=== PATIENT | female | born 2000 | race Caucasian/White ===

== ENCOUNTER 2018-11-15 17:32 | Emergency (ER) | payer SELFPAY ==
[2018-11-15 17:35] VITALS: BP 118/66; PULSE 62; RESP 14; TEMP 36.7; O2SAT 97; BMI 28.1
[2018-11-15] MEDS: 0.9% Normal Saline 1,000 ML 1000 ML IV (19:04)
[2018-11-15 19:22] LABS: Lyme Ab Screen Interpretation REF LAB
--- NOTE | 2018-11-15 19:53 | ED.DCSUM_ITS ---
- ER Visit Summary Date of Service: 11/15/18 Chief Complaint: [Joint pain and concern for Lyme disease] History of Present Illness: The patient is a 17 F [presents the emergency department complaint of joint pain that started about 3 weeks ago. Patient states that she had a tick that she removed from her neck 1 month ago. Patient a week later developed a red circular rash. Patient also developed joint pain.] Patient has had subjective fever at home. She has not seen her primary care physician for this. Physical Examination: [HEENT-PERRLA, EOMI. Cranial nerves II through XII grossly intact. TMs clear. Mucous membranes moist. No adenopathy. Cardiovascular-regular rate and rhythm without murmur or ectopy Lungs-clear to auscultation, chest wall stable without crepitus or subcu emphysema Abdomen-normoactive bowel sounds, soft, nontender, no rebound or rigidity, no pe ritoneal signs. Skin exam-patient does have a oval-shaped salmon-colored patchy rash involving the anterior chest and back that appears to be typical of pityriasis rosea. I do not appreciate any bull's-eye lesions. Extremities-intact ?4, normal range of motion, normal pulses, atraumatic] Test Results: [I did send off a Lyme studies. ] Emergency Department Course and Treatment: [Patient was started on doxycycline given that she has allergy to penicillin] Treatment Plan: [We will treat with doxycycline and refer to primary care physician and infectious disease.] Disposition: [Discharged home in stable condition] Impression: [Tick bite with suspect did Lyme disease] This note was generated with [employer] dictation software. It may contain incorrect words, spelling, and punctuation that were not noted in review of the chart prior to signing ED Disposition - Plan for ED Patient: Referrals: Jose Carlos Knight DO [Primary Care Provider] -
--- NOTE | 2018-11-15 19:58 | ED.DEP ---
ED Disposition - Plan for ED Patient: Instructions: ED Bite Tick Abx Tx Prescriptions: Doxycycline 100 mg PO BID #42 cap Referrals: Jose Carlos Chang MD [STAFF PHYSICIAN] - 3-5 Days Jose Carlos Knight DO [Primary Care Provider] - 3-5 Days
[2018-11-15 20:12] VITALS: BP 111/54; BP 111/56; PULSE 58; RESP 17; O2SAT 99
[2018-11-15] MEDS: Doxycycline 100 MG CAPSULE PO (20:12)
[2018-11-20 11:43] LABS: Lyme Scn Total Ab w/Rflx <0.91 ISR (0.00-0.90)
== END 2018-11-15 20:17 | disposition home or self-care (01) ==
LOC: ED 19:00
PROVIDERS: Emergency Provider Emergency Medicine; Family Provider Preventive Medicine Occupational Medicine; PCP Preventive Medicine Occupational Medicine
DX: M25.50 Pain in unspecified joint (principal); W57.XXXA Bitten or stung by nonvenomous insect and other nonvenomous arthropods, initial encounter; Z72.0 Tobacco use
CPT/HCPCS: 86618; 96360; 99283; J7030; A4216

== ENCOUNTER 2025-05-19 20:32 | Emergency (ER) | payer MEDICAID, SELFPAY ==
[2025-05-19 20:33] VITALS: BP 123/80; PULSE 103; RESP 18; TEMP 36.6; O2SAT 99
[2025-05-19 20:36] VITALS: BMI 33.8
[2025-05-19 20:48] VITALS: BP 113/70; BP 121/75; PULSE 78; PULSE 92
--- NOTE | 2025-05-19 20:50 | EX.ED.DYSGE1 ---
HPI History of Present Illness Chief Complaint: General Illness Detail of Chief Complaint: Bilateral lower abdominal pain, diarrhea and nausea Informant: patient Onset/Context/Timing Onset: Days (Onset 4 days ago) Context: Sudden Onset Timing: Continuous and Waxes and wanes Quality: Dull Location: Bilateral lower quadrant Current Severity: Mild Maximum Severity: Moderate Worsened by: Nothing Relieved by: Nothing Associated Symptoms Associated Symptoms: Nausea, dry mouth, thirst, orthostatic lightheadedness Narrative Narrative: Patient is a 24-year-old female. She was diagnosed with Lyme's disease this past spring. She completed course of antibiotics for 21 days. She endorses bilateral dull lower quadrant abdominal pain with diarrhea. She is having 5+ watery stools per day. She has had no ill contacts to her knowledge. Has not eaten anything that tasted unusual to her. Has not been on antibiotic in the past month. She does complain of myalgias arthralgias. She denies documented fever. She denies chills. States anytime she drinks anything it goes through her. She denies headache, visual, ocular auditory symptoms. She denies cardiac respiratory symptoms. She has had prior EGDs with no abnormality found. She has not had a colonoscopy. She has not noted blood or mucus in her diarrhea. She has not noted any rash or skin lesions. She has not noted any swelling of her joints. There is no family history of Crohn's disease or ulcerative colitis. Prior similar symptoms: No Recent Illness/Hospitalization: No [facility] Medical History Lyme disease Gastritis Medical History no medical history Home Medications ?Medication ?Instructions ?Recorded ?Last Taken ?Type doxycycline monohydrate 100 mg 100 mg PO BID #42 caps 11/15/18 Unknown Rx capsule Allergy/AdvReac Type Severity Reaction Status Date / Time Penicillins Allergy Angioedema Verified 05/19/25 20:35 latex AdvReac Rash Verified 05/19/25 20:35 Surgical History no surgical history Social History Smoking Status: Former smoker ROS ROS ED Constitutional Constitutional ED: Denies chills, fever(s), subjective or sweats ENT ENT ED: Denies rhinorrhea or sore throat Cardiovascular Cardiovascular: Denies palpitations Respiratory/Chest Respiratory/Chest: Denies cough, dyspnea or dyspnea on exertion Gastrointestinal Gastrointestinal: Reports abdominal pain, diarrhea and nausea; Denies constipation, melena or vomiting Genitourinary Genitourinary ED: Denies dysuria, hematuria or urinary frequency Musculoskeletal Musculoskeletal: Reports arthralgias and myalgias Integumentary Denies rash Neurologic Neurologic: Reports weakness; Denies headache(s) Hematologic/Lymphatic Hematologic/Lymphatic: Reports systems reviewed and no addt'l complaints, except as documented EXAM Physical Exam Const Vital Signs: 05/19/25 20:33 05/19/25 20:45 05/19/25 20:48 Temperature 97.8 F Temperature Source Temporal Pulse Rate 103 H Pulse Rate [Lying] 78 Pulse Rate [Sitting (for 1 minute prior to obtaining)] 92 Pulse Rate [Standing (for 1 minute prior to obtaining)] Respiratory Rate 18 Respiratory Effort Normal Respiratory Pattern Normal Blood Pressure 123/80 H Blood Pressure [Lying] 121/75 H Blood Pressure [Sitting (for 1 minute prior to obtaining)] 113/70 Blood Pressure [Standing (for 1 minute prior to obtaining)] Blood Pressure Mean 94 Blood Pressure Mean [Lying] 90 Blood Pressure Mean [Sitting (for 1 minute prior to obtaining)] 84 Blood Pressure Mean [Standing (for 1 minute prior to obtaining)] Pulse Ox 99 Oxygen Delivery Method Room Air 05/19/25 22:33 05/19/25 23:46 Temperature Temperature Source Pulse Rate 77 Pulse Rate [Lying] 81 Pulse Rate [Sitting (for 1 minute prior to obtaining)] 76 Pulse Rate [Standing (for 1 minute prior to obtaining)] 79 Respiratory Rate 19 H Respiratory Effort Respiratory Pattern Blood Pressure 110/72 Blood Pressure [Lying] 102/81 H Blood Pressure [Sitting (for 1 minute prior to obtaining)] 107/73 Blood Pressure [Standing (for 1 minute prior to obtaining)] 100/64 Blood Pressure Mean 84 Blood Pressure Mean [Lying] 88 Blood Pressure Mean [Sitting (for 1 minute prior to obtaining)] 84 Blood Pressure Mean [Standing (for 1 minute prior to obtaining)] 76 Pulse Ox 98 Oxygen Delivery Method Room Air Positive well nourished and well developed Constitutional Narrative: Patient appears ill. Vital signs are marked for an elevated heart rate. General Appearance ED: well developed and pallor HEENT Reports dry mucous membranes HEENT Narrative: Head is atraumatic and normocephalic. Ears normal. Nares patent posterior pharynx is unremarkable. Mouth ED: Yes dry mucous membranes Mouth: dry mucous membranes Eyes PERRL and EOMs intact bilaterally General Eye ED: Negative for pale conjunctiva or scleral icterus Neck no lymphadenopathy, supple and no JVD Resp normal respiratory effort and clear to auscultation bilaterally Cardio regular rhythm, S1 normal heart sound and no murmurs Rate: tachycardic GI non-distended and no masses; Negative for non-tender or hepatosplenomegaly Auscultation: hypoactive bowel sounds Palpation: soft and tender other (Discomfort to palpation is generalized. There is no guarding or peritoneal findings.) Back/Spine no CVA tenderness Extremity normal to inspection General Extremety ED: Negative for edema or tenderness General Extremity: Negative for edema Neuro oriented x3 and CN's II-XII intact bilaterally Sensorium / Orientation: alert Psych mental status grossly normal Skin no rashes or lesions noted, no wounds and No skin turgor normal General Skin Exam: pallor; Negative for elasticity normal or jaundice MDM MDM MDM Narrative Medical decision making narrative: Clinically patient appears dehydrated. 1 L normal saline was ordered. Zofran was ordered for her nausea. Will obtain CBC to assess white count differential and assess for eosinophilia. BMP to assess renal function, CO2 anion gap and evaluate for hypokalemia. If patient is able to produce stool specimen will send for enteric pathogens. History & Record Review Additional record(s) reviewed:: Prior inpatient record, Prior outpatient record (Report for breast freezing visit July 2021.) and Prior ED visit (Evaluate for joint pain October 2018.) Lab Data Attestation: I reviewed the patient's lab results. Lab results narrative: CBC is normal. Basic metabolic panel is unremarkable with slight elevation of glucose of 113. Labs: Laboratory Results - last 24 hr 05/19/25 05/19/25 21:12 21:40 WBC 7.6 RBC 4.80 Hgb 14.6 Hct 42.3 MCV 88.1 MCH 30.4 MCHC 34.5 RDW Std Deviation 40.7 RDW Coeff of Andres 12.5 Plt Count 318 MPV 10.1 Immature Gran % (Auto) 0.300 Neut % (Auto) 58.8 Lymph % (Auto) 24.5 Woods % (Auto) 14.6 H Eos % (Auto) 1.0 Baso % (Auto) 0.8 Absolute Neuts (auto) 4.5 Absolute Lymphs (auto) 1.87 Nucleated RBC % 0 Sodium 135 Potassium 3.8 Chloride 101 Carbon Dioxide 20.9 L Anion Gap 13 BUN 10 Creatinine 0.82 Estim Creat Clear Calc 100.45 Est GFR (MDRD) Non-Af 101 BUN/Creatinine Ratio 11.6 Glucose 113 H Calcium 9.1 Urine Color Yellow Urine Clarity Sl. Cloudy Urine pH 6.0 Ur Specific [place] 1.010 Urine Protein 15 H Urine Glucose (UA) Normal Urine Ketones Negative Urine Occult Blood 50 H Urine Nitrite Negative Urine Bilirubin Negative Urine Urobilinogen Normal Ur Leukocyte Esterase 500 H Urine macro was positive for protein, occult blood and leukoesterase. Negative for nitrites. Treatment and Re-Evaluation :: Patient was reassessed at 2151. Patient states she feels better. She had a semiformed stool in the department. She is present receiving her liter of normal saline. Her nausea improved after Zofran. Comments:: Patient still complaining of orthostatic lightheadedness. Second liter of normal saline was ordered. Vital Sign Attestation:: Repeat orthostatic vital signs after 2 L of normal saline is negative. Therefore we will discharge to home Discharge Plan Triage Chief Complaint: General Illness ED Provider: Marco A Hinton Dx/Rx/DC Orders Clinical Impression: Abdominal pain, bilateral lower quadrant, Diarrhea, Nausea, Orthostatic hypotension, Acute dehydration, Tachycardia Instructions: ED Diarrhea, Unknown Cause, ED Hypotension, Orthostatic Prescriptions: No Action doxycycline monohydrate 100 MG capsule 100 mg PO BID Qty: 42 0RF Primary Care Provider: Ashley Gee Referrals: Ashley Gee, [Primary Care Provider, [facility][1]] - 3-5 Days if not improving Care Physician,No Primary [Non-Staff, Medical] Print Language: Belarusian Disposition Disposition: Home, Self Care
--- OUTSIDE RECORDS SUMMARY | 2025-05-19 21:05 | XMS RPT_ITS | CCD ---
Author Organization [facility] Care Team Providers Care Display Fabricator Name Role Phone PROVIDER, UNKNOWN Unavailable Unavailable No, PCP Unavailable Unavailable Russell Foreman Unavailable Unavailable PROVIDER, UNKNOWN Unavailable Unavailable No, PCP Unavailable Unavailable Judy Joe Unavailable Unavailable ROXANA GREEN Unavailable Unavailable Roxana Green Unavailable Unavailable PROVIDER, UNKNOWN Unavailable Unavailable No, PCP Unavailable Unavailable BORA ROSALES Unavailable Unavailable IMCA Unavailable Unavailable BORA ROSALES Unavailable Unavailable AMAURI HINES DO Primary Care Physician AMAURI HINES DO Primary Care Physician [phone] CORTNEY GREGORIO DO Attending Unavailable FLORA MADDEN, AMAURI Primary Care Unavailable FLORA MADDEN, AMAURI Primary Care Unavailable LUBNA ROME-SHASTA Portillo Attending Unavailable FLORA MADDEN, AMAURI Primary Care Unavailable SHASTA CALVO PA-C Attending Unavailable SHASTA CALVO PA-C Referring Unavailable DR LINDSAY ALEMAN MD Attending Unavailable FLORA MADDEN AMAURI Primary Care Unavailable Unavailable Primary Care Provider Unavailabl e Unavailable Primary Care Provider Unavailabl e (Historical), Unknown Primary Care Provider Unav ailable Amauri Hines DO Primary Care Provider AMAURI HINES Primary Care Unavailable HONG FARRIS Attending Unavailable AMAURI HINES DO Attending Unavailable FLORA MADDEN, AMAURI Primary Care Unavailable NOLAN HEREDIA Attending Unava ilable FLORA MADDEN, AMAURI Primary Care Unavailable FLORA MADDEN, AMAURI Attending Unavailable FLORA MADDEN, AMAURI Primary Care Unavailable FLORA MADDEN, AMAURI Primary Care Unavailable JONE MALHOTRA Attending Amisha varicardoble KENTON REESE DO Attending Unavailable FLORA MADDEN, AMAURI Primary Care Unavailable JENNIFER SÁNCHEZ DO Attending Unavailable FLORA MADDEN, AMAURI Primary Care Unavailable FLORA MADDEN, AMAURI Primary Care Unavailable NAUN HDEZ MD Attending Unavailable BASAR, ALVARADO Admitting Unavailable BASAR, ALVARADO Attending Unavailable ADRIAN VALERO Admitting Unavailable ADRIAN VALERO Attending Unavailable ARIAN LALA Attending Unavailable MARY KAY ARNDT Referring Unavailable BASAR, ALVARADO Admitting Unavailable BASAR, ALVARADO Attending Unavailable Allergies Allergy Classification Reported Allergen(s) Allergy Type Date of Onset Reaction(s) Facility (20 sources) Latex; Translations: [LATEX] Allergy to substance 4 [facility] (11 sources) Penicillin; Translations: [penicillin] Drug Allergy Weal (disorder) [facility] (8 sources) Acetaminophen; Translations: [acetaminophen] Drug Allergy 4 [facility] (16 sources) Acetaminophen Drug Allergy 4 [facility] (16 sources) Penicillin G Drug Allergy 4 [facility] (5 sources) Penicillins; Translations: [PENICILLINS] Drug Allergy 4 [facility] (8 sources) Cheese Propensity to adverse reactions 5 Shortness of breath, Swelling [facility] Medications Current Medications Medication Drug Class(es) Dates Sig (Normalized) Sig (Original) acetaminophen 325 mg / oxyCODONE hydrochloride 5 mg oral tablet (2 sources) Opioid Agonist Start: 08-21-2022 End: 08-26-2022 take 1 tablet by mouth every six hours as needed for pain Percocet 5 mg-325 mg oral tablet Dose = 1 tab(s), Oral, q6h, PRN for pain, X 5 day(s), # 15 tab(s), 0 Refill(s), Closed fracture of right wrist, 72.7 Start Date: 08/21/22 Stop Date: 08/26/22 Status: Ordered ARIPiprazole 10 mg oral tablet (1 source) Atypical Antipsychotic Start: 07-22-2017 take 1 tablet by mouth once daily ARIPiprazole (ABILIFY) 10 MG tablet Take 1 tablet by mouth nightly 30 tablet 0 07/22/2017 Active famotidine 40 mg oral tablet (3 sources) Histamine-2 Receptor Antagonist Start: 06-11-2024 take 1 tablet by mouth every twelve hours famotidine (PEPCID) 40 mg tablet Take 1 tablet by mouth every 12 hours. 06/11/2024 Active ketoconazole 20 mg/ml topical cream (8 sources) Azole Antifungal Start: 08-13-2022 ketoconazole 2% topical cream See Instructions, apply to affected area once daily for 14 days, # 30 gram(s), 1 Refill(s), Pharmacy: [facility] #[id number], Cream, 162, cm, 01/19/22 16:00:00 EDT, Height, 72.7 Start Date: 08/13/22 Status: Ordered meclizine hydrochloride 25 mg oral tablet (1 source) Antiemetic Start: 03-18-2024 End: 03-23-2024 meclizine 25 mg oral tablet Dose : 25 mg = 1 tab(s), PO, TID, As needed for vertigo, X 5 day(s), # 15 tab(s), 0 Refill(s), 03/23/24 3:27:00 PM EDT Start Date: 03/18/24 Stop Date: 03/23/24 Status: Ordered omeprazole 20 mg delayed release oral capsule (6 sources) Proton Pump Inhibitor Start: 11-19-2024 take 1 capsule by mouth twice daily before mealtime omeprazole (PriLOSEC) [address] capsule Indications: Helicobacter heilmannii gastritis Take 1 capsule (20 mg) by mouth 2 times daily (before meals) for 14 days. Do not crush or chew. 28 capsule 11/19/2024 Active pantoprazole 40 mg delayed release oral tablet (19 sources) Proton Pump Inhibitor Start: 05-01-2024 take 1 tablet by mouth twice daily, then take 1 tablet by mouth once daily pantoprazole DR (PROTONIX) 40 mg tablet TAKE 1 TABLET BY MOUTH TWICE DAILY FOR 7 DAYS, THEN DECREASE TO 1 TABLET BY MOUTH DAILY. 05/01/2024 Active Start: 04-14-2024 take 40 mg by mouth once 40 mg , Oral, Once, On 04/14/24 at 1850, For 1 dose, Do not crush, chew, or split. Start: 04-14-2024 End: 11-19-2024 take 1 tablet by mouth once daily pantoprazole (ProtoNix) 20 MG EC tablet Take 1 tablet (20 mg) by mouth daily for 20 days. Do not crush, chew, or split. 20 tablet 04/14/2024 11/19/2024 Discontinued Completed/Discontinued Medications Medication Drug Class(es) Dates Sig (Normalized) Sig (Original) bismuth subsalicylate 262 mg chewable tablet (1 source) Bismuth Start: 11-19-2024 End: 12-03-2024 bismuth subsalicylate (Pepto-Bismol) 262 MG chewable tablet Indications: Helicobacter heilmannii gastritis Chew 2 tablets (524 mg) 4 times daily for 14 days. 112 tablet 11/19/2024 12/03/2024 dicyclomine hydrochloride 10 mg oral capsule (4 sources) Anticholinergic Start: 04-14-2024 End: 04-14-2024 take 10 mg by mouth once 10 mg, Oral, Once, On 04/14/24 at 1850, For 1 dose Start: 04-14-2024 End: 04-24-2024 take 1 tablet by mouth twice daily dicyclomine (Bentyl) 20 MG tablet Take 1 tablet (20 mg) by mouth 2 times daily for 10 days. 20 tablet 04/14/2024 04/24/2024 Active metroNIDAZOLE 250 mg oral tablet (1 source) Nitroimidazole Antimicrobial Start: 11-19-2024 End: 12-03-2024 take 1 tablet by mouth four times daily metroNIDAZOLE (Flagyl) 250 MG tablet Indications: Helicobacter heilmannii gastritis Take 1 tablet (250 mg) by mouth 4 times daily for 14 days. 56 tablet 11/19/2024 12/03/2024 2 ml ondansetron 2 mg/ml injection (7 sources) Serotonin-3 Receptor Antagonist Start: 01-16-2025 End: 01-16-2025 4 mg, IntraVENous, Once PRN, nausea, vomiting, Starting on Tue01/16/25 at 0725, For 1 dose, Preprocedure Start: 11-14-2024 End: 11-14-2024 4 mg, IntraVENous, Once PRN, nausea, vomiting, Starting on Tue11/14/24 at 0928, For 1 dose, Preprocedure Start: 04-01-2024 End: 04-15-2024 ondansetron 4 mg oral tablet , disintegrating Dose : 4 mg = 1 tab(s), Oral, q6h, PRN Nausea/Vomiting, # 20 tab(s), 0 Refill(s), 04/15/24 5:14:00 PM EDT Start Date: 04/01/24 Stop Date: 04/15/24 Status: Ordered 5 ml sodium chloride 9 mg/ml injection (20 sources) Start: 02-28-2025 End: 02-28-2025 10 mL, IntraVENous, Every 12 hours scheduled (2 times per day), First dose on Tue02/28/25 at 0915 Start: 02-28-2025 End: 02-28-2025 take 100 mL intravenously every hour as needed, then take 20 mL intravenously every hour as needed 5-250 mL/hr, IntraVENous, PRN, if patient receiving piggyback infusions and maintenance fluids are not ordered OR KVO fluids to protect IV site / prevent frequent line interruptions/ long duration, Starting on Sena 02/28/25 at 0909, For piggyback infusion, administer at same rate as piggyback for a total of 25 mL. Enter 25 mL into dose field and piggyback rate into rate field of order. If piggyback is infusing at a rate less than 100 mL/hr, enter 25 mL into dose field and 100 mL/hr into rate field of order. For KVO fluids, enter rate of 20 mL/hr or less into rate field of order. Start: 02-28-2025 End: 02-28-2025 take 10 mL intravenously once as needed 10 mL, IntraVENous, PRN, line care, Starting on Sena 02/28/25 at 0909, After every IV line use Start: 01-16-2025 End: 01-16-2025 10 mL, IntraVENous, Every 12 hours scheduled (2 times per day), First dose on Tue01/16/25 at 0900, Preprocedure Start: 01-16-2025 End: 01-16-2025 take 100 mL intravenously every hour as needed, then take 20 mL intravenously every hour as needed 5-250 mL/hr, IntraVENous, PRN, if patient receiving piggyback infusions and maintenance fluids are not ordered OR KVO fluids to protect IV site / prevent frequent line interruptions/ long duration, Starting on Tue01/16/25 at 0725, Preprocedure, For piggyback infusion, administer at same rate as piggyback for a total of 25 mL. Enter 25 mL into dose field and piggyback rate into rate field of order. If piggyback is infusing at a rate less than 100 mL/hr, enter 25 mL into dose field and 100 mL/hr into rate field of order. For KVO fluids, enter rate of 20 mL/hr or less into rate field of order. Start: 01-16-2025 End: 01-16-2025 take 10 mL intravenously once as needed 10 mL, IntraVENous, PRN, line care, Starting on Tue01/16/25 at 0725, Preprocedure, After every IV line use Start: 11-14-2024 End: 11-14-2024 10 mL, IntraVENous, Every 12 hours scheduled (2 times per day), First dose on Tue11/14/24 at 0930, Preprocedure Start: 11-14-2024 End: 11-14-2024 take 100 mL intravenously every hour as needed, then take 20 mL intravenously every hour as needed 5-250 mL/hr, IntraVENous, PRN, if patient receiving piggyback infusions and maintenance fluids are not ordered OR KVO fluids to protect IV site / prevent frequent line interruptions/ long duration, Starting on Tue11/14/24 at 0928, For piggyback infusion, administer at same rate as piggyback for a total of 25 mL. Enter 25 mL into dose field and piggyback rate into rate field of order. If piggyback is infusing at a rate less than 100 mL/hr, enter 25 mL into dose field and 100 mL/hr into rate field of order. For KVO fluids, enter rate of 20 mL/hr or less into rate field of order. Start: 11-14-2024 End: 11-14-2024 take 10 mL intravenously once as needed 10 mL, IntraVENous, PRN, line care, Starting on Tue11/14/24 at 0928, After every IV line use tetracycline hydrochloride 500 mg oral capsule (1 source) Tetracycline-class Antimicrobial Start: 11-19-2024 End: 12-03-2024 take 1 capsule by mouth four times daily tetracycline 500 MG capsule Indications: Helicobacter heilmannii gastritis Take 1 capsule (500 mg) by mouth 4 times daily for 14 days. 56 capsule 11/19/2024 12/03/2024 Problems Active Problems Problem Classification Problem Date Documented Da te Episodic/Chronic Abdominal pain (20 sources) Pain in pelvis; Translations: [Generalized abdominal pain] Onset: 01-16-2025 08-28-2020 Episodic Anxiety disorders (11 sources) Anxiety 07-23-2020 Chronic Attention-deficit, conduct, and disruptive behavior disorders (2 sources) Other conduct disorders; Translations: [Other conduct disorders] Onset: 07-16-2017 Chronic Conditions associated with dizziness or vertigo (1 source) Dizziness and giddiness; Translations: [Dizziness and giddiness] Onset: 03-18-2024 Episodic E Codes: Fall (1 source) Unspecified fall, subsequent encounter; Translations: [Unspecified fall, subsequent encounter] Episodic Fracture of upper limb (2 sources) Closed fracture of carpal bone; Translations: [Fracture of unspecified carpal bone, right wrist, initial encounter for closed fracture] Onset: 08-21-2022 Episodic Gastritis and duodenitis (1 source) Helicobacter heilmannii gastritis; Translations: [Other gastritis without bleeding] 11-19-2024 Episodic Intestinal infection (4 sources) Infection caused by Helicobacter pylori; Translations: [Other specified bacterial intestinal infections] Onset: 01-16-2025 01-16-2025 Episodic Menstrual disorders (11 sources) Irregular periods 08-28-2020 Chronic Mood disorders (20 sources) Depressive disorder; Translations: [Bipolar affective disorder, currently manic, severe, with psychosis] Onset: 07-19-2017 07-23-2020 Chronic Mycoses (11 sources) Pityriasis versicolor 04-20-2022 Episodic Nausea and vomiting (13 sources) Nausea; Translations: [Nausea] Onset: 04-01-2024 Episodic Other disorders of stomach and duodenum (2 sources) Disease of stomach and duodenum, unspecified; Translations: [Disease of stomach and duodenum, unspecified] Onset: 02-28-2025 Episodic Other female genital disorders (1 source) Polyp of corpus uteri; Translations: [Polyp of corpus uteri] 05-15-2024 Episodic Other gastrointestinal disorders (4 sources) Diarrhea; Translations: [Diarrhea, unspecified] 07-12-2024 Episodic Other lower respiratory disease (1 source) Hemoptysis; Translations: [Hemoptysis] Onset: 03-18-2024 Episodic Other skin disorders (11 sources) Multiple skin tags 02-15-2020 Episodic Other upper respiratory infections (4 sources) Acute upper respiratory infection; Translations: [Acute upper respiratory infection, unspecified] Onset: 08-13-2023 Episodic Ovarian cyst (1 source) Cyst of ovary; Translations: [Unspecified ovarian cyst, unspecified side] 05-15-2024 Episodic Schizophrenia and other psychotic disorders (2 sources) Unspecified psychosis not due to a substance or known physiological condition; Translations: [Unspecified psychosis not due to a substance or known physiological condition] Onset: 07-03-2017 Chronic Substance-related disorders (20 sources) 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; Translations: [Nicotine dependence, unspecified, uncomplicated] Onset: 07-09-2017 07-19-2017 Chronic Unclassified (2 sources) Restlessness and agitation; Translations: [Restlessness and agitation] Onset: 07-09-2017 Chronic Unclassified (11 sources) Patient encounter status 08-28-2020 Viral infection (11 sources) Genital herpes simplex 08-28-2020 Chronic Past or Other Problems Problem Classification Problem Date Documented Da te Episodic/Chronic Attention-deficit, conduct, and disruptive behavior disorders (2 sources) Strange and inexplicable behavior; Translations: [Strange and inexplicable behavior] Onset: 07-09-2017 Episodic Attention-deficit, conduct, and disruptive behavior disorders (17 sources) Bizarre behavior; Translations: [Strange and inexplicable behavior] Onset: 07-10-2017 07-10-2017 Episodic Gastrointestinal hemorrhage (10 sources) Hematemesis; Translations: [Hematemesis] Onset: 04-14-2024 04-14-2024 Episodic Medical examination/evaluation (2 sources) Encounter for other general examination; Translations: [Encounter for other general examination] Onset: 07-16-2017 Episodic Other gastrointestinal disorders (2 sources) Diarrhea, unspecified; Translations: [Diarrhea, unspecified] Onset: 07-12-2024 Episodic Unclassified (1 source) Unknown / UNK(Unknown) Onset: 07-03-2017 Results Test Name Value Interpretation Reference Range Facility 36on 02-06-2025 36 Patient returned my phone call. Patient now scheduled on 02/28/25 @ 9am with the arrival time of 8am. [facility] schedule updated Order submitted Open Case request submitted Case # [id number] Endo packet mailed to patient Prep sent via [employer] if pt acct active Pt is aware they will need a tilt tray driver to take them home from procedure. Must be family member or friend. They cannot use any ride programs. Ex: Uber, Lyft, SCAT, bus, etc...) Normal [facility] 36 Lmtcb to get schedul ed for an EUS. Normal [facility] HCG QUALITATIVE URINEon 12-20 Beta HCG ( test) Ql (U) Negative Normal Negative [facility] Comment on above: Result Comment: Plea se note: Very dilute urine specimens, as indicated by a low specific gravity, may not contain community relations representative levels of hCG. If is still suspected, a first morning urine specimen should be collected 48 hours later and tested. ORDER COMMENTS: is the most common reason for HCG in urine, although choriocarcinoma, hydatidiform mole, and certain nontrophoblastic malignancies also result in detectable urinary HCG levels. Sensitivity = 20mIU/mL. Performed By: #### L [id number] #### Tellers Supervisor: HOSSEIN CAMACHO ([phone]) [facility] ([facility]) [address] [place] [address] Laboratory - Chemistry and C hemistry - challengeOrdered By: Noble Salinas on 01-16-2025 Beta HCG ( test) Ql Negative Negative [facility] Comment on above: Please note: Very di lute urine specimens, as indicated by a low specific gravity, may not contain community relations representative levels of hCG. If is still suspected, a first morning urine specimen should be collected 48 hours later and tested. Beta HCG ( test) Ql (U) is the most common reason for HCG in urine, although choriocarcinoma, hydatidiform mole, and certain nontrophoblastic malignancies also result in detectable urinary HCG levels. Sensitivity = 20mIU/mL. [facility] No Panel InformationOrdered By: Noble Salinas on 01-16-2025 [facility] Nursing Noteon 01-16-2025 Nursing Note Pt states she wants to go home. She is assisted with getting dressed by nurse. Complains of being slightly dizzy. Hand off done with volunteer and it is communicated to her that pt is dizzy. Pt states dizziness is tolerable and she is ready to go home. Discharge to home with all belongings. Normal [facility] Nursing Note Pt is awake and linnea irene juice. Dr Morgan discussed findings with pt. Father remains at bedside. She c/o slight sore throat. States slightly dizzy and not ready to get dressed. Normal [facility] Nursing Note Received pt from gi lab to recovery phase 2 sleeping/sedated on room air. Father brought to bedside. History and allergies reviewed in EMR. Report received and assessment completed [facility] 01-11-[address] Alvarado Morgan EGD Date: 01/16/25 Arrival time: 6:30 am Please report to: [place] [id number] Spoke with pt, confirmed they will attend scheduled procedure. All questions or concerns addressed. Pt has prep medication on hand. Prep instructions sent via [employer] if active. Normal [facility] 01-09-[address] Alvarado Morgan EGD Date: 01/16/25 Arrival time: 6:30 am Please report to: [place] [id number] Spoke with pt, confirmed they will attend scheduled procedure. All questions or concerns addressed. Pt has prep medication on hand. Prep instructions sent via [employer] if active. [facility] [id number] 12-10-2024 [id number] Patient accepted new date and time for her EGD. Patient now scheduled to 01/16/25 @ 7:30am with the arrival time of 6:30am with Dr. Morgan in [place]. Called and spoke withInessadi in surgery scheduling. Updated the case and view schedule. [facility] schedule updated Order submitted Open Case request submitted Case # [id number] Endo packet mailed to patient Prep sent via [employer] if pt acct active Pt is aware they will need a tilt tray driver to take them home from procedure. Must be family member or friend. They cannot use any ride programs. Ex: Uber, Lyft, SCAT, bus, etc...) [facility] [id number] 11-22-2024 [id number] Patient now schedule d on 04/10/25 @ 11:30am with the arrival time of 10:30am with Dr. Morgan in [place] for her EGD. [facility] schedule updated Order submitted Open Case request submitted Case # [id number] Endo packet mailed to patient Prep sent via [employer] if pt acct active Pt is aware they will need a tilt tray driver to take them home from procedure. Must be family member or friend. They cannot use any ride programs. Ex: Uber, Lyft, SCAT, bus, etc...) [facility] 36on 11-20-2024 36 Results and recommendations given to patient. Claims full understanding and questions answered at this time. [facility] pharmacy had to order medication and will rail gang supervisor today. Office number given and she will call to schedule follow up EGD with Bx 1 month after completion of medication with Rubi. Rubi will contact patient next week. Dr. Morgan notified. Arian notified. Rubi notified. 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 Treatment (Quadruple therapy) has been sent to the pharmacy. This includes tetracycline, metronidazole, omeprazole and pepto bismol. Will need to confirm successful treatment of bacteria with repeat EGD with gastric biopsies. Please schedule EGD ~ one month after treatment. Thank you. ----- Message ----- From: Alvarado Morgan MD Sent: 11/16/2024 4:44 PM EDT To: LEONARDA Sneed CNP Pls treat Helicobacter heilmannii just like HP infection and repeat EGD with gastric biopsies after treatment Thanks ----- Message ----- From: Whitetruffle Mecca Rosas Sent: 11/16/2024 1:40 PM EDT To: Alvarado Morgan MD [facility] HCG QUALITATIVE URINEon 10-19 Beta HCG ( test) Ql (U) Negative Normal Negative [facility] Comment on above: Result Comment: Pleotoniel sparks note: Very dilute urine specimens, as indicated by a low specific gravity, may not contain community relations representative levels of hCG. If is still suspected, a first morning urine specimen should be collected 48 hours later and tested. ORDER COMMENTS: is the most common reason for HCG in urine, although choriocarcinoma, hydatidiform mole, and certain nontrophoblastic malignancies also result in detectable urinary HCG levels. Sensitivity = 20mIU/mL. Performed By: #### L [id number] ####Tellers Supervisor: HOSSEIN CAMACHO ([phone])[facility] ([facility])[address] [place] [address] Laboratory - Chemistry and C hemistry - challengeOrdered By: Floridalma Gan on 11-14-2024 Beta HCG ( test) Ql Negative Negative [facility] Comment on above: Please note: Very di lute urine specimens, as indicated by a low specific gravity, may not contain community relations representative levels of hCG. If is still suspected, a first morning urine specimen should be collected 48 hours later and tested. Beta HCG ( test) Ql (U) is the most common reason for HCG in urine, although choriocarcinoma, hydatidiform mole, and certain nontrophoblastic malignancies also result in detectable urinary HCG levels. Sensitivity = 20mIU/mL. [facility] No Panel InformationOrdered By: Floridalma Gan on 11-14-2024 [facility] Nursing Noteon 11-14-2024 Nursing Note Pt and family verbal ized understanding of recovery instructions, pt verbalized a readiness to be discharged home. Pt discharged home via wheelchair accompanied by RN/volunteer. Pt has had all their belongings returned to them at discharge Normal [facility] Nursing Note Pt recieved from ENDOSCOPY to phase 2 via cart with EARLY CHILDHOOD DIRECTOR in attendance, pt has spontaneous respirations,pt place on monitor with alarms on, will continue to monitor Normal [facility] .Auto Diffon 09-26-2024 Basophil, Absolute 0.1 10 3/mcL Normal 0.0-0.3 [facility] Comment on above: Performed By: #### G FR, LIPID, CBC, ADIFF, ANEU, CMP ####[address] [address] Basophils/100 WBC (Bld) 0.8 % Normal 0.0-2.5 [facility] Comment on above: Performed By: #### G FR, LIPID, CBC, ADIFF, ANEU, CMP ####[facility] [place] [id number] Eosinophil, Absolute 0.2 10 3/mcL Normal 0.0-0.7 [facility] Comment on above: Performed By: #### G FR, LIPID, CBC, ADIFF, ANEU, CMP ####[place] [id number] [place], [place] [address] Eosinophils/100 WBC (Bld) 2.2 % Normal 0.0-6.0 [facility] Comment on above: Performed By: #### G FR, LIPID, CBC, ADIFF, ANEU, CMP ####[id number] [place], [place] [address] Lymphocyte, Absolute 2.3 10 3/mcL Normal 0.9-4.3 [facility] Comment on above: Performed By: #### G FR, LIPID, CBC, ADIFF, ANEU, CMP ####[address] [address] Lymphocytes/100 WBC (Bld) 21.4 % Normal 20.0-40.0 [facility] Comment on above: Performed By: #### G FR, LIPID, CBC, ADIFF, ANEU, CMP ####[address] [address] Monocyte, Absolute 0.9 10 3/mcL Normal 0.1-1.4 [facility] Comment on above: Performed By: #### G FR, LIPID, CBC, ADIFF, ANEU, CMP ####[address] [address] Monocytes/100 WBC (Bld) 8.5 % Normal 2.0-13.0 [facility] Comment on above: Performed By: #### G FR, LIPID, CBC, ADIFF, ANEU, CMP ####[address] [place], [place] [address] Neutrophils/100 WBC (Bld) 67.1 % Normal 50.0-75.0 [facility] Comment on above: Performed By: #### G FR, LIPID, CBC, ADIFF, ANEU, CMP ####[facility] [place], [place] [address] .GFRon 09-26-2024 Estimated Glomerular Filtration Rate 99 ml/min/1.73sqm Normal [facility] Comment on above: Result Comment: Stages of Chronic Kidney Disease (CKD) Stage Description eGFR(ml/min/1.73 sq.m.) CKD 1 Normal kidney function or >=90 normal kindney function with possible kidney damage (ex. Proteinuria) CKD 2 Kidney damage with mild loss 60-89 of kidney function CKD 3a Mild to moderate loss of kidney 45-59 function CKD 3b Moderate to severe loss of 30-44 of kindey function CKD 4 Severe loss of kidney function 15-29 CKD 5 Kidney failure <15 Note: (go live 2024) the eGFR calculation was updated to the 2020 CKD-EPI creatinine equation without a race factor to calculate the eGFR results. Performed By: #### G FR, LIPID, CBC, ADIFF, ANEU, CMP ####[address] [address] .NEUABSon 09-26-2024 Neutrophil, Absolute 7.2 10 3/mcL Normal 2.3-8.1 [facility] Comment on above: Performed By: #### G FR, LIPID, CBC, ADIFF, ANEU, CMP ####[address] [address] CBCon 09-26-2024 Erythrocyte distribution width (RBC) [Ratio] 14.1 % Normal 11.5-15.5 [facility] Comment on above: Performed By: #### G FR, LIPID, CBC, ADIFF, ANEU, CMP #### [address] [address] Hematocrit (Bld) [Volume fraction] 39.6 % Normal 34.0-46.0 [facility] Comment on above: Performed By: #### G FR, LIPID, CBC, ADIFF, ANEU, CMP #### [address] [address] Hgb 13.3 G/dL Normal 12.0-16.0 [facility] Comment on above: Performed By: #### G FR, LIPID, CBC, ADIFF, ANEU, CMP #### [address] [address] MCH (RBC) [Entitic mass] 30.9 pg Normal 27.0-33.0 [facility] Comment on above: Performed By: #### G FR, LIPID, CBC, ADIFF, ANEU, CMP #### [address] [address] MCHC 33.7 G/dL Normal 32.0-36.0 [facility] Comment on above: Performed By: #### G FR, LIPID, CBC, ADIFF, ANEU, CMP #### [address] [address] MCV (RBC) [Entitic vol] 91.7 fL Normal 80.0-99.0 [facility] Comment on above: Performed By: #### G FR, LIPID, CBC, ADIFF, ANEU, CMP #### [address] [address] Platelet 349 10 3/mcL Normal 150-450 [facility] Comment on above: Performed By: #### G FR, LIPID, CBC, ADIFF, ANEU, CMP #### [address] [address] Platelet mean volume (Bld) [Entitic vol] 9.2 fL Normal 6.6-10.5 [facility] Comment on above: Performed By: #### G FR, LIPID, CBC, ADIFF, ANEU, CMP #### [address] [address] RBC 4.31 10 6/mcL Normal 4.10-5.30 [facility] Comment on above: Performed By: #### G FR, LIPID, CBC, ADIFF, ANEU, CMP #### [place] [id number] WBC 10.7 10 3/mcL Normal 4.5-10.8 [facility] Comment on above: Performed By: #### G FR, LIPID, CBC, ADIFF, ANEU, CMP #### [address] [address] CMPon 09-26-2024 Albumin Level 3.9 G/dL Normal 3.5-5.0 [facility] Comment on above: Performed By: #### G FR, LIPID, CBC, ADIFF, ANEU, CMP ####[address] [address] Albumin/Globulin [Mass ratio] 1.1 {ratio} Normal 1.1-2.5 [facility] Comment on above: Performed By: #### G FR, LIPID, CBC, ADIFF, ANEU, CMP ####[address] [address] ALP [Catalytic activity/Vol] 93 U/L Normal 40-135 [facility] Comment on above: Performed By: #### G FR, LIPID, CBC, ADIFF, ANEU, CMP ####[address] [address] ALT [Catalytic activity/Vol] 14 U/L Normal 14-59 [facility] Comment on above: Performed By: #### G FR, LIPID, CBC, ADIFF, ANEU, CMP ####[address] [address] AST [Catalytic activity/Vol] 10 U/L Normal 10-40 [facility] Comment on above: Performed By: #### G FR, LIPID, CBC, ADIFF, ANEU, CMP ####[address] [address] Bili Total 0.2 mg/dL Normal 0.2-1.0 [facility] Comment on above: Result Comment: Use of this assay is not recommended for patients undergoing treatment with eltrombopag due to the potential for falsely elevated results. Performed By: #### G FR, LIPID, CBC, ADIFF, ANEU, CMP ####[address] [address] BUN/Creatinine Ratio 14 ratio Normal 7-27 [facility] Comment on above: Performed By: #### G FR, LIPID, CBC, ADIFF, ANEU, CMP ####[address] [place], [place] [address] Calcium [Mass/Vol] 9.1 mg/dL Normal 8.4-10.2 [facility] Comment on above: Performed By: #### G FR, LIPID, CBC, ADIFF, ANEU, CMP ####[address] [place], [place] [address] Chloride [Moles/Vol] 104 mmol/L Normal 98-107 [facility] Comment on above: Performed By: #### G FR, LIPID, CBC, ADIFF, ANEU, CMP ####[address] [address] CO2 [Moles/Vol] 28 mmol/L Normal 22-29 [facility] Comment on above: Performed By: #### G FR, LIPID, CBC, ADIFF, ANEU, CMP ####[address] [address] Creatinine [Mass/Vol] 0.84 mg/dL Normal 0.55-1.02 [facility] Comment on above: Result Comment: Test ing performed on Siemens Dimension EXL analyzer using a modified kinetic Aleida technique. Performed By: #### G FR, LIPID, CBC, ADIFF, ANEU, CMP ####[address] [address] Electrolyte Balance 9.0 mEq/L Normal 4.0-15.0 [facility] Comment on above: Performed By: #### G FR, LIPID, CBC, ADIFF, ANEU, CMP ####[address] [address] Globulin 3.4 G/dL Normal 1.5-3.8 [facility] Comment on above: Performed By: #### G FR, LIPID, CBC, ADIFF, ANEU, CMP ####[address] [place], [place] [address] Glucose [Mass/Vol] 81 mg/dL Normal 70-105 [facility] Comment on above: Performed By: #### G FR, LIPID, CBC, ADIFF, ANEU, CMP ####[facility] [place] [address] Potassium [Moles/Vol] 3.9 mmol/L Normal 3.5-5.1 [facility] Comment on above: Performed By: #### G FR, LIPID, CBC, ADIFF, ANEU, CMP ####[facility] [place], [place] [address] Sodium [Moles/Vol] 141 mmol/L Normal 136-145 [facility] Comment on above: Performed By: #### G FR, LIPID, CBC, ADIFF, ANEU, CMP ####[address] [place], [place] [address] Total Protein 7.3 G/dL Normal 6.4-8.2 [facility] Comment on above: Performed By: #### G FR, LIPID, CBC, ADIFF, ANEU, CMP ####[address] [address] Urea nitrogen [Mass/Vol] 12 mg/dL Normal 7-18 [facility] Comment on above: Performed By: #### G FR, LIPID, CBC, ADIFF, ANEU, CMP ####[address] [place], [place] [address] LIPIDon 09-26-2024 Cholesterol [Mass/Vol] 155 mg/dL Normal 0-200 [facility] Comment on above: Result Comment: Chol esterol Reference Interval: Less than 200 Desirable 200-239 Borderline high risk 240 and above High risk Performed By: #### G FR, LIPID, CBC, ADIFF, ANEU, CMP ####[address] [address] Cholesterol in HDL [Mass/Vol] 72 mg/dL High 40-60 [facility] Comment on above: Performed By: #### G FR, LIPID, CBC, ADIFF, ANEU, CMP ####[address] [place], [place] [address] Cholesterol in LDL [Mass/Vol] 53 mg/dL Normal 0-130 [facility] Comment on above: Performed By: #### G FR, LIPID, CBC, ADIFF, ANEU, CMP ####[address] [place], [place] [address] Triglyceride [Mass/Vol] 149 mg/dL Normal 0-150 [facility] Comment on above: Result Comment: Trig lyceride Reference Interval: Less than 150 Normal 150-199 Borderline high risk 200-499 High risk 500 or higher Very high risk Performed By: #### G FR, LIPID, CBC, ADIFF, ANEU, CMP ####[address] [place], [place] [address] CNOVon 08-14-2024 CNOV Office Visit (UCWSTR ) -------- GUSTAVO DE ([id number]) 2000 F Date Time Provider Department 08/14/24 2:15 PM AMAN ALVAREZ [facility] During your visit today, we recorded the following information about you: Temperature Pulse Respiration Blood pressure 98.2 degrees 82/minute 18/minute 98/64 Weight 74.2 kg Aman Alvarez PA 08/14/2024 2:29 PM Signed This note was created using [employer]. Subjective Gustavo De is a 23 year old female. HPI 23-year-old female presents for cough, congestion, fever x 4 days. Patient states her son got sick and then she got sick after him. She has had cough, runny nose/nasal congestion and fevers. States Tmax 101 to 102 ?F. She has taken ibuprofen and cold and flu medication. Has not taken anything today. No vomiting or diarrhea. No other complaint. No past medical history on file. No past surgical history on file. ALLERGIES Latex and Penicillins MEDICATIONS famotidine (PEPCID) 40 mg tablet Take 1 tablet by mouth every 12 hours. (Patient not taking: Reported on 08/14/2024) pantoprazole DR (PROTONIX) 40 mg tablet TAKE 1 TABLET BY MOUTH TWICE DAILY FOR 7 DAYS, THEN DECREASE TO 1 TABLET BY MOUTH DAILY. (Patient not taking: Reported on 08/14/2024) No family history on file. Social History Tobacco Use Smoking status: Former Types: Cigarettes Smokeless tobacco: Never Review of Systems Constitutional: Positive for fever. Negative for chills. HENT: Positive for congestion. Negative for ear pain and sore throat. Respiratory: Positive for cough. Negative for shortness of breath. Cardiovascular: Negative for chest pain. Gastrointestinal: Negative for diarrhea and vomiting. Objective BP 98/64 Pulse 82 Temp 36.8 ?C (98.2 ?F) Resp 18 Wt 74.2 kg (163 lb 9.3 oz) LMP 05/07/2024 (Exact Date) SpO2 95% Physical Exam Vitals and nursing note reviewed. Constitutional: General: She is not in acute distress. Appearance: Normal appearance. She is not toxic-appearing. HENT: Right Ear: Tympanic membrane and ear canal normal. Left Ear: Tympanic membrane and ear canal normal. Nose: Nose normal. Mouth/Throat: Mouth: Mucous membranes are moist. Eyes: Conjunctiva/sclera: Conjunctivae normal. Cardiovascular: Rate and Rhythm: Normal rate and regular rhythm. Pulmonary: Effort: Pulmonary effort is normal. Breath sounds: Normal breath sounds. No wheezing, rhonchi or rales. Skin: General: Skin is warm and dry. Neurological: Mental Status: She is alert. Assessment and Plan ASSESSMENT/PLAN: 1. URI, acute - ICD9: 465.9, ICD10: J06.9 - Discussed viral etiology and rationale for treatment. - Symptomatic treatment with prn analgesia - Supportive care with fluids and rest - The patient may also use OTC cough and cold meds as needed. - COVID AND INFLUENZA A/B AND RSV PCR, ROUTINE -Out of window for Tamiflu Diagnosis and treatment plan were discussed and questions were answered to the patient's satisfaction. Pt acknowledged understanding of concepts and follow up plan. Specific signs and symptoms that would indicate the need for higher level of care were discussed in detail warranting prompt ER evaluation. [place] Allergies As of Date: 08/14/2024 Noted Allergy Reaction LATEX 04/14/2024 2 - Rash PENICILLINS 04/14/2024 4 - Hives Date Reviewed: 08/14/2024 Reviewed by: Iliana Baer MA - Fully Assessed Reason for Visit: Flu Like Symptoms [267] Cmt: Fever, cough, runny nose, congestion x4 days Primary Visit Diagnosis:URI, acute [J06.9] Order(s):COVID AND INFLUENZA A/B AND RSV PCR, ROUTINE [SQCVFLRS] Order #: [id number]. #:[id number] Prescriptions as of 08/14/2024 - famotidine (PEPCID) 40 mg tablet Take 1 tablet by mouth every 12 hours. - pantoprazole DR (PROTONIX) 40 mg tablet TAKE 1 TABLET BY MOUTH TWICE DAILY FOR 7 DAYS, THEN DECREASE TO 1 TABLET BY MOUTH DAILY. Problem List As Of Date: 08/14/2024 (None) Letter Text Encounter Status:Closed by AMAN ALVAREZ on 08/14/24 [facility] 07-27-2024 36 Patient called in to get scheduled for her EGD. Patient now scheduled on 11/14/24 @ 10:30am with the arrival time of 9:30am with Dr. Morgan in [place]. [facility] schedule updated Order submitted Open Case request submitted Case # [id number] Endo packet mailed to patient Prep sent via [employer] if pt acct active Pt is aware they will need a tilt tray driver to take them home from procedure. Must be family member or friend. They cannot use any ride programs. Ex: Uber, Lyft, SCAT, bus, etc...) [facility] 07-26-2024 36 Returned pt call, pt did not answered, lmtcb [facility] 07-25-2024 36 Name of Caller: aVlentin barr Contact Reason for Appointment: Patient called back to schedule EGD. Please call patient back to advise. Office Name: Gastroenterology Medication Refills need, if any: N/A Medication Name: N/A [facility] 07-24-2024 36 Patient returned alexandra l to office and is requesting a callback after 4pm when she is out of work to scheduled EGD. Please advise . [facility] 36 Lmtcb re: sx EGD. [facility] 2907-12-2024 29 Addended by: ARIAN JOSEPH on: 07/13/2024 01:58 PM Modules accepted: Level of Service Normal [facility] 37on 07-12-2024 37 --Please call office with any questions or concerns! [phone] --request ED reports from [facility], specifically CT A/P, abdominal US and labs --Schedule EGD (upper endoscopy) for further evaluation of the symptoms. --Avoid nonsteroidal anti-inflammatory (NSAID) medications such as ibuprofen (Advil), naproxen (Aleve), etc. These can contribute to abdominal pain and ulcers. Take Tylenol (acetaminophen) instead if needed for pain by following the instructions on the bottle. --Please see handout provided regarding additional recommendations for the symptoms including when to seek emergency care or further treatment. --Follow-up with PCP, and in GI clinic in about 1 month following the above evaluation and recommendations. Normal [facility] Progress Noteon 07-12-[address] [facility] - [address] [address] Dept: [phone] Dept Loc: [phone] Visit type: New Patient was identified and seen today via Telehealth by agreement and consent. I used the following Telehealth technology: Audio and video capabilities. Patient location: Patient Location: Home. This patient encounter is appropriate and reasonable under the circumstances: staffing . The patient has been advised of the potential risks and limitations of this mode of treatment (including but not limited to the absence of in-person examination) and has agreed to be treated in a remote fashion in spite of them. Any and all of the patient's/patient's family's questions on this issue have been answered and I have made no promises or guarantees to the patient. The patient has also been advised to contact this office for worsening conditions or problems, and seek emergency medical treatment and/or call 911 if the patient deems either necessary. The patient stated that they are currently in the state [facility]. If the patient is a minor, permission has been obtained by the parent or guardian for the patient to receive medical care at this visit. Reason for Visit: Nausea and Abdominal Pain Assessment and Plan Problem List Items Addressed This Visit None Visit Diagnoses Nausea and vomiting, unspecified vomiting type - Primary Generalized abdominal pain Hematemesis, unspecified whether nausea present Intermittent diarrhea 23 year old female referred by ED provider (03/2024) regarding nausea, vomiting, abdominal pain and hematemesis. Patient reports symptoms ongoing since January 2024. She reports multiple prior ED evaluations at multiple different facilities. Prior work-up unavailable for review at this time. Reports two episodes of spitting up blood-has not occurred since last ED visit in March 2024. --request records from [facility] ED visits, specifically CT A/P, abdominal US, labs --schedule EGD for further evaluation of symptoms, r/o PUD, H. Pylori infection, etc --patient notes improvement with temporary use of PPI, ?uncontrolled GERD --continue tracking/avoiding dietary triggers --dicussed colonoscopy as patient c/o intermittent diarrhea, r/o underlying pathology; patient declined colonoscopy at this time --EDU printed Advised patient to call office with new or worsening symptoms, questions, or concerns. Patient verbalized understanding and agreement of plan. Follow up in about 4 weeks (around 08/09/2024) for EGD results . Subjective HPI Patient is referred by Cathi Arndt APRN-GLORIA, re: nausea and vomiting, generalized abdominal pain, hematemesis. She gives consent to virtual visit. Patient also has appointment scheduled with [facility]. Cervantes 11/01/2023. Patient reports since January has been having RUQ abdominal pain radiating to epigastrium, nausea, vomiting, and intermittent diarrhea. She reports multiple ED visits at various locations regarding symptoms. States she has had CT A/P and abdominal US, along with lab work. These results are not available. Prior ED visit at [facility] on 04/14/2024 reviewed, however no work-up ordered per notes due to multiple prior neg work-up for same. She describes abdominal pain as dull. Pain occurs at random. Has had difficulty eating-was on primarily soft diet. PCP gave Rx for pantoprazole which has helped expand diet, but she has since discontinued. [place] PPI caused diarrhea and constipation. Nausea and vomiting has subsided over the past week. Patient reports two episodes of spitting up blood. Blood was mixed with mucus. Has not occurred recently. Has had ~5 to 10# weight-loss associated with symptoms. Has intermittent loose stools-occurs 2 to 3 days per week. Denies hematochezia and melena. Notes she moved out of apartment with black mold (last October) Prior colonoscopy: none Prior EGD: none Prior abdominal surgeries: none Family history of colon cancer: none NSAID use: occasional ibuprofen OAC: none Supplemental oxygen use: none Tobacco use: quit smoking cigarettes 3.5 years ago; quit vaping March 2024 EtOH use: none Patient denies marijuana use. Illicit drug use: none Review of Systems Constitutional: Negative for appetite change and unexpected weight change. HENT: Negative for trouble swallowing and voice change. Respiratory: Negative for shortness of breath. Cardiovascular: Negative for chest pain. Gastrointestinal: Positive for abdominal pain, diarrhea, nausea and vomiting. Negative for abdominal distention, anal bleeding, blood in stool, constipation and rectal pain. Genitourinary: Negative for difficulty urinating. Skin: Negative for color change. Neurological: Negative for weakness. Allergies Allergen Reactions Acetaminophen Latex Other Reaction(s): rash, swelling Penicillin (more content not included)... Normal [facility] 06-30-2024 CNOV Office Visit (UCWSTR ) -------- GUSTAVO DE ([id number]) 2000 F Date Time Provider Department 06/30/24 3:15 PM RAUL RECIO [facility] During your visit today, we recorded the following information about you: Temperature Pulse Respiration Blood pressure 99.1 degrees 90/minute 20/minute 108/66 Weight 77.4 kg Raul Recio MD 06/30/2024 4:03 PM Signed Patient presents with: Nasal Congestion: LUEVANO, fever, sore throat, difficulty breathing, body aches x 4 days HPI: Feeling sick for 5 days. Her son has been sick with similar symptoms. There has been RSV and viral pneumonia at his daycare. Positive symptoms: Cough, Shortness of breath, Sore throat, Nasal Congestion, Rhinorrhea, Fever, Body Aches, Headache, Shortness of breath (resolved), Diarrhea, Negative symptoms: Vomiting, OTC: Cold Medicine, Ibuprofen MEDICATIONS: Current Outpatient Medications Medication Sig famotidine (PEPCID) 40 mg tablet Take 1 tablet by mouth every [address] (PROTONIX) 40 mg tablet TAKE 1 TABLET BY MOUTH TWICE DAILY FOR 7 DAYS, THEN DECREASE TO 1 TABLET BY MOUTH DAILY. No current facility-administered medications for this visit. ALLERGIES: ALLERGIES Allergen Reactions Latex Rash Other Reaction(s): rash, swelling Penicillins Hives Tylenol [Acetaminop* Rash VITALS: BP 108/66 Pulse 90 Temp 37.3 ?C (99.1 ?F) Resp 20 Wt 77.4 kg (170 lb 10.2 oz) LMP 05/07/2024 (Exact Date) SpO2 98% PHYSICAL EXAM: GEN: mildly ill appearing HEENT: PERRL, EOMI, conjunctiva clear Ears: canals clear. TMs without erythema, bulge, or effusion Sinuses: non-tender frontal sinus, non-tender maxillary sinuses Throat: moist mucous membranes, mild erythema, no exudate Neck: supple, no thyromegaly, no lymphadenopathy HEART: regular rate, regular rhythm, no murmurs LUNGS: clear to auscultation, no wheezes or crackles, no increased WOB ASSESSMENT/PLAN: 1. URI, acute - ICD9: 465.9, ICD10: J06.9 - suspect viral URI, differential includes RSV, COVID-19, and influenza. - Discussed supportive care treatment with home isolation (fever free for 24 hours and improving symptoms), rest, cold medicine, and analgesia. - Red flags to seek further treatment include chest pain, shortness of breath, and lethargy; in the ER if severe. - COVID AND INFLUENZA A/B AND RSV PCR, ROUTINE Raul Recio MD Allergies As of Date: 06/30/2024 Noted Allergy Reaction LATEX 04/14/2024 2 - Rash Comments: Other Reaction(s): rash, swelling PENICILLINS 04/14/2024 4 - Hives TYLENOL (ACETAMINOPHEN) 05/15/2024 2 - Rash Date Reviewed: 06/30/2024 Reviewed by: Nathalie Luque MA - Fully Assessed Reason for Visit: Nasal Congestion [235] Cmt: LUEVANO, fever, sore throat, difficulty breathing, body aches x 4 days Primary Visit Diagnosis:URI, acute [J06.9] Order(s):COVID AND INFLUENZA A/B AND RSV PCR, ROUTINE [SQCVFLRS] Order #: [id number]. #:[id number] Prescriptions as of 06/30/2024 - famotidine (PEPCID) 40 mg tablet Take 1 tablet by mouth every 12 hours. - pantoprazole DR (PROTONIX) 40 mg tablet TAKE 1 TABLET BY MOUTH TWICE DAILY FOR 7 DAYS, THEN DECREASE TO 1 TABLET BY MOUTH DAILY. Problem List As Of Date: 06/30/2024 (None) Level of Service: OFFICE/OUTPATIENT [facility] 30 MINUTES [[address]] Encounter Status:Closed by RAUL RECIO on 06/30/24 Normal [facility] COVID AND INFLUENZA A/B AND RSV PCR, ROUTINEon 06-30-2024 SARS-CoV-2 (COVID-19) RNA JACOB+probe Ql (Unsp spec) SARS-COV-2 (AGENT OF COVID-19) RNA: Not detected INFLUENZA A RNA: Not detected INFLUENZA B RNA: Not detected RESPIRATORY SYNCYTIAL VIRUS (RSV) RNA: Detected Abnormal [facility] Comment on above: Performed By: #### C VFLRS #### [facility] CLIA [id number] [address] [place] [address] [place] US PELVIS NON-OB W/TRANSVAGI NALon 05-23-2024 US PELVIS NON-OB W/TRANSVAGINAL ORIGINAL EXAMINATION: TRANSVAGINAL and transabdominal PELVIC ULTRASOUND 05/21/2024 All images were recorded and archived. TECHNIQUE: Transvaginal and transabdominal pelvic ultrasound was performed. COMPARISON: April 09, 2024 HISTORY: ORDERING SYSTEM PROVIDED HISTORY: Reason for Exam: Polyp of corpus uteri FINDINGS: Measurements: Uterus: 8.7 x 6.2 x 4.1 cm Endometrial stripe: 1.1 cm Right Ovary:4.0 x 2.3 x 2.7 cm Left Ovary: 4.4 x 2.1 x 1.9 cm Ultrasound Findings: Uterus: Uterus demonstrates normal myometrial echotexture. The uterus is retroflexed. Polypoid endometrial lesion not seen on this exam. Right lateral uterine fibroid measures 1 x 0.6 x 0.7 cm. Endometrial stripe: Endometrial stripe is within normal limits at 1.1 cm. Right Ovary: Right ovary is within normal limits. Dominant follicle measures up to 1.8 cm. Left Ovary: Left ovary is within normal limits. Free Fluid: Physiologic. IMPRESSION: Previously seen polypoid endometrial lesion is not seen on this exam. Small uterine fibroid. I have personally reviewed the images of this examination and agree with the resident's findings and interpretation. Interpreted by: Mike Rocha DO Preliminary Report By: Xander Sorenson MD Electronically signed By Mike Rocha DO Dictated Date: 05/23/2024 10:00:15 AM Prelim Date: 05/23/2024 10:54:47 AM Sign Date: 05/23/2024 10:54:47 AM Ordering Provider: JONE RIOS [facility] CNOVon 05-15-2024 CNOV Office Visit (GYNMN) -------- GUSTAVO DE ([id number]) 2000 F Date Time Provider Department 05/15/24 2:00 PM HONG FARRIS GYNMN During your visit today, we recorded the following information about you: Blood pressure Weight Last Period 112/64 75.9 kg 05/07/24 Hong Farris MD 05/15/2024 2:47 PM Signed Gustavo Sukumar is a 23 year old female who presents for lower abdominal pain She had been complaining of lower abdominal for 1 year. She reports having a history of ovarian cysts in the past. Recently, she had an US performed at her local hospital. She was told that she may have an endometrial polyp. She was asked to return for another ultrasound. She is not on control at this time. She reports having monthly menstrual cycles. She was recently treated for a UTI. She reported that her pain had improved . She denied an abnormal vaginal discharge. No past medical history on file. No past surgical history on file. No family history on file. Social History Tobacco Use Smoking status: Former Types: Cigarettes Smokeless tobacco: Never Current Outpatient Medications Medication Sig pantoprazole DR (PROTONIX) 40 mg tablet TAKE 1 TABLET BY MOUTH TWICE DAILY FOR 7 DAYS, THEN DECREASE TO 1 TABLET BY MOUTH DAILY. No current facility-administered medications for this visit. Allergies As of Date: 05/15/2024 Allergen Noted Reaction LATEX 04/14/2024 Rash PENICILLINS 04/14/2024 Hives TYLENOL [ACETAMINOPHEN] 05/15/2024 Rash Fully Assessed 05/15/2024 REVIEW OF SYSTEMS Expanded ROS: N/A Allergies and current medication updated:Yes EXAM: BP 112/64 Wt 167 lb 5.3 oz (75.9kg) LMP 05/07/2024 General Appearance: No acute distress PELVIC: external genitalia normal, normal Bartholin's glands, urethra, Nettleton's glands, no vulvar lesions, normal appearing perineal body and perianal region BIMANUAL: uterus normal size, shape and consistency, no adnexal masses, and non-tender ASSESSMENT AND PLAN: Lower Abdominal Pain: - SIS ultrasound ordered to evaluate for endometrial polyp seen on OSH imaging -pt reports history of ovarian cysts. Will await results of US -we will communicate by [employer]. Hong Farris MD Allergies As of Date: 05/15/2024 Noted Allergy Reaction LATEX 04/14/2024 2 - Rash Comments: Other Reaction(s): rash, swelling PENICILLINS 04/14/2024 4 - Hives TYLENOL (ACETAMINOPHEN) 05/15/2024 2 - Rash Date Reviewed: 05/15/2024 Reviewed by: Keisha Lynn MA - Fully Assessed Reason for Visit: Consult [173] Primary Visit Diagnosis:Endometrial polyp [N84.0] Other Visit Diagnoses:Cyst of ovary, unspecified laterality [N83.209] Pelvic pain in female [R10.2] Order(s):SONOHYSTEROGRAP HY (SIS) [facility] [[id number]] Order #: [id number]: 1 FUTURE Prescriptions as of 05/15/2024 - pantoprazole DR (PROTONIX) 40 mg tablet TAKE 1 TABLET BY MOUTH TWICE DAILY FOR 7 DAYS, THEN DECREASE TO 1 TABLET BY MOUTH DAILY. Problem List As Of Date: 05/15/2024 (None) Level of Service: OFFICE/OUTPATIENT NEW SF MDM 15 MINUTES [82021] LOS History for Encounter Level of Service: OFFICE/OUTPATIENT ESTABLISHED SF MDM 10 MIN[34400] Date AND Time: 05-15-2024 2:47 PM Recorded by User: HONG FARRIS Encounter Status:Closed by HONG FARRIS on 05/15/24 Normal [facility] US ABDOMEN LIMITEDon US ABDOMEN LIMITED ORIGINAL EXAMINATION: LIMITED ABDOMINAL [id number]/20/2024 9:35 am Limited ultrasound of the abdomen attention right upper quadrant COMPARISON: CT 04/12/2024 TECHNIQUE: This report is based on interpretation of permanently recorded ultrasound images. HISTORY: ORDERING SYSTEM PROVIDED HISTORY: Reason for Exam: Intermittent right upper quadrant pain, FINDINGS: The liver is normal in size and echogenicity. No suspicious focal lesions are seen. There is no intrahepatic bile duct dilatation. The common duct is 3 mm at the camila hepatis. The gallbladder is normally distended without calculus, wall thickening or tenderness. The visualized pancreas shows no focal lesion or mass. Some portions of the pancreas are obscured by bowel gas. No ascites is seen in the Sanchez's pouch. Limited survey images of the right kidney shows normal cortical thickness and echogenicity and no pelvocaliectasis. The visualized aorta and IVC are normal in caliber. IMPRESSION: Negative ultrasound. No acute findings.. Interpreted by: Josef Friedman MD Preliminary Report By: Josef Friedman MD Electronically signed By Josef Friedman MD Dictated Date: 05/09/2024 9:52:35 AM Prelim Date: 05/09/2024 9:53:20 AM Sign Date: 05/09/2024 9:53:20 AM Ordering Provider: AMAURI Maya [facility] ED Nursing Noteon 04-14-2024 ED Nursing Note Patient to the ED to day with c/o vomiting. Patient reports being in and out of the ED's lately with same complaint. Overnight began to spit up blood. Patient reports multiple XR, CT. Patient reports going to [facility] for a lot of care. Normal [facility] ED Provider Noteon ED Provider Note Emergency Department Encounter [facility] ED Patient: Gustavo De : 2000 Date of Evaluation: 04/14/2024 ED KRYSTAL Provider: Mary Kay Arndt, LEONARDA - PILLOWCASE TURNER Patient seen independently within my scope of practice with an Emergency Medicine attending available for supervision. Chief Complaint Chief Complaint Patient presents with Vomiting [place] I was wearing a N95, Surgical mask for the entirety of this encounter. Gustavo eD is a 23 y.o. female who presents to the emergency department for nausea and vomiting with intermittent hematemesis. States she has had multiple work ups for this with no answer. Symptoms have been persistent for a month. Denies any fevers, chills, chest pain, blood in stool. Limitations to history: None Outside historians: None Past History Past Medical History: Diagnosis Date Concussion History reviewed. No pertinent surgical history. Social History Socioeconomic History Marital status: Single Tobacco Use Smoking status: Some Days Smokeless tobacco: Never Substance and Sexual Activity Alcohol use: No Drug use: Yes Types: Marijuana Medications/Allergies Previous Medications No medications on file Allergies Allergen Reactions Acetaminophen Latex Other Reaction(s): rash, swelling Penicillin G Hives Physical Exam BP 111/66 Pulse 65 Temp 36.3 ?C (97.3 ?F) (Temporal) Resp 20 SpO2 97% Physical Exam GENERAL APPEARANCE: Awake and alert. Cooperative. HEENT: Normocephalic. Atraumatic. No trismus. NECK: Supple. Trachea midline. CARDIO: Normal rate. Radial pulses symmetrical and palpable LUNGS: Respirations unlabored. CTAB. ABDOMEN: Soft. Non-distended. Non-tender throughout. MUSCULOSKELETAL: No acute deformities. SKIN: Warm and dry. NEUROLOGICAL: No gross facial drooping. No obvious neurologic deficits. Moves all 4 extremities spontaneously. SCREENINGS D Labs: No results found for this or any previous visit. Radiographs: No orders to display : EKG: All EKG's areinterpreted by the Emergency Department Physician in the absence of a broom builder. see their note for interpretation of EKG. EMERGENCY DEPARTMENT COURSE and DIFFERENTIAL DIAGNOSIS/MDM: External Records Review: External ED note [facility] emergency room notes, labs, and imaging . Social Determinants of Health: none. Gustavo De is a 23 y.o. female who presented to the emergency department for chronic nausea and occasionally hematemesis. Has been taking ibuprofen for occasional abd pain. Differential diagnosis included gastritis, GUD, PUD, GI bleeding. Pt given protonix and bentyl. Our workup consisted of ordering/reviewing I considered obtaining CT abd pelvis, cbc, cmp, lipase, but reviewed labs and imaging from [facility] emergency room. She has had multiple work ups for this same concern with stable H&H. No leukocytosis. No abnormal findings on imaging. I do not feel any repeat of these same tests will provide any further insight at this time. Her abd exam is reassuring at this time. VS are stable. She is non-toxic. I think she would be best served by following with a book publisher since these symptoms are becoming chronic in nature. I also recommended that she stop taking any NSAIDs. Will start her on protonix and bentyl. Referral to GI provided. Discussed findings/results with pt. Suspect presentation is most consistent with nausea, vomiting, hematemesis with stable labs, imaging, VS, and reassuring abd exam. Pt was given prescription for oral protonix, bentyl and referral for GI follow up. Pt is to follow up with PCP in 2-3 days. Vital signs on discharge are stable. Gustavo De (or their surrogate) and I have discussed the diagnosis and risks, and we agree with discharging home with close follow-up. We also discussed returning to the Emergency Department immediately if new or worsening symptoms occur. We have discussed the symptoms which are most concerning that necessitate immediate return. Final Diagnosis: 1. Nausea and vomiting, unspecified vomiting type 2. Generalized abdominal pain 3. Hematemesis, unspecified whether nausea present Medications pantoprazole (ProtoNix) EC tablet 40 mg (40 mg Oral Given 04/14/241901) dicyclomine (Bentyl) capsule 10 mg (10 mg Oral Given 04/14/241901) CRITICAL CARE TIME None CONSULTS: None PROCEDURES: Unless otherwise noted below, none Procedures DISPOSITION/PLAN Discharge 04/14/2024 06:48:03 PM PATIENT REFERRED TO: [facility] ED [address] [place] [id number] Go to If symptoms worsen [facility] [place] [address] [facility] [phone] DISCHARGE MEDICATIONS: New Prescriptions DICYCLOMINE (BENTYL) 20 MG TABLET Take 1 tablet (20 mg) by mouth 2 times daily for 10 days. PANTOPRAZOLE (PROTONIX) 20 MG EC TABLET Take 1 tablet (20 mg) by mouth daily f (more content not included)... Normal [facility] .Auto Diffon 04-12-2024 Basophil, Absolute 0.1 10 3/mcL Normal 0.0-0.2 [facility] Comment on above: Performed By: #### C BC, ADIFF, ANEU, MDW, LIP, MG, CMP, GFR ####[address] [place], [place] [address] Basophils/100 WBC (Bld) 0.7 % Normal 0.0-2.5 [facility] Comment on above: Performed By: #### C BC, ADIFF, ANEU, MDW, LIP, MG, CMP, GFR ####[address] [place], [place] [address] Eosinophil, Absolute 0.1 10 3/mcL Normal 0.0-0.7 [facility] Comment on above: Performed By: #### C BC, ADIFF, ANEU, MDW, LIP, MG, CMP, GFR ####[address] [place], [place] [address] Eosinophils/100 WBC (Bld) 1.1 % Normal 0.0-7.0 [facility] Comment on above: Performed By: #### C BC, ADIFF, ANEU, MDW, LIP, MG, CMP, GFR ####[address] [place], [place] [address] Lymphocyte, Absolute 1.7 10 3/mcL Normal 0.9-4.3 [facility] Comment on above: Performed By: #### C BC, ADIFF, ANEU, MDW, LIP, MG, CMP, GFR ####[facility] [address] [place], [place] [address] Lymphocytes/100 WBC (Bld) 17.4 % Low 20.0-40.0 [facility] Comment on above: Performed By: #### C BC, ADIFF, ANEU, MDW, LIP, MG, CMP, GFR ####[address] [place], [place] [address] Monocyte, Absolute 0.7 10 3/mcL Normal 0.1-1.4 [facility] Comment on above: Performed By: #### C BC, ADIFF, ANEU, MDW, LIP, MG, CMP, GFR ####[address] [place], [place] [address] Monocytes/100 WBC (Bld) 7.4 % Normal 2.0-13.0 [facility] Comment on above: Performed By: #### C BC, ADIFF, ANEU, MDW, LIP, MG, CMP, GFR ####[address] [place], [place] [address] Neutrophils/100 WBC (Bld) 73.4 % Normal 50.0-75.0 [facility] Comment on above: Performed By: #### C BC, ADIFF, ANEU, MDW, LIP, MG, CMP, GFR ####[address] [place], [place] [address] .GFRon 04-12-2024 GFR 118 ml/min/1.73sqm Normal [facility] Comment on above: Result Comment: GFR Population mean for , Non- Americans Ages 20-29 = 116 mL/min/1.73 sq.m. Ages 30-39 = 107 mL/min/1.73 sq.m. Ages 40-49 = 99 mL/min/1.73 sq.m. Ages 50-59 = 93 mL/min/1.73 sq.m. Ages 60-69 = 85 mL/min/1.73 sq.m. Ages 70+ = 75 mL/min/1.73 sq.m. Chronic Kidney Disease: Less than 60 mL/min/1.73 square meters End Stage Renal Disease: Less than 15 mL/min/1.73 square meters Performed By: #### C BC, ADIFF, ANEU, MDW, LIP, MG, CMP, GFR ####[facility] [address] [place], [place] [address] GFR Non- 97 ml/min/1.73sqm Normal [facility] Comment on above: Result Comment: GFR Population mean for , Non- Americans Ages 20-29 = 116 mL/min/1.73 sq.m. Ages 30-39 = 107 mL/min/1.73 sq.m. Ages 40-49 = 99 mL/min/1.73 sq.m. Ages 50-59 = 93 mL/min/1.73 sq.m. Ages 60-69 = 85 mL/min/1.73 sq.m. Ages 70+ = 75 mL/min/1.73 sq.m. Chronic Kidney Disease: Less than 60 mL/min/1.73 square meters End Stage Renal Disease: Less than 15 mL/min/1.73 square meters Performed By: #### C BC, ADIFF, ANEU, MDW, LIP, MG, CMP, GFR ####[facility] [address] [place] [id number] .MDWon 04-12-2024 Monocyte Distribution Width 16.73 Normal 0.00-20.00 [facility] Comment on above: Result Comment: For ED adult patients suspected of sepsis, MDW<=20.0 does not rule out sepsis or risk of sepsis Performed By: #### C BC, ADMARILUZ, ANEU, MDW, LIP, MG, CMP, GFR ####[facility] [address] [place], [place] [address] .NEUABSon 04-12-2024 Neutrophil, Absolute 7.1 10 3/mcL Normal 2.3-8.1 [facility] Comment on above: Performed By: #### C BC, ADMARILUZ, ANEU, MDW, LIP, MG, CMP, GFR ####[facility] [place], [place] [address] .Urinalysis Microscopic (AO) on 04-12-2024 UA RBC LOADED Abnormal None Seen [facility] Comment on above: Performed By: #### U A, PREGU, UAMICAO #### [place] [address] [place], [place] [address] UA Squam Epithelial 0-5 Abnormal None Seen [facility] Comment on above: Performed By: #### U HELENA QuesadaU UAMICAO #### [address] [address] UA WBC 0-5 Abnormal None Seen [facility] Comment on above: Performed By: #### U A PREGU, UAMICAO #### [place] [address] CBCon 04-12-2024 Erythrocyte distribution width (RBC) [Ratio] 13.3 % Normal 11.5-15.5 [facility] Comment on above: Performed By: #### C BC, WILLIAN, ANEU, MDW, LIP, MG, CMP, GFR ####[address] [place] [address] Hematocrit (Bld) [Volume fraction] 40.0 % Normal 34.0-46.0 [facility] Comment on above: Performed By: #### C BC, ADIFF, ANEU, MDW, LIP, MG, CMP, GFR ####[place] [address] [place] [address] Hgb 13.7 G/dL Normal 12.0-16.0 [facility] Comment on above: Performed By: #### C BC, ADIFF, ANEU, MDW, LIP, MG, CMP, GFR ####[place] [address] MCH (RBC) [Entitic mass] 31.5 pg Normal 27.0-33.0 [facility] Comment on above: Performed By: #### C BC, ADIFF, ANEU, MDW, LIP, MG, CMP, GFR ####[place] [address] MCHC 34.3 G/dL Normal 32.0-36.0 [facility] Comment on above: Performed By: #### C BC, ADIFF, ANEU, MDW, LIP, MG, CMP, GFR ####[place] [address] MCV (RBC) [Entitic vol] 91.7 fL Normal 80.0-99.0 [facility] Comment on above: Performed By: #### C BC, ADIFF, ANEU, MDW, LIP, MG, CMP, GFR ####[address] [place], [place] [address] Platelet 328 10 3/mcL Normal 150-450 [facility] Comment on above: Performed By: #### C BC, ADIFF, ANEU, MDW, LIP, MG, CMP, GFR ####[address] [place], [place] [address] Platelet mean volume (Bld) [Entitic vol] 8.6 fL Normal 6.6-10.5 [facility] Comment on above: Performed By: #### C BC, ADIFF, ANEU, MDW, LIP, MG, CMP, GFR ####[address] [place], [place] [address] RBC 4.36 10 6/mcL Normal 4.10-5.30 [facility] Comment on above: Performed By: #### C BC, ADIFF, ANEU, MDW, LIP, MG, CMP, GFR ####[address] [place], [place] [address] WBC 9.6 10 3/mcL Normal 4.5-10.8 [facility] Comment on above: Performed By: #### C BC, ADIFF, ANEU, MDW, LIP, MG, CMP, GFR ####[facility] [address] [place] [address] CMPon 04-12-2024 Albumin Level 4.2 G/dL Normal 3.5-5.0 [facility] Comment on above: Performed By: #### C BC, ADIFF, ANEU, MDW, LIP, MG, CMP, GFR ####[address] [place], [place] [address] Albumin/Globulin [Mass ratio] 1.3 {ratio} Normal 1.1-2.5 [facility] Comment on above: Performed By: #### C BC, ADIFF, ANEU, MDW, LIP, MG, CMP, GFR ####[facility] [place], [place] [address] ALP [Catalytic activity/Vol] 72 U/L Normal 40-135 [facility] Comment on above: Performed By: #### C BC, ADIFF, ANEU, MDW, LIP, MG, CMP, GFR ####[facility] [place], [place] [address] ALT [Catalytic activity/Vol] 19 U/L Normal 14-59 [facility] Comment on above: Performed By: #### C BC, ADIFF, ANEU, MDW, LIP, MG, CMP, GFR ####[facility] [place], [place] [address] AST [Catalytic activity/Vol] 16 U/L Normal 10-40 [facility] Comment on above: Performed By: #### C BC, ADIFF, ANEU, MDW, LIP, MG, CMP, GFR ####[place] [address] [place], [place] [address] Bili Total 0.7 mg/dL Normal 0.2-1.0 [facility] Comment on above: Result Comment: Use of this assay is not recommended for patients undergoing treatment with eltrombopag due to the potential for falsely elevated results. Performed By: #### C BC, ADIFF, ANEU, MDW, LIP, MG, CMP, GFR ####[facility] [place], [place] [address] BUN/Creatinine Ratio 11 ratio Normal 7-27 [facility] Comment on above: Performed By: #### C BC, ADIFF, ANEU, MDW, LIP, MG, CMP, GFR ####[facility] [address] [place], [place] [address] Calcium [Mass/Vol] 9.5 mg/dL Normal 8.4-10.2 [facility] Comment on above: Performed By: #### C BC, ADIFF, ANEU, MDW, LIP, MG, CMP, GFR ####[facility] [place], [place] [address] Chloride [Moles/Vol] 102 mmol/L Normal 98-107 [facility] Comment on above: Performed By: #### C BC, ADIFF, ANEU, MDW, LIP, MG, CMP, GFR ####[place] [address] CO2 [Moles/Vol] 27 mmol/L Normal 22-29 [facility] Comment on above: Performed By: #### C BC, ADIFF, ANEU, MDW, LIP, MG, CMP, GFR ####[place] [id number] Creatinine [Mass/Vol] 0.73 mg/dL Normal 0.55-1.02 [facility] Comment on above: Result Comment: Test ing performed on Oculus VR Dimension EXL analyzer using a modified kinetic Aleida technique. Performed By: #### C BC, ADIFF, ANEU, MDW, LIP, MG, CMP, GFR ####[place] [address] Electrolyte Balance 9.0 mEq/L Normal 4.0-15.0 [facility] Comment on above: Performed By: #### C BC, ADIFF, ANEU, MDW, LIP, MG, CMP, GFR ####[place] [address] Globulin 3.2 G/dL Normal [facility] Comment on above: Performed By: #### C BC, ADIFF, ANEU, MDW, LIP, MG, CMP, GFR ####[place] [address] Glucose [Mass/Vol] 89 mg/dL Normal 70-105 [facility] Comment on above: Performed By: #### C BC, ADIFF, ANEU, MDW, LIP, MG, CMP, GFR ####[place] [id number] Potassium [Moles/Vol] 4.1 mmol/L Normal 3.5-5.1 [facility] Comment on above: Performed By: #### C BC, ADIFF, ANEU, MDW, LIP, MG, CMP, GFR ####[place] [address] Sodium [Moles/Vol] 138 mmol/L Normal 136-145 [facility] Comment on above: Performed By: #### C BC, ADMARILUZ, ANEU, MDW, LIP, MG, CMP, GFR ####[address] [place], [place] [address] Total Protein 7.4 G/dL Normal 6.4-8.2 [facility] Comment on above: Performed By: #### C BC, ADIFF, ANEU, MDW, LIP, MG, CMP, GFR ####[address] [place], [place] [address] Urea nitrogen [Mass/Vol] 8 mg/dL Normal 7-18 [facility] Comment on above: Performed By: #### C BC, ADIFF, ANEU, MDW, LIP, MG, CMP, GFR ####[facility] [address] [place], [place] [address] CT ABD/PELVIS W/ IV CONTRAST ONLYon 04-12-2024 CT ABD/PELVIS W/ IV CONTRAST ONLY ORIGINAL EXAMINATION: CT OF THE ABDOMEN AND PELVIS WITH HDCZWTCQ14/24/2024 6:02 pm TECHNIQUE: CT of the abdomen and pelvis was performed with the administration of intravenous contrast. Multiplanar reformatted images are provided for review. Automated exposure control, iterative reconstruction, and/or weight based adjustment of the mA/kV was utilized to reduce the radiation dose to as low as reasonably achievable. COMPARISON: 04/09/2024 ultrasound pelvis HISTORY: ORDERING SYSTEM PROVIDED HISTORY: Reason for Exam: right upper and left lower abd pain FINDINGS: No osseous abnormality. The visualized lung bases and mediastinum are unremarkable. The visualized esophagus, stomach, and duodenum are unremarkable. The liver, spleen, adrenal glands, and pancreas are unremarkable Unremarkable Kidney without collecting system dilatation. No adenopathy, free intraperitoneal fluid, or free air visualized. Small fat containing umbilical hernia. The solid pelvic organs are grossly normal and are better evaluated on recent 04/09/2024 ultrasound pelvis. The urinary bladder is decompressed. No GI tract abnormality is visible. Appendix normal. No additional contributory findings. IMPRESSION: No acute abnormality within the abdomen or pelvis. I have personally reviewed the images of this examination and agree with the resident's findings and interpretation. Interpreted by: Crow Leon Preliminary Report By: Donnie Akbar Electronically signed By Crow Leon Dictated Date: 04/12/2024 6:08:03 PM Prelim Date: 04/12/2024 7:03:20 PM Sign Date: 04/12/2024 7:03:20 PM Ordering Provider: LAKSHMI Maya [facility] LABORATORYOrdered By: SYSTEM SYSTEM on 04-12-2024 Albumin BCP dye [Mass/Vol] 4.2 G/dL Normal 3.5 - 5.0 G/dL AO ADM SS Albumin/Globulin [Mass ratio] 1.3 {ratio} Normal 1.1 - 2.5 ratio AO ADM SS ALP [Catalytic activity/Vol] 72 U/L Normal 40 - 135 U/L AO ADM SS ALT With P-5'-P [Catalytic activity/Vol] 19 U/L Normal 14 - 59 U/L AO ADM SS AST With P-5'-P [Catalytic activity/Vol] 16 U/L Normal 10 - 40 U/L AO ADM SS Basophils (Bld) [#/Vol] 0.1 103/mcL Normal 0.0 - 0.2 10^3/mcL AO Workflow SS Basophils/100 WBC (Bld) 0.7 % Normal 0.0 - 2.5 % AO Workflow SS Bilirubin [Mass/Vol] 0.7 mg/dL Normal 0.2 - 1 .0 mg/dL AO ADM SS Comment on above: Interpretive Data: U se of this assay is not recommended for patients undergoing treatment with eltrombopag due to the potential for falsely elevated results. Calcium [Mass/Vol] 9.5 mg/dL Normal 8.4 - 10. 2 mg/dL AO ADM SS Chloride [Moles/Vol] 102 mmol/L Normal 98 - 10 7 mmol/L AO ADM SS CO2 [Moles/Vol] 27 mmol/L Normal 22 - 29 mmol/L AO ADM SS Creatinine [Mass/Vol] 0.73 mg/dL Normal 0.55 - 1.02 mg/dL AO ADM SS Comment on above: Interpretive Data: T esting performed on Siemens Dimension EXL analyzer using a modified kinetic Aleida technique. Electrolyte Balance 9.0 mEq/L Normal 4.0 - 15 .0 mEq/L AO ADM SS Eosinophil, Absolute 0.1 103/mcL Normal 0.0 - 0 .7 10^3/mcL AO Workflow SS Eosinophils/100 WBC (Bld) 1.1 % Normal 0.0 - 7.0 % AO Workflow SS Erythrocyte distribution width (RBC) [Ratio] 13.3 % Normal 11.5 - 15.5 % AO Workflow SS GFR/1.73 sq M.predicted among blacks MDRD (S/P/Bld) [Vol rate/Area] 118 ml/min/1.73sqm Invalid Interpretation Code AO Chemistry S Comment on above: Interpretive Data: GFR Population mean for , Non- Americans Ages 20-29 = 116 mL/min/1.73 sq.m. Ages 30-39 = 107 mL/min/1.73 sq.m. Ages 40-49 = 99 mL/min/1.73 sq.m. Ages 50-59 = 93 mL/min/1.73 sq.m. Ages 60-69 = 85 mL/min/1.73 sq.m. Ages 70+ = 75 mL/min/1.73 sq.m. Chronic Kidney Disease: Less than 60 mL/min/1.73 square meters End Stage Renal Disease: Less than 15 mL/min/1.73 square meters GFR/1.73 sq M.predicted among non-blacks MDRD (S/P/Bld) [Vol rate/Area] 97 ml/min/1.73sqm Invalid Interpretation Code AO Chemistry S Comment on above: Interpretive Data: GFR Population mean for , Non- Americans Ages 20-29 = 116 mL/min/1.73 sq.m. Ages 30-39 = 107 mL/min/1.73 sq.m. Ages 40-49 = 99 mL/min/1.73 sq.m. Ages 50-59 = 93 mL/min/1.73 sq.m. Ages 60-69 = 85 mL/min/1.73 sq.m. Ages 70+ = 75 mL/min/1.73 sq.m. Chronic Kidney Disease: Less than 60 mL/min/1.73 square meters End Stage Renal Disease: Less than 15 mL/min/1.73 square meters Globulin 3.2 G/dL Invalid Interpretation Code AO ADM SS Glucose [Mass/Vol] 89 mg/dL Normal 70 - 105 mg/dL AO ADM SS Hematocrit (Bld) [Volume fraction] 40.0 % Normal 34.0 - 46.0 % AO Workflow SS Hemoglobin (Bld) [Mass/Vol] 13.7 G/dL Normal 12.0 - 16.0 G/dL AO Workflow SS Lipase [Catalytic activity/Vol] 25 U/L Normal 16 - 77 U/L AO ADM SS Lymphocytes (Bld) [#/Vol] 1.7 103/mcL Normal 0.9 - 4.3 10^3/mcL AO Workflow SS Lymphocytes/100 WBC (Bld) 17.4 % Low 20.0 - 40.0 % AO Workflow SS Magnesium [Mass/Vol] 1.8 mg/dL Normal 1.8 - 2 .4 mg/dL AO ADM SS MCH (RBC) [Entitic mass] 31.5 pg Normal 27.0 - 33.0 pg AO Workflow SS MCHC 34.3 G/dL Normal 32.0 - 36.0 G/dL AO Workflow SS MCV (RBC) [Entitic vol] 91.7 fL Normal 80.0 - 99.0 fL AO Workflow SS Monocyte distribution width Auto (Bld) [Entitic vol] 16.73 1 Normal 0.00 - 20.00 AO Workflow SS Comment on above: Result Comment: For ED adult patients suspected of sepsis, MDW<=20.0 does not rule out sepsis or risk of sepsis Monocytes (Bld) [#/Vol] 0.7 103/mcL Normal 0.1 - 1.4 10^3/mcL AO Workflow SS Monocytes/100 WBC (Bld) 7.4 % Normal 2.0 - 13.0 % AO Workflow SS Neutrophils (Bld) [#/Vol] 7.1 103/mcL Normal 2.3 - 8.1 10^3/mcL AO Workflow SS Neutrophils/100 WBC (Bld) 73.4 % Normal 50.0 - 75.0 % AO Workflow SS Platelet mean volume (Bld) [Entitic vol] 8.6 fL Normal 6.6 - 10.5 fL AO Workflow SS Platelets (Bld) [#/Vol] 328 103/mcL Normal 150 - 450 10^3/mcL AO Workflow SS Potassium [Moles/Vol] 4.1 mmol/L Normal 3.5 - 5.1 mmol/L AO ADM SS Protein [Mass/Vol] 7.4 G/dL Normal 6.4 - 8.2 G/dL AO ADM SS RBC (Bld) [#/Vol] 4.36 106/mcL Normal 4.10 - 5.3 0 10^6/mcL AO Workflow SS Sodium [Moles/Vol] 138 mmol/L Normal 136 - 145 mmol/L AO ADM SS Urea nitrogen [Mass/Vol] 8 mg/dL Normal 7 - 18 mg/dL AO ADM SS Urea nitrogen/Creatinine [Mass ratio] 11 ratio Normal 7 - 27 ratio AO ADM SS WBC (Bld) [#/Vol] 9.6 103/mcL Normal 4.5 - 10.8 10^3/mcL AO Workflow SS LABORATORYOrdered By: Audra Arcos on 04-12-2024 Appearance (U) Slightly Cloudy *ABN* (04/12/24 5:08 PM) Invalid Interpretation Code Clear AO Auto Urine SS Bilirubin Ql (U) Negative (04/12/24 5:08 PM) Normal Negative AO Auto Urine SS Color (U) Yellow (04/12/24 5:08 PM) Normal AO Auto Urine SS Glucose Test strip (U) [Mass/Vol] Negative Normal Negative AO Auto Urine SS HCG ( test) Ql Negative (04/12/24 5:08 PM) Normal AO Manual Urine SS Hemoglobin Auto test strip (U) [Mass/Vol] Large *ABN* (04/12/24 5:08 PM) Invalid Interpretation Code Negative AO Auto Urine SS Ketones Ql (U) Negative Normal Negative AO Auto Urine SS test (u) int Not detected Invalid Interpretation Code AO Manual Urine SS UA Leuk Est Negative (04/12/24 5:08 PM) Normal Negative AO Auto Urine SS UA Nitrite Negative (04/12/24 5:08 PM) Normal Negative AO Auto Urine SS UA pH 5.5 (04/12/24 5:08 PM) Normal 5.0 - 8.0 AO Auto Urine SS UA Protein Negative Normal Negative AO Auto Urine SS UA RBC LOADED /HPF Invalid Interpretation Code None Seen AO Auto Urine SS UA Spec Grav >=1.030 *ABN* (04/12/24 5:08 PM) Invalid Interpretation Code 1.015-1.025 AO Auto Urine SS UA Specimen Type Clean Catch (04/12/24 5:08 PM) Normal AO Auto Urine SS UA Squam Epithelial 0-5 /HPF Invalid Interpretation Code None Seen AO Auto Urine SS UA Urobilinogen 0.2 E.U./dL Normal 0.2-1.0 AO Auto Urine SS WBC LM.HPF (Urine sed) [#/Area] 0-5 /HPF Invalid Interpretation Code None Seen AO Auto Urine SS LIPon 04-12-2024 Lipase Level 25 U/L Normal 16-77 [facility] Comment on above: Performed By: #### C YESI, WILLIAN, GRACY, W, LIP, MG, CMP, GFR ####[address] [place], [place] [address] MGon 04-12-2024 Magnesium [Mass/Vol] 1.8 mg/dL Normal 1.8-2.4 [facility] Comment on above: Performed By: #### C WILLIAN KEY ANEU, LAURA, LIP, MG, CMP, GFR ####[address] [place], [place] [address] PREGUon 04-12-2024 HCG ( test) Ql (U) Negative Normal [facility] Comment on above: Performed By: #### U A, PREGU, UAMICAO #### [address] [address] test (u) int Not detected Invalid Interpretation Code [facility] Comment on above: Performed By: #### U A, PREGU, UAMICAO #### [address] [address] UAon 04-12-2024 Color (U) Yellow Normal [facility] Comment on above: Performed By: #### U A, PREGU, UAMICAO #### [address] [address] Glucose (U) [Mass/Vol] Negative Normal Negative [facility] Comment on above: Performed By: #### U A, PREGU, UAMICAO #### [address] [address] Ketones Ql (U) Negative Normal Negative [facility] Comment on above: Performed By: #### U A, PREGU, UAMICAO #### [address] [address] UA Appear Slightly Cloudy Abnormal Clear [facility] Comment on above: Performed By: #### U A, PREGU, UAMICAO #### [place] [address] UA Blood Large Abnormal Negative [facility] Comment on above: Performed By: #### U A, PREGU, UAMICAO #### [place] [address] UA Leuk Est Negative Normal Negative [facility] Comment on above: Performed By: #### U A, PREGU, UAMICAO #### [place] [address] UA Nitrite Negative Normal Negative [facility] Comment on above: Performed By: #### U A, PREGU, UAMICAO #### [place] [address] UA pH 5.5 Normal 5.0 - 8.0 [facility] Comment on above: Performed By: #### U A, PREGU, UAMICAO #### [place] [address] UA Protein Negative Normal Negative [facility] Comment on above: Performed By: #### U A, PREGU, UAMICAO #### [address] [place] [address] UA Spec Grav >=1.030 Abnormal 1.015-1.025 [facility] Comment on above: Performed By: #### U A, PREGU, UAMICAO #### [place] [address] UA Specimen Type Clean Catch Normal [facility] Comment on above: Performed By: #### U A, PREGU, UAMICAO #### [place] [address] UA Urobilinogen 0.2 E.U./dL Normal 0.2-1.0 [facility] Comment on above: Performed By: #### U A, PREGU, UAMICAO #### [place] [address] Urobilinogen (U) [Mass/Vol] Negative Normal Negative [facility] Comment on above: Performed By: #### U PAVEL Quesada UAMICAO #### [facility] [address] [place], [place] [address] US PELVIS NON-OB W/TRANSVAGI NALon 04-10-2024 US PELVIS NON-OB W/TRANSVAGINAL ORIGINAL EXAMINATION: Ultrasound pelvis, 04/09/2024 7:45 pm transabdominal and transvaginal COMPARISON: None TECHNIQUE: This report is based on interpretation of permanently recorded ultrasound images. HISTORY: ORDERING SYSTEM PROVIDED HISTORY: Reason for Exam: PELVIC PAIN, FINDINGS: The uterus is retroflexed 7.5 x 4.1 x 5.5 cm. No discrete myometrial mass is seen. There may be an arcuate type of uterine anatomy. Endometrial double wall thickness is 5-6 mm which is normal. On some images there is suggestion of a small mildly echogenic polypoid abnormality in the fundal endometrium that is slightly echogenic and is measured at 10 x 4 x 4 mm. No significant blood flow is seen in this abnormality.. Right ovary: 4.0 x 2.3 x 2.6 cm Left ovary: 4.2 x 1.8 x 2.2 cm There is no suspicious ovarian lesion. Blood flow is shown to both ovaries. Trace pelvic free fluid is considered physiologic at this age. IMPRESSION: Normal ovaries. Retroflexed uterus. Subtle abnormality in the fundal endometrium with equivocal findings of a polypoid lesion. Suggest a short-term ultrasound transvaginal study in a few weeks at a different stage of the menstrual cycle to determine if this is a persistent finding which may than require further evaluation. Interpreted by: Josef Friedman MD Preliminary Report By: Josef Friedman MD Electronically signed By Josef Friedman MD Dictated Date: 04/10/2024 3:32:49 PM Prelim Date: 04/10/2024 3:36:10 PM Sign Date: 04/10/2024 3:36:10 PM Ordering Provider: NOLAN Maya [facility] LABORATORYOrdered By: Jan Napier on 04-01-2024 Appearance (U) Clear (04/01/24 3:34 PM) Normal Clear AO Auto Urine SS Bilirubin Ql (U) Negative (04/01/24 3:34 PM) Normal Negative AO Auto Urine SS Color (U) Yellow (04/01/24 3:34 PM) Normal AO Auto Urine SS Glucose Test strip (U) [Mass/Vol] Negative Normal Negative AO Auto Urine SS HCG ( test) Ql Negative (04/01/24 3:34 PM) Normal AO Manual Urine SS Hemoglobin Auto test strip (U) [Mass/Vol] Trace *ABN* (04/01/24 3:34 PM) Invalid Interpretation Code Negative AO Auto Urine SS Ketones Ql (U) Negative Normal Negative AO Auto Urine SS test (u) int Not detected Invalid Interpretation Code AO Manual Urine SS UA Leuk Est Negative (04/01/24 3:34 PM) Normal Negative AO Auto Urine SS UA Nitrite Negative (04/01/24 3:34 PM) Normal Negative AO Auto Urine SS UA pH 5.5 (04/01/24 3:34 PM) Normal 5.0 - 8.0 AO Auto Urine SS UA Protein Negative Normal Negative AO Auto Urine SS UA Spec Grav <=1.005 *ABN* (04/01/24 3:34 PM) Invalid Interpretation Code 1.015-1.025 AO Auto Urine SS UA Specimen Type Not Given (04/01/24 3:34 PM) Normal AO Auto Urine SS UA Urobilinogen 0.2 E.U./dL Normal 0.2-1.0 AO Auto Urine SS PREGUon 04-01-2024 HCG ( test) Ql (U) Negative Normal [facility] Comment on above: Performed By: #### U A, PREGU ####[place] [address] [place], [place] [address] test (u) int Not detected Invalid Interpretation Code [facility] Comment on above: Performed By: #### U A, PREGU ####[address] [place], [place] [address] UAon 04-01-2024 Color (U) Yellow Normal [facility] Comment on above: Performed By: #### U A, PREGU ####[address] [place], [place] [address] Glucose (U) [Mass/Vol] Negative Normal Negative [facility] Comment on above: Performed By: #### U A, PREGU ####[address] [place] [address] Ketones Ql (U) Negative Normal Negative [facility] Comment on above: Performed By: #### U A, PREGU ####[address] [place] [address] UA Appear Clear Normal Clear [facility] Comment on above: Performed By: #### U A, PREGU ####[address] [place] [address] UA Blood Trace Abnormal Negative [facility] Comment on above: Performed By: #### U A, PREGU ####[address] [place] [address] UA Leuk Est Negative Normal Negative [facility] Comment on above: Performed By: #### U A, PREGU ####[place] [address] [place] [address] UA Nitrite Negative Normal Negative [facility] Comment on above: Performed By: #### U A, PREGU ####[place] [address] UA pH 5.5 Normal 5.0 - 8.0 [facility] Comment on above: Performed By: #### U A, PREGU ####[address] [place] [address] UA Protein Negative Normal Negative [facility] Comment on above: Performed By: #### U A, PREGU ####[address] [place] [address] UA Spec Grav <=1.005 Abnormal 1.015-1.025 [facility] Comment on above: Performed By: #### U A, PREGU ####[address] [place] [address] UA Specimen Type Not Given Normal [facility] Comment on above: Performed By: #### U A, PREGU ####[address] [place] [address] UA Urobilinogen 0.2 E.U./dL Normal 0.2-1.0 [facility] Comment on above: Performed By: #### U A PREGU ####[address] [place], [place] [address] Urobilinogen (U) [Mass/Vol] Negative Normal Negative [facility] Comment on above: Performed By: #### U A PREGU ####[address] [place], [place] [address] .Auto Diffon 03-18-2024 Basophil, Absolute 0.1 10 3/mcL Normal 0.0-0.2 [facility] Comment on above: Performed By: #### C YESI, GRACY DORSEY, MDW, CMP, GFR ####[address] [place], [place] [address] Basophils/100 WBC (Bld) 0.6 % Normal 0.0-2.5 [facility] Comment on above: Performed By: #### C YESI, WILLIAN, GRACY, MDW, CMP, GFR ####[address] [place], [place] [address] Eosinophil, Absolute 0.1 10 3/mcL Normal 0.0-0.7 [facility] Comment on above: Performed By: #### C BC, WILLIAN, GRACY, MDW, CMP, GFR ####[address] [place], [place] [address] Eosinophils/100 WBC (Bld) 0.6 % Normal 0.0-7.0 [facility] Comment on above: Performed By: #### C BC, WILLIAN, GRACY, MDW, CMP, GFR ####[address] [place], [place] [address] Lymphocyte, Absolute 1.6 10 3/mcL Normal 0.9-4.3 [facility] Comment on above: Performed By: #### C BC, WILLIAN, ANEU, MDW, CMP, GFR ####[place] [address] [place], [place] [address] Lymphocytes/100 WBC (Bld) 13.9 % Low 20.0-40.0 [facility] Comment on above: Performed By: #### C BC, WILLIAN, GRACY, MDW, CMP, GFR ####[address] [place], [place] [address] Monocyte, Absolute 0.8 10 3/mcL Normal 0.1-1.4 [facility] Comment on above: Performed By: #### C BC, WILLIAN, GRACY, MDW, CMP, GFR ####[address] [place], [place] [address] Monocytes/100 WBC (Bld) 6.8 % Normal 2.0-13.0 [facility] Comment on above: Performed By: #### C BC, WILLIAN, GRACY, MDW, CMP, GFR ####[address] [place], [place] [address] Neutrophils/100 WBC (Bld) 78.1 % High 50.0-75.0 [facility] Comment on above: Performed By: #### C BC, GRACY DORSEY, MDW, CMP, GFR ####[address] [place], [place] [address] .GFRon 03-18-2024 GFR Non- 67 ml/min/1.73sqm Normal [facility] Comment on above: Result Comment: GFR Population mean for , Non- Americans Ages 20-29 = 116 mL/min/1.73 sq.m. Ages 30-39 = 107 mL/min/1.73 sq.m. Ages 40-49 = 99 mL/min/1.73 sq.m. Ages 50-59 = 93 mL/min/1.73 sq.m. Ages 60-69 = 85 mL/min/1.73 sq.m. Ages 70+ = 75 mL/min/1.73 sq.m. Chronic Kidney Disease: Less than 60 mL/min/1.73 square meters End Stage Renal Disease: Less than 15 mL/min/1.73 square meters Performed By: #### C BC, WILLIAN, GRACY, MDW, CMP, GFR ####[address] [place], [place] [address] GFR 81 ml/min/1.73sqm Normal [facility] Comment on above: Result Comment: GFR Population mean for , Non- Americans Ages 20-29 = 116 mL/min/1.73 sq.m. Ages 30-39 = 107 mL/min/1.73 sq.m. Ages 40-49 = 99 mL/min/1.73 sq.m. Ages 50-59 = 93 mL/min/1.73 sq.m. Ages 60-69 = 85 mL/min/1.73 sq.m. Ages 70+ = 75 mL/min/1.73 sq.m. Chronic Kidney Disease: Less than 60 mL/min/1.73 square meters End Stage Renal Disease: Less than 15 mL/min/1.73 square meters Performed By: #### C WILLIAN KEY ANEU, MDW, CMP, GFR ####[address] [place], [place] [address] .MDWon 03-18-2024 Monocyte Distribution Width 21.16 High 0.00-20.00 [facility] Comment on above: Result Comment: For adults in ED, MDW>20.0 may be associated with a higher risk of sepsis during the first 12hrs of hospital admission Performed By: #### C WILLIAN KEY ANEU, MDW, CMP, GFR ####[address] [place], [place] [address] .NEUABSon 03-18-2024 Neutrophil, Absolute 8.9 10 3/mcL High 2.3-8.1 [facility] Comment on above: Performed By: #### C WILLIAN KEY ANEU, MDW, CMP, GFR ####[address] [place], [place] [address] CBCon 03-18-2024 Erythrocyte distribution width (RBC) [Ratio] 13.4 % Normal 11.5-15.5 [facility] Comment on above: Performed By: #### C WILLIAN KEY ANEU, MDW, CMP, GFR ####[address] [place], [place] [address] Hematocrit (Bld) [Volume fraction] 38.4 % Normal 34.0-46.0 [facility] Comment on above: Performed By: #### C BC, WILLIAN, GRACY, MDW, CMP, GFR ####[address] [place], [place] [address] Hgb 12.7 G/dL Normal 12.0-16.0 [facility] Comment on above: Performed By: #### C BC, WILLIAN, ANEU, MDW, CMP, GFR ####[address] [place] [address] MCH (RBC) [Entitic mass] 30.3 pg Normal 27.0-33.0 [facility] Comment on above: Performed By: #### C BC, WILLIAN, GRACY, MDW, CMP, GFR ####[address] [place] [address] MCHC 33.1 G/dL Normal 32.0-36.0 [facility] Comment on above: Performed By: #### C YESI, WILLIAN, GRACY, MDW, CMP, GFR ####[address] [place] [address] MCV (RBC) [Entitic vol] 91.6 fL Normal 80.0-99.0 [facility] Comment on above: Performed By: #### C YESI, WILLIAN, GRACY, MDW, CMP, GFR ####[address] [place], [place] [address] Platelet 347 10 3/mcL Normal 150-450 [facility] Comment on above: Performed By: #### C BC, WILLIAN, GRACY, MDW, CMP, GFR ####[address] [place], [place] [address] Platelet mean volume (Bld) [Entitic vol] 8.6 fL Normal 6.6-10.5 [facility] Comment on above: Performed By: #### C BC, WILLIAN, ANEU, MDW, CMP, GFR ####[address] [place], [place] [address] RBC 4.19 10 6/mcL Normal 4.10-5.30 [facility] Comment on above: Performed By: #### C WILLIAN KEY ANEU, MDW, CMP, GFR ####[address] [place], [place] [address] WBC 11.4 10 3/mcL High 4.5-10.8 [facility] Comment on above: Performed By: #### C WILLIAN KEY ANEU, MDW, CMP, GFR ####[address] [place], [place] [address] CMPon 03-18-2024 Albumin Level 4.2 G/dL Normal 3.5-5.0 [facility] Comment on above: Performed By: #### C WILLIAN KEY ANEU, MDW, CMP, GFR ####[address] [place], [place] [address] Albumin/Globulin [Mass ratio] 1.4 {ratio} Normal 1.1-2.5 [facility] Comment on above: Performed By: #### C WILLIAN KEY ANEU, MDW, CMP, GFR ####[address] [place], [place] [address] ALP [Catalytic activity/Vol] 78 U/L Normal 40-135 [facility] Comment on above: Performed By: #### C WILLIAN KEY ANEU, MDW, CMP, GFR ####[address] [place], [place] [address] ALT [Catalytic activity/Vol] 20 U/L Normal 14-59 [facility] Comment on above: Performed By: #### C WILLIAN KEY ANEU, MDW, CMP, GFR ####[address] [place], [place] [address] AST [Catalytic activity/Vol] 14 U/L Normal 10-40 [facility] Comment on above: Performed By: #### C WILLIAN KEY ANEU, MDW, CMP, GFR ####[address] [place], [place] [address] Bili Total 0.7 mg/dL Normal 0.2-1.0 [facility] Comment on above: Result Comment: Use of this assay is not recommended for patients undergoing treatment with eltrombopag due to the potential for falsely elevated results. Performed By: #### C YESI, GRACY DORSEY MDW, CMP, GFR ####[address] [place], [place] [address] BUN/Creatinine Ratio 9 ratio Normal 7-27 [facility] Comment on above: Performed By: #### C YESI, GRACY DORSEY, W, CMP, GFR ####[address] [place], [place] [address] Calcium [Mass/Vol] 9.5 mg/dL Normal 8.4-10.2 [facility] Comment on above: Performed By: #### C WILLIAN KEY ANEU, MDW, CMP, GFR ####[address] [place] [id number] Chloride [Moles/Vol] 101 mmol/L Normal 98-107 [facility] Comment on above: Performed By: #### C WILLIAN KEY ANEU, MDW, CMP, GFR ####[address] [place] [address] CO2 [Moles/Vol] 26 mmol/L Normal 22-29 [facility] Comment on above: Performed By: #### C WILLIAN KEY ANEU, MDW, CMP, GFR ####[address] [place] [id number] Creatinine [Mass/Vol] 1.01 mg/dL Normal 0.55-1.02 [facility] Comment on above: Result Comment: Test ing performed on Siemens Dimension EXL analyzer using a modified kinetic Aleida technique. Performed By: #### C WILLIAN KEY ANEU, MDW, CMP, GFR ####[address] [place], [place] [address] Electrolyte Balance 11.0 mEq/L Normal 4.0-15.0 [facility] Comment on above: Performed By: #### C WILLIAN KEY ANEU, MDW, CMP, GFR ####[address] [place] [id number] Globulin 3.1 G/dL Normal [facility] Comment on above: Performed By: #### C YESI, GRACY DORSEY, W, CMP, GFR ####[address] [place], [place] [address] Glucose [Mass/Vol] 101 mg/dL Normal 70-105 [facility] Comment on above: Performed By: #### C WILLIAN KEY ANEU, W, CMP, GFR ####[address] [place], [place] [address] Potassium [Moles/Vol] 4.3 mmol/L Normal 3.5-5.1 [facility] Comment on above: Performed By: #### C WILLIAN KEY ANEU, MDW, CMP, GFR ####[address] [place], [place] [address] Sodium [Moles/Vol] 138 mmol/L Normal 136-145 [facility] Comment on above: Performed By: #### C WILLIAN KEY ANEU, MDW, CMP, GFR ####[address] [place], [place] [address] Total Protein 7.3 G/dL Normal 6.4-8.2 [facility] Comment on above: Performed By: #### C WILLIAN KEY ANEU, MDW, CMP, GFR ####[address] [place], [place] [address] Urea nitrogen [Mass/Vol] 9 mg/dL Normal 7-18 [facility] Comment on above: Performed By: #### C WILLIAN KEY ANEU, MDW, CMP, GFR ####[address] [place], [place] [address] CT THORAX W/ CONTRASTon 02-19 CT THORAX W/ CONTRAST ORIGINAL EXAMINATION: CT OF THE CHEST WITH CONTRAST 03/18/2024 2:34 pm TECHNIQUE: CT of the chest was performed with the administration of intravenous contrast. Multiplanar reformatted images are provided for review. Automated exposure control, iterative reconstruction, and/or weight based adjustment of the mA/kV was utilized to reduce the radiation dose to as low as reasonably achievable. COMPARISON: Chest radiograph early in the day. HISTORY: ORDERING SYSTEM PROVIDED HISTORY: Reason for Exam: chest pain, abnormal chest x-ray. FINDINGS: Study is degraded due to quantum mottle from patient body habitus. The visualized thyroid is unremarkable-appearing. There is no visible lymphadenopathy. Soft tissue density in the anterosuperior mediastinum may relate to thymic hyperplasia. The heart is normal in size. No coronary artery calcifications identified. No pericardial effusion. The aorta is normal in caliber. Pulmonary artery is normal in caliber. The major airways are patent. No focal consolidation. No suspicious lung nodules. No pneumothorax. No pleural fluid. No soft tissue nodule or mass identified at site of previously noted density at left 3rd posterior costovertebral articulation. No acute fracture or suspicious osseous lesions identified. Visualized portions of upper abdomen are unremarkable. IMPRESSION: No acute findings within the thorax. Previously noted prominent density at the left 3rd posterior costovertebral articulation is not seen, likely artifactual from overlapping structures. I have personally reviewed the images of this examination and agree with the resident's findings and interpretation. Interpreted by: Russell Ibrahim DO Preliminary Report By: Corky Scott Electronically signed By Russell Ibrahim DO Dictated Date: 03/18/2024 2:48:06 PM Prelim Date: 03/18/2024 3:00:06 PM Sign Date: 03/18/2024 3:06:22 PM Ordering Provider: NAUN Maya [facility] DIMERon 03-18-2024 D-Dimer <200 Normal 0-230 [facility] Comment on above: Result Comment: DDN: Results reported in D-DU ng/mL. Negative for D-dimer. DVT/PE is highly unlikely. Note: False negative results may be seen in patients on anticoagulant therapy. The result of the D-Dimer test should be evaluated in the context of all the clinical and laboratory data available. In those instances where the laboratory result does not agree with the clinical evaluation, additional tests should be performed accordingly. If the D-Dimer result is used to exclude DVT or PE, the recommended cutoff value is less than 230 ng/mL. The D-Dimer result should not be used alone to rule in DVT/PE, but should be used in conjunction with a clinical pretest probability (PTP)assessment model to exclude venous thromboembolism (VTE) in outpatients suspected of deep venous thrombosis (DVT) and pulmonary embolism (PE). Performed By: #### D DEVI #### [address] [place] [address] [place], [place] [address] LABORATORYOrdered By: SYSTEM SYSTEM on 03-18-2024 Albumin BCP dye [Mass/Vol] 4.2 G/dL Normal 3.5 - 5.0 G/dL AO ADM SS Albumin/Globulin [Mass ratio] 1.4 {ratio} Normal 1.1 - 2.5 ratio AO ADM SS ALP [Catalytic activity/Vol] 78 U/L Normal 40 - 135 U/L AO ADM SS ALT With P-5'-P [Catalytic activity/Vol] 20 U/L Normal 14 - 59 U/L AO ADM SS AST With P-5'-P [Catalytic activity/Vol] 14 U/L Normal 10 - 40 U/L AO ADM SS Basophils (Bld) [#/Vol] 0.1 103/mcL Normal 0.0 - 0.2 10^3/mcL AO Workflow SS Basophils/100 WBC (Bld) 0.6 % Normal 0.0 - 2.5 % AO Workflow SS Bilirubin [Mass/Vol] 0.7 mg/dL Normal 0.2 - 1 .0 mg/dL AO ADM SS Comment on above: Interpretive Data: U se of this assay is not recommended for patients undergoing treatment with eltrombopag due to the potential for falsely elevated results. Calcium [Mass/Vol] 9.5 mg/dL Normal 8.4 - 10. 2 mg/dL AO ADM SS Chloride [Moles/Vol] 101 mmol/L Normal 98 - 10 7 mmol/L AO ADM SS CO2 [Moles/Vol] 26 mmol/L Normal 22 - 29 mmol/L AO ADM SS Creatinine [Mass/Vol] 1.01 mg/dL Normal 0.55 - 1.02 mg/dL AO ADM SS Comment on above: Interpretive Data: T esting performed on Siemens Dimension EXL analyzer using a modified kinetic Aleida technique. Electrolyte Balance 11.0 mEq/L Normal 4.0 - 15 .0 mEq/L AO ADM SS Eosinophil, Absolute 0.1 103/mcL Normal 0.0 - 0 .7 10^3/mcL AO Workflow SS Eosinophils/100 WBC (Bld) 0.6 % Normal 0.0 - 7.0 % AO Workflow SS Erythrocyte distribution width (RBC) [Ratio] 13.4 % Normal 11.5 - 15.5 % AO Workflow SS GFR/1.73 sq M.predicted among blacks MDRD (S/P/Bld) [Vol rate/Area] 81 ml/min/1.73sqm Invalid Interpretation Code AO Chemistry S Comment on above: Interpretive Data: GFR Population mean for , Non- Americans Ages 20-29 = 116 mL/min/1.73 sq.m. Ages 30-39 = 107 mL/min/1.73 sq.m. Ages 40-49 = 99 mL/min/1.73 sq.m. Ages 50-59 = 93 mL/min/1.73 sq.m. Ages 60-69 = 85 mL/min/1.73 sq.m. Ages 70+ = 75 mL/min/1.73 sq.m. Chronic Kidney Disease: Less than 60 mL/min/1.73 square meters End Stage Renal Disease: Less than 15 mL/min/1.73 square meters GFR/1.73 sq M.predicted among non-blacks MDRD (S/P/Bld) [Vol rate/Area] 67 ml/min/1.73sqm Invalid Interpretation Code AO Chemistry S Comment on above: Interpretive Data: GFR Population mean for , Non- Americans Ages 20-29 = 116 mL/min/1.73 sq.m. Ages 30-39 = 107 mL/min/1.73 sq.m. Ages 40-49 = 99 mL/min/1.73 sq.m. Ages 50-59 = 93 mL/min/1.73 sq.m. Ages 60-69 = 85 mL/min/1.73 sq.m. Ages 70+ = 75 mL/min/1.73 sq.m. Chronic Kidney Disease: Less than 60 mL/min/1.73 square meters End Stage Renal Disease: Less than 15 mL/min/1.73 square meters Globulin 3.1 G/dL Invalid Interpretation Code AO ADM SS Glucose [Mass/Vol] 101 mg/dL Normal 70 - 105 mg/dL AO ADM SS Hematocrit (Bld) [Volume fraction] 38.4 % Normal 34.0 - 46.0 % AO Workflow SS Hemoglobin (Bld) [Mass/Vol] 12.7 G/dL Normal 12.0 - 16.0 G/dL AO Workflow SS Lymphocytes (Bld) [#/Vol] 1.6 103/mcL Normal 0.9 - 4.3 10^3/mcL AO Workflow SS Lymphocytes/100 WBC (Bld) 13.9 % Low 20.0 - 40.0 % AO Workflow SS MCH (RBC) [Entitic mass] 30.3 pg Normal 27.0 - 33.0 pg AO Workflow SS MCHC 33.1 G/dL Normal 32.0 - 36.0 G/dL AO Workflow SS MCV (RBC) [Entitic vol] 91.6 fL Normal 80.0 - 99.0 fL AO Workflow SS Monocyte distribution width Auto (Bld) [Entitic vol] 21.16 1 High 0.00 - 20.00 AO Workflow SS Comment on above: Result Comment: For adults in ED, MDW>20.0 may be associated with a higher risk of sepsis during the first 12hrs of hospital admission Monocytes (Bld) [#/Vol] 0.8 103/mcL Normal 0.1 - 1.4 10^3/mcL AO Workflow SS Monocytes/100 WBC (Bld) 6.8 % Normal 2.0 - 13.0 % AO Workflow SS Neutrophils (Bld) [#/Vol] 8.9 103/mcL High 2.3 - 8.1 10^3/mcL AO Workflow SS Neutrophils/100 WBC (Bld) 78.1 % High 50.0 - 75.0 % AO Workflow SS Platelet mean volume (Bld) [Entitic vol] 8.6 fL Normal 6.6 - 10.5 fL AO Workflow SS Platelets (Bld) [#/Vol] 347 103/mcL Normal 150 - 450 10^3/mcL AO Workflow SS Potassium [Moles/Vol] 4.3 mmol/L Normal 3.5 - 5.1 mmol/L AO ADM SS Protein [Mass/Vol] 7.3 G/dL Normal 6.4 - 8.2 G/dL AO ADM SS RBC (Bld) [#/Vol] 4.19 106/mcL Normal 4.10 - 5.3 0 10^6/mcL AO Workflow SS Sodium [Moles/Vol] 138 mmol/L Normal 136 - 145 mmol/L AO ADM SS Urea nitrogen [Mass/Vol] 9 mg/dL Normal 7 - 18 mg/dL AO ADM SS Urea nitrogen/Creatinine [Mass ratio] 9 ratio Normal 7 - 27 ratio AO ADM SS WBC (Bld) [#/Vol] 11.4 103/mcL High 4.5 - 10.8 10^3/mcL AO Workflow SS Fibrin D-dimer DDU (PPP) [Mass/Vol] ng/mL D-DU Normal 0 - 230 ng/mL D-DU AO HemoHub SS Comment on above: Result Comment: DDN: Results reported in D-DU ng/mL. Negative for D-dimer. DVT/PE is highly unlikely. Note: False negative results may be seen in patients on anticoagulant therapy. Interpretive Data: T he result of the D-Dimer test should be evaluated in the context of all the clinical and laboratory data available. In those instances where the laboratory result does not agree with the clinical evaluation, additional tests should be performed accordingly. If the D-Dimer result is used to exclude DVT or PE, the recommended cutoff value is less than 230 ng/mL. The D-Dimer result should not be used alone to rule in DVT/PE, but should be used in conjunction with a clinical pretest probability (PTP)assessment model to exclude venous thromboembolism (VTE) in outpatients suspected of deep venous thrombosis (DVT) and pulmonary embolism (PE). XR CHEST 2 VIEWSon XR CHEST 2 VIEWS ORIGINAL EXAMINATION: TWO XRAY VIEWS OF THE CHEST 03/18/2024 1:33 pm COMPARISON: Radiograph dated 10/20/2014 HISTORY: ORDERING SYSTEM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 thepatient. Patient given benadryl, ativan, haloperidol. Patient will besigned out to Dr. Jo-Ann Ferrari pending transfer.PlanThe Patient was TRANSFERRED to: [facility] at time of disposition: stableSIGNATURE: Jose Luis Leonard, MDPeter (Res) Alli, QYMimeqoxr63/14/18 2047Peter (Res) Alli, RQPddyxnzo28/14/18 2121Pooja Shin Marx, DO07/05/17 0701 [facility] Hemogram/Diffon 07-03-2017 Abs Immature Grans 0.04 thou/cmm Normal 0.00-0.05 [facility] Comment on above: Performed By: #### C BCD1 ####[place] [address] Abs. Baso 0.09 thou/cmm High 0.01-0.08 [facility] Comment on above: Performed By: #### C BCD1 ####[place] [address] Abs. [place] 1.13 thou/cmm High 0.27-0.70 [facility] Comment on above: Performed By: #### C BCD1 ####[place] [address] Abs. Neut 9.52 thou/cmm High 1.56-6.13 [facility] Comment on above: Performed By: #### C BCD1 ####[place] [address] Basophils/100 WBC Auto (Bld) 0.7 % Normal [facility] Comment on above: Performed By: #### C BCD1 ####[place] [address] Eosinophils 0.07 thou/cmm Normal 0.00-0.31 [facility] Comment on above: Performed By: #### C BCD1 ####[place] [address] Eosinophils/100 leukocytes 0.5 % Normal [facility] Comment on above: Performed By: #### C BCD1 ####[place] [address] Erythrocyte distribution width Auto Ratio (RBC) 12.2 % Normal 11.7-14.4 [facility] Comment on above: Performed By: #### C BCD1 ####[place] [address] Erythrocytes (RBC) 4.54 mil/cmm Normal 3.93-5.22 [facility] Comment on above: Performed By: #### C BCD1 ####[place] [address] Hematocrit (HCT) 40.9 % Normal 34.1-44.9 [facility] Comment on above: Performed By: #### C BCD1 ####[place] [address] Hemoglobin mass conc (Bld) 14.1 g/dL Normal 11.2-15.7 [facility] Comment on above: Performed By: #### C BCD1 ####[place] [address] Immature Grans 0.30 % Normal [facility] Comment on above: Performed By: #### C BCD1 ####[place] [address] Lymphocytes 2.16 thou/cmm Normal 1.18-3.74 [facility] Comment on above: Performed By: #### C BCD1 ####[place] [address] Lymphocytes/100 leukocytes 16.6 % Normal [facility] Comment on above: Performed By: #### C BCD1 ####[place] [address] MCH 31.1 pg Normal 25.6-32.2 [facility] Comment on above: Performed By: #### C BCD1 ####[place] [address] MCHC mass conc (RBC) 34.5 % Normal 31.6-34.8 [facility] Comment on above: Performed By: #### C BCD1 ####[place] [address] MCV 90.1 fL Normal 79.4-94.8 [facility] Comment on above: Performed By: #### C BCD1 ####[place] [address] Monocytes/100 leukocytes 8.7 % Normal [facility] Comment on above: Performed By: #### C BCD1 ####[place] [address] Platelet mean volume (PMV) 11.3 fL Normal 9.4-12.3 [facility] Comment on above: Performed By: #### C BCD1 ####[place] [address] Platelets 338 thou/cmm Normal 182-369 [facility] Comment on above: Performed By: #### C BCD1 ####[place] [address] RDW SD 40.0 fl Normal 36.4-46.3 [facility] Comment on above: Performed By: #### C BCD1 ####[place] [address] Seg Neutrophil 73.2 % Normal [facility] Comment on above: Performed By: #### C BCD1 ####[place] [address] WBC (Leukocytes) 13.01 thou/cmm High 3.98-10.04 [facility] Comment on above: Performed By: #### C BCD1 ####[place] [address] MDRD GFRon 07-03-2017 eGFR (non-black) mL/min/{1.73_m2} Normal >60mL/m in/1 .73m2 [facility] Comment on above: Result Comment: If t he patient is , multiply the result by 1.210. Performed By: #### G FR ####[facility] [place], [place] [address] Salicylateon 07-03-2017 Salicylate 4.5 mg/dL Normal 2.8-20.0 [facility] Comment on above: Performed By: #### S AL ####[place] [address] Urinalysis Routineon 018 Ep Cells Urine 4.9 /hpf Normal 0.0-5.0 [facility] Comment on above: Performed By: #### U RIN2 ####[place] [address] Hyaline Cast 1.1 /lpf High 0.0-1.0 [facility] Comment on above: Performed By: #### U RIN2 ####[place] [address] Urine, bacteria in sediment NONE Normal None [facility] Comment on above: Performed By: #### U RIN2 ####[place] [address] Urine, erythrocytes in sediment by area 3.0 /[HPF] Normal 0.0-5.0 [facility] Comment on above: Performed By: #### U RIN2 ####[place] [address] Urine, leukocytes in sedmiment 2.2 /[HPF] Normal 0.0-5.0 [facility] Comment on above: Performed By: #### U RIN2 ####[place] [address] Bilirubin Urine Negative Normal Negative [facility] Comment on above: Performed By: #### U RIN2 ####[place] [address] Hemoglobin,Urine TRACE Abnormal Negative [facility] Comment on above: Performed By: #### U RIN2 ####[address] [address] Ketone Urine 40 mg/dL Abnormal Negative [facility] Comment on above: Performed By: #### U RIN2 ####[address], [place] [address] Nitrites Urine Negative Normal Negative [facility] Comment on above: Performed By: #### U RIN2 ####[address] [address] Protein Urine Negative Normal Negative [facility] Comment on above: Performed By: #### U RIN2 ####[place] [address] Specific [place], [place] 1.017 Normal 1.005-1.030 [facility] Comment on above: Performed By: #### U RIN2 ####[place] [address] Urine, appearance CLEAR Normal [facility] Comment on above: Performed By: #### U RIN2 ####[place] [address] Urine, color YELLOW Normal [facility] Comment on above: Performed By: #### U RIN2 ####[place] [address] Urine, glucose presence Negative Normal Negative [facility] Comment on above: Performed By: #### U RIN2 ####[place] [address] Urine, pH 5.5 [pH] Normal 5.0-8.0 [facility] Comment on above: Performed By: #### U RIN2 ####[place] [address] Urobilinogen,Ur 0.2 EU/dL Normal 0.0-1.0 [facility] Comment on above: Performed By: #### U RIN2 ####[place] [address] WBC (Leukocytes) Negative Normal Negative [facility] Comment on above: Performed By: #### U RIN2 ####[place] [address] Urine Drug Screenon 07-03-19 18 Urine Amphetamine Non-detected Normal Non-Detect e d [facility] Comment on above: Performed By: #### U DRG2 ####[address], [place] [address] Urine Barbiturates Non-detected Normal Non-Detec te d [facility] Comment on above: Performed By: #### U DRG2 ####[facility] [place], [place] [address] Urine Benzodiazepine Non-detected Normal Non-Det ecte d [facility] Comment on above: Performed By: #### U DRG2 ####[facility] [place], [place] [address] Urine Cocaine Metab Non-detected Normal Non-Dete cte d [facility] Comment on above: Performed By: #### U DRG2 ####[address] [address] Urine Opiate Non-detected Normal Non-Detecte d [facility] Comment on above: Performed By: #### U DRG2 ####[address] [address] Urine PCP Non-detected Normal Non-Detecte d [facility] Comment on above: Performed By: #### U DRG2 ####[address] [address] Urine THC see below Normal Non-Detecte d [facility] Comment on above: Result Comment: Dete cted (unconfirmed) Urine Drug Cutoff LevelsUrine Amphetamine 500 ng/mLUrine Barbituate 200 ng/mLUrine Benzodiazepines 200 ng/mLUrine Cocaine 150 ng/mLUrine Phencyclidine (PCP) 25 ng/mLUrine Opiates 300 ng/mLUrine THC 50 ng/mLThe results of these analytes are unconfirmed and reportedqualitatively as detected or non-detected relative to the cutoff value.Detected results indicate the sample is likely to contain the analyte.Non-detected results indicate that either the sample does notcontain the analyte or it is present in concentrations belowthe cutoff level. This drug screen should be used for medical diagnosticpurposes only. Performed By: #### U DRG2 ####[address] [address] Urine Alcohol NON-DETECTED Normal [facility] Comment on above: Result Comment: >or= 50 mg/dl ethyl alcohol is considered detected in urine. Performed By: #### U DRG2 ####[facility] [place], [place] [address] Urine HCG, Qual.on 8 HCG.beta subunit ( test) Ql (U) Negative Normal Negative [facility] Comment on above: Performed By: #### H CGUR ####[facility] [place], [place] [address] Specific [place], [place] 1.[address] Normal 1.005-1.030 [facility] Comment on above: Performed By: #### H CGUR ####[facility] [place], [place] [address] Vital Signs Date Time Vital Sign Value Performing Clinician Facility 02-28-2025 10:35-0400 Diastolic blood pressure 66 mm[Hg] Adrian Valero MD Work Phone: [facility] 02-28-2025 10:35-0400 Heart rate 86 /min Adrian Valero MD Work Phone: [facility] 02-28-2025 10:35-0400 Respiratory rate 18 /min Adrian Valero MD Work Phone: [facility] 02-28-2025 10:35-0400 Systolic blood pressure 131 mm[Hg] Adrian Valero MD Work Phone: [facility] 02-28-2025 10:26-0400 SaO2% (BldA) [Mass fraction] 100 % Adrian Valero MD Work Phone: [facility] 02-28-2025 09:37-0400 Body temperature 96.1 [degF] Adrian Valero MD Work Phone: [facility] 02-28-2025 08:55-0400 Body height 154.9 cm Adrian Valero MD Work Phone: [facility] 02-28-2025 08:55-0400 Body mass index (BMI) [Ratio] 31.18 kg/m2 Adrian Valero MD Work Phone: [facility] 02-28-2025 08:55-0400 Body weight 74.84 kg Adrian Valero MD Work Phone: [facility] 01-16-2025 08:40-0400 Diastolic blood pressure 70 mm[Hg] Alvarado Morgan MD Work Phone: [facility] 01-16-2025 08:40-0400 Heart rate 60 /min Alvarado Morgan MD Work Phone: [facility] 01-16-2025 08:40-0400 Respiratory rate 16 /min Alvarado Morgan MD Work Phone: [facility] 01-16-2025 08:40-0400 SaO2% (BldA) [Mass fraction] 95 % Alvarado Morgan MD Work Phone: [facility] 01-16-2025 08:40-0400 Systolic blood pressure 108 mm[Hg] Alvarado Morgan MD Work Phone: [facility] 01-16-2025 07:46-0400 Body temperature 97 [degF] Alvarado Morgan MD Work Phone: [facility] 01-16-2025 06:47-0400 Body height 154.9 cm Alvarado Morgan MD Work Phone: [facility] 01-16-2025 06:47-0400 Body mass index (BMI) [Ratio] 31.18 kg/m2 Alvarado Morgan MD Work Phone: [facility] 01-16-2025 06:47-0400 Body weight 74.84 kg Alvarado Morgan MD Work Phone: [facility] 11-14-2024 10:55-0400 Diastolic blood pressure 63 mm[Hg] Alvarado Morgan MD Work Phone: [facility] 11-14-2024 10:55-0400 Heart rate 73 /min Alvarado Morgan MD Work Phone: [facility] 11-14-2024 10:55-0400 SaO2% (BldA) [Mass fraction] 99 % Alvarado Morgan MD Work Phone: [facility] 11-14-2024 10:55-0400 Systolic blood pressure 103 mm[Hg] Alvarado Morgan MD Work Phone: [facility] 11-14-2024 10:19-0400 Body temperature 97.5 [degF] Alvarado Morgan MD Work Phone: [facility] 11-14-2024 10:19-0400 Respiratory rate 16 /min Alvarado Morgan MD Work Phone: [facility] 11-14-2024 09:43-0400 Body height 154.9 cm Alvarado Morgan MD Work Phone: [facility] 11-14-2024 09:43-0400 Body mass index (BMI) [Ratio] 31.18 kg/m2 Alvarado oMrgan MD Work Phone: [facility] 11-14-2024 09:43-0400 Body weight 74.84 kg Alvarado Morgan MD Work Phone: [facility] 08-14-2024 14:14-0500 Body temperature 98.2 [degF] Krislyn Aberegg PA Work Phone: [facility] 08-14-2024 14:14-0500 Body weight 74.2 kg Krislyn Aberegg PA Work Phone: [facility] 08-14-2024 14:14-0500 Diastolic blood pressure 64 mm[Hg] Krislyn Aberegg PA Work Phone: [facility] 08-14-2024 14:14-0500 Heart rate 82 /min Krislyn Aberegg PA Work Phone: [facility] 08-14-2024 14:14-0500 Respiratory rate 18 /min Krislyn Aberegg PA Work Phone: [facility] 08-14-2024 14:14-0500 SaO2% (BldA) [Mass fraction] 95 % Krislyn Aberegg PA Work Phone: [facility] 08-14-2024 14:14-0500 Systolic blood pressure 98 mm[Hg] Krislyn Aberegg PA Work Phone: [facility] 07-27-2024 14:31-0500 Body height 157.5 cm [facility] [employer] Work Phone: [facility] 07-27-2024 14:31-0500 Body mass index (BMI) [Ratio] 31.09 kg/m2 [facility] [employer] Work Phone: [facility] 07-27-2024 14:31-0500 Body weight 77.11 kg [facility] [employer] Work Phone: [facility] 06-30-2024 15:25-0500 Body temperature 99.1 [degF] Raul Recio MD Work Phone: [facility] 06-30-2024 15:25-0500 Body weight 77.4 kg Raul Recio MD Work Phone: [facility] 06-30-2024 15:25-0500 Diastolic blood pressure 66 mm[Hg] Raul Recio MD Work Phone: [facility] 06-30-2024 15:25-0500 Heart rate 90 /min Raul Recio MD Work Phone: [facility] 06-30-2024 15:25-0500 Respiratory rate 20 /min Raul Recio MD Work Phone: [facility] 06-30-2024 15:25-0500 SaO2% (BldA) [Mass fraction] 98 % Raul Recio MD Work Phone: [facility] 06-30-2024 15:25-0500 Systolic blood pressure 108 mm[Hg] Raul Recio MD Work Phone: [facility] 05-15-2024 14:15-0500 Body weight 75.9 kg Hong Farris MD Work Phone: [facility] 05-15-2024 14:15-0500 Diastolic blood pressure 64 mm[Hg] Hong Farris MD Work Phone: [facility] 05-15-2024 14:15-0500 Systolic blood pressure 112 mm[Hg] Hong Farris MD Work Phone: [facility] 04-14-2024 17:32-0400 Body temperature 97.3 [degF] [facility] 04-14-2024 17:32-0400 Diastolic blood pressure 66 mm[Hg] [facility] 04-14-2024 17:32-0400 Heart rate 65 /min [facility] 04-14-2024 17:32-0400 Respiratory rate 20 /min [facility] 04-14-2024 17:32-0400 SaO2% (BldA) [Mass fraction] 97 % [facility] 04-14-2024 17:32-0400 Systolic blood pressure 111 mm[Hg] [facility] 04-12-2024 19:52-0400 Diastolic Blood Pressure Non-Invasive 59 mm[Hg] KENTON FROMMELT DO [facility] 04-12-2024 19:52-0400 Heart rate 65 /min KENTON FROMMELT DO [facility] 04-12-2024 19:52-0400 Mean blood pressure 72 mm[Hg] KENTON FROMMELT DO [facility] 04-12-2024 19:52-0400 Respiratory rate 18 /min KENTON FROMMELT DO [facility] 04-12-2024 19:52-0400 Systolic Blood Pressure Non-Invasive 99 mm[Hg] KENTON FROMMELT DO [facility] 04-12-2024 19:00-0400 Diastolic Blood Pressure Non-Invasive 58 mm[Hg] KENTON FROMMELT DO [facility] 04-12-2024 19:00-0400 Heart rate 57 /min KENTON FROMMELT DO [facility] 04-12-2024 19:00-0400 Systolic Blood Pressure Non-Invasive 95 mm[Hg] KENTON FROMMELT DO [facility] 04-12-2024 14:33-0400 Body temperature 97.34 [degF] KENTON DAST DO [facility] 04-12-2024 14:33-0400 Body weight 77.1 kg KENTON DAST DO [facility] 04-12-2024 14:33-0400 Diastolic Blood Pressure Non-Invasive 70 mm[Hg] KENTON DAST DO [facility] 04-12-2024 14:33-0400 Heart rate 83 /min KENTON DAST DO [facility] 04-12-2024 14:33-0400 Respiratory rate 16 /min KENTON DAST DO [facility] 04-12-2024 14:33-0400 Systolic Blood Pressure Non-Invasive 116 mm[Hg] KENTON REESE DO [facility] 04-01-2024 15:01-0400 Body temperature 98.96 [degF] JENNIFER PRINCESS DO [facility] 04-01-2024 15:01-0400 Diastolic Blood Pressure Non-Invasive 88 mm[Hg] JENNIFER PRINCESS DO [facility] 04-01-2024 15:01-0400 Heart rate 91 /min JENNIFER PRINCESS DO [facility] 04-01-2024 15:01-0400 Respiratory rate 16 /min JENNIFER PRINCESS DO [facility] 04-01-2024 15:01-0400 Systolic Blood Pressure Non-Invasive 139 mm[Hg] JENNIFER PRINCESS DO [facility] 03-18-2024 15:33-0400 Diastolic Blood Pressure Non-Invasive 62 mm[Hg] NAUN HDEZ MD [facility] 03-18-2024 15:33-0400 Heart rate 50 /min NAUN HDEZ MD [facility] 03-18-2024 15:33-0400 Mean blood pressure 74 mm[Hg] ANUN HDEZ MD [facility] 03-18-2024 15:33-0400 Respiratory rate 16 /min NAUN HDEZ MD [facility] 03-18-2024 15:33-0400 Systolic Blood Pressure Non-Invasive 102 mm[Hg] NAUN HDEZ MD [facility] 03-18-2024 14:18-0400 Diastolic Blood Pressure Non-Invasive 53 mm[Hg] NAUN HDEZ MD [facility] 03-18-2024 14:18-0400 Heart rate 52 /min NAUN HDEZ MD [facility] 03-18-2024 14:18-0400 Mean blood pressure 66 mm[Hg] NAUN HDEZ MD [facility] 03-18-2024 14:18-0400 Reason For Taking VItal Signs NAUN HDEZ MD [facility] 03-18-2024 14:18-0400 Systolic Blood Pressure Non-Invasive 96 mm[Hg] NAUN HDEZ MD [facility] 03-18-2024 11:19-0400 Blood Pressure Location NAUN HDEZ MD [facility] 03-18-2024 11:19-0400 Body temperature 96.98 [degF] NAUN HDEZ MD [facility] 03-18-2024 11:19-0400 Diastolic Blood Pressure Non-Invasive 73 mm[Hg] ANUN HDEZ MD [facility] 03-18-2024 11:19-0400 Heart rate 70 /min NAUN HDEZ MD [facility] 03-18-2024 11:19-0400 Respiratory rate 16 /min NAUN HDEZ MD [facility] 03-18-2024 11:19-0400 Systolic Blood Pressure Non-Invasive 107 mm[Hg] NAUN HDEZ MD [facility] 08-13-2023 15:07-0500 Blood Pressure Cuff Size KENTON FROMMELT DO [facility] 08-13-2023 15:07-0500 Blood Pressure Location KENTON FROMMELT DO [facility] 08-13-2023 15:07-0500 Blood Pressure Method KENTON FROMMELT D O [facility] 08-13-2023 15:07-0500 Body temperature 98.6 [degF] KENTON FROMMELT DO [facility] 08-13-2023 15:07-0500 Diastolic Blood Pressure Non-Invasive 78 mm[Hg] KENTON FROMMELT DO [facility] 08-13-2023 15:07-0500 Heart rate 109 /min KENTON FROMMELT DO [facility] 08-13-2023 15:07-0500 Respiratory rate 18 /min KENTON FROMMELT DO [facility] 08-13-2023 15:07-0500 Systolic Blood Pressure Non-Invasive 116 mm[Hg] KENTON REESE DO [facility] 08-23-2022 00:42-0500 Diastolic Blood Pressure Non-Invasive [address] LINDSAY ALEMAN MD [facility] 08-23-2022 00:42-0500 Heart rate 84 /min DR LINDSAY ALEMAN MD [facility] 08-23-2022 00:42-0500 Respiratory rate 18 /min DR LINDSAY ALEMAN MD [facility] 08-23-2022 00:42-0500 Systolic Blood Pressure Non-Invasive [address] LINDSAY ALEMAN MD [facility] 08-23-2022 00:06-0500 Body temperature 98.96 [degF] DR LINDSAY ALEMAN MD [facility] 08-23-2022 00:06-0500 Diastolic Blood Pressure Non-Invasive [address] LINDSAY ALEMAN MD [facility] 08-23-2022 00:06-0500 Heart rate 93 /min DR LINDSAY ALEMAN MD [facility] 08-23-2022 00:06-0500 Respiratory rate 18 /min DR LINDSAY ALEMAN MD [facility] 08-23-2022 00:06-0500 Systolic Blood Pressure Non-Invasive [address] LINDSAY ALEMAN MD [facility] 08-21-2022 14:00-0500 Body temperature 98.96 [degF] CORTNEY GREGORIO DO [facility] 08-21-2022 14:00-0500 Diastolic Blood Pressure Non-Invasive 74 1 CORTNEY GREGORIO DO [facility] 08-21-2022 14:00-0500 Heart rate 97 /min CORTNEY GREGORIO DO [facility] 08-21-2022 14:00-0500 Respiratory rate 16 /min [facility] 08-21-2022 14:00-0500 Systolic Blood Pressure Non-Invasive 112 1 [facility] Encounters Encounter Date Encounter Type Care Provider Facility Start: 02-28-2025 End: 02-28-2025 ambulatory Start: 02-28-2025 End: 02-28-2025 Subsequent hospital visit by physician Adrian Valero MD Work Phone: [facility] Endoscopy Start: 01-16-2025 End: 01-16-2025 ambulatory [facility] Start: 01-16-2025 End: 01-16-2025 Subsequent hospital visit by physician Alvarado Morgan MD Work Phone: [facility] Endoscopy Comment on above: H. pylori infection; Generalized abdominal pain; Nausea and vomiting Start: 01-09-2025 End: 01-09-2025 Telephone encounter Rubi Kendrick MA [facility] Gastroenterology [facility] Comment on above: EGD (Reminder call) Start: 11-19-2024 End: 01-19-2025 Follow-up encounter Arian Ceja CNP Work Phone: [facility] Comment on above: Tissue exam Start: 11-14-2024 End: 11-14-2024 ambulatory [facility] Start: 11-14-2024 End: 11-14-2024 Subsequent hospital visit by physician Alvarado Morgan MD Work Phone: [facility] Endoscopy Comment on above: Nausea and vomiting; Generalized abdominal pain; Hematemesis, unspecified whether nausea present; Intermittent diarrhea Start: 09-26-2024 End: 09-26-2024 ambulatory [facility] Facility:[place] Start: 08-15-2024 End: 08-15-2024 Follow-up encounter Aida Simpson APRN.CNP Work Phone: [facility] Start: 08-14-2024 End: 08-14-2024 ambulatory [facility] Facility:[facility] Start: 08-14-2024 End: 08-14-2024 Patient encounter procedure Aman ROME Work Phone: [facility] Comment on above: URI, acute (Primary Dx) Start: 07-18-2024 End: 07-24-2024 Telephone encounter NTQ-Dataphi BROWER - PILLOWCASE TURNER Work Phone: [facility] Clinical Communication Comment on above: Procedure Start: 07-12-2024 End: 07-12-2024 Office outpatient new 30 minutes Arian Lala MACHINE CONTAINER WASHER - PILLOWCASE TURNER Work Phone: [facility] [employer] Comment on above: Nausea and vomiting, unspecified vomiting type (Primary Dx); Generalized abdominal pain; Hematemesis, unspecified whether nausea present; Intermittent diarrhea Start: 07-12-2024 End: 07-12-2024 Office outpatient new 45 minutes Arian Lala MACHINE CONTAINER WASHER - PILLOWCASE TURNER Work Phone: [facility] Comment on above: Nausea and vomiting, unspecified vomiting type (Primary Dx); Generalized abdominal pain; Hematemesis, unspecified whether nausea present; Intermittent diarrhea Start: 07-12-2024 End: 07-12-[address] [facility] Start: 06-30-2024 End: 06-30-2024 ambulatory [facility] Facility:[facility] Start: 06-30-2024 End: 06-30-2024 Office outpatient new 30 minutes Raul Recio MD Work Phone: [facility] Comment on above: URI, acute (Primary Dx) Start: 05-21-2024 End: 05-21-2024 ambulatory [facility] Facility[facility] [place] Start: 05-21-2024 End: 05-21-2024 Patient encounter procedure JONE RIOS MACHINE CONTAINER WASHER-[facility] Start: 05-15-2024 End: 05-15-2024 ambulatory HONG FARRIS Facility:[facility] Start: 05-15-2024 End: 05-15-2024 Office outpatient new 20 minutes Hong Farris MD Work Phone: Gynecology Comment on above: Endometrial polyp (P rimary Dx); Cyst of ovary, unspecified laterality; Pelvic pain in female Start: 05-09-2024 End: 05-09-2024 ambulatory AMAURI FLORA MADDEN Facility:[facility] Start: 05-09-2024 End: 05-09-2024 Patient encounter procedure AMAURI HINES DO [facility] Start: 04-14-2024 End: 04-14-2024 Emergency department patient visit [facility] Comment on above: Nausea and vomiting, unspecified vomiting type (Primary Dx); Generalized abdominal pain; Hematemesis, unspecified whether nausea present Start: 04-12-2024 End: 04-12-2024 Emergency department patient visit KENTON HERRERALUIS DANIEL [facility] Start: 04-09-2024 End: 04-09-2024 ambulatory NOLAN GALLARDO MACHINE CONTAINER WASHER-PILLOWCASE TURNER Facility:[facility] Start: 04-09-2024 End: 04-09-2024 Patient encounter procedure NOLAN GALLARDO MACHINE CONTAINER WASHER-PILLOWCASE TURNER [facility] Start: 04-01-2024 End: 04-01-2024 Emergency department patient visit JENNIFER SÁNCHEZ DO [facility] Start: 03-18-2024 End: 03-18-2024 Emergency department patient visit NAUN HDEZ MD [facility] Start: 08-13-2023 End: 08-13-2023 Emergency department patient visit KENTON REESE DO [facility] Start: 07-11-2023 End: 07-11-2023 Emergency department patient visit [facility] EM[facility]ENCY [facility]PT Start: 10-11-2022 End: 12-13-2022 ambulatory AMAURI HINES DO Facility:B Start: 09-01-2022 End: 09-02-2022 ambulatory AMAURI HINES DO Facility:[facility] Start: 09-01-2022 End: 09-01-2022 Patient encounter procedure SHASTA CALVO PA-C [facility] Start: 08-23-2022 End: 08-23-2022 Emergency department patient visit DR LINDSAY ALEMAN MD Facility:[facility] Start: 08-23-2022 End: 08-23-2022 Emergency department patient visit DR LINDSAY ALEMAN MD [facility] Start: 08-21-2022 End: 08-21-2022 Emergency department patient visit CORTNEY GREGORIO DO Facility:[facility] Start: 08-21-2022 End: 08-21-2022 Emergency department patient visit CORTNEY GREGORIO DO [facility] Start: 07-18-2017 Ambulatory ROXANA PETER [facility] Start: 07-16-2017 Emergency department patient visit UNKNOWN PROVIDER [facility] Start: 07-09-2017 Emergency department patient visit UNKNOWN PROVIDER [facility] Start: 07-03-2017 End: 07-04-2017 Emergency department patient visit BORA ROSALES [facility] Procedures Date Procedure Procedure Detail Performing Clinician Start: 01-16-2025 Urine test visual color cmprsn meths Guero Leahy APRN - EARLY CHILDHOOD DIRECTOR Work Phone: Start: 11-14-2024 Urine test visual color cmprsn meths Alvarado Morgan MD Work Phone: Start: 10-11-2022 End: 12-13-2022 Occupational therapy SHASTA CALVO PA-C Dentition (body structure) Heriberto MOLINA JG DO Plan of Treatment Date Care Activity Detail Author Start: 2073 RSV Immunization for Adults (1 - 1-dose 75+ series) RSV Immunization for Adults (1 - 1-dose 75+ series) [facility] Start: 2048 Zoster Vaccines (1 of 2) Zoster Vaccines (1 of 2) [facility] Start: 04-22-2030 DTaP/Tdap/Td Vaccines (2 - Td or Tdap) DTaP/Tdap/Td Vaccines (2 - Td or Tdap) [facility] Start: 04-22-2030 Urine microalbumin profile DTaP,Tdap,Td Vaccine (2 - T d or Tdap) [facility] Start: 02-28-2025 End: 02-28-2025 Egd intrmural us needle aspirate/biopsy esophags ESOPHAGOGASTRODUODENOSCOPY, WITH ULTRASOUND GUIDED ASPIRATION OR BIOPSY Disease of stomach and duodenum, unspecified 02/28/2025 9:14 AM EDT [facility] Gastroenterology Start: 02-18-2025 COVID-19 Vaccine ( season) COVID-19 Vaccine ( season) [facility] Start: 02-18-2025 Influenza vaccination [facility] Start: 01-16-2025 End: 01-16-2025 Admission to same day surgery center 01/16/2025 7:30 AM EDT - 01/16/2025 8:00 AM EDT Surgery [facility] Endoscopy [address] [place] [address] Alvarado Morgan MD [address] [place] [address] [address] [place] [address] ESOPHAGOGASTRODUODENOSCOPY WITH BIOPSY [69588 (CPT )] [facility] Endoscopy Comment on above: ESOPHAGOGASTRODUODENOSCOPY WITH BIOPSY [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 stomach, and either the duodenum or a surgically altered stomach where the jejunum is examined distal to the anastomosis Diagnosis Code(s): --- Professional --- K31.89, Other diseases of stomach and duodenum K92.9, Disease of digestive system, unspecified --- Technical --- K31.89, Other diseases of stomach and duodenum K92.9, Disease of digestive system, unspecified CPT copyright 2021 [employer]. All rights reserved. The codes documented in this report are preliminary and upon air brake adjuster review may be revised to meet current compliance requirements. Attending Participation: I personally performed the entire procedure. ADRIAN Valero MD 02/28/2025 9:35:59 AM This report has been signed electronically. Number of Addenda: 0 Note Initiated On: 02/28/2025 7:56 AM [facility] 02-28-2025 [facility]: Gustavo De Procedure Date: 02/28/2025 7:56 AM Gender: Female Date of : 2000 Age: 24 Admit Type: Outpatient Note Status: Finalized Endoscopist: ADRIAN Valero MD, [id number] Procedure: Upper EUS Indications: Submucosal tumor versus extrinsic mass found on endoscopy Findings: ENDOSCOPIC FINDING: : No gross lesions were noted in the entire esophagus. A single 4 mm subepithelial papule (nodule) with no bleeding and no stigmata of recent bleeding was found in the cardia. No gross lesions were noted in the duodenal bulb, in the first portion of the duodenum and in the second portion of the duodenum. ENDOSONOGRAPHIC FINDING: : The esophagus, stomach and duodenum and adjacent structures were examined endosonographically. A small 5 x 3.4 mm lesion , hypoechoic in the second layer is noted, d/dx small GIST vs leiomyoma. No lymphadenopathy is noted in ana maria portal , ana maria gastric or mediastinum. Impression: - No gross lesions in the entire esophagus. - A single subepithelial papule (nodule) found in the stomach. - No gross lesions in the duodenal bulb, in the first portion of the duodenum and in the second portion of the duodenum. - Small lesion in MM layer. Recommendation: - Continue present medications. - Repeat EGD - EUS surveillance in 12 months. Medicines: Monitored Anesthesia Care Procedure: Pre-Anesthesia Assessment: - Prior to the procedure, a History and Physical was performed, and patient medications and allergies were reviewed. The patient is competent. The risks and benefits of the procedure and the sedation options and risks were discussed with the patient. All questions were answered and informed consent was obtained. Patient identification and proposed procedure were verified by the physician, the nurse and the pediatric anesthesiologist in the pre-procedure area in the procedure room. Mental Status Examination: alert and oriented. Airway Examination: normal oropharyngeal airway and neck mobility. CV Examination: normal. Prophylactic Antibiotics: The patient does not require prophylactic antibiotics. Prior Anticoagulants: The patient has taken no anticoagulant or antiplatelet agents. ASA Grade Assessment: III - A patient with severe systemic disease. After reviewing the risks and benefits, the patient was deemed in satisfactory condition to undergo the procedure. The anesthesia plan was to use monitored anesthesia care (MAC). Immediately prior to administration of medications, the patient was re-assessed for adequacy to receive sedatives. The heart rate, respiratory rate, oxygen saturations, blood pressure, adequacy of pulmonary ventilation, and response to care were monitored throughout the procedure. The physical status of the patient was re-assessed after the procedure. After obtaining informed consent, the endoscope was passed under direct vision. Throughout the procedure, the patient's blood pressure, pulse, and oxygen saturations were monitored continuously. The Endoscope was introduced through the mouth, and advanced to the second part of duodenum. The Endoscope was introduced through the mouth, and advanced to the second part of duodenum. The upper EUS was accomplished without difficulty. The patient tolerated the procedure well. Complications: No immediate complications. Estimated blood loss: None. Procedure Code(s): --- Professional --- 42960, Esophagogastroduodenoscopy, flexible, transoral; with endoscopic ultrasound examination, including the esophagus, stomach, and either the duodenum or a surgically altered stomach where the jejunum is examined distal to the anastomosis --- Technical --- 54835, Esophagogastroduodenoscopy, flexible, transoral; with endoscopic ultrasound examination, including the esophagus, stomach, and either the duodenum or a surgically altered stomach where the jejunum is examined distal to the anastomosis Diagnosis Code(s): --- Professional --- K31.89, Other diseases of stomach and duodenum K92.9, Disease of digestive system, unspecified --- Technical --- K31.89, Other diseases of stomach and duodenum K92.9, Disease of digestive system, unspecified CPT copyright 2021 [employer]. All rights reserved. The codes documented in this report are preliminary and upon air brake adjuster review may be revised to meet current compliance requirements. Attending Participation: I personally performed the entire procedure. ADRIAN Valero MD 02/28/2025 9:35:59 AM This report has been signed electronically. Number of Addenda: 0 Note Initiated On: 02/28/2025 7:56 AM [facility] 02-28-2025 Miscellaneous Notes [facility] Name: Gustavo De Procedure Date: 02/28/2025 7:56 AM Gender: Female Date of : 2000 Age: 24 Admit Type: Outpatient Note Status: Finalized Endoscopist: ADRIAN Valero MD, [id number] Procedure: Upper EUS Indications: Submucosal tumor versus extrinsic mass found on endoscopy Findings: ENDOSCOPIC FINDING: : No gross lesions were noted in the entire esophagus. A single 4 mm subepithelial papule (nodule) with no bleeding and no stigmata of recent bleeding was found in the cardia. No gross lesions were noted in the duodenal bulb, in the first portion of the duodenum and in the second portion of the duodenum. ENDOSONOGRAPHIC FINDING: : The esophagus, stomach and duodenum and adjacent structures were examined endosonographically. A small 5 x 3.4 mm lesion , hypoechoic in the second layer is noted, d/dx small GIST vs leiomyoma. No lymphadenopathy is noted in ana maria portal , ana maria gastric or mediastinum. Impression: - No gross lesions in the entire esophagus. - A single subepithelial papule (nodule) found in the stomach. - No gross lesions in the duodenal bulb, in the first portion of the duodenum and in the second portion of the duodenum. - Small lesion in MM layer. Recommendation: - Continue present medications. - Repeat EGD - EUS surveillance in 12 months. Medicines: Monitored Anesthesia Care Procedure: Pre-Anesthesia Assessment: - Prior to the procedure, a History and Physical was performed, and patient medications and allergies were reviewed. The patient is competent. The risks and benefits of the procedure and the sedation options and risks were discussed with the patient. All questions were answered and informed consent was obtained. Patient identification and proposed procedure were verified by the physician, the nurse and the pediatric anesthesiologist in the pre-procedure area in the procedure room. Mental Status Examination: alert and oriented. Airway Examination: normal oropharyngeal airway and neck mobility. CV Examination: normal. Prophylactic Antibiotics: The patient does not require prophylactic antibiotics. Prior Anticoagulants: The patient has taken no anticoagulant or antiplatelet agents. ASA Grade Assessment: III - A patient with severe systemic disease. After reviewing the risks and benefits, the patient was deemed in satisfactory condition to undergo the procedure. The anesthesia plan was to use monitored anesthesia care (MAC). Immediately prior to administration of medications, the patient was re-assessed for adequacy to receive sedatives. The heart rate, respiratory rate, oxygen saturations, blood pressure, adequacy of pulmonary ventilation, and response to care were monitored throughout the procedure. The physical status of the patient was re-assessed after the procedure. After obtaining informed consent, the endoscope was passed under direct vision. Throughout the procedure, the patient's blood pressure, pulse, and oxygen saturations were monitored continuously. The Endoscope was introduced through the mouth, and advanced to the second part of duodenum. The Endoscope was introduced through the mouth, and advanced to the second part of duodenum. The upper EUS was accomplished without difficulty. The patient tolerated the procedure well. Complications: No immediate complications. Estimated blood loss: None. Procedure Code(s): --- Professional --- 19079, Esophagogastroduodenoscopy, flexible, transoral; with endoscopic ultrasound examination, including the esophagus, stomach, and either the duodenum or a surgically altered stomach where the jejunum is examined distal to the anastomosis --- Technical --- 77607, Esophagogastroduodenoscopy, flexible, transoral; with endoscopic ultrasound examination, including the esophagus, stomach, and either the duodenum or a surgically altered stomach where the jejunum is examined distal to the anastomosis Diagnosis Code(s): --- Professional --- K31.89, Other diseases of stomach and duodenum K92.9, Disease of digestive system, unspecified --- Technical --- K31.89, Other diseases of stomach and duodenum K92.9, Disease of digestive system, unspecified CPT copyright 2022 [employer]. All rights reserved. The codes documented in this report are preliminary and upon air brake adjuster review may be revised to meet current compliance requirements. Attending Participation: I personally performed the entire procedure. ADRIAN Valero MD 02/28/2025 9:35:59 AM This report has been signed electronically. Number of Addenda: 0 Note Initiated On: 02/28/2025 7:56 AM documented in this encounter [facility] 01-16-2025 Miscellaneous Notes Pt states she wants to go home. She is assisted with getting dressed by nurse. Complains of being slightly dizzy. Hand off done with volunteer and it is communicated to her that pt is dizzy. Pt states dizziness is tolerable and she is ready to go home. Discharge to home with all belongings. Pt is awake and drinking juice. Dr Morgan discussed findings with pt. Father remains at bedside. She c/o slight sore throat. States slightly dizzy and not ready to get dressed. Received pt from gi lab to recovery phase 2 sleeping/sedated on room air. Father brought to bedside. History and allergies reviewed in EMR. Report received and assessment [facility]: Gustavo De Procedure Date: 01/16/2025 7:18 AM Gender: Female Date of : 2000 Age: 24 Admit Type: Outpatient Note Status: Finalized Endoscopist: Alvarado Morgan MD, [id number] Procedure: Upper GI endoscopy Indications: H Heilmani infection Findings: Esophagus was normal A 7-8 mm submucosal lesion with normal overlying mucosa noted in the cardia Mild erythema noted in the gastric antrum, biopsies obtained D1 and D2 were normal Impression: Submucosal cardia lesion Gastric erythema Recommendation: - Patient has a contact number available for emergencies. The signs and symptoms of potential delayed complications were discussed with the patient. Return to normal activities tomorrow. Written discharge instructions were provided to the patient. - Continue present medications. - Consider obtaining EUS for the submucosal lesion - Resume previous diet. - Return to referring physician as previously scheduled. Medicines: Monitored Anesthesia Care Procedure: Pre-Anesthesia Assessment: - Prior to the procedure, a History and Physical was performed, and patient medications and allergies were reviewed. The patient is competent. The risks and benefits of the procedure and the sedation options and risks were discussed with the patient. All questions were answered and informed consent was obtained. Patient identification and proposed procedure were verified by the physician, the nurse and the pediatric anesthesiologist in the pre-procedure area in the procedure room in the endoscopy suite. Mental Status Examination: normal. Airway Examination: normal oropharyngeal airway and neck mobility. Respiratory Examination: clear to auscultation. CV Examination: normal. Prophylactic Antibiotics: The patient does not require prophylactic antibiotics. Prior Anticoagulants: The patient has taken no anticoagulant or antiplatelet agents. ASA Grade Assessment: II - A patient with mild systemic disease. After reviewing the risks and benefits, the patient was deemed in satisfactory condition to undergo the procedure. The anesthesia plan was to use monitored anesthesia care (MAC). Immediately prior to administration of medications, the patient was re-assessed for adequacy to receive sedatives. The heart rate, respiratory rate, oxygen saturations, blood pressure, adequacy of pulmonary ventilation, and response to care were monitored throughout the procedure. The physical status of the patient was re-assessed after the procedure. After obtaining informed consent, the endoscope was passed under direct vision. Throughout the procedure, the patient's blood pressure, pulse, and oxygen saturations were monitored continuously. The Endoscope was introduced through the mouth, and advanced to the second part of duodenum. The upper GI endoscopy was accomplished with ease. The patient tolerated the procedure well. Complications: No immediate complications. Estimated blood loss: None. Attending Participation: I personally performed the entire procedure. Alvarado Morgan MD 01/16/2025 7:47:29 AM This report has been signed electronically. Number of Addenda: 0 Note Initiated On: 01/16/2025 7:18 AM documented in this encounter [facility] 01-16-2025 Nurse Note Pt states she wants to go home. She is assisted with getting dressed by nurse. Complains of being slightly dizzy. Hand off done with volunteer and it is communicated to her that pt is dizzy. Pt states dizziness is tolerable and she is ready to go home. Discharge to home with all belongings. [facility] 01-16-2025 Nurse Note Pt is awake and drinking juice. Dr Morgan discussed findings with pt. Father remains at bedside. She c/o slight sore throat. States slightly dizzy and not ready to get dressed. [facility] 01-16-2025 Nurse Note Received pt from gi lab to recovery phase 2 sleeping/sedated on room air. Father brought to bedside. History and allergies reviewed in EMR. Report received and assessment completed [facility] 01-16-2025 Note Patient: Gustavo rolle Procedure Summary Date: 01/16/25 Room / Location: [place] [address] / [facility] Gastroenterology Anesthesia Start: 728 Anesthesia Stop: 740 Procedure: ESOPHAGOGASTRODUODENOSCOPY WITH BIOPSY Diagnosis: H. pylori infection Generalized abdominal pain Nausea and vomiting Providers: Alvarado Morgan MD Responsible Provider: No Anesthesiologist - Edith/MD Corin Anesthesia Type: TIVA ASA Status: 2 Anesthesia Type: TIVA Vitals Value Taken Time BP 98/59 01/16/25 07:41 Temp 36.2 ?C (97.2 ?F) 01/16/25 07:41 Pulse 70 01/16/25 07:41 Resp 18 01/16/25 07:41 SpO2 97 % 01/16/25 07:41 Anesthesia Post Evaluation Patient location during evaluation: PACU Patient participation: complete - patient participated Level of consciousness: awake and alert Pain management: satisfactory to patient Airway patency: patent Dental Injury: no Cardiovascular status: acceptable, blood pressure returned to baseline and hemodynamically stable Respiratory status: acceptable and spontaneous ventilation Hydration status: euvolemic Nausea/Vomiting: controlled No notable events documented. Patient can be discharged once all PACU criteria has been met. [facility] 01-16-2025 Note Patient: Gustavo rolle Procedure Summary Date: 01/16/25 Room / Location: [facility] / [facility] Gastroenterology Anesthesia Start: 728 Anesthesia Stop: 740 Procedure: ESOPHAGOGASTRODUODENOSCOPY WITH BIOPSY Diagnosis: H. pylori infection Generalized abdominal pain Nausea and vomiting Providers: Alvarado Morgan MD Responsible Provider: Gabby Anesthesiologist - Edith/MD Corin Anesthesia Type: TIVA ASA Status: 2 Anesthesia Type: TIVA Vitals Value Taken Time BP 98/59 01/16/25 07:41 Temp 36.2 ?C (97.2 ?F) 01/16/25 07:41 Pulse 70 01/16/25 07:41 Resp 18 01/16/25 07:41 SpO2 97 % 01/16/25 07:41 Anesthesia Post Evaluation Patient participation: complete - patient participated Level of consciousness: alert and awake Pain management: satisfactory to patient Multimodal analgesia pain management approach Airway patency: patent Two or more strategies used to mitigate risk of obstructive sleep apnea Respiratory status: acceptable Cardiovascular status: acceptable Hydration status: acceptable No notable events documented. MIPS #[id number] PONV Patient did not receive an inhalational anesthetic (XX430) MIPS # 424 Perioperative Temperature Management Anesthesia time was less than 60 minutes (4256F) MIPS #477 Multimodal Pain Management Not emergent case Patient was not administered multimodal pain management (G2149) Patient reports no pain in PACU (G2149) MIPS #404 Anesthesiology Smoking Abstinence The patient is not a current smoker (e.g. cigarette, cigar, pipe, e-cigarette/vaping/marijuana) If no stop here (XX404) I completed my handoff to the receiving clinician during which we: 1. Identified the patient 2. Identified the responsible provider 3. Reviewed the pertinent medical history 4. Discussed the surgical course 5. Reviewed intra-op anesthesia management and issues during anesthesia 6. Set expectations for post-procedure period 7. Allowed opportunity for questions and acknowledgement of understanding. [facility] 01-16-2025 History and physical note GASTROENTEROLOGY PHYSICIAN PRE PROCEDURE NOTE HPI: Gustavo De is a 24 y.o. female who is here today for planned endoscopic examination. All: Allergies[1] Meds: Current Medications[2] PMH: Medical History[3] No reactions to anesthesia in the past. Airway patent PE: VS: BP 105/68 Pulse 70 Temp 36.1 C (96.9 F) (Temporal) Resp 18 Ht 5' 1 (1.549 m) Wt 165 lb (74.8 kg) SpO2 97% BMI 31.18 kg/m Body mass index is 31.18 kg/m . General: Patient in no distress CVS: Regular rate & rhythm Respiratory: Clear to auscultation Abdomen: soft and non tender ASA score : []ASA 1 [x]ASA 2 []ASA 3 ASSESSMENT & PLAN: Risks & benefits of the endoscopic procedure(s) and MAC /GA sedation were personally explained to patient / family along with alternatives to the procedure in detail including radiological and surgical options. The risks of the endoscopic procedure include but are not limited to risk from anesthesia, respiratory failure, infection, bleeding, perforation, pancreatitis with its sequelae , damage to the adjacent organs, missed lesions and need for further procedure, surgery or interventional radiological intervention, from procedure or complications. We made a shared decision to proceed with planned procedure [x]EGD []Colonoscopy []EGD&Colonoscopy Alvarado Morgan MD Gastroenterology [1] Allergies Allergen Reactions Cheese Shortness of breath and Swelling Blue cheese Acetaminophen Unsure of allergy Latex Other Reaction(s): rash, swelling Penicillin G Hives [2] Current Facility-Administered Medications: ondansetron (Zofran) injection 4 mg, 4 mg, IntraVENous, Once PRN, Alvarado Morgan MD sodium chloride 0.9 % infusion, 5-250 mL/hr, IntraVENous, PRN, Alvarado Morgan MD sodium chloride 0.9 % infusion, 5-250 mL/hr, IntraVENous, PRN, Alvarado Morgna MD sodium chloride 0.9% (NS) flush 10 mL, 10 mL, IntraVENous, 2 times per day, Alvarado Morgan MD sodium chloride 0.9% (NS) flush 10 mL, 10 mL, IntraVENous, PRN, Alvarado Morgan MD sodium chloride 0.9% (NS) flush 10 mL, 10 mL, IntraVENous, 2 times per day, Alvarado Morgan MD sodium chloride 0.9% (NS) flush 10 mL, 10 mL, IntraVENous, PRN, Alvarado Morgan MD [3] Past Medical History: Diagnosis Date 2013 Fell off back of car [facility] Work Phone: 01-16-2025 Note GASTROENTEROLOGY PHY SICIAN PRE PROCEDURE NOTE HPI: Gustavo De is a 24 y.o. female who is here today for planned endoscopic examination. All: Allergies[1] Meds: Current Medications[2] PMH: Medical History[3] No reactions to anesthesia in the past. Airway patent PE: VS: BP 105/68 Pulse 70 Temp 36.1 ?C (96.9 ?F) (Temporal) Resp 18 Ht 5' 1 (1.549 m) Wt 165 lb (74.8 kg) SpO2 97% BMI 31.18 kg/m? Body mass index is 31.18 kg/m?. General: Patient in no distress CVS: Regular rate & rhythm Respiratory: Clear to auscultation Abdomen: soft and non tender ASA score : []ASA 1 [x]ASA 2 []ASA 3 ASSESSMENT & PLAN: Risks & benefits of the endoscopic procedure(s) and MAC /GA sedation were personally explained to patient / family along with alternatives to the procedure in detail including radiological and surgical options. The risks of the endoscopic procedure include but are not limited to risk from anesthesia, respiratory failure, infection, bleeding, perforation, pancreatitis with its sequelae , damage to the adjacent organs, missed lesions and need for further procedure, surgery or interventional radiological intervention, from procedure or complications. We made a shared decision to proceed with planned procedure [x]EGD []Colonoscopy []EGD&Colonoscopy Alvarado Morgan MD Gastroenterology [1] Allergies Allergen Reactions Cheese Shortness of breath and Swelling Blue cheese Acetaminophen Unsure of allergy Latex Other Reaction(s): rash, swelling Penicillin G Hives [2] Current Facility-Administered Medications: ondansetron (Zofran) injection 4 mg, 4 mg, IntraVENous, Once PRN, Alvarado Morgan MD sodium chloride 0.9 % infusion, 5-250 mL/hr, IntraVENous, PRN, Alvarado Morgan MD sodium chloride 0.9 % infusion, 5-250 mL/hr, IntraVENous, PRN, Alvarado Morgan MD sodium chloride 0.9% (NS) flush 10 mL, 10 mL, IntraVENous, 2 times per day, Alvarado Morgan MD sodium chloride 0.9% (NS) flush 10 mL, 10 mL, IntraVENous, PRN, Alvarado Morgan MD sodium chloride 0.9% (NS) flush 10 mL, 10 mL, IntraVENous, 2 times per day, Alvarado Morgan MD sodium chloride 0.9% (NS) flush 10 mL, 10 mL, IntraVENous, PRN, Alvarado Morgan MD [3] Past Medical History: Diagnosis Date 2013 Fell off back of [facility] 01-16-2025 History and physical note GASTROENTEROLOGY PHYSICIAN PRE PROCEDURE NOTE HPI: Gustavo De is a 24 y.o. female who is here today for planned endoscopic examination. All: Allergies[1] Meds: Current Medications[2] PMH: Medical History[3] No reactions to anesthesia in the past. Airway patent PE: VS: BP 105/68 Pulse 70 Temp 36.1 C (96.9 F) (Temporal) Resp 18 Ht 5' 1 (1.549 m) Wt 165 lb (74.8 kg) SpO2 97% BMI 31.18 kg/m Body mass index is 31.18 kg/m . General: Patient in no distress CVS: Regular rate & rhythm Respiratory: Clear to auscultation Abdomen: soft and non tender ASA score : []ASA 1 [x]ASA 2 []ASA 3 ASSESSMENT & PLAN: Risks & benefits of the endoscopic procedure(s) and MAC /GA sedation were personally explained to patient / family along with alternatives to the procedure in detail including radiological and surgical options. The risks of the endoscopic procedure include but are not limited to risk from anesthesia, respiratory failure, infection, bleeding, perforation, pancreatitis with its sequelae , damage to the adjacent organs, missed lesions and need for further procedure, surgery or interventional radiological intervention, from procedure or complications. We made a shared decision to proceed with planned procedure [x]EGD []Colonoscopy []EGD&Colonoscopy Alvarado Morgan MD Gastroenterology [1] Allergies Allergen Reactions Cheese Shortness of breath and Swelling Blue cheese Acetaminophen Unsure of allergy Latex Other Reaction(s): rash, swelling Penicillin G Hives [2] Current Facility-Administered Medications: ondansetron (Zofran) injection 4 mg, 4 mg, IntraVENous, Once PRN, Alvarado Morgan MD sodium chloride 0.9 % infusion, 5-250 mL/hr, IntraVENous, PRN, Alvarado Morgan MD sodium chloride 0.9 % infusion, 5-250 mL/hr, IntraVENous, PRN, Alvarado Morgan MD sodium chloride 0.9% (NS) flush 10 mL, 10 mL, IntraVENous, 2 times per day, Alvarado Morgan MD sodium chloride 0.9% (NS) flush 10 mL, 10 mL, IntraVENous, PRN, Alvarado Morgan MD sodium chloride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 procedure in detail including radiological and surgical options. The risks of the endoscopic procedure include but are not limited to risk from anesthesia, respiratory failure, infection, bleeding, perforation, pancreatitis with its sequelae , damage to the adjacent organs, missed lesions and need for further procedure, surgery or interventional radiological intervention, from procedure or complications. We made a shared decision to proceed with planned procedure [x]EGD []Colonoscopy []EGD&Colonoscopy Alvarado Morgan MD Gastroenterology [1] Allergies Allergen Reactions Cheese Shortness of breath and Swelling Blue cheese Acetaminophen Latex Other Reaction(s): rash, swelling Penicillin G Hives [2] Current Facility-Administered Medications: ondansetron (Zofran) injection 4 mg, 4 mg, IntraVENous, Once PRN, Alvarado Morgan MD sodium chloride 0.9 % infusion, 5-250 mL/hr, IntraVENous, PRN, Alvarado Morgan MD sodium chloride 0.9 % infusion, 5-250 mL/hr, IntraVENous, PRN, Alvarado Morgan MD sodium chloride 0.9% (NS) flush 10 mL, 10 mL, IntraVENous, 2 times per day, Alvarado Morgan MD sodium chloride 0.9% (NS) flush 10 mL, 10 mL, IntraVENous, PRN, Alvarado Morgan MD sodium chloride 0.9% (NS) flush 10 mL, 10 mL, IntraVENous, 2 times per day, Alvarado Morgan MD sodium chloride 0.9% (NS) flush 10 mL, 10 mL, IntraVENous, PRN, Alvarado Morgan MD [3] Past Medical History: Diagnosis Date Concussion [facility] 11-14-2024 History and physical note 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 female who is here today for planned endoscopic examination. All: Allergies[1] Meds: Current Medications[2] PMH: Medical History[3] No reactions to anesthesia in the past. Airway patent PE: VS: BP 109/62 (BP Location: Left arm, Patient Position: Lying) Pulse 71 Temp 36.6 C (97.9 F) (Temporal) Resp 18 SpO2 97% There is no height or weight on file to calculate BMI. General: Patient in no distress CVS: Regular rate & rhythm Respiratory: Clear to auscultation Abdomen: soft and non tender ASA score : []ASA 1 [x]ASA 2 []ASA 3 ASSESSMENT & PLAN: Risks & benefits of the endoscopic procedure(s) and MAC /GA sedation were personally explained to patient / family along with alternatives to the procedure in detail including radiological and surgical options. The risks of the endoscopic procedure include but are not limited to risk from anesthesia, respiratory failure, infection, bleeding, perforation, pancreatitis with its sequelae , damage to the adjacent organs, missed lesions and need for further procedure, surgery or interventional radiological intervention, from procedure or complications. We made a shared decision to proceed with planned procedure [x]EGD []Colonoscopy []EGD&Colonoscopy Alvarado Morgan MD Gastroenterology [1] Allergies Allergen Reactions Cheese Shortness of breath and Swelling Blue cheese Acetaminophen Latex Other Reaction(s): rash, swelling Penicillin G Hives [2] Current Facility-Administered Medications: ondansetron (Zofran) injection 4 mg, 4 mg, IntraVENous, Once PRN, Alvarado Morgan MD sodium chloride 0.9 % infusion, 5-250 mL/hr, IntraVENous, PRN, Alvarado Morgan MD sodium chloride 0.9 % infusion, 5-250 mL/hr, IntraVENous, PRN, Alvarado Morgan MD sodium chloride 0.9% (NS) flush 10 mL, 10 mL, IntraVENous, 2 times per day, Alvarado Morgan MD sodium chloride 0.9% (NS) flush 10 mL, 10 mL, IntraVENous, PRN, Alvarado Morgan MD sodium chloride 0.9% (NS) flush 10 mL, 10 mL, IntraVENous, 2 times per day, Alvarado Morgan MD sodium chloride 0.9% (NS) flush 10 mL, 10 mL, IntraVENous, PRN, Alvarado Morgan MD [3] Past Medical History: Diagnosis Date Concussion documented in this encounter [facility] 11-14-2024 Note [facility] Patient Name: Gustavo De Procedure Date: 11/14/2024 7:04 AM Gender: Female Date of : 2000 Age: 23 Admit Type: Outpatient Note Status: Finalized Endoscopist: Alvarado Morgan MD, [id number] Procedure: Upper GI endoscopy Indications: Nausea vomiting, diarrhea, suspect hematemesis Findings: Esophagus was normal Erythema noted in the gastric antrum, random gastric biopsies obtained Duodenum and D2 were normal biopsies obtained for diarrhea Impression: Gastric erythema Recommendation: - Patient has a contact number available for emergencies. The signs and symptoms of potential delayed complications were discussed with the patient. Return to normal activities tomorrow. Written discharge instructions were provided to the patient. - Continue present medications. - Resume previous diet. - Return to referring physician as previously scheduled. Medicines: Monitored Anesthesia Care Procedure: Pre-Anesthesia Assessment: - Prior to the procedure, a History and Physical was performed, and patient medications and allergies were reviewed. The patient is competent. The risks and benefits of the procedure and the sedation options and risks were discussed with the patient. All questions were answered and informed consent was obtained. Patient identification and proposed procedure were verified by the physician, the nurse and the pediatric anesthesiologist in the pre-procedure area in the procedure room in the endoscopy suite. Mental Status Examination: normal. Airway Examination: normal oropharyngeal airway and neck mobility. Respiratory Examination: clear to auscultation. CV Examination: normal. Prophylactic Antibiotics: The patient does not require prophylactic antibiotics. Prior Anticoagulants: The patient has taken no anticoagulant or antiplatelet agents. ASA Grade Assessment: II - A patient with mild systemic disease. After reviewing the risks and benefits, the patient was deemed in satisfactory condition to undergo the procedure. The anesthesia plan was to use monitored anesthesia care (MAC). Immediately prior to administration of medications, the patient was re-assessed for adequacy to receive sedatives. The heart rate, respiratory rate, oxygen saturations, blood pressure, adequacy of pulmonary ventilation, and response to care were monitored throughout the procedure. The physical status of the patient was re-assessed after the procedure. After obtaining informed consent, the endoscope was passed under direct vision. Throughout the procedure, the patient's blood pressure, pulse, and oxygen saturations were monitored continuously. The Endoscope was introduced through the mouth, and advanced to the second part of duodenum. The upper GI endoscopy was accomplished with ease. The patient tolerated the procedure well. Complications: No immediate complications. Estimated blood loss: None. Attending Participation: I personally performed the entire procedure. Alvarado Morgan MD 11/14/2024 10:16:00 AM This report has been signed electronically. Number of Addenda: 0 Note Initiated On: 11/14/2024 7:04 AM [facility] 11-14-2024 [facility] Name: Gustavo De Procedure Date: 11/14/2024 7:04 AM Gender: Female Date of : 2000 Age: 23 Admit Type: Outpatient Note Status: Finalized Endoscopist: Alvarado Morgan MD, [id number] Procedure: Upper GI endoscopy Indications: Nausea vomiting, diarrhea, suspect hematemesis Findings: Esophagus was normal Erythema noted in the gastric antrum, random gastric biopsies obtained Duodenum and D2 were normal biopsies obtained for diarrhea Impression: Gastric erythema Recommendation: - Patient has a contact number available for emergencies. The signs and symptoms of potential delayed complications were discussed with the patient. Return to normal activities tomorrow. Written discharge instructions were provided to the patient. - Continue present medications. - Resume previous diet. - Return to referring physician as previously scheduled. Medicines: Monitored Anesthesia Care Procedure: Pre-Anesthesia Assessment: - Prior to the procedure, a History and Physical was performed, and patient medications and allergies were reviewed. The patient is competent. The risks and benefits of the procedure and the sedation options and risks were discussed with the patient. All questions were answered and informed consent was obtained. Patient identification and proposed procedure were verified by the physician, the nurse and the pediatric anesthesiologist in the pre-procedure area in the procedure room in the endoscopy suite. Mental Status Examination: normal. Airway Examination: normal oropharyngeal airway and neck mobility. Respiratory Examination: clear to auscultation. CV Examination: normal. Prophylactic Antibiotics: The patient does not require prophylactic antibiotics. Prior Anticoagulants: The patient has taken no anticoagulant or antiplatelet agents. ASA Grade Assessment: II - A patient with mild systemic disease. After reviewing the risks and benefits, the patient was deemed in satisfactory condition to undergo the procedure. The anesthesia plan was to use monitored anesthesia care (MAC). Immediately prior to administration of medications, the patient was re-assessed for adequacy to receive sedatives. The heart rate, respiratory rate, oxygen saturations, blood pressure, adequacy of pulmonary ventilation, and response to care were monitored throughout the procedure. The physical status of the patient was re-assessed after the procedure. After obtaining informed consent, the endoscope was passed under direct vision. Throughout the procedure, the patient's blood pressure, pulse, and oxygen saturations were monitored continuously. The Endoscope was introduced through the mouth, and advanced to the second part of duodenum. The upper GI endoscopy was accomplished with ease. The patient tolerated the procedure well. Complications: No immediate complications. Estimated blood loss: None. Attending Participation: I personally performed the entire procedure. Alvarado Morgan MD 11/14/2024 10:16:00 AM This report has been signed electronically. Number of Addenda: 0 Note Initiated On: 11/14/2024 7:04 AM [facility] 08-15-2024 Telephone encounter Note Patient calls and notified of results and providers instructions. Patient verbalizes understanding. Sharmaine Jacobs RN [facility] [place] 08-15-2024 Miscellaneous Notes Patient calls and notified of results and providers instructions. Patient verbalizes understanding. Sharmaine Jacobs RN Left message for patient to return call for results and recommendations.La Barnett LPN Please call and let patient know she is positive for influenza A. Supportive therapies are suggested at this time. Patient was negative for COVID and rsv. documented in this encounter [facility] [place] 08-15-2024 Telephone encounter Note Left message for patient to return call for results and recommendations.La Barnett LPN [facility] [place] 08-15-2024 Telephone encounter Note Please call and let patient know she is positive for influenza A. Supportive therapies are suggested at this time. Patient was negative for COVID and rsv. [facility] [place] Work Phone: 08-14-2024 Note SARS-COV-2 (AGENT OF COVID-19) RNA: Not detected INFLUENZA A RNA: Detected INFLUENZA B RNA: Not detected RESPIRATORY SYNCYTIAL VIRUS (RSV) RNA: Not detected [facility] Comment on above: Performed By: #### [id number] #### [facility] CLIA [id number] [address] [place] [address] [place] 08-14-2024 Note HNO ID: [id number] Author: AMAN ALVAREZ PA Service: ? Author Type: Physician Fast Food Assistant Restaurant Manager Type: Progress Notes Filed: 08/14/2024 14:29 Note Text: This note was created using Lique[employer]. Subjective Gustavo De is a 23 year old female. HPI 23-year-old female presents for cough, congestion, fever x 4 days. Patient states her son got sick and then she got sick after him. She has had cough, runny nose/nasal congestion and fevers. States Tmax 101 to 102 ?F. She has taken ibuprofen and cold and flu medication. Has not taken anything today. No vomiting or diarrhea. No other complaint. No past medical history on file. No past surgical history on file. ALLERGIES Latex and Penicillins MEDICATIONS famotidine (PEPCID) 40 mg tablet Take 1 tablet by mouth every 12 hours. (Patient not taking: Reported on 08/14/2024) pantoprazole DR (PROTONIX) 40 mg tablet TAKE 1 TABLET BY MOUTH TWICE DAILY FOR 7 DAYS, THEN DECREASE TO 1 TABLET BY MOUTH DAILY. (Patient not taking: Reported on 08/14/2024) No family history on file. Social History Tobacco Use Smoking status: Former Types: Cigarettes Smokeless tobacco: Never Review of Systems Constitutional: Positive for fever. Negative for chills. HENT: Positive for congestion. Negative for ear pain and sore throat. Respiratory: Positive for cough. Negative for shortness of breath. Cardiovascular: Negative for chest pain. Gastrointestinal: Negative for diarrhea and vomiting. Objective BP 98/64 Pulse 82 Temp 36.8 ?C (98.2 ?F) Resp 18 Wt 74.2 kg (163 lb 9.3 oz) LMP 05/07/2024 (Exact Date) SpO2 95% Physical Exam Vitals and nursing note reviewed. Constitutional: General: She is not in acute distress. Appearance: Normal appearance. She is not toxic-appearing. HENT: Right Ear: Tympanic membrane and ear canal normal. Left Ear: Tympanic membrane and ear canal normal. Nose: Nose normal. Mouth/Throat: Mouth: Mucous membranes are moist. Eyes: Conjunctiva/sclera: Conjunctivae normal. Cardiovascular: Rate and Rhythm: Normal rate and regular rhythm. Pulmonary: Effort: Pulmonary effort is normal. Breath sounds: Normal breath sounds. No wheezing, rhonchi or rales. Skin: General: Skin is warm and dry. Neurological: Mental Status: She is alert. Assessment and Plan ASSESSMENT/PLAN: 1. URI, acute - ICD9: 465.9, ICD10: J06.9 - Discussed viral etiology and rationale for treatment. - Symptomatic treatment with prn analgesia - Supportive care with fluids and rest - The patient may also use OTC cough and cold meds as needed. - COVID AND INFLUENZA A/B AND RSV PCR, ROUTINE -Out of window for Tamiflu Diagnosis and treatment plan were discussed and questions were answered to the patient's satisfaction. Pt acknowledged understanding of concepts and follow up plan. Specific signs and symptoms that would indicate the need for higher level of care were discussed in detail warranting prompt ER evaluation. LATR[place] [facility] 08-14-2024 History of Present illness Narrative This note was created using NoteWriter. Subjective Gustavo De is a 23 year old female. HPI 23-year-old female presents for cough, congestion, fever x 4 days. Patient states her son got sick and then she got sick after him. She has had cough, runny nose/nasal congestion and fevers. States Tmax 101 to 102 F. She has taken ibuprofen and cold and flu medication. Has not taken anything today. No vomiting or diarrhea. No other complaint. No past medical history on file. No past surgical history on file. ALLERGIES Latex and Penicillins MEDICATIONS famotidine (PEPCID) 40 mg tablet Take 1 tablet by mouth every 12 hours. (Patient not taking: Reported on 08/14/2024) pantoprazole DR (PROTONIX) 40 mg tablet TAKE 1 TABLET BY MOUTH TWICE DAILY FOR 7 DAYS, THEN DECREASE TO 1 TABLET BY MOUTH DAILY. (Patient not taking: Reported on 08/14/2024) No family history on file. Social History Tobacco Use Smoking status: Former Types: Cigarettes Smokeless tobacco: Never Review of Systems Constitutional: Positive for fever. Negative for chills. HENT: Positive for congestion. Negative for ear pain and sore throat. Respiratory: Positive for cough. Negative for shortness of breath. Cardiovascular: Negative for chest pain. Gastrointestinal: Negative for diarrhea and vomiting. Objective BP 98/64 Pulse 82 Temp 36.8 C (98.2 F) Resp 18 Wt 74.2 kg (163 lb 9.3 oz) LMP 05/07/2024 (Exact Date) SpO2 95% Physical Exam Vitals and nursing note reviewed. Constitutional: General: She is not in acute distress. Appearance: Normal appearance. She is not toxic-appearing. HENT: Right Ear: Tympanic membrane and ear canal normal. Left Ear: Tympanic membrane and ear canal normal. Nose: Nose normal. Mouth/Throat: Mouth: Mucous membranes are moist. Eyes: Conjunctiva/sclera: Conjunctivae normal. Cardiovascular: Rate and Rhythm: Normal rate and regular rhythm. Pulmonary: Effort: Pulmonary effort is normal. Breath sounds: Normal breath sounds. No wheezing, rhonchi or rales. Skin: General: Skin is warm and dry. Neurological: Mental Status: She is alert. Assessment and Plan ASSESSMENT/PLAN: 1. URI, acute - ICD9: 465.9, ICD10: J06.9 - Discussed viral etiology and rationale for treatment. - Symptomatic treatment with prn analgesia - Supportive care with fluids and rest - The patient may also use OTC cough and cold meds as needed. - COVID & INFLUENZA A/B & RSV PCR, ROUTINE -Out of window for Tamiflu Diagnosis and treatment plan were discussed and questions were answered to the patient's satisfaction. Pt acknowledged understanding of concepts and follow up plan. Specific signs and symptoms that would indicate the need for higher level of care were discussed in detail warranting prompt ER evaluation. [place] documented in this encounter [facility] [place] 07-27-2024 Telephone encounter Note Patient called in to get scheduled for her EGD. Patient now scheduled on 11/14/24 @ 10:30am with the arrival time of 9:30am with Dr. Morgan in [place]. [facility] schedule updated Order submitted Open Case request submitted Case # [id number] Endo packet mailed to patient Prep sent via [employer] if pt acct active Pt is aware they will need a tilt tray driver to take them home from procedure. Must be family member or friend. They cannot use any ride programs. Ex: Uber, Lyft, SCAT, bus, etc...) [facility] 07-27-2024 Miscellaneous Notes Patient called in to get scheduled for her EGD. Patient now scheduled on 11/14/24 @ 10:30am with the arrival time of 9:30am with Dr. Morgan in [place]. [facility] schedule updated Order submitted Open Case request submitted Case # [id number] Endo packet mailed to patient Prep sent via [employer] if pt acct active Pt is aware they will need a tilt tray driver to take them home from procedure. Must be family member or friend. They cannot use any ride programs. Ex: Uber, Lyft, SCAT, bus, etc...) Returned pt call, pt did not answered, lmtcb Name of Caller: Gustavo Contact Reason for Appointment: Patient called back to schedule EGD. Please call patient back to advise. Office Name: Gastroenterology Medication Refills need, if any: N/A Medication Name: N/A Patient returned call to office and is requesting a callback after 4pm when she is out of work to scheduled EGD. Please advise . Lmtcb re: sx EGD. Name of Caller: Gustavo Contact Reason for Appointment: Schedule EGD (upper endoscopy) for further evaluation of the symptoms. Office Name: Gastro documented in this encounter [facility] 07-26-2024 Telephone encounter Note Returned pt call, pt did not answered, lmtcb [facility] 07-26-2024 Miscellaneous Notes Returned pt call, pt did not answered, lmtcb Name of Caller: Gustavo Contact Reason for Appointment: Patient called back to schedule EGD. Please call patient back to advise. Office Name: Gastroenterology Medication Refills need, if any: N/A Medication Name: N/A Patient returned call to office and is requesting a callback after 4pm when she is out of work to scheduled EGD. Please advise . Lmtcb re: sx EGD. Name of Caller: Gustavo Contact Reason for Appointment: Schedule EGD (upper endoscopy) for further evaluation of the symptoms. Office Name: Gastro documented in this encounter [facility] 07-25-2024 Telephone encounter Note Name of Caller: Gustavo Contact Reason for Appointment: Patient called back to schedule EGD. Please call patient back to advise. Office Name: Gastroenterology Medication Refills need, if any: N/A Medication Name: N/A [facility] 07-25-2024 Miscellaneous Notes Name of Caller: Gustavo Contact Reason for Appointment: Patient called back to schedule EGD. Please call patient back to advise. Office Name: Gastroenterology Medication Refills need, if any: N/A Medication Name: N/A Patient returned call to office and is requesting a callback after 4pm when she is out of work to scheduled EGD. Please advise . Lmtcb re: sx EGD. Name of Caller: Gustavo Contact Reason for Appointment: Schedule EGD (upper endoscopy) for further evaluation of the symptoms. Office Name: Gastro documented in this encounter [facility] 07-24-2024 Telephone encounter Note Patient returned call to office and is requesting a callback after 4pm when she is out of work to scheduled EGD. Please advise . [facility] 07-24-2024 Miscellaneous Notes Patient returned call to office and is requesting a callback after 4pm when she is out of work to scheduled EGD. Please advise . Lmtcb re: sx EGD. Name of Caller: Gustavo Contact Reason for Appointment: Schedule EGD (upper endoscopy) for further evaluation of the symptoms. Office Name: Gastro documented in this encounter [facility] 07-24-2024 Telephone encounter Note Lmtcb re: sx EGD. [facility] 07-18-2024 Note Name of Caller: Valentin barr Contact Reason for Appointment: Schedule EGD (upper endoscopy) for further evaluation of the symptoms. Office Name: Gastro [facility] 07-18-2024 Telephone encounter Note Name of Caller: Gustavo Contact Reason for Appointment: Schedule EGD (upper endoscopy) for further evaluation of the symptoms. Office Name: Gastro [facility] 07-12-2024 History of Present illness Narrative Images from the original note were not included. [facility] [address] [facility] [address] Dept: [phone] Dept Loc: [phone] Visit type: New Patient was identified and seen today via Telehealth by agreement and consent. I used the following Telehealth technology: Audio and video capabilities. Patient location: Patient Location: Home. This patient encounter is appropriate and reasonable under the circumstances: staffing . The patient has been advised of the potential risks and limitations of this mode of treatment (including but not limited to the absence of in-person examination) and has agreed to be treated in a remote fashion in spite of them. Any and all of the patient's/patient's family's questions on this issue have been answered and I have made no promises or guarantees to the patient. The patient has also been advised to contact this office for worsening conditions or problems, and seek emergency medical treatment and/or call 911 if the patient deems either necessary. The patient stated that they are currently in the state [facility]. If the patient is a minor, permission has been obtained by the parent or guardian for the patient to receive medical care at this visit. Reason for Visit: Nausea and Abdominal Pain Assessment and Plan Problem List Items Addressed This Visit None Visit Diagnoses Nausea and vomiting, unspecified vomiting type - Primary Generalized abdominal pain Hematemesis, unspecified whether nausea present Intermittent diarrhea 23 year old female referred by ED provider (03/2024) regarding nausea, vomiting, abdominal pain and hematemesis. Patient reports symptoms ongoing since January 2024. She reports multiple prior ED evaluations at multiple different facilities. Prior work-up unavailable for review at this time. Reports two episodes of spitting up blood-has not occurred since last ED visit in March 2024. --request records from [facility] ED visits, specifically CT A/P, abdominal US, labs --schedule EGD for further evaluation of symptoms, r/o PUD, H. Pylori infection, etc --patient notes improvement with temporary use of PPI, ?uncontrolled GERD --continue tracking/avoiding dietary triggers --dicussed colonoscopy as patient c/o intermittent diarrhea, r/o underlying pathology; patient declined colonoscopy at this time --EDU printed Advised patient to call office with new or worsening symptoms, questions, or concerns. Patient verbalized understanding and agreement of plan. Follow up in about 4 weeks (around 08/09/2024) for EGD results . Subjective HPI Patient is referred by Cathi Arndt APRN-GLORIA, re: nausea and vomiting, generalized abdominal pain, hematemesis. She gives consent to virtual visit. Patient also has appointment scheduled with [facility]-Dr. Cervantes 11/01/2023. Patient reports since January has been having RUQ abdominal pain radiating to epigastrium, nausea, vomiting, and intermittent diarrhea. She reports multiple ED visits at various locations regarding symptoms. States she has had CT A/P and abdominal US, along with lab work. These results are not available. Prior ED visit at [facility] on 04/14/2024 reviewed, however no work-up ordered per notes due to multiple prior neg work-up for same. She describes abdominal pain as dull. Pain occurs at random. Has had difficulty eating-was on primarily soft diet. PCP gave Rx for pantoprazole which has helped expand diet, but she has since discontinued. Aurora PPI caused diarrhea and constipation. Nausea and vomiting has subsided over the past week. Patient reports two episodes of spitting up blood. Blood was mixed with mucus. Has not occurred recently. Has had ~5 to 10# weight-loss associated with symptoms. Has intermittent loose stools-occurs 2 to 3 days per week. Denies hematochezia and melena. Notes she moved out of apartment with black mold (last October) Prior colonoscopy: none Prior EGD: none Prior abdominal surgeries: none Family history of colon cancer: none NSAID use: occasional ibuprofen OAC: none Supplemental oxygen use: none Tobacco use: quit smoking cigarettes 3.5 years ago; quit vaping March 2024 EtOH use: none Patient denies marijuana use. Illicit drug use: none Review of Systems Constitutional: Negative for appetite change and unexpected weight change. HENT: Negative for trouble swallowing and voice change. Respiratory: Negative for shortness of breath. Cardiovascular: Negative for chest pain. Gastrointestinal: Positive for abdominal pain, diarrhea, nausea and vomiting. Negative for abdominal distention, anal bleeding, blood in stool, constipation and rectal pain. Genitourinary: Negative for difficulty urinating. Skin: Negative for color change. Neurological: Negative for weakness. Allergies Allergen Reactions Acetaminophen Latex Other Reaction(s): rash, swelling Penicillin G Hives Outpatient Medications Prior to Visit Medication Sig Dispense Refill pantoprazole (ProtoNix) 20 MG EC tablet Take 1 tablet (20 mg) by mouth daily for 20 days. Do not crush, chew, or split. 20 tablet 0 No facility-administered medications prior to visit. Patient Active Problem List Diagnosis Date Noted Date Diagnosed Bipolar disorder, current episode manic severe with psychotic features ([facility]) 07/19/2017 Cannabis abuse 07/19/2017 Bizarre behavior 07/10/2017 Social History Tobacco Use Smoking status: Some Days Smokeless tobacco: Never Substance Use Topics Alcohol use: No No family history on file. Objective There were no vitals taken for this visit. Physical Exam Constitutional: Appearance: Normal appearance. Comments: Pleasant HENT: Head: Normocephalic. Pulmonary: Comments: Speaking in complete sentences without difficulty Skin: Coloration: Skin is not jaundiced. Neurological: Mental Status: She is alert and oriented to person, place, and time. Psychiatric: Behavior: Behavior normal. Data Reviewed and Summarized Labs: Imaging/Testing: ISHAN Sneed 10:58 AM 07/12/24 documented in this encounter [facility] 07-12-2024 History of Present illness Narrative Images from the original note were not included. [facility] [place] [address] [facility] [address] Dept: [phone] Dept Loc: [phone] Visit type: New Patient was identified and seen today via Telehealth by agreement and consent. I used the following Telehealth technology: Audio and video capabilities. Patient location: Patient Location: Home. This patient encounter is appropriate and reasonable under the circumstances: staffing . The patient has been advised of the potential risks and limitations of this mode of treatment (including but not limited to the absence of in-person examination) and has agreed to be treated in a remote fashion in spite of them. Any and all of the patient's/patient's family's questions on this issue have been answered and I have made no promises or guarantees to the patient. The patient has also been advised to contact this office for worsening conditions or problems, and seek emergency medical treatment and/or call 911 if the patient deems either necessary. The patient stated that they are currently in the [facility]. If the patient is a minor, permission has been obtained by the parent or guardian for the patient to receive medical care at this visit. Reason for Visit: Nausea and Abdominal Pain Assessment and Plan Problem List Items Addressed This Visit None Visit Diagnoses Nausea and vomiting, unspecified vomiting type - Primary Generalized abdominal pain Hematemesis, unspecified whether nausea present Intermittent diarrhea 23 year old female referred by ED provider (03/2024) regarding nausea, vomiting, abdominal pain and hematemesis. Patient reports symptoms ongoing since January 2024. She reports multiple prior ED evaluations at multiple different facilities. Prior work-up unavailable for review at this time. Reports two episodes of spitting up blood-has not occurred since last ED visit in March 2024. --request records from [facility] ED visits, specifically CT A/P, abdominal US, labs --schedule EGD for further evaluation of symptoms, r/o PUD, H. Pylori infection, etc --patient notes improvement with temporary use of PPI, ?uncontrolled GERD --continue tracking/avoiding dietary triggers --dicussed colonoscopy as patient c/o intermittent diarrhea, r/o underlying pathology; patient declined colonoscopy at this time --EDU printed Advised patient to call office with new or worsening symptoms, questions, or concerns. Patient verbalized understanding and agreement of plan. Follow up in about 4 weeks (around 08/09/2024) for EGD results . Subjective HPI Patient is referred by Cathi Arndt APRN-GLORIA, re: nausea and vomiting, generalized abdominal pain, hematemesis. She gives consent to virtual visit. Patient also has appointment scheduled with [facility]-Dr. Cervantes 11/01/2023. Patient reports since January has been having RUQ abdominal pain radiating to epigastrium, nausea, vomiting, and intermittent diarrhea. She reports multiple ED visits at various locations regarding symptoms. States she has had CT A/P and abdominal US, along with lab work. These results are not available. Prior ED visit at [facility] on 04/14/2024 reviewed, however no work-up ordered per notes due to multiple prior neg work-up for same. She describes abdominal pain as dull. Pain occurs at random. Has had difficulty eating-was on primarily soft diet. PCP gave Rx for pantoprazole which has helped expand diet, but she has since discontinued. Aurora PPI caused diarrhea and constipation. Nausea and vomiting has subsided over the past week. Patient reports two episodes of spitting up blood. Blood was mixed with mucus. Has not occurred recently. Has had ~5 to 10# weight-loss associated with symptoms. Has intermittent loose stools-occurs 2 to 3 days per week. Denies hematochezia and melena. Notes she moved out of apartment with black mold (last October) Prior colonoscopy: none Prior EGD: none Prior abdominal surgeries: none Family history of colon cancer: none NSAID use: occasional ibuprofen OAC: none Supplemental oxygen use: none Tobacco use: quit smoking cigarettes 3.5 years ago; quit vaping March 2024 EtOH use: none Patient denies marijuana use. Illicit drug use: none Review of Systems Constitutional: Negative for appetite change and unexpected weight change. HENT: Negative for trouble swallowing and voice change. Respiratory: Negative for shortness of breath. Cardiovascular: Negative for chest pain. Gastrointestinal: Positive for abdominal pain, diarrhea, nausea and vomiting. Negative for abdominal distention, anal bleeding, blood in stool, constipation and rectal pain. Genitourinary: Negative for difficulty urinating. Skin: Negative for color change. Neurological: Negative for weakness. Allergies Allergen Reactions Acetaminophen Latex Other Reaction(s): rash, swelling Penicillin G Hives Outpatient Medications Prior to Visit Medication Sig Dispense Refill pantoprazole (ProtoNix) 20 MG EC tablet Take 1 tablet (20 mg) by mouth daily for 20 days. Do not crush, chew, or split. 20 tablet 0 No facility-administered medications prior to visit. Patient Active Problem List Diagnosis Date Noted Date Diagnosed Bipolar disorder, current episode manic severe with psychotic features ([facility]) 07/19/2017 Cannabis abuse 07/19/2017 Bizarre behavior 07/10/2017 Social History Tobacco Use Smoking status: Some Days Smokeless tobacco: Never Substance Use Topics Alcohol use: No No family history on file. Objective There were no vitals taken for this visit. Physical Exam Constitutional: Appearance: Normal appearance. Comments: Pleasant HENT: Head: Normocephalic. Pulmonary: Comments: Speaking in complete sentences without difficulty Skin: Coloration: Skin is not jaundiced. Neurological: Mental Status: She is alert and oriented to person, place, and time. Psychiatric: Behavior: Behavior normal. Data Reviewed and Summarized Labs: Imaging/Testing: ISHAN Sneed 10:58 AM 07/12/24 documented in this encounter [facility] 07-12-2024 Instructions LEONARDA Sneed CNP - 07/12/2024 10:00 AM EST --Please call office with any questions or concerns! [phone] --request ED reports from [facility], specifically CT A/P, abdominal US and labs --Schedule EGD (upper endoscopy) for further evaluation of the symptoms. --Avoid nonsteroidal anti-inflammatory (NSAID) medications such as ibuprofen (Advil), naproxen (Aleve), etc. These can contribute to abdominal pain and ulcers. Take Tylenol (acetaminophen) instead if needed for pain by following the instructions on the bottle. --Please see handout provided regarding additional recommendations for the symptoms including when to seek emergency care or further treatment. --Follow-up with PCP, and in GI clinic in about 1 month following the above evaluation and recommendations. The following attachments cannot be sent through Care Everywhere.Upper GI Endoscopy ([place])Acid Reflux and Gastroesophageal Reflux Disease in Adults ([place])documented in this encounter [facility] 07-12-2024 Instructions LEONARDA Sneed CNP - 07/12/2024 10:00 AM EST --Please call office with any questions or concerns! [phone] --request ED reports from [facility], specifically CT A/P, abdominal US and labs --Schedule EGD (upper endoscopy) for further evaluation of the symptoms. --Avoid nonsteroidal anti-inflammatory (NSAID) medications such as ibuprofen (Advil), naproxen (Aleve), etc. These can contribute to abdominal pain and ulcers. Take Tylenol (acetaminophen) instead if needed for pain by following the instructions on the bottle. --Please see handout provided regarding additional recommendations for the symptoms including when to seek emergency care or further treatment. --Follow-up with PCP, and in GI clinic in about 1 month following the above evaluation and recommendations. The following attachments cannot be sent through Care Everywhere.Upper GI Endoscopy ([place])Acid Reflux and Gastroesophageal Reflux Disease in Adults ([place])documented in this encounter [facility] 07-12-2024 Miscellaneous Notes Addended by: ARIAN LALA on: 07/13/2024 01:58 PM Modules accepted: Level of Service documented in this encounter [facility] 07-12-2024 Note Addended by: ARIAN JOSEPH on: 07/13/2024 01:58 PM Modules accepted: Level of Service [facility] 06-30-2024 Note HNO ID: [id number] Author: RAUL RECIO MD Service: ? Author Type: Physician Type: Progress Notes Filed: 06/30/2024 16:03 Note Text: Patient presents with: Nasal Congestion: LUEVANO, fever, sore throat, difficulty breathing, body aches x 4 days HPI: Feeling sick for 5 days. Her son has been sick with similar symptoms. There has been RSV and viral pneumonia at his daycare. Positive symptoms: Cough, Shortness of breath, Sore throat, Nasal Congestion, Rhinorrhea, Fever, Body Aches, Headache, Shortness of breath (resolved), Diarrhea, Negative symptoms: Vomiting, OTC: Cold Medicine, Ibuprofen MEDICATIONS: Current Outpatient Medications Medication Sig famotidine (PEPCID) 40 mg tablet Take 1 tablet by mouth every [address] (PROTONIX) 40 mg tablet TAKE 1 TABLET BY MOUTH TWICE DAILY FOR 7 DAYS, THEN DECREASE TO 1 TABLET BY MOUTH DAILY. No current facility-administered medications for this visit. ALLERGIES: ALLERGIES Allergen Reactions Latex Rash Other Reaction(s): rash, swelling Penicillins Hives Tylenol [Acetaminop* Rash VITALS: BP 108/66 Pulse 90 Temp 37.3 ?C (99.1 ?F) Resp 20 Wt 77.4 kg (170 lb 10.2 oz) LMP 05/07/2024 (Exact Date) SpO2 98% PHYSICAL EXAM: GEN: mildly ill appearing HEENT: PERRL, EOMI, conjunctiva clear Ears: canals clear. TMs without erythema, bulge, or effusion Sinuses: non-tender frontal sinus, non-tender maxillary sinuses Throat: moist mucous membranes, mild erythema, no exudate Neck: supple, no thyromegaly, no lymphadenopathy HEART: regular rate, regular rhythm, no murmurs LUNGS: clear to auscultation, no wheezes or crackles, no increased WOB ASSESSMENT/PLAN: 1. URI, acute - ICD9: 465.9, ICD10: J06.9 - suspect viral URI, differential includes RSV, COVID-19, and influenza. - Discussed supportive care treatment with home isolation (fever free for 24 hours and improving symptoms), rest, cold medicine, and analgesia. - Red flags to seek further treatment include chest pain, shortness of breath, and lethargy; in the ER if severe. - COVID AND INFLUENZA A/B AND RSV PCR, ROUTINE Raul Recio MD [facility] 06-30-2024 History of Present illness Narrative Patient presents with: Nasal Congestion: LUEVANO, fever, sore throat, difficulty breathing, body aches x 4 days HPI: Feeling sick for 5 days. Her son has been sick with similar symptoms. There has been RSV and viral pneumonia at his daycare. Positive symptoms: Cough, Shortness of breath, Sore throat, Nasal Congestion, Rhinorrhea, Fever, Body Aches, Headache, Shortness of breath (resolved), Diarrhea, Negative symptoms: Vomiting, OTC: Cold Medicine, Ibuprofen MEDICATIONS: Current Outpatient Medications Medication Sig famotidine (PEPCID) 40 mg tablet Take 1 tablet by mouth every [address] (PROTONIX) 40 mg tablet TAKE 1 TABLET BY MOUTH TWICE DAILY FOR 7 DAYS, THEN DECREASE TO 1 TABLET BY MOUTH DAILY. No current facility-administered medications for this visit. ALLERGIES: ALLERGIES Allergen Reactions Latex Rash Other Reaction(s): rash, swelling Penicillins Hives Tylenol [Acetaminop* Rash VITALS: BP 108/66 Pulse 90 Temp 37.3 C (99.1 F) Resp 20 Wt 77.4 kg (170 lb 10.2 oz) LMP 05/07/2024 (Exact Date) SpO2 98% PHYSICAL EXAM: GEN: mildly ill appearing HEENT: PERRL, EOMI, conjunctiva clear Ears: canals clear. TMs without erythema, bulge, or effusion Sinuses: non-tender frontal sinus, non-tender maxillary sinuses Throat: moist mucous membranes, mild erythema, no exudate Neck: supple, no thyromegaly, no lymphadenopathy HEART: regular rate, regular rhythm, no murmurs LUNGS: clear to auscultation, no wheezes or crackles, no increased WOB ASSESSMENT/PLAN: 1. URI, acute - ICD9: 465.9, ICD10: J06.9 - suspect viral URI, differential includes RSV, COVID-19, and influenza. - Discussed supportive care treatment with home isolation (fever free for 24 hours and improving symptoms), rest, cold medicine, and analgesia. - Red flags to seek further treatment include chest pain, shortness of breath, and lethargy; in the ER if severe. - COVID & INFLUENZA A/B & RSV PCR, ROUTINE Raul Recio MD documented in this encounter [facility] 05-15-2024 Note HNO ID: [id number] Author: HONG FARRIS MD Service: ? Author Type: Physician Type: Progress Notes Filed: 05/15/2024 14:47 Note Text: Gustavo De is a 23 year old female who presents for lower abdominal pain She had been complaining of lower abdominal for 1 year. She reports having a history of ovarian cysts in the past. Recently, she had an US performed at her local hospital. She was told that she may have an endometrial polyp. She was asked to return for another ultrasound. She is not on control at this time. She reports having monthly menstrual cycles. She was recently treated for a UTI. She reported that her pain had improved . She denied an abnormal vaginal discharge. No past medical history on file. No past surgical history on file. No family history on file. Social History Tobacco Use Smoking status: Former Types: Cigarettes Smokeless tobacco: Never Current Outpatient Medications Medication Sig pantoprazole DR (PROTONIX) 40 mg tablet TAKE 1 TABLET BY MOUTH TWICE DAILY FOR 7 DAYS, THEN DECREASE TO 1 TABLET BY MOUTH DAILY. No current facility-administered medications for this visit. Allergies As of Date: 05/15/2024 Allergen Noted Reaction LATEX 04/14/2024 Rash PENICILLINS 04/14/2024 Hives TYLENOL [ACETAMINOPHEN] 05/15/2024 Rash Fully Assessed 05/15/2024 REVIEW OF SYSTEMS Expanded ROS: N/A Allergies and current medication updated:Yes EXAM: BP 112/64 Wt 167 lb 5.3 oz (75.9kg) LMP 05/07/2024 General Appearance: No acute distress PELVIC: external genitalia normal, normal Bartholin's glands, urethra, Nettleton's glands, no vulvar lesions, normal appearing perineal body and perianal region BIMANUAL: uterus normal size, shape and consistency, no adnexal masses, and non-tender ASSESSMENT AND PLAN: Lower Abdominal Pain: - SIS ultrasound ordered to evaluate for endometrial polyp seen on OSH imaging -pt reports history of ovarian cysts. Will await results of US -we will communicate by [employer]. Hong Farris MD [facility] 05-15-2024 History of Present illness Narrative Gustavo De is a 23 year old female who presents for lower abdominal pain She had been complaining of lower abdominal for 1 year. She reports having a history of ovarian cysts in the past. Recently, she had an US performed at her local hospital. She was told that she may have an endometrial polyp. She was asked to return for another ultrasound. She is not on control at this time. She reports having monthly menstrual cycles. She was recently treated for a UTI. She reported that her pain had improved . She denied an abnormal vaginal discharge. No past medical history on file. No past surgical history on file. No family history on file. Social History Tobacco Use Smoking status: Former Types: Cigarettes Smokeless tobacco: Never Current Outpatient Medications Medication Sig pantoprazole DR (PROTONIX) 40 mg tablet TAKE 1 TABLET BY MOUTH TWICE DAILY FOR 7 DAYS, THEN DECREASE TO 1 TABLET BY MOUTH DAILY. No current facility-administered medications for this visit. Allergies As of Date: 05/15/2024 Allergen Noted Reaction LATEX 04/14/2024 Rash PENICILLINS 04/14/2024 Hives TYLENOL [ACETAMINOPHEN] 05/15/2024 Rash Fully Assessed 05/15/2024 REVIEW OF SYSTEMS Expanded ROS: N/A Allergies and current medication updated:Yes EXAM: BP 112/64 Wt 167 lb 5.3 oz (75.9kg) LMP 05/07/2024 General Appearance: No acute distress PELVIC: external genitalia normal, normal Bartholin's glands, urethra, Nettleton's glands, no vulvar lesions, normal appearing perineal body and perianal region BIMANUAL: uterus normal size, shape and consistency, no adnexal masses, and non-tender ASSESSMENT AND PLAN: Lower Abdominal Pain: - SIS ultrasound ordered to evaluate for endometrial polyp seen on OSH imaging -pt reports history of ovarian cysts. Will await results of US -we will communicate by [employer]. Hong Farris MD documented in this encounter [facility] 05-09-2024 Note ORIGINAL EXAMINATION: LIMITED ABDOMINAL [id number]/[id number]/2024 9:35 am Limited ultrasound of the abdomen attention right upper quadrant COMPARISON: CT 04/12/2024 TECHNIQUE: This report is based on interpretation of permanently recorded ultrasound images. HISTORY: ORDERING SYSTEM PROVIDED HISTORY: Reason for Exam: Intermittent right upper quadrant pain, FINDINGS: The liver is normal in size and echogenicity. No suspicious focal lesions are seen. There is no intrahepatic bile duct dilatation. The common duct is 3 mm at the camila hepatis. The gallbladder is normally distended without calculus, wall thickening or tenderness. The visualized pancreas shows no focal lesion or mass. Some portions of the pancreas are obscured by bowel gas. No ascites is seen in the Sanchez's pouch. Limited survey images of the right kidney shows normal cortical thickness and echogenicity and no pelvocaliectasis. The visualized aorta and IVC are normal in caliber. IMPRESSION: Negative ultrasound. No acute findings.. Interpreted by: Josfe Friedman MD Preliminary Report By: Josef Friedman MD Electronically signed By Josef Friedman MD Dictated Date: 05/09/2024 9:52:35 AM Prelim Date: 05/09/2024 9:53:20 AM Sign Date: 05/09/2024 9:53:20 AM Ordering Provider: [facility] 04-14-2024 Hospital Discharge instructions LEONARDA Flores CNP - 04/14/2024 6:49 PM EDT Please follow with gastroenterology. In the medical field, there is always a level of diagnostic uncertainty, even if this uncertainty is low. For this reason, it is important to immediately return to the emergency department if you have any new symptoms, worsening symptoms, change of symptoms, or if you have any other concerns. We would be happy to re-evaluate you. Otherwise, please take your medications as prescribed and follow-up as recommended. The following attachments cannot be sent through Care Everywhere.Abdominal Pain, Adult ED ([place])Nausea and Vomiting, Adult ED ([place])documented in this encounter [facility] 04-14-2024 Emergency department Note Emergency Department Encounter [facility] ED Patient: Gustavo De : 2000 Date of Evaluation: 04/14/2024 ED KRYSTAL Provider: LEONARDA Nava CNP Patient seen independently within my scope of practice with an Emergency Medicine attending available for supervision. Chief Complaint Chief Complaint Patient presents with Vomiting SOKAOGON I was wearing a N95, Surgical mask for the entirety of this encounter. Gustavo De is a 23 y.o. female who presents to the emergency department for nausea and vomiting with intermittent hematemesis. States she has had multiple work ups for this with no answer. Symptoms have been persistent for a month. Denies any fevers, chills, chest pain, blood in stool. Limitations to history: None Outside historians: None Past History Past Medical History: Diagnosis Date Concussion History reviewed. No pertinent surgical history. Social History Socioeconomic History Marital status: Single Tobacco Use Smoking status: Some Days Smokeless tobacco: Never Substance and Sexual Activity Alcohol use: No Drug use: Yes Types: Marijuana Medications/Allergies Previous Medications No medications on file Allergies Allergen Reactions Acetaminophen Latex Other Reaction(s): rash, swelling Penicillin G Hives Physical Exam BP 111/66 Pulse 65 Temp 36.3 C (97.3 F) (Temporal) Resp 20 SpO2 97% Physical Exam GENERAL APPEARANCE: Awake and alert. Cooperative. HEENT: Normocephalic. Atraumatic. No trismus. NECK: Supple. Trachea midline. CARDIO: Normal rate. Radial pulses symmetrical and palpable LUNGS: Respirations unlabored. CTAB. ABDOMEN: Soft. Non-distended. Non-tender throughout. MUSCULOSKELETAL: No acute deformities. SKIN: Warm and dry. NEUROLOGICAL: No gross facial drooping. No obvious neurologic deficits. Moves all 4 extremities spontaneously. SCREENINGS D Labs: No results found for this or any previous visit. Radiographs: No orders to display : EKG: All EKG's areinterpreted by the Emergency Department Physician in the absence of a broom builder. see their note for interpretation of EKG. EMERGENCY DEPARTMENT COURSE and DIFFERENTIAL DIAGNOSIS/MDM: External Records Review: External ED note [facility] emergency room notes, labs, and imaging . Social Determinants of Health: none. Gustavo De is a 23 y.o. female who presented to the emergency department for chronic nausea and occasionally hematemesis. Has been taking ibuprofen for occasional abd pain. Differential diagnosis included gastritis, GUD, PUD, GI bleeding. Pt given protonix and bentyl. Our workup consisted of ordering/reviewing I considered obtaining CT abd pelvis, cbc, cmp, lipase, but reviewed labs and imaging from [facility] emergency room. She has had multiple work ups for this same concern with stable H&H. No leukocytosis. No abnormal findings on imaging. I do not feel any repeat of these same tests will provide any further insight at this time. Her abd exam is reassuring at this time. VS are stable. She is non-toxic. I think she would be best served by following with a book publisher since these symptoms are becoming chronic in nature. I also recommended that she stop taking any NSAIDs. Will start her on protonix and bentyl. Referral to GI provided. Discussed findings/results with pt. Suspect presentation is most consistent with nausea, vomiting, hematemesis with stable labs, imaging, VS, and reassuring abd exam. Pt was given prescription for oral protonix, bentyl and referral for GI follow up. Pt is to follow up with PCP in 2-3 days. Vital signs on discharge are stable. Gustavo De (or their surrogate) and I have discussed the diagnosis and risks, and we agree with discharging home with close follow-up. We also discussed returning to the Emergency Department immediately if new or worsening symptoms occur. We have discussed the symptoms which are most concerning that necessitate immediate return. Final Diagnosis: 1. Nausea and vomiting, unspecified vomiting type 2. Generalized abdominal pain 3. Hematemesis, unspecified whether nausea present Medications pantoprazole (ProtoNix) EC tablet 40 mg (40 mg Oral Given 04/14/241901) dicyclomine (Bentyl) capsule 10 mg (10 mg Oral Given 04/14/241901) CRITICAL CARE TIME None CONSULTS: None PROCEDURES: Unless otherwise noted below, none Procedures DISPOSITION/PLAN Discharge 04/14/2024 06:48:03 PM PATIENT REFERRED TO: [facility] [address] [facility] [address] Go to If symptoms worsen [facility] Gastroenterology - [place] [address] [facility] [address] DISCHARGE MEDICATIONS: New Prescriptions DICYCLOMINE (BENTYL) 20 MG TABLET Take 1 tablet (20 mg) by mouth 2 times daily for 10 days. PANTOPRAZOLE (PROTONIX) 20 MG EC TABLET Take 1 tablet (20 mg) by mouth daily for 20 days. Do not crush, chew, or split. @[facility]([id number]:LAST:1)@ (Please note: Portions of this note were completed with a voice recognition program. Efforts were made to edit the dictations but occasionally words and phrases are mis-transcribed.) Form [id number] LEONARDA Nava CNP [employer] LEONARDA Flores CNP 04/14/241915 Patient to the ED today with c/o vomiting. Patient reports being in and out of the ED's lately with same complaint. Overnight began to spit up blood. Patient reports multiple XR, CT. Patient reports going to [facility] for a lot of care. documented in this encounter [facility] 04-14-2024 Emergency department Triage note Patient to the ED today with c/o vomiting. Patient reports being in and out of the ED's lately with same complaint. Overnight began to spit up blood. Patient reports multiple XR, CT. Patient reports going to [facility] for a lot of care. [facility] 04-14-2024 Physician Emergency department Note Emergency Department Encounter [facility] ED Patient: Gustavo De : 2000 Date of Evaluation: 04/14/2024 ED KRYSTAL Provider: LEONARDA Nava CNP Patient seen independently within my scope of practice with an Emergency Medicine attending available for supervision. Chief Complaint Chief Complaint Patient presents with Vomiting SOKAOGON I was wearing a N95, Surgical mask for the entirety of this encounter. Gustavo De is a 23 y.o. female who presents to the emergency department for nausea and vomiting with intermittent hematemesis. States she has had multiple work ups for this with no answer. Symptoms have been persistent for a month. Denies any fevers, chills, chest pain, blood in stool. Limitations to history: None Outside historians: None Past History Past Medical History: Diagnosis Date Concussion History reviewed. No pertinent surgical history. Social History Socioeconomic History Marital status: Single Tobacco Use Smoking status: Some Days Smokeless tobacco: Never Substance and Sexual Activity Alcohol use: No Drug use: Yes Types: Marijuana Medications/Allergies Previous Medications No medications on file Allergies Allergen Reactions Acetaminophen Latex Other Reaction(s): rash, swelling Penicillin G Hives Physical Exam BP 111/66 Pulse 65 Temp 36.3 C (97.3 F) (Temporal) Resp 20 SpO2 97% Physical Exam GENERAL APPEARANCE: Awake and alert. Cooperative. HEENT: Normocephalic. Atraumatic. No trismus. NECK: Supple. Trachea midline. CARDIO: Normal rate. Radial pulses symmetrical and palpable LUNGS: Respirations unlabored. CTAB. ABDOMEN: Soft. Non-distended. Non-tender throughout. MUSCULOSKELETAL: No acute deformities. SKIN: Warm and dry. NEUROLOGICAL: No gross facial drooping. No obvious neurologic deficits. Moves all 4 extremities spontaneously. SCREENINGS D Labs: No results found for this or any previous visit. Radiographs: No orders to display : EKG: All EKG's areinterpreted by the Emergency Department Physician in the absence of a broom builder. see their note for interpretation of EKG. EMERGENCY DEPARTMENT COURSE and DIFFERENTIAL DIAGNOSIS/MDM: External Records Review: External ED note [facility] emergency room notes, labs, and imaging . Social Determinants of Health: none. Gustavo De is a 23 y.o. female who presented to the emergency department for chronic nausea and occasionally hematemesis. Has been taking ibuprofen for occasional abd pain. Differential diagnosis included gastritis, GUD, PUD, GI bleeding. Pt given protonix and bentyl. Our workup consisted of ordering/reviewing I considered obtaining CT abd pelvis, cbc, cmp, lipase, but reviewed labs and imaging from [facility] emergency room. She has had multiple work ups for this same concern with stable H&H. No leukocytosis. No abnormal findings on imaging. I do not feel any repeat of these same tests will provide any further insight at this time. Her abd exam is reassuring at this time. VS are stable. She is non-toxic. I think she would be best served by following with a book publisher since these symptoms are becoming chronic in nature. I also recommended that she stop taking any NSAIDs. Will start her on protonix and bentyl. Referral to GI provided. Discussed findings/results with pt. Suspect presentation is most consistent with nausea, vomiting, hematemesis with stable labs, imaging, VS, and reassuring abd exam. Pt was given prescription for oral protonix, bentyl and referral for GI follow up. Pt is to follow up with PCP in 2-3 days. Vital signs on discharge are stable. Gustavo De (or their surrogate) and I have discussed the diagnosis and risks, and we agree with discharging home with close follow-up. We also discussed returning to the Emergency Department immediately if new or worsening symptoms occur. We have discussed the symptoms which are most concerning that necessitate immediate return. Final Diagnosis: 1. Nausea and vomiting, unspecified vomiting type 2. Generalized abdominal pain 3. Hematemesis, unspecified whether nausea present Medications pantoprazole (ProtoNix) EC tablet 40 mg (40 mg Oral Given 04/14/241901) dicyclomine (Bentyl) capsule 10 mg (10 mg Oral Given 04/14/241901) CRITICAL CARE TIME None CONSULTS: None PROCEDURES: Unless otherwise noted below, none Procedures DISPOSITION/PLAN Discharge 04/14/2024 06:48:03 PM PATIENT REFERRED TO: [facility] ED [address] [address] Go to If symptoms worsen [facility] Gastroenterology - [place] [address] DISCHARGE MEDICATIONS: New Prescriptions DICYCLOMINE (BENTYL) 20 MG TABLET Take 1 tablet (20 mg) by mouth 2 times daily for 10 days. PANTOPRAZOLE (PROTONIX) 20 MG EC TABLET Take 1 tablet (20 mg) by mouth daily for 20 days. Do not crush, chew, or split. @[facility]([id number]:LAST:1)@ (Please note: Portions of this note were completed with a voice recognition program. Efforts were made to edit the dictations but occasionally words and phrases are mis-transcribed.) Form [id number] LEONARDA Nava CNP [facility] LEONARDA Flores CNP 04/14/241915 [facility] 04-12-2024 Hospital Discharge instructions Patient Education 04/12/2024 19:33:11 Abdominal Pain, Unknown Cause, (Female) Unknown Causes of Abdominal Pain (Female) The exact cause of your belly (abdominal) pain is not clear. This does not mean that this is something to worry about. Everyone likes to know the exact cause of the problem. But sometimes with belly pain, there is no clear-cut cause, and this could be a good thing. The good news is that your symptoms can be treated, and you will feel better. Your condition does not seem serious now. But sometimes the signs of a serious problem may take more time to appear. For this reason, it is important for you to watch for any new symptoms, problems, or worsening of your condition. Over the next few days, the abdominal pain may come and go. Or it may be constant. Other common symptoms can include nausea and vomiting. Sometimes it can be difficult to tell if you feel nauseous. You may just feel bad and not connect that feeling to nausea. Constipation, diarrhea, and a fever may go along with the pain. The pain may continue even if treated correctly over the following days. Depending on how things go, sometimes the cause can become clear and may need more or different treatment. Additional evaluations, medicines, or tests may also be needed. Home care Your healthcare provider may prescribe medicine for pain, symptoms, or an infection. Follow the healthcare provider's instructions for taking these medicines. General care Rest as much as you can until your next exam. No strenuous activities. Try to find positions that ease discomfort. A small pillow placed on the abdomen may help relieve pain. Something warm on your abdomen (such as a heating pad) may help, but be careful not to burn yourself. Diet Don t force yourself to eat, especially if having cramps, vomiting, or diarrhea. Water is important so you don't get dehydrated. Soup may also be good. Sports drinks may also help, especially if they are not too acidic. Don't drink sugary drinks as this can make things worse. Take liquids in small amounts. Don t guzzle them. Caffeine sometimes makes the pain and cramping worse. Don t take dairy products if you have vomiting or diarrhea. Don't eat large amounts at a time. Wait a few minutes between bites. Eat a diet low in fiber (called a low-residue diet). Foods allowed include refined breads, white rice, fruit and vegetable juices without pulp, tender meats. These foods will pass more easily through the intestine. Don t have whole-grain foods, whole fruits and vegetables, meats, seeds and nuts, fried or fatty foods, dairy, alcohol and spicy foods until your symptoms go away. Follow-up care Follow up with your healthcare provider, or as advised, if your pain does not begin to improve in the next 24 hours. Call 911 Call 911 if any of these occur: Trouble breathing Confusion Fainting or loss of consciousness Rapid heart rate Seizure When to seek medical advice Call your healthcare provider right away if any of these occur: Pain gets worse or moves to the right lower abdomen New or worsening vomiting or diarrhea Swelling of the abdomen Unable to pass stool for more than 3 days Fever of 100.4 F (38 C) or higher, or as directed by your healthcare provider. Blood in vomit or bowel movements (dark red or black color) Yellow color of eyes and skin (jaundice) Weakness, dizziness Chest, arm, back, neck, or jaw pain Unexpected vaginal bleeding or missed period Can't keep down liquids or water and you are getting dehydrated [id number] [employer]. [address] [place] [address]. All rights reserved. This information is not intended as a substitute for professional medical care. Always follow your healthcare professional's instructions. Follow Up Care 04/12/2024 14:30:24 With:KELLEY Address: When:1-2 days With:AMAURI HINES DO Address: [address] [facility] [place] [address] [phone] When:2-4 days [facility] 04-12-2024 Note Discharge Instructions Thank you for allowing [facility] to assist you with your healthcare needs. The following is important discharge information regarding your hospital visit. What to Do Next Instructions from Your Care Team No qualifying data available. Post Acute Orders No qualifying data available. You Need to Schedule the Following Appointments Follow Up with KELLEY When:Within 1-2 days Follow Up with AMAURI HINES DO When:Within 2-4 days Where:[address] [facility] [place] [phone] Allergies Latex rash, swelling Tylenol penicillin Hives Medications Please ask your primary doctor or pharmacist before taking any other medication not listed, including over the counter drugs, herbal medications, vitamins and or supplements as they may interact with your home medications. What How Much When Instructions Last Dose Unchanged ondansetron (ondansetron 4 mg oral tablet, disintegrating) 1 tab(s) by mouth Every 6 hours as needed for Nausea/Vomiting Please take this list to your next doctor s visit. Bring all medications you take, including over the counter medications, herbals and other supplements with you to your doctor s visit. Patients and families are reminded to discard old lists and to update any records with all medication providers or retail pharmacies. Education Materials Unknown Causes of Abdominal Pain (Female) The exact cause of your belly (abdominal) pain is not clear. This does not mean that this is something to worry about. Everyone likes to know the exact cause of the problem. But sometimes with belly pain, there is no clear-cut cause, and this could be a good thing. The good news is that your symptoms can be treated, and you will feel better. Your condition does not seem serious now. But sometimes the signs of a serious problem may take more time to appear. For this reason, it is important for you to watch for any new symptoms, problems, or worsening of your condition. Over the next few days, the abdominal pain may come and go. Or it may be constant. Other common symptoms can include nausea and vomiting. Sometimes it can be difficult to tell if you feel nauseous. You may just feel bad and not connect that feeling to nausea. Constipation, diarrhea, and a fever may go along with the pain. The pain may continue even if treated correctly over the following days. Depending on how things go, sometimes the cause can become clear and may need more or different treatment. Additional evaluations, medicines, or tests may also be needed. Home care Your healthcare provider may prescribe medicine for pain, symptoms, or an infection. Follow the healthcare provider's instructions for taking these medicines. General care Rest as much as you can until your next exam. No strenuous activities. Try to find positions that ease discomfort. A small pillow placed on the abdomen may help relieve pain. Something warm on your abdomen (such as a heating pad) may help, but be careful not to burn yourself. Diet Don t force yourself to eat, especially if having cramps, vomiting, or diarrhea. Water is important so you don't get dehydrated. Soup may also be good. Sports drinks may also help, especially if they are not too acidic. Don't drink sugary drinks as this can make things worse. Take liquids in small amounts. Don t guzzle them. Caffeine sometimes makes the pain and cramping worse. Don t take dairy products if you have vomiting or diarrhea. Don't eat large amounts at a time. Wait a few minutes between bites. Eat a diet low in fiber (called a low-residue diet). Foods allowed include refined breads, white rice, fruit and vegetable juices without pulp, tender meats. These foods will pass more easily through the intestine. Don t have whole-grain foods, whole fruits and vegetables, meats, seeds and nuts, fried or fatty foods, dairy, alcohol and spicy foods until your symptoms go away. Follow-up care Follow up with your healthcare provider, or as advised, if your pain does not begin to improve in the next 24 hours. Call 911 Call 911 if any of these occur: Trouble breathing Confusion Fainting or loss of consciousness Rapid heart rate Seizure When to seek medical advice Call your healthcare provider right away if any of these occur: Pain gets worse or moves to the right lower abdomen New or worsening vomiting or diarrhea Swelling of the abdomen Unable to pass stool for more than 3 days Fever of 100.4 F (38 C) or higher, or as directed by your healthcare provider. Blood in vomit or bowel movements (dark red or black color) Yellow color of eyes and skin (jaundice) Weakness, dizziness Chest, arm, back, neck, or jaw pain Unexpected vaginal bleeding or missed period Can't keep down liquids or water and you are getting dehydrated [id number] [employer]. [address] [place] [address], [place] [address]. All rights reserved. This information is not intended as a substitute for professional medical care. Always follow your healthcare professional's instructions. Additional Information VACCINATE! IT SAVES LIVES! Members of the community who have not yet received the COVID-19 vaccine and would like to receive it can visit one of [facility] vaccine clinics. There are many vaccine clinic locations within the [facility]. For locations and available times, please visit [email or web address] It is important to note that some COVID mobile vaccine clinics are held outdoors and may be canceled in rainy or stormy conditions. To learn more about pediatric vaccinations (ages 5-11), we invite you to visit the [facility] [employer] [employer] [facility] webpage. [email or web address]/[email or web address] 845-Ruzgk-Ukbmmpswssm-Frequently-Asked -Questions.html To learn more about the COVID-19 vaccine, we invite you to visit the CDC website for a list of frequently asked questions. https://www.cdc.gov/coronavirus/2019-n cov/vaccines/faq.html [facility] Patient Portal Access Instructions: Stay connected with your healthcare team and access your personal medical information anytime with the [facility] Patient Portal. If you would like a full copy of your medical records please contact the [facility] Medical Records Department Tuesday through Tuesday between 8a.m. and 4:30p.m. Please follow the directions below to access the portal: 1.Access the email account you provided upon registration to the hospital.2.Look for an invitation email from [facility].3.Open the email and access the invitation link: Accept Invitation to [facility]4.Fill in the required hong to create your account. Sign into [email or web address] with your username and password that you created in the above steps to stay up to date. You can then view a summary of results, a summary of your visits, and the ability to download your summaries to your computer or send the information securely to a physician. Remember that your healthcare information is confidential, so carefully consider who you will allow to register on the [facility] Patient Portal for access to your information. You can also access the [facility] Patient Portal on the [employer] krystal. Simply click on Health Records under Health Data and then click on the [facility] logo. HOW TO SAFELY DISPOSE OF PRESCRIPTION MEDICATIONS Please use one of the following methods to safely dispose of your unused medications. 1.Use a drug disposal kit: the drug disposal pouch allows you to safely discard your old and unused drugs. Ask your nurse to give you one when you are discharged.2.Visit a local take-back location: Many local pharmacies and police departments have programs that collect old and unwanted prescription drugs. Call your local pharmacy or go to http://[employer]/1T9Gx1b to find one close to you.3.Make use of household items: Use cat litter or old coffee grounds to dispose medications if other options are not available. Mix your drugs with these household products, seal them in an airtight container and throw it into the garbage. Call [facility]: [phone] to be sure your drugs can be disposed of in this way. Some medicines may require a different approach.4.Never flush your medications down the toilet. IF YOU HAVE BEEN PRESCRIBED AN OPIOIDS FOR PAIN If you have been prescribed an opioid (such as hydrocodone, oxycodone or morphine), it is critical to understand the possible side effects and risks of opioid pain medications. Even when taken as directed, opioids can have several side effects including: Tolerance, meaning you might need to take more of a medication for the same pain relief. Nausea, vomiting and/or constipation. Sleepiness, dizziness, dry mouth, confusion, depression or itching. Physical dependence, meaning you have withdrawal symptoms when a medication is stopped ? this can develop within a few days. KNOW YOUR RESPONSIBILITIES It is important to know exactly how much and how often to take the opioid pain medications you are prescribed. Never take opioids in higher amounts or more often than prescribed. Do not combine opioids with alcohol or other drugs that cause drowsiness, such as benzodiazepines, also known as benzos, including diazepam and alprazolam, muscle relaxants or sleep aids. Never sell or share prescription opioids. This is illegal. Store opioids in a secure place and out of reach of others (including children, family, friends and visitors). The last page(s) of this document has been signed and retained as a CHART COPY Signatures Patient Education Materials Abdominal Pain, Unknown Cause, (Female) Medication Leaflets My discharge plan and instructions have been reviewed and explained to me and ISUKUMAR KIERSTEN E understand my current condition and have read and understand these discharge instructions. I have received a written copy of the plan/instructions. If I have questions, I am aware that I should contact my doctor. 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 Multiplanar reformatted images are provided for review. Automated exposure control, iterative reconstruction, and/or weight based adjustment of the mA/kV was utilized to reduce the radiation dose to as low as reasonably achievable. COMPARISON: 04/09/2024 ultrasound pelvis HISTORY: ORDERING SYSTEM PROVIDED HISTORY: Reason for Exam: right upper and left lower abd pain FINDINGS: No osseous abnormality. The visualized lung bases and mediastinum are unremarkable. The visualized esophagus, stomach, and duodenum are unremarkable. The liver, spleen, adrenal glands, and pancreas are unremarkable Unremarkable Kidney without collecting system dilatation. No adenopathy, free intraperitoneal fluid, or free air visualized. Small fat containing umbilical hernia. The solid pelvic organs are grossly normal and are better evaluated on recent 04/09/2024 ultrasound pelvis. The urinary bladder is decompressed. No GI tract abnormality is visible. Appendix normal. No additional contributory findings. IMPRESSION: No acute abnormality within the abdomen or pelvis. I have personally reviewed the images of this examination and agree with the resident's findings and interpretation. Interpreted by: Crow Leon Preliminary Report By: Donnie Akbar Electronically signed By Crow Leon Dictated Date: 04/12/2024 6:08:03 PM Prelim Date: 04/12/2024 7:03:20 PM Sign Date: 04/12/2024 7:03:20 PM Ordering Provider: LAKSHMI GALINDO [facility] 04-01-2024 Hospital Discharge instructions Patient Education 04/01/2024 17:14:00 Diet for Vomiting or Diarrhea (Adult) Diet for Vomiting or Diarrhea (Adult) Your symptoms may return or get worse after eating certain foods listed below. If this happens, stop eating these foods until your symptoms ease and you feel better. Once the vomiting stops, follow the steps below. During the first 12 to 24 hours During the first 12 to 24 hours, follow this diet: Drinks. Plain water, sport drinks like electrolyte solutions, soft drinks without caffeine, mineral water (plain or flavored), clear fruit juices, and decaffeinated tea and coffee. Soups. Clear broth. Desserts. Plain gelatin, popsicles, and fruit juice bars. As you feel better, you may add 6 to 8 ounces of yogurt per day. If you have diarrhea, don't have foods or drinks that contain sugar, high-fructose corn syrup, or sugar alcohols. During the next 24 hours During the next 24 hours you may add the following to the above: Hot cereal, plain toast, bread, rolls, and crackers Plain noodles, rice, mashed potatoes, and chicken noodle or rice soup Unsweetened canned fruit (but not pineapple) and bananas Don't eat more than 15 grams of fat a day. Do this by staying away from margarine, butter, oils, mayonnaise, sauces, gravies, fried foods, peanut butter, meat, poultry, and fish. Don't eat much fiber. Stay away from raw or cooked vegetables, fresh fruits (except bananas), and bran cereals. Limit how much caffeine and chocolate you have. Do not use any spices or seasonings except salt. During the next 24 hours Slowly go back to your normal diet, as you feel better and your symptoms ease. 9145-5632 [employer]. [address] [place] [address], [place] [address]. All rights reserved. This information is not intended as a substitute for professional medical care. Always follow your healthcare professional's instructions. Follow Up Care 04/01/2024 14:59:52 With:Go to emergency room if symptoms worsen Address:Unknown When:2-4 days With:AMAURI HINES DO Address: [address] [place] [address] [place] [address] [phone] When:2-4 days [facility] 04-01-2024 Note Discharge Instructions Thank you for allowing [facility] to assist you with your healthcare needs. The following is important discharge information regarding your hospital visit. Diagnosis from Today's Visit Nausea What to Do Next Instructions from Your Care Team Please call your primary care provider tomorrow for outpatient follow-up. If you develop intractable vomiting symptoms and or not able to keep fluids down or have any acute abdominal pain or concerns, please present to the emergency department for more emergent evaluation, otherwise please follow-up with your primary doctor. No qualifying data available. Post Acute Orders No qualifying data available. You Need to Schedule the Following Appointments Follow Up with Go to emergency room if symptoms worsen When:Within 2-4 days Follow Up with AMAURI HINES DO When:Within 2-4 days Where:[address] [place] [address] [phone] Allergies Latex rash, swelling Tylenol penicillin Hives Medications Please ask your primary doctor or pharmacist before taking any other medication not listed, including over the counter drugs, herbal medications, vitamins and or supplements as they may interact with your home medications. What How Much When Instructions Last Dose New ondansetron (ondansetron 4 mg oral tablet, disintegrating) 1 tab(s) by mouth Every 6 hours as needed for Nausea/Vomiting Printed Prescription Unchanged ketoconazole topical (ketoconazole 2% topical cream) See instructions apply to affected area once daily for 14 days Please take this list to your next doctor s visit. Bring all medications you take, including over the counter medications, herbals and other supplements with you to your doctor s visit. Patients and families are reminded to discard old lists and to update any records with all medication providers or retail pharmacies. Education Materials Diet for Vomiting or Diarrhea (Adult) Your symptoms may return or get worse after eating certain foods listed below. If this happens, stop eating these foods until your symptoms ease and you feel better. Once the vomiting stops, follow the steps below. During the first 12 to 24 hours During the first 12 to 24 hours, follow this diet: Drinks. Plain water, sport drinks like electrolyte solutions, soft drinks without caffeine, mineral water (plain or flavored), clear fruit juices, and decaffeinated tea and coffee. Soups. Clear broth. Desserts. Plain gelatin, popsicles, and fruit juice bars. As you feel better, you may add 6 to 8 ounces of yogurt per day. If you have diarrhea, don't have foods or drinks that contain sugar, high-fructose corn syrup, or sugar alcohols. During the next 24 hours During the next 24 hours you may add the following to the above: Hot cereal, plain toast, bread, rolls, and crackers Plain noodles, rice, mashed potatoes, and chicken noodle or rice soup Unsweetened canned fruit (but not pineapple) and bananas Don't eat more than 15 grams of fat a day. Do this by staying away from margarine, butter, oils, mayonnaise, sauces, gravies, fried foods, peanut butter, meat, poultry, and fish. Don't eat much fiber. Stay away from raw or cooked vegetables, fresh fruits (except bananas), and bran cereals. Limit how much caffeine and chocolate you have. Do not use any spices or seasonings except salt. During the next 24 hours Slowly go back to your normal diet, as you feel better and your symptoms ease. 5089-6103 [employer]. [address] [place] [address]. All rights reserved. This information is not intended as a substitute for professional medical care. Always follow your healthcare professional's instructions. Additional Information VACCINATE! IT SAVES LIVES! Members of the community who have not yet received the COVID-19 vaccine and would like to receive it can visit one of [facility] vaccine clinics. There are many vaccine clinic locations within the [facility]. For locations and available times, please visit [email or web address] It is important to note that some COVID mobile vaccine clinics are held outdoors and may be canceled in rainy or stormy conditions. To learn more about pediatric vaccinations (ages 5-11), we invite you to visit the [facility] webpage. [email or web address]/[email or web address] 564-Qmqcs-Gsmyjmniptd-Frequently-Asked -Questions.html To learn more about the COVID-19 vaccine, we invite you to visit the CDC website for a list of frequently asked questions. https://www.cdc.gov/coronavirus/2019-n cov/vaccines/faq.html [facility] Patient Portal Access Instructions: Stay connected with your healthcare team and access your personal medical information anytime with the [facility] Patient Portal. If you would like a full copy of your medical records please contact the [facility] Medical Records Department Tuesday through Tuesday between 8a.m. and 4:30p.m. Please follow the directions below to access the portal: 1.Access the email account you provided upon registration to the [facility].2.Look for an invitation email from [facility].3.Open the email and access the invitation link: Accept [facility] to [facility]4.Fill in the required hong to create your account. Sign into [email or web address] with your username and password that you created in the above steps to stay up to date. You can then view a summary of results, a summary of your visits, and the ability to download your summaries to your computer or send the information securely to a physician. Remember that your healthcare information is confidential, so carefully consider who you will allow to register on the [facility] Patient Portal for access to your information. You can also access the [facility] Patient Portal on the [employer]. Simply click on Health Records under Health Data and then click on the [employer] logo. HOW TO SAFELY DISPOSE OF PRESCRIPTION MEDICATIONS Please use one of the following methods to safely dispose of your unused medications. 1.Use a drug disposal kit: the drug disposal pouch allows you to safely discard your old and unused drugs. Ask your nurse to give you one when you are discharged.2.Visit a local take-back location: Many local pharmacies and police departments have programs that collect old and unwanted prescription drugs. Call your local pharmacy or go to http://bit.ly/2K6Xl5k to find one close to you.3.Make use of household items: Use cat litter or old coffee grounds to dispose medications if other options are not available. Mix your drugs with these household products, seal them in an airtight container and throw it into the garbage. Call [facility]: [phone] to be sure your drugs can be disposed of in this way. Some medicines may require a different approach.4.Never flush your medications down the toilet. IF YOU HAVE BEEN PRESCRIBED AN OPIOIDS FOR PAIN If you have been prescribed an opioid (such as hydrocodone, oxycodone or morphine), it is critical to understand the possible side effects and risks of opioid pain medications. Even when taken as directed, opioids can have several side effects including: Tolerance, meaning you might need to take more of a medication for the same pain relief. Nausea, vomiting and/or constipation. Sleepiness, dizziness, dry mouth, confusion, depression or itching. Physical dependence, meaning you have withdrawal symptoms when a medication is stopped ? this can develop within a few days. KNOW YOUR RESPONSIBILITIES It is important to know exactly how much and how often to take the opioid pain medications you are prescribed. Never take opioids in higher amounts or more often than prescribed. Do not combine opioids with alcohol or other drugs that cause drowsiness, such as benzodiazepines, also known as benzos, including diazepam and alprazolam, muscle relaxants or sleep aids. Never sell or share prescription opioids. This is illegal. Store opioids in a secure place and out of reach of others (including children, family, friends and visitors). The last page(s) of this document has been signed and retained as a CHART COPY Signatures Patient Education Materials Diet for Vomiting or Diarrhea (Adult) Medication Leaflets My discharge plan and instructions have been reviewed and explained to me and ISUKUMAR KIERSTEN E understand my current condition and have read and understand these discharge instructions. I have received a written copy of the plan/instructions. If I have questions, I am aware that I should contact my doctor. Patient/[employer] Ass[employer]or Signature: _ Date/Time: Relationship to Patient: Witness Name/Signature: Date/Time: [facility] [place] 03-18-2024 Hospital Discharge instructions Patient Education 03/18/2024 15:26:29 Vertigo, Unspecified Vertigo (Unknown Cause) In addition to helping with hearing, the inner ear is part of the balance center of your body. Problems with the inner ear can a false feeling of motion. This is called vertigo. Often, it feels as if you or the room is spinning. A vertigo attack may cause sudden nausea, vomiting and heavy sweating. Severe vertigo causes a loss of balance and can cause you to fall. During vertigo, small head movements and changes in body position will often make the symptoms worse. You may also have ringing in the ears called tinnitus. An episode of vertigo may last seconds, minutes or hours. Once you are over the first episode, it may never come back. However, symptoms may return off and on. The cause of your vertigo is not yet known. Possible causes of vertigo include: Inflammation of the inner ear Disease of the nerves to the inner ear Movement of calcium particles in the inner ear Poor blood flow to the balance centers of the brain Migraine headaches In older adults, the use of more than one medicine along with some health conditions Home care If symptoms are severe, rest quietly in bed. Change positions very slowly. There is usually one position that will feel best, such as lying on one side or lying on your back with your head slightly raised on pillows. Until you have no symptoms, you are at a higher risk of falling. Let someone help you when you get up. Get rid of home hazards such as loose electrical cords and throw rugs. Don t walk in unfamiliar areas that are not lighted. Use night lights in bathrooms and kitchen areas. Do not drive a car or work with dangerous machinery until symptoms have been gone for at least one week. Take medicine as prescribed to relieve your symptoms. Unless another medicine was prescribed for symptoms of nausea, vomiting, and dizziness, you may use wmpq-gtn-gkhuhcl motion sickness pills. Ask your pharmacist for suggestions. Follow-up care Follow up with your healthcare provider or as directed. If you are referred to a specialist or for testing, make the appointment promptly. When to seek medical advice Call your healthcare provider if any of the following occur: Fever of 100.4 F (38 C) or higher, or as directed by your healthcare provider Vertigo worsens or is not controlled by prescribed medicine Repeated vomiting not relieved by prescribed medicine Severe headache Confusion Weakness of an arm or leg or 1 side of the face Difficulty with speech or vision Loss of consciousness Seizure [id number] [employer]. [address] [place] [address]. All rights reserved. This information is not intended as a substitute for professional medical care. Always follow your healthcare professional's instructions. 03/18/2024 15:26:25 URI, Viral, No Abx (Adult) Viral Upper Respiratory Illness (Adult) You have a viral upper respiratory illness (URI), which is another term for the common cold. This illness is contagious during the first few days. It is spread through the air by coughing and sneezing. It may also be spread by direct contact (touching the sick person and then touching your own eyes, nose, or mouth). Frequent handwashing will decrease risk of spread. Most viral illnesses go away within 7 to 10 days with rest and simple home remedies. Sometimes the illness may last for several weeks. Antibiotics will not kill a virus, and they are generally not prescribed for this condition. Home care If symptoms are severe, rest at home for the first 2 to 3 days. When you resume activity, don't let yourself get too tired. Don't smoke. If you need help stopping, talk with your healthcare provider. Avoid being exposed to cigarette smoke (yours or others ). You may use acetaminophen or ibuprofen to control pain and fever, unless another medicine was prescribed. If you have chronic liver or kidney disease, have ever had a stomach ulcer or gastrointestinal bleeding, or are taking blood-thinning medicines, talk with your healthcare provider before using these medicines. Aspirin should never be given to anyone under 18 years of age who is ill with a viral infection or fever. It may cause severe liver or brain damage. Your appetite may be poor, so a light diet is fine. Stay well hydrated by drinking 6 to 8 glasses of fluids per day (water, soft drinks, juices, tea, or soup). Extra fluids will help loosen secretions in the nose and lungs. Mvsm-lxb-yuowcds cold medicines will not shorten the length of time you re sick, but they may be helpful for the following symptoms: cough, sore throat, and nasal and sinus congestion. If you take prescription medicines, ask your healthcare provider or pharmacist which lymu-elr-cdcorpu medicines are safe to use. (Note: Don't use decongestants if you have high blood pressure.) Follow-up care Follow up with your healthcare provider, or as advised. When to seek medical advice Call your healthcare provider right away if any of these occur: Cough with lots of colored sputum (mucus) Severe headache; face, neck, or ear pain Difficulty swallowing due to throat pain Fever of 100.4 F (38 C) or higher, or as directed by your healthcare provider Call 911 Call 911 if any of these occur: Chest pain, shortness of breath, wheezing, or difficulty breathing Coughing up blood Very severe pain with swallowing, especially if it goes along with a muffled voice [phone] [employer]. [address] [place] [address]. All rights reserved. This information is not intended as a substitute for professional medical care. Always follow your healthcare professional's instructions. 03/18/2024 15:26:22 Hemoptysis Hemoptysis Hemoptysis is the medical term for coughing up blood. There are many causes for this, including minor illnesses like bronchitis. Hemoptysis can also be an early sign of a more serious illness, like a blood clot in the lung (pulmonary embolism), cancer, tuberculosis, or pneumonia. Less common causes of hemoptysis can be hard to diagnose in an emergency department or a clinic. More testing will be needed if the symptoms continue. Home care Stay away from cigarette smoke. Smoke irritates the bronchial passages. Unless you are taking daily aspirin to prevent stroke or heart attack, don't take aspirin or products that contain aspirin. Check with your healthcare provider to see if you should continue the aspirin or when you should restart it if you develop hemoptysis. Aspirin affects how readily the blood clots. Medicines that prevent clotting may make hemoptysis worse. If you have a lung infection, drinking extra fluid will help loosen secretions in the lungs. Icuy-rjp-siiwypp cough medicines that contain dextromethorphan may help reduce coughing. Check with your healthcare provider before taking dextromethorphan if you have a chronic illness, are , or take daily medicines. If you were prescribed an antibiotic, take it until it is all gone. Take it even if you are feeling better after only a few days. Follow-up care Follow up with your healthcare provider, or as advised. When to seek medical advice Call your healthcare provider right away if any of these occur: Fever of 100.4 F (38 C) or higher, or as directed by your healthcare provider Call 911 Call 911 if any of these occur: Coughing up an increased amount of blood Trouble breathing, wheezing, or pain with breathing Chest pain or chest pressure Fainting or losing consciousness Rapid heartbeat Weakness or dizziness [id number] [employer]. [address] [place] [address]. All rights reserved. This information is not intended as a substitute for professional medical care. Always follow your healthcare professional's instructions. Follow Up Care 03/18/2024 11:11:26 With:AMAURI HINES Address: [address] [place] [phone] Business (1) When:2-4 days Comments:Schedule appointment as soon as possibleReturn to ED if symptoms worsenIncrease fluidsIncrease diet as describedSit to stand precautionsMay use meclizine if dizzyReturn for symptoms as describedVaporizer at the bedsideTake 1200 mg regular Mucinex twice daily till better [facility] 03-18-2024 Emergency department Discharge summary Discharge Instructions Thank you for allowing [facility] to assist you with your healthcare needs. The following is important discharge information regarding your hospital visit. Diagnosis from Today's Visit Hemoptysis URTI - Viral upper respiratory tract infection Vertigo What to Do Next Instructions from Your Care Team Discharge Return to Work, School, or Sports (Return to Work, School, or Sports) - Ordered -- 03/20/24, May return to: work, 03/18/24 15:27:00 EDT Post Acute Orders No qualifying data available. You Need to Schedule the Following Appointments Follow Up with AMAURI HINES When:Within 2-4 days Where:[address] [place] [id number] [phone] Business (1) Additional Information: Schedule appointment as soon as possible Return to ED if symptoms worsen Increase fluids Increase diet as described Sit to stand precautions May use meclizine if dizzy Return for symptoms as described Vaporizer at the bedside Take 1200 mg regular Mucinex twice daily till better Allergies Latex rash, swelling penicillin Hives Medications Please ask your primary doctor or pharmacist before taking any other medication not listed, including over the counter drugs, herbal medications, vitamins and or supplements as they may interact with your home medications. What How Much When Instructions Last Dose New meclizine (meclizine 25 mg oral tablet) 1 tab(s) by mouth Three (3) times a day Duration: 5 Days As needed for vertigo Printed Prescription Unchanged ketoconazole topical (ketoconazole 2% topical cream) See instructions apply to affected area once daily for 14 days Please take this list to your next doctor s visit. Bring all medications you take, including over the counter medications, herbals and other supplements with you to your doctor s visit. Patients and families are reminded to discard old lists and to update any records with all medication providers or retail pharmacies. Medication Leaflets meclizine (JOSELYN lombardo) Antivert, Bonine, Bonine Max, Dramamine Less Drowsy, Dramamine Nausea Long Lasting, Travel-Ease What is the most important information I should know about meclizine? Use only as directed. Tell your doctor if you use other medicines or have other medical conditions or allergies. What is meclizine? Meclizine is used in adults and children aged 12 years and older to treat or prevent nausea, vomiting and dizziness caused by motion sickness. Meclizine is also used in adults to treat symptoms of vertigo (dizziness or spinning sensation) caused by disease that affects your inner ear. Meclizine may also be used for purposes not listed in this medication guide. What should I discuss with my healthcare provider before taking meclizine? You should not use meclizine if you are allergic to it. Do not give this medicine to anyone younger than 12 years old without medical advice. Tell your doctor if you have or have ever had: glaucoma; breathing problems such as asthma, emphysema, or chronic bronchitis; an enlarged prostate or urination problems; recently used alcohol, sedatives, or tranquilizers; or liver or kidney disease. Tell your doctor if you are or . How should I take meclizine? Follow all directions on your prescription label and read all medication guides or instruction sheets. Use the medicine exactly as directed. Swallow the tablet whole and do not crush, chew, or break it. You must chew the chewable tablet before you swallow it. To prevent motion sickness, take meclizine about 1 hour before you travel or anticipate having motion sickness. You may take meclizine once every 24 hours while you are traveling, to further prevent motion sickness. To treat vertigo, you may need to take meclizine several times daily. Follow your doctor's instructions. Store at room temperature away from moisture, heat, and light. What happens if I miss a dose? Meclizine is used when needed. If you are on a dosing schedule, skip any missed dose. Do not use two doses at one time. What happens if I overdose? Seek emergency medical attention or call the Poison Help line at . What should I avoid while taking meclizine? Avoid driving or hazardous activity until you know how this medicine will affect you. Your reactions could be impaired. Avoid drinking alcohol. Drinking alcohol with this medicine can cause side effects. What are the possible side effects of meclizine? Get emergency medical help if you have signs of an allergic reaction: hives, difficult breathing, swelling of your face, lips, tongue, or throat. Common side effects may include: drowsiness; dry mouth; headache; vomiting; or feeling tired. This is not a complete list of side effects and others may occur. Call your doctor for medical advice about side effects. You may report side effects to FDA at 4-590-ZNH-5652. What other drugs will affect meclizine? Using meclizine with other drugs that make you drowsy can worsen this effect. Ask your doctor before using opioid medication, a sleeping pill, a muscle relaxer, or medicine for anxiety or seizures. Sometimes it is not safe to use certain medicines at the same time. Some drugs can affect your blood levels of other drugs you use, which may increase side effects or make the medicines less effective. Other drugs may affect meclizine, including prescription and uutg-xia-jvadolq medicines, vitamins, and herbal products. Tell your doctor about all other medicines you use. Where can I get more information? Your doctor or pharmacist can provide more information about meclizine. Remember, keep this and all other medicines out of the reach of children, never share your medicines with others, and use this medication only for the indication prescribed. Every effort has been made to ensure that the information provided by [employer]. ('[employer]') is accurate, up-to-date, and complete, but no guarantee is made to that effect. Drug information contained herein may be time sensitive. [employer] information has been compiled for use by healthcare practitioners and consumers in the [place] and therefore [employer] does not warrant that uses outside of the [place] are appropriate, unless specifically indicated otherwise. [facility] drug information does not endorse drugs, diagnose patients or recommend therapy. [facility] drug information is an informational resource designed to assist licensed healthcare practitioners in caring for their patients and/or to serve consumers viewing this service as a supplement to, and not a substitute for, the expertise, skill, knowledge and judgment of healthcare practitioners. The absence of a warning for a given drug or drug combination in no way should be construed to indicate that the drug or drug combination is safe, effective or appropriate for any given patient. [employer] does not assume any responsibility for any aspect of healthcare administered with the aid of information [employer] provides. The information contained herein is not intended to cover all possible uses, directions, precautions, warnings, drug interactions, allergic reactions, or adverse effects. If you have questions about the drugs you are taking, check with your doctor, nurse or pharmacist. Copyright 9977-1040 [employer]. Version: 8.01. Revision Date: 02/15/2023. Education Materials Vertigo (Unknown Cause) In addition to helping with hearing, the inner ear is part of the balance center of your body. Problems with the inner ear can a false feeling of motion. This is called vertigo. Often, it feels as if you or the room is spinning. A vertigo attack may cause sudden nausea, vomiting and heavy sweating. Severe vertigo causes a loss of balance and can cause you to fall. During vertigo, small head movements and changes in body position will often make the symptoms worse. You may also have ringing in the ears called tinnitus. An episode of vertigo may last seconds, minutes or hours. Once you are over the first episode, it may never come back. However, symptoms may return off and on. The cause of your vertigo is not yet known. Possible causes of vertigo include: Inflammation of the inner ear Disease of the nerves to the inner ear Movement of calcium particles in the inner ear Poor blood flow to the balance centers of the brain Migraine headaches In older adults, the use of more than one medicine along with some health conditions Home care If symptoms are severe, rest quietly in bed. Change positions very slowly. There is usually one position that will feel best, such as lying on one side or lying on your back with your head slightly raised on pillows. Until you have no symptoms, you are at a higher risk of falling. Let someone help you when you get up. Get rid of home hazards such as loose electrical cords and throw rugs. Don t walk in unfamiliar areas that are not lighted. Use night lights in bathrooms and kitchen areas. Do not drive a car or work with dangerous machinery until symptoms have been gone for at least one week. Take medicine as prescribed to relieve your symptoms. Unless another medicine was prescribed for symptoms of nausea, vomiting, and dizziness, you may use nxxa-tju-nyayzgq motion sickness pills. Ask your pharmacist for suggestions. Follow-up care Follow up with your healthcare provider or as directed. If you are referred to a specialist or for testing, make the appointment promptly. When to seek medical advice Call your healthcare provider if any of the following occur: Fever of 100.4 F (38 C) or higher, or as directed by your healthcare provider Vertigo worsens or is not controlled by prescribed medicine Repeated vomiting not relieved by prescribed medicine Severe headache Confusion Weakness of an arm or leg or 1 side of the face Difficulty with speech or vision Loss of consciousness Seizure [id number] [employer]. [address] [place] [address]. All rights reserved. This information is not intended as a substitute for professional medical care. Always follow your healthcare professional's instructions. Viral Upper Respiratory Illness (Adult) You have a viral upper respiratory illness (URI), which is another term for the common cold. This illness is contagious during the first few days. It is spread through the air by coughing and sneezing. It may also be spread by direct contact (touching the sick person and then touching your own eyes, nose, or mouth). Frequent handwashing will decrease risk of spread. Most viral illnesses go away within 7 to 10 days with rest and simple home remedies. Sometimes the illness may last for several weeks. Antibiotics will not kill a virus, and they are generally not prescribed for this condition. Home care If symptoms are severe, rest at home for the first 2 to 3 days. When you resume activity, don't let yourself get too tired. Don't smoke. If you need help stopping, talk with your healthcare provider. Avoid being exposed to cigarette smoke (yours or others ). You may use acetaminophen or ibuprofen to control pain and fever, unless another medicine was prescribed. If you have chronic liver or kidney disease, have ever had a stomach ulcer or gastrointestinal bleeding, or are taking blood-thinning medicines, talk with your healthcare provider before using these medicines. Aspirin should never be given to anyone under 18 years of age who is ill with a viral infection or fever. It may cause severe liver or brain damage. Your appetite may be poor, so a light diet is fine. Stay well hydrated by drinking 6 to 8 glasses of fluids per day (water, soft drinks, juices, tea, or soup). Extra fluids will help loosen secretions in the nose and lungs. Nsho-rlr-czlgqde cold medicines will not shorten the length of time you re sick, but they may be helpful for the following symptoms: cough, sore throat, and nasal and sinus congestion. If you take prescription medicines, ask your healthcare provider or pharmacist which jnbx-yhs-btojrda medicines are safe to use. (Note: Don't use decongestants if you have high blood pressure.) Follow-up care Follow up with your healthcare provider, or as advised. When to seek medical advice Call your healthcare provider right away if any of these occur: Cough with lots of colored sputum (mucus) Severe headache; face, neck, or ear pain Difficulty swallowing due to throat pain Fever of 100.4 F (38 C) or higher, or as directed by your healthcare provider Call 911 Call 911 if any of these occur: Chest pain, shortness of breath, wheezing, or difficulty breathing Coughing up blood Very severe pain with swallowing, especially if it goes along with a muffled voice [id number] [employer]. [address] [place] [address], [place] [address]. All rights reserved. This information is not intended as a substitute for professional medical care. Always follow your healthcare professional's instructions. Hemoptysis Hemoptysis is the medical term for coughing up blood. There are many causes for this, including minor illnesses like bronchitis. Hemoptysis can also be an early sign of a more serious illness, like a blood clot in the lung (pulmonary embolism), cancer, tuberculosis, or pneumonia. Less common causes of hemoptysis can be hard to diagnose in an emergency department or a clinic. More testing will be needed if the symptoms continue. Home care Stay away from cigarette smoke. Smoke irritates the bronchial passages. Unless you are taking daily aspirin to prevent stroke or heart attack, don't take aspirin or products that contain aspirin. Check with your healthcare provider to see if you should continue the aspirin or when you should restart it if you develop hemoptysis. Aspirin affects how readily the blood clots. Medicines that prevent clotting may make hemoptysis worse. If you have a lung infection, drinking extra fluid will help loosen secretions in the lungs. Ivhh-qau-cljpwjb cough medicines that contain dextromethorphan may help reduce coughing. Check with your healthcare provider before taking dextromethorphan if you have a chronic illness, are , or take daily medicines. If you were prescribed an antibiotic, take it until it is all gone. Take it even if you are feeling better after only a few days. Follow-up care Follow up with your healthcare provider, or as advised. When to seek medical advice Call your healthcare provider right away if any of these occur: Fever of 100.4 F (38 C) or higher, or as directed by your healthcare provider Call 911 Call 911 if any of these occur: Coughing up an increased amount of blood Trouble breathing, wheezing, or pain with breathing Chest pain or chest pressure Fainting or losing consciousness Rapid heartbeat Weakness or dizziness [phone] [employer]. [address] [place] [address]. All rights reserved. This information is not intended as a substitute for professional medical care. Always follow your healthcare professional's instructions. Additional Information VACCINATE! IT SAVES LIVES! Members of the community who have not yet received the COVID-19 vaccine and would like to receive it can visit one of [facility] vaccine clinics. There are many vaccine clinic locations within the [facility]. For locations and available times, please visit [email or web address] It is important to note that some COVID mobile vaccine clinics are held outdoors and may be canceled in rainy or stormy conditions. To learn more about pediatric vaccinations (ages 5-11), we invite you to visit the [facility] webpage. [email or web address]/pages/[email or web address]-Ozjjy-Snhlbvcppyl-Frequently-Asked -Questions.html To learn more about the COVID-19 vaccine, we invite you to visit the CDC website for a list of frequently asked questions. https://www.cdc.gov/coronavirus/2019-n cov/vaccines/faq.html [facility] Patient Portal Access Instructions: Stay connected with your healthcare team and access your personal medical information anytime with the [facility] Patient Portal. If you would like a full copy of your medical records please contact the [facility] Medical Records Department Tuesday through Tuesday between 8a.m. and 4:30p.m. Please follow the directions below to access the portal: 1.Access the email account you provided upon registration to the [facility].2.Look for an invitation email from [facility].3.Open the email and access the invitation link: Accept Invitation to [facility]4.Fill in the required hong to create your account. Sign into [email or web address].[email or web address] with your username and password that you created in the above steps to stay up to date. You can then view a summary of results, a summary of your visits, and the ability to download your summaries to your computer or send the information securely to a physician. Remember that your healthcare information is confidential, so carefully consider who you will allow to register on the [facility] Patient Portal for access to your information. You can also access the [facility] Patient Portal on the [employer] krystal. Simply click on Health Records under Health Data and then click on the [facility] logo. HOW TO SAFELY DISPOSE OF PRESCRIPTION MEDICATIONS Please use one of the following methods to safely dispose of your unused medications. 1.Use a drug disposal kit: the drug disposal pouch allows you to safely discard your old and unused drugs. Ask your nurse to give you one when you are discharged.2.Visit a local take-back location: Many local pharmacies and police departments have programs that collect old and unwanted prescription drugs. Call your local pharmacy or go to http://bit.[employer]/4I2Ox2k to find one close to you.3.Make use of household items: Use cat litter or old coffee grounds to dispose medications if other options are not available. Mix your drugs with these household products, seal them in an airtight container and throw it into the garbage. Call [facility]: [phone] to be sure your drugs can be disposed of in this way. Some medicines may require a different approach.4.Never flush your medications down the toilet. IF YOU HAVE BEEN PRESCRIBED AN OPIOIDS FOR PAIN If you have been prescribed an opioid (such as hydrocodone, oxycodone or morphine), it is critical to understand the possible side effects and risks of opioid pain medications. Even when taken as directed, opioids can have several side effects including: Tolerance, meaning you might need to take more of a medication for the same pain relief. Nausea, vomiting and/or constipation. Sleepiness, dizziness, dry mouth, confusion, depression or itching. Physical dependence, meaning you have withdrawal symptoms when a medication is stopped ? this can develop within a few days. KNOW YOUR RESPONSIBILITIES It is important to know exactly how much and how often to take the opioid pain medications you are prescribed. Never take opioids in higher amounts or more often than prescribed. Do not combine opioids with alcohol or other drugs that cause drowsiness, such as benzodiazepines, also known as benzos, including diazepam and alprazolam, muscle relaxants or sleep aids. Never sell or share prescription opioids. This is illegal. Store opioids in a secure place and out of reach of others (including children, family, friends and visitors). The last page(s) of this document has been signed and retained as a CHART COPY Signatures Patient Education Materials Vertigo, Unspecified URI, Viral, No Abx (Adult) Hemoptysis Medication Leaflets meclizine My discharge plan and instructions have been reviewed and explained to me and ISUKUMAR KIERSTEN E understand my current condition and have read and understand these discharge instructions. I have received a written copy of the plan/instructions. If I have questions, I am aware that I should contact my doctor. 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 Multiplanar reformatted images are provided for review. Automated exposure control, iterative reconstruction, and/or weight based adjustment of the mA/kV was utilized to reduce the radiation dose to as low as reasonably achievable. COMPARISON: Chest radiograph early in the day. HISTORY: ORDERING SYSTEM PROVIDED HISTORY: Reason for Exam: chest pain, abnormal chest x-ray. FINDINGS: Study is degraded due to quantum mottle from patient body habitus. The visualized thyroid is unremarkable-appearing. There is no visible lymphadenopathy. Soft tissue density in the anterosuperior mediastinum may relate to thymic hyperplasia. The heart is normal in size. No coronary artery calcifications identified. No pericardial effusion. The aorta is normal in caliber. Pulmonary artery is normal in caliber. The major airways are patent. No focal consolidation. No suspicious lung nodules. No pneumothorax. No pleural fluid. No soft tissue nodule or mass identified at site of previously noted density at left 3rd posterior costovertebral articulation. No acute fracture or suspicious osseous lesions identified. Visualized portions of upper abdomen are unremarkable. IMPRESSION: No acute findings within the thorax. Previously noted prominent density at the left 3rd posterior costovertebral articulation is not seen, likely artifactual from overlapping structures. I have personally reviewed the images of this examination and agree with the resident's findings and interpretation. Interpreted by: Russell Ibrahim DO Preliminary Report By: Corky Scott Electronically signed By Russell Ibrahim DO Dictated Date: 03/18/2024 2:48:06 PM Prelim Date: 03/18/2024 3:00:06 PM Sign Date: 03/18/2024 3:06:22 PM Ordering Provider: NAUN HDEZ [facility] 03-18-2024 Note ORIGINAL EXAMINATION: TWO XRAY VIEWS OF THE CHEST 03/18/2024 1:33 pm COMPARISON: Radiograph dated 10/20/2014 HISTORY: ORDERING SYSTEM PROVIDED HISTORY: Reason for Exam: Chest Pain IMPRESSION: Cardiomediastinal silhouette is within normal limits. No overt edema. No focal consolidation. Costophrenic angles are sharp. No pneumothorax. No acute displaced rib fracture. Asymmetric increased rounded density in the region of the left 3rd posterior costochondral articulation, the overlying left rib does superimposed this region which may produce increased density however when compared with the right side there is a more nodular appearance in this region an underlying pulmonary nodule/mass cannot be excluded, correlation with chest CT versus repeat radiographs of the lung apices for further evaluation. Interpreted by: Effie Burr Preliminary Report By: Effie Burr Electronically signed By Effie Burr Dictated Date: 03/18/2024 1:38:26 PM Prelim Date: 03/18/2024 1:42:34 PM Sign Date: 03/18/2024 1:42:34 PM Ordering Provider: NAUN HDEZ [facility] 03-18-2024 Note Sinus bradycardia Baseline wander in lead(s) V4,V5 SEE DICTATION Electronic Signature: NAUN HDEZ MD 03/18/2024 13:15:07 [facility] 08-13-2023 Hospital Discharge instructions Patient Education 08/13/2023 15:16:19 URI, Viral, No Abx (Adult) Viral Upper Respiratory Illness (Adult) You have a viral upper respiratory illness (URI), which is another term for the common cold. This illness is contagious during the first few days. It is spread through the air by coughing and sneezing. It may also be spread by direct contact (touching the sick person and then touching your own eyes, nose, or mouth). Frequent handwashing will decrease risk of spread. Most viral illnesses go away within 7 to 10 days with rest and simple home remedies. Sometimes the illness may last for several weeks. Antibiotics will not kill a virus, and they are generally not prescribed for this condition. Home care If symptoms are severe, rest at home for the first 2 to 3 days. When you resume activity, don't let yourself get too tired. Don't smoke. If you need help stopping, talk with your healthcare provider. Avoid being exposed to cigarette smoke (yours or others ). You may use acetaminophen or ibuprofen to control pain and fever, unless another medicine was prescribed. If you have chronic liver or kidney disease, have ever had a stomach ulcer or gastrointestinal bleeding, or are taking blood-thinning medicines, talk with your healthcare provider before using these medicines. Aspirin should never be given to anyone under 18 years of age who is ill with a viral infection or fever. It may cause severe liver or brain damage. Your appetite may be poor, so a light diet is fine. Stay well hydrated by drinking 6 to 8 glasses of fluids per day (water, soft drinks, juices, tea, or soup). Extra fluids will help loosen secretions in the nose and lungs. Srac-ewj-ylpchqu cold medicines will not shorten the length of time you re sick, but they may be helpful for the following symptoms: cough, sore throat, and nasal and sinus congestion. If you take prescription medicines, ask your healthcare provider or pharmacist which adqo-yyh-ohqmeib medicines are safe to use. (Note: Don't use decongestants if you have high blood pressure.) Follow-up care Follow up with your healthcare provider, or as advised. When to seek medical advice Call your healthcare provider right away if any of these occur: Cough with lots of colored sputum (mucus) Severe headache; face, neck, or ear pain Difficulty swallowing due to throat pain Fever of 100.4 F (38 C) or higher, or as directed by your healthcare provider Call 911 Call 911 if any of these occur: Chest pain, shortness of breath, wheezing, or difficulty breathing Coughing up blood Very severe pain with swallowing, especially if it goes along with a muffled voice [phone] [employer]. [address] [place] [address], [place] [address]. All rights reserved. This information is not intended as a substitute for professional medical care. Always follow your healthcare professional's instructions. Follow Up Care 08/13/2023 14:54:21 With:AMAURI HINES DO Address: [address] [place] [address] [place] [phone] When:2-4 days [facility] 08-13-2023 Note Discharge Instructions Thank you for allowing [facility] to assist you with your healthcare needs. The following is important discharge information regarding your hospital visit. Diagnosis from Today's Visit URI - Upper respiratory infection What to Do Next Instructions from Your Care Team No qualifying data available. Post Acute Orders No qualifying data available. You Need to Schedule the Following Appointments Follow Up with AMAURI HINES DO When Within 2-4 days [facility] [place] [address]- [phone] Allergies Latex (rash, swelling) penicillin (Hives) Medications Please ask your primary doctor or pharmacist before taking any other medication not listed, including over the counter drugs, herbal medications, vitamins and or supplements as they may interact with your home medications. What How Much When Instructions Last Dose Unchanged ketoconazole topical (ketoconazole 2% topical cream) See instructions apply to affected area once daily for 14 days Please take this list to your next doctor s visit. Bring all medications you take, including over the counter medications, herbals and other supplements with you to your doctor s visit. Patients and families are reminded to discard old lists and to update any records with all medication providers or retail pharmacies. Education Materials Viral Upper Respiratory Illness (Adult) You have a viral upper respiratory illness (URI), which is another term for the common cold. This illness is contagious during the first few days. It is spread through the air by coughing and sneezing. It may also be spread by direct contact (touching the sick person and then touching your own eyes, nose, or mouth). Frequent handwashing will decrease risk of spread. Most viral illnesses go away within 7 to 10 days with rest and simple home remedies. Sometimes the illness may last for several weeks. Antibiotics will not kill a virus, and they are generally not prescribed for this condition. Home care If symptoms are severe, rest at home for the first 2 to 3 days. When you resume activity, don't let yourself get too tired. Don't smoke. If you need help stopping, talk with your healthcare provider. Avoid being exposed to cigarette smoke (yours or others ). You may use acetaminophen or ibuprofen to control pain and fever, unless another medicine was prescribed. If you have chronic liver or kidney disease, have ever had a stomach ulcer or gastrointestinal bleeding, or are taking blood-thinning medicines, talk with your healthcare provider before using these medicines. Aspirin should never be given to anyone under 18 years of age who is ill with a viral infection or fever. It may cause severe liver or brain damage. Your appetite may be poor, so a light diet is fine. Stay well hydrated by drinking 6 to 8 glasses of fluids per day (water, soft drinks, juices, tea, or soup). Extra fluids will help loosen secretions in the nose and lungs. Huey-pof-llhusos cold medicines will not shorten the length of time you re sick, but they may be helpful for the following symptoms: cough, sore throat, and nasal and sinus congestion. If you take prescription medicines, ask your healthcare provider or pharmacist which xmgr-hvl-bnabgvn medicines are safe to use. (Note: Don't use decongestants if you have high blood pressure.) Follow-up care Follow up with your healthcare provider, or as advised. When to seek medical advice Call your healthcare provider right away if any of these occur: Cough with lots of colored sputum (mucus) Severe headache; face, neck, or ear pain Difficulty swallowing due to throat pain Fever of 100.4 F (38 C) or higher, or as directed by your healthcare provider Call 911 Call 911 if any of these occur: Chest pain, shortness of breath, wheezing, or difficulty breathing Coughing up blood Very severe pain with swallowing, especially if it goes along with a muffled voice [phone] [employer]. [address] [place] [address]. All rights reserved. This information is not intended as a substitute for professional medical care. Always follow your healthcare professional's instructions. Additional Information VACCINATE! IT SAVES LIVES! Members of the community who have not yet received the COVID-19 vaccine and would like to receive it can visit one of [facility] vaccine clinics. There are many vaccine clinic locations within the [facility]. For locations and available times, please visit [email or web address] It is important to note that some COVID mobile vaccine clinics are held outdoors and may be canceled in rainy or stormy conditions. To learn more about pediatric vaccinations (ages 5-11), we invite you to visit the [facility] webpage. [email or web address]/[email or web address]-[email or web address] -Questions.html To learn more about the COVID-19 vaccine, we invite you to visit the CDC website for a list of frequently asked questions. https://www.cdc.gov/coronavirus/2019-n cov/vaccines/faq.html [facility] Patient Portal Access Instructions: Stay connected with your healthcare team and access your personal medical information anytime with the [facility] Patient Portal. If you would like a full copy of your medical records please contact the [facility] Medical Records Department Tuesday through Tuesday between 8a.m. and 4:30p.m. Please follow the directions below to access the portal: 1.Access the email account you provided upon registration to the [facility].2.Look for an invitation email from [facility].3.Open the email and access the invitation link: Accept Invitation to [facility]4.Fill in the required hong to create your account. Sign into [email or web address].[email or web address] with your username and password that you created in the above steps to stay up to date. You can then view a summary of results, a summary of your visits, and the ability to download your summaries to your computer or send the information securely to a physician. Remember that your healthcare information is confidential, so carefully consider who you will allow to register on the [facility] Patient Portal for access to your information. You can also access the [facility] Patient Portal on the [employer] krystal. Simply click on Health Records under Health Data and then click on the [employer] logo. HOW TO SAFELY DISPOSE OF PRESCRIPTION MEDICATIONS Please use one of the following methods to safely dispose of your unused medications. 1.Use a drug disposal kit: the drug disposal pouch allows you to safely discard your old and unused drugs. Ask your nurse to give you one when you are discharged.2.Visit a local take-back location: Many local pharmacies and police departments have programs that collect old and unwanted prescription drugs. Call your local pharmacy or go to http://bit.[employer]/3U4Lr5z to find one close to you.3.Make use of household items: Use cat litter or old coffee grounds to dispose medications if other options are not available. Mix your drugs with these household products, seal them in an airtight container and throw it into the garbage. Call [facility]: [phone] to be sure your drugs can be disposed of in this way. Some medicines may require a different approach.4.Never flush your medications down the toilet. IF YOU HAVE BEEN PRESCRIBED AN OPIOIDS FOR PAIN If you have been prescribed an opioid (such as hydrocodone, oxycodone or morphine), it is critical to understand the possible side effects and risks of opioid pain medications. Even when taken as directed, opioids can have several side effects including: Tolerance, meaning you might need to take more of a medication for the same pain relief. Nausea, vomiting and/or constipation. Sleepiness, dizziness, dry mouth, confusion, depression or itching. Physical dependence, meaning you have withdrawal symptoms when a medication is stopped ? this can develop within a few days. KNOW YOUR RESPONSIBILITIES It is important to know exactly how much and how often to take the opioid pain medications you are prescribed. Never take opioids in higher amounts or more often than prescribed. Do not combine opioids with alcohol or other drugs that cause drowsiness, such as benzodiazepines, also known as benzos, including diazepam and alprazolam, muscle relaxants or sleep aids. Never sell or share prescription opioids. This is illegal. Store opioids in a secure place and out of reach of others (including children, family, friends and visitors). The last page(s) of this document has been signed and retained as a CHART COPY Signatures Patient Education Materials URI, Viral, No Abx (Adult) Medication Leaflets My discharge plan and instructions have been reviewed and explained to me and ISUKUMAR KIERSTEN E understand my current condition and have read and understand these discharge instructions. I have received a written copy of the plan/instructions. If I have questions, I am aware that I should contact my doctor. Patient/Multi Township Assessor Signature: _ Date/Time: Relationship to Patient: Witness Name/Signature: Date/Time: [facility] 09-01-2022 Note ORIGINAL EXAMINATION: CT OF THE RIGHT WRIST WITHOUT CONTRAST 09/01/2022 3:59 pm TECHNIQUE: CT of the right wrist was performed without the administration of intravenous contrast. Multiplanar reformatted images are provided for review. Automated exposure control, iterative reconstruction, and/or weight based adjustment of the mA/kV was utilized to reduce the radiation dose to as low as reasonably achievable. COMPARISON: Hand and wrist radiographs 08/21/2022. HISTORY ORDERING SYSTEM PROVIDED HISTORY: Reason for Exam: Other fractures of lower end of right radius, initial encounter for closed fracture. FINDINGS: There is redemonstration of a nondisplaced fracture at the base of the radial styloid process. There is extension to the radial articular surface without incongruence. No significant callus formation is seen. No osseous bridging is evident. Suspect minimal amount of fracture resorption, indicating minimal/early evidence of healing. No additional fractures are identified. There is no dislocation. No significant arthrosis. Small volume proximal carpal row effusion. Carpal arcs are normal. Scapholunate relationship appears normal. Incidental note is made of negative ulnar variance. Visualized tendons appear grossly intact. Ligaments are poorly evaluated on this examination. No muscle atrophy. No significant soft tissue swelling. Casting material noted. IMPRESSION: 1. Nondisplaced intra-articular fracture of the base of the radial styloid process with minimal fracture resorption. No additional evidence for interval healing. 2. Small volume proximal carpal row effusion, likely reactive. Interpreted by: Mike Mcginnis DO Preliminary Report By: Mike Mcginnis DO Electronically signed By Mike Mcginnis DO Dictated Date: 09/01/2022 4:48:57 PM Prelim Date: 09/01/2022 4:53:37 PM Sign Date: 09/01/2022 4:53:37 PM Ordering Provider: SHASAT CALVO [facility] 09-01-2022 Note ORIGINAL EXAMINATION: CT OF THE RIGHT WRIST WITHOUT CONTRAST 09/01/2022 3:59 pm TECHNIQUE: CT of the right wrist was performed without the administration of intravenous contrast. Multiplanar reformatted images are provided for review. Automated exposure control, iterative reconstruction, and/or weight based adjustment of the mA/kV was utilized to reduce the radiation dose to as low as reasonably achievable. COMPARISON: Hand and wrist radiographs 08/21/2022. HISTORY ORDERING SYSTEM PROVIDED HISTORY: Reason for Exam: Other fractures of lower end of right radius, initial encounter for closed fracture. FINDINGS: There is redemonstration of a nondisplaced fracture at the base of the radial styloid process. There is extension to the radial articular surface without incongruence. No significant callus formation is seen. No osseous bridging is evident. Suspect minimal amount of fracture resorption, indicating minimal/early evidence of healing. No additional fractures are identified. There is no dislocation. No significant arthrosis. Small volume proximal carpal row effusion. Carpal arcs are normal. Scapholunate relationship appears normal. Incidental note is made of negative ulnar variance. Visualized tendons appear grossly intact. Ligaments are poorly evaluated on this examination. No muscle atrophy. No significant soft tissue swelling. Casting material noted. IMPRESSION: 1. Nondisplaced intra-articular fracture of the base of the radial styloid process with minimal fracture resorption. No additional evidence for interval healing. 2. Small volume proximal carpal row effusion, likely reactive. Interpreted by: Mike Mcginnis DO Preliminary Report By: Mike Mcginnis DO Electronically signed By Mike Mcginnis DO Dictated Date: 09/01/2022 4:48:57 PM Prelim Date: 09/01/2022 4:53:37 PM Sign Date: 09/01/2022 4:53:37 PM Ordering Provider: SHASTA CALVO [facility] 08-23-2022 Hospital Discharge instructions Patient Education 08/23/2022 00:13:21 Fracture, Wrist, General Wrist Fracture, General You have a broken bone (fracture) in your wrist. This may be a small crack or chip in the bone. Or it may be a major break, with the broken parts pushed out of position. Wrist fractures are often treated with a splint or cast. They take about 4 to 6 weeks to heal. Severe injuries may need surgery. Home care Follow these guidelines when caring for yourself at home: Keep your arm elevated to reduce pain and swelling. When sitting or lying down keep your arm above the level of your heart. You can do this by placing your arm on a pillow that rests on your chest or on a pillow at your side. This is most important during the first 2 days (48 hours) after the injury. Put an ice pack on the injured area. Do this for 20 minutes every 1 to 2 hours the first day for pain relief. You can make an ice pack by wrapping a plastic bag of ice cubes in a thin towel. As the ice melts, be careful that the cast or splint doesn t get wet. Continue using the ice pack 3 to 4 times a day for the next 2 days. Then use the ice pack as needed to ease pain and swelling. Keep the cast or splint completely dry at all times. Bathe with your cast or splint out of the water. Protect it with a large plastic bag, rubber-banded or taped at the top end. If a fiberglass cast or splint gets wet, you can dry it with a hairmasters manager on a cool setting. You may use acetaminophen or ibuprofen to control pain, unless another pain medicine was prescribed. If you have chronic liver or kidney disease, talk with your healthcare provider before using these medicines. Also talk with your provider if you ve had a stomach ulcer or gastrointestinal bleeding. Don t put creams, lotions, or objects under the cast. Follow-up care Follow up with your healthcare provider as advised. This is to make sure the bone is healing the way it should. If a splint was put on, it may be changed to a cast during your follow-up visit. A cast may need to be changed at 2 to 3 weeks, as the swelling goes down. If X-rays were taken, a radiologist may look at them. You will be told of any new findings that may affect your care. When to seek medical advice Call your healthcare provider right away if any of these occur: The plaster cast or splint becomes wet or soft The cast or splint cracks Bad odor from the cast or wound fluid stains the cast The fiberglass cast or splint stays wet for more than 24 hours Tightness or pain under the cast or splint gets worse Fingers become swollen, cold, blue, numb, or tingly You can t move your fingers Skin around cast becomes red, swollen, or irritated [employer]. [address] [place] [address]. All rights reserved. This information is not intended as a substitute for professional medical care. Always follow your healthcare professional's instructions. Follow Up Care 08/23/2022 00:01:13 With:PATRICIA JAVIER MD Address: [address] [place] [address] [place] [address] [place] [address] [phone] When:1-2 days [facility] 08-23-2022 Note Discharge Instructions Thank you for allowing [facility] to assist you with your healthcare needs. The following is important discharge information regarding your hospital visit. Diagnosis from Today's Visit Hand pain-swelling What to Do Next Instructions from Your Care Team Discharge Home Equipment - Ordered -- Splint, thumb velcro spica, 99 month(s), 08/23/22 0:13:00 EST Post Acute Orders No qualifying data available. You Need to Schedule the Following Appointments Follow Up with PATRICIA JAVIER MD When Within 1-2 days Where: [address] [place] [address] [place] [address] [place] [address] [phone] Allergies Latex (rash, swelling) penicillin (Hives) Medications Please ask your primary doctor or pharmacist before taking any other medication not listed, including over the counter drugs, herbal medications, vitamins and or supplements as they may interact with your home medications. Please take this list to your next doctor s visit. Bring all medications you take, including over the counter medications, herbals and other supplements with you to your doctor s visit. Patients and families are reminded to discard old lists and to update any records with all medication providers or retail pharmacies. Education Materials Wrist Fracture, General You have a broken bone (fracture) in your wrist. This may be a small crack or chip in the bone. Or it may be a major break, with the broken parts pushed out of position. Wrist fractures are often treated with a splint or cast. They take about 4 to 6 weeks to heal. Severe injuries may need surgery. Home care Follow these guidelines when caring for yourself at home: Keep your arm elevated to reduce pain and swelling. When sitting or lying down keep your arm above the level of your heart. You can do this by placing your arm on a pillow that rests on your chest or on a pillow at your side. This is most important during the first 2 days (48 hours) after the injury. Put an ice pack on the injured area. Do this for 20 minutes every 1 to 2 hours the first day for pain relief. You can make an ice pack by wrapping a plastic bag of ice cubes in a thin towel. As the ice melts, be careful that the cast or splint doesn t get wet. Continue using the ice pack 3 to 4 times a day for the next 2 days. Then use the ice pack as needed to ease pain and swelling. Keep the cast or splint completely dry at all times. Bathe with your cast or splint out of the water. Protect it with a large plastic bag, rubber-banded or taped at the top end. If a fiberglass cast or splint gets wet, you can dry it with a hairmasters manager on a cool setting. You may use acetaminophen or ibuprofen to control pain, unless another pain medicine was prescribed. If you have chronic liver or kidney disease, talk with your healthcare provider before using these medicines. Also talk with your provider if you ve had a stomach ulcer or gastrointestinal bleeding. Don t put creams, lotions, or objects under the cast. Follow-up care Follow up with your healthcare provider as advised. This is to make sure the bone is healing the way it should. If a splint was put on, it may be changed to a cast during your follow-up visit. A cast may need to be changed at 2 to 3 weeks, as the swelling goes down. If X-rays were taken, a radiologist may look at them. You will be told of any new findings that may affect your care. When to seek medical advice Call your healthcare provider right away if any of these occur: The plaster cast or splint becomes wet or soft The cast or splint cracks Bad odor from the cast or wound fluid stains the cast The fiberglass cast or splint stays wet for more than 24 hours Tightness or pain under the cast or splint gets worse Fingers become swollen, cold, blue, numb, or tingly You can t move your fingers Skin around cast becomes red, swollen, or irritated [id number] [employer]. [address] [place] [address]. All rights reserved. This information is not intended as a substitute for professional medical care. Always follow your healthcare professional's instructions. Additional Information VACCINATE! IT SAVES LIVES! Members of the community who have not yet received the COVID-19 vaccine and would like to receive it can visit one of [facility] vaccine clinics. There are many vaccine clinic locations within the [facility]. For locations and available times, please visit [email or web address]/. It is important to note that some COVID mobile vaccine clinics are held outdoors and may be canceled in rainy or stormy conditions. To learn more about pediatric vaccinations (ages 5-11), we invite you to visit the [facility] webpage. https://www.[employer].org/pages/2 630-Foadb-Tgqbxfmrocc-Frequently-Asked -Questions.html To learn more about the COVID-19 vaccine, we invite you to visit the CDC website for a list of frequently asked questions. https://www.cdc.gov/coronavirus/2019-n cov/vaccines/faq.html [facility] Patient Portal Access Instructions: Stay connected with your healthcare team and access your personal medical information anytime with the [facility] Patient Portal. If you would like a full copy of your medical records please contact the [facility] Medical Records Department Tuesday through Tuesday between 8a.m. and 4:30p.m. Please follow the directions below to access the portal: 1.Access the email account you provided upon registration to the [facility].2.Look for an invitation email from [facility].3.Open the email and access the invitation link: Accept Invitation to [facility]4.Fill in the required hong to create your account. Sign into [email or web address] with your username and password that you created in the above steps to stay up to date. You can then view a summary of results, a summary of your visits, and the ability to download your summaries to your computer or send the information securely to a physician. Remember that your healthcare information is confidential, so carefully consider who you will allow to register on the [facility] Patient Portal for access to your information. You can also access the [employer] Patient Portal on the [employer] krystal. Simply click on Health Records under Health Data and then click on the [employer] logo. HOW TO SAFELY DISPOSE OF PRESCRIPTION MEDICATIONS Please use one of the following methods to safely dispose of your unused medications. 1.Use a drug disposal kit: the drug disposal pouch allows you to safely discard your old and unused drugs. Ask your nurse to give you one when you are discharged.2.Visit a local take-back location: Many local pharmacies and police departments have programs that collect old and unwanted prescription drugs. Call your local pharmacy or go to http://[employer]/3Q7Gz4x to find one close to you.3.Make use of household items: Use cat litter or old coffee grounds to dispose medications if other options are not available. Mix your drugs with these household products, seal them in an airtight container and throw it into the garbage. Call [facility]: [phone] to be sure your drugs can be disposed of in this way. Some medicines may require a different approach.4.Never flush your medications down the toilet. IF YOU HAVE BEEN PRESCRIBED AN OPIOIDS FOR PAIN If you have been prescribed an opioid (such as hydrocodone, oxycodone or morphine), it is critical to understand the possible side effects and risks of opioid pain medications. Even when taken as directed, opioids can have several side effects including: Tolerance, meaning you might need to take more of a medication for the same pain relief. Nausea, vomiting and/or constipation. Sleepiness, dizziness, dry mouth, confusion, depression or itching. Physical dependence, meaning you have withdrawal symptoms when a medication is stopped ? this can develop within a few days. KNOW YOUR RESPONSIBILITIES It is important to know exactly how much and how often to take the opioid pain medications you are prescribed. Never take opioids in higher amounts or more often than prescribed. Do not combine opioids with alcohol or other drugs that cause drowsiness, such as benzodiazepines, also known as benzos, including diazepam and alprazolam, muscle relaxants or sleep aids. Never sell or share prescription opioids. This is illegal. Store opioids in a secure place and out of reach of others (including children, family, friends and visitors). The last page(s) of this document has been signed and retained as a CHART COPY Signatures Patient Education Materials Fracture, Wrist, General Medication Leaflets My discharge plan and instructions have been reviewed and explained to me and I,GUSTAVO DE understand my current condition and have read and understand these discharge instructions. I have received a written copy of the plan/instructions. If I have questions, I am aware that I should contact my doctor. Patient/Multi [employer] Assessor Signature: _ Date/Time: Relationship to Patient: Witness Name/Signature: Date/Time: [facility] 08-21-2022 Hospital Discharge instructions Patient Education 08/21/2022 14:30:53 Fracture, Wrist, General Wrist Fracture, General You have a broken bone (fracture) in your wrist. This may be a small crack or chip in the bone. Or it may be a major break, with the broken parts pushed out of position. Wrist fractures are often treated with a splint or cast. They take about 4 to 6 weeks to heal. Severe injuries may need surgery. Home care Follow these guidelines when caring for yourself at home: Keep your arm elevated to reduce pain and swelling. When sitting or lying down keep your arm above the level of your heart. You can do this by placing your arm on a pillow that rests on your chest or on a pillow at your side. This is most important during the first 2 days (48 hours) after the injury. Put an ice pack on the injured area. Do this for 20 minutes every 1 to 2 hours the first day for pain relief. You can make an ice pack by wrapping a plastic bag of ice cubes in a thin towel. As the ice melts, be careful that the cast or splint doesn t get wet. Continue using the ice pack 3 to 4 times a day for the next 2 days. Then use the ice pack as needed to ease pain and swelling. Keep the cast or splint completely dry at all times. Bathe with your cast or splint out of the water. Protect it with a large plastic bag, rubber-banded or taped at the top end. If a fiberglass cast or splint gets wet, you can dry it with a hairmasters manager on a cool setting. You may use acetaminophen or ibuprofen to control pain, unless another pain medicine was prescribed. If you have chronic liver or kidney disease, talk with your healthcare provider before using these medicines. Also talk with your provider if you ve had a stomach ulcer or gastrointestinal bleeding. Don t put creams, lotions, or objects under the cast. Follow-up care Follow up with your healthcare provider as advised. This is to make sure the bone is healing the way it should. If a splint was put on, it may be changed to a cast during your follow-up visit. A cast may need to be changed at 2 to 3 weeks, as the swelling goes down. If X-rays were taken, a radiologist may look at them. You will be told of any new findings that may affect your care. When to seek medical advice Call your healthcare provider right away if any of these occur: The plaster cast or splint becomes wet or soft The cast or splint cracks Bad odor from the cast or wound fluid stains the cast The fiberglass cast or splint stays wet for more than 24 hours Tightness or pain under the cast or splint gets worse Fingers become swollen, cold, blue, numb, or tingly You can t move your fingers Skin around cast becomes red, swollen, or irritated [id number] [employer]. [address] [place] [address]. All rights reserved. This information is not intended as a substitute for professional medical care. Always follow your healthcare professional's instructions. Follow Up Care 08/21/2022 13:49:58 With:DO ALEJANDRO WALL DO Address: [address] [place] [address] [address] [place] [address] When:3-5 days With:Go to emergency room if symptoms worsen Address:Unknown When:2-4 days With:AMAURI HINES DO Address: [address] [place] [phone] When:2-4 days [facility] 08-21-2022 Note Discharge Instructions Thank you for allowing [facility] to assist you with your healthcare needs. The following is important discharge information regarding your hospital visit. Diagnosis from Today's Visit Closed fracture of right wrist Wrist pain-swelling What to Do Next Instructions from Your Care Team Keep thumb spica splint in place. Follow-up with Dr. [facility] of [facility]. Take Percocet only as needed for severe pain. Do not exceed the recommended dose. Return the emergency department if you have worsening pain, numbness, decreased blood flow, or any other care concern. No qualifying data available. Post Acute Orders No qualifying data available. You Need to Schedule the Following Appointments Follow Up with DO ALEJANDRO WALL DO When Within 3-5 days Where: [address] [place] [address] [address] [place] [address] Follow Up with Go to emergency room if symptoms worsen When Within 2-4 days Follow Up with AMAURI HINES DO When Within 2-4 days Where: [address] [place] [phone] Allergies Latex (rash, swelling) penicillin (Hives) Medications Please ask your primary doctor or pharmacist before taking any other medication not listed, including over the counter drugs, herbal medications, vitamins and or supplements as they may interact with your home medications. What How Much When Why Instructions Last Dose New acetaminophen-oxyCODONE (Percocet 5 mg-325 mg oral tablet) 1 tab(s) by mouth Every 6 hours as needed for for pain Closed fracture of right wrist Duration: 5 Days Printed Prescription Unchanged ketoconazole topical (ketoconazole 2% topical cream) See instructions apply to affected area once daily for 14 days Please take this list to your next doctor s visit. Bring all medications you take, including over the counter medications, herbals and other supplements with you to your doctor s visit. Patients and families are reminded to discard old lists and to update any records with all medication providers or retail pharmacies. Education Materials Wrist Fracture, General You have a broken bone (fracture) in your wrist. This may be a small crack or chip in the bone. Or it may be a major break, with the broken parts pushed out of position. Wrist fractures are often treated with a splint or cast. They take about 4 to 6 weeks to heal. Severe injuries may need surgery. Home care Follow these guidelines when caring for yourself at home: Keep your arm elevated to reduce pain and swelling. When sitting or lying down keep your arm above the level of your heart. You can do this by placing your arm on a pillow that rests on your chest or on a pillow at your side. This is most important during the first 2 days (48 hours) after the injury. Put an ice pack on the injured area. Do this for 20 minutes every 1 to 2 hours the first day for pain relief. You can make an ice pack by wrapping a plastic bag of ice cubes in a thin towel. As the ice melts, be careful that the cast or splint doesn t get wet. Continue using the ice pack 3 to 4 times a day for the next 2 days. Then use the ice pack as needed to ease pain and swelling. Keep the cast or splint completely dry at all times. Bathe with your cast or splint out of the water. Protect it with a large plastic bag, rubber-banded or taped at the top end. If a fiberglass cast or splint gets wet, you can dry it with a hairmasters manager on a cool setting. You may use acetaminophen or ibuprofen to control pain, unless another pain medicine was prescribed. If you have chronic liver or kidney disease, talk with your healthcare provider before using these medicines. Also talk with your provider if you ve had a stomach ulcer or gastrointestinal bleeding. Don t put creams, lotions, or objects under the cast. Follow-up care Follow up with your healthcare provider as advised. This is to make sure the bone is healing the way it should. If a splint was put on, it may be changed to a cast during your follow-up visit. A cast may need to be changed at 2 to 3 weeks, as the swelling goes down. If X-rays were taken, a radiologist may look at them. You will be told of any new findings that may affect your care. When to seek medical advice Call your healthcare provider right away if any of these occur: The plaster cast or splint becomes wet or soft The cast or splint cracks Bad odor from the cast or wound fluid stains the cast The fiberglass cast or splint stays wet for more than 24 hours Tightness or pain under the cast or splint gets worse Fingers become swollen, cold, blue, numb, or tingly You can t move your fingers Skin around cast becomes red, swollen, or irritated [id number] [employer] [address] [place] [address], [place] [address]. All rights reserved. This information is not intended as a substitute for professional medical care. Always follow your healthcare professional's instructions. Additional Information VACCINATE! IT SAVES LIVES! Members of the community who have not yet received the COVID-19 vaccine and would like to receive it can visit one of [facility] vaccine clinics. There are many vaccine clinic locations within the [facility]. For locations and available times, please visit www.[email or web address]/. It is important to note that some COVID mobile vaccine clinics are held outdoors and may be canceled in rainy or stormy conditions. To learn more about pediatric vaccinations (ages 5-11), we invite you to visit the [facility] webpage. https://www.[employer].org/pages/2 635-Huoeg-Idmemboiprk-Frequently-Asked -Questions.html To learn more about the COVID-19 vaccine, we invite you to visit the CDC website for a list of frequently asked questions. https://www.cdc.gov/coronavirus/2019-n cov/vaccines/faq.html [facility] Patient Portal Access Instructions: Stay connected with your healthcare team and access your personal medical information anytime with the [facility] Patient Portal. If you would like a full copy of your medical records please contact the [facility] Medical Records Department Tuesday through Tuesday between 8a.m. and 4:30p.m. Please follow the directions below to access the portal: 1.Access the email account you provided upon registration to the hospital.2.Look for an invitation email from [facility].3.Open the email and access the invitation link: Accept Invitation to [facility]4.Fill in the required hong to create your account. Sign into [email or web address] with your username and password that you created in the above steps to stay up to date. You can then view a summary of results, a summary of your visits, and the ability to download your summaries to your computer or send the information securely to a physician. Remember that your healthcare information is confidential, so carefully consider who you will allow to register on the [employer] Patient Portal for access to your information. You can also access the [employer] Patient Portal on the [employer]icanvas krystal. Simply click on Health Records under Health Data and then click on the cisimple logo. HOW TO SAFELY DISPOSE OF PRESCRIPTION MEDICATIONS Please use one of the following methods to safely dispose of your unused medications. 1.Use a drug disposal kit: the drug disposal pouch allows you to safely discard your old and unused drugs. Ask your nurse to give you one when you are discharged.2.Visit a local take-back location: Many local pharmacies and police departments have programs that collect old and unwanted prescription drugs. Call your local pharmacy or go to http://[employer]/3R7Sn4g to find one close to you.3.Make use of household items: Use cat litter or old coffee grounds to dispose medications if other options are not available. Mix your drugs with these household products, seal them in an airtight container and throw it into the garbage. Call [facility]: [phone] to be sure your drugs can be disposed of in this way. Some medicines may require a different approach.4.Never flush your medications down the toilet. IF YOU HAVE BEEN PRESCRIBED AN OPIOIDS FOR PAIN If you have been prescribed an opioid (such as hydrocodone, oxycodone or morphine), it is critical to understand the possible side effects and risks of opioid pain medications. Even when taken as directed, opioids can have several side effects including: Tolerance, meaning you might need to take more of a medication for the same pain relief. Nausea, vomiting and/or constipation. Sleepiness, dizziness, dry mouth, confusion, depression or itching. Physical dependence, meaning you have withdrawal symptoms when a medication is stopped ? this can develop within a few days. KNOW YOUR RESPONSIBILITIES It is important to know exactly how much and how often to take the opioid pain medications you are prescribed. Never take opioids in higher amounts or more often than prescribed. Do not combine opioids with alcohol or other drugs that cause drowsiness, such as benzodiazepines, also known as benzos, including diazepam and alprazolam, muscle relaxants or sleep aids. Never sell or share prescription opioids. This is illegal. Store opioids in a secure place and out of reach of others (including children, family, friends and visitors). The last page(s) of this document has been signed and retained as a CHART COPY Signatures Patient Education Materials Fracture, Wrist, General Medication Leaflets My discharge plan and instructions have been reviewed and explained to me and I,GUSTAVO DE Treasure understand my current condition and have read and understand these discharge instructions. I have received a written copy of the plan/instructions. If I have questions, I am aware that I should contact my doctor. 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 The proximal carpal row and more distal skeletal elements appear intact and properly aligned. There is soft tissue swelling. IMPRESSION: Distal radial fracture. Interpreted by: Calvin Lucas MD Preliminary Report By: Calvin Lucas MD Electronically signed By Calvin Lucas MD Dictated Date: 08/21/2022 2:27:08 PM Prelim Date: 08/21/2022 2:28:29 PM Sign Date: 08/21/2022 2:28:29 PM [facility] ORIGINAL HISTORY: Pain, fall COMPARISON: No FINDINGS: There is a mildly displaced fracture at the lateral distal radius. The proximal carpal row and more distal skeletal elements appear intact and properly aligned. There is soft tissue swelling. IMPRESSION: Distal radial fracture. Interpreted by: Calvin Lucas MD Preliminary Report By: Calvin Lucas MD Electronically signed By Calvin uLcas MD Dictated Date: 08/21/2022 2:27:08 PM Prelim Date: 08/21/2022 2:28:29 PM Sign Date: 08/21/2022 2:28:29 PM Ordering Provider: CORTNEY GREGORIO [facility] Evaluation + Plan note No data available for this section [facility] Evaluation + Plan note Future Appointments Appointment Date:04/25/2024 03:00:00 PM Scheduled Provider:DARRION MANTILLA Location:[facility] Appointment Type:PC OV [facility] Evaluation + Plan note Future Appointments Appointment Date:06/11/2024 02:00:00 PM Scheduled Provider:AMAURI HINES DO Location:[facility] Appointment Type:PC OV Follow Up [facility] Evaluation note Diagnosis Nausea and vomiting, unspecified vomiting type- Primary Generalized abdominal pain Abdominal pain, generalized Hematemesis, unspecified whether nausea present documented in this encounter [facility] note* Diagnosis Endometrial polyp- Primary Polyp of corpus uteri Cyst of ovary, unspecified laterality Pelvic pain in female Unspecified symptom associated with female genital organs documented in this encounter [facility] note* Diagnosis URI, acute- Primary Acute upper respiratory infections of unspecified site documented in this encounter [facility] note* Diagnosis Nausea and vomiting, unspecified vomiting type- Primary Generalized abdominal pain Abdominal pain, generalized Hematemesis, unspecified whether nausea present Intermittent diarrhea documented in this encounter [facility] note* Diagnosis Nausea and vomiting, unspecified vomiting type- Primary Generalized abdominal pain Abdominal pain, generalized Hematemesis, unspecified whether nausea present Intermittent diarrhea documented in this encounter [facility] note* Diagnosis URI, acute- Primary Acute upper respiratory infections of unspecified site documented in this encounter [facility] note* Diagnosis Nausea and vomiting Nausea with vomiting Generalized abdominal pain Abdominal pain, generalized Hematemesis, unspecified whether nausea present Intermittent diarrhea documented in this encounter [facility] note* Diagnosis H. pylori infection Helicobacter pylori (H. pylori) Generalized abdominal pain Abdominal pain, generalized Nausea and vomiting Nausea with vomiting documented in this encounter [facility] note* Diagnosis Helicobacter heilmannii gastritis- Primary documented in this encounter [facility] Discharge instructions No data available for this section [facility] Discharge instructions* Attachments The following attachments cannot be sent through Care Everywhere. * Moderate Sedation in Adults Discharge Instructions (Somali) * Upper GI Endoscopy Discharge Instructions (Somali) documented in this [facility] Discharge instructions* Attachments The following attachments cannot be sent through Care Everywhere. * Moderate and Deep Sedation in Adults (Somali) documented in this [facility] Discharge instructions* Attachments The following attachments cannot be sent through Care Everywhere. * Upper GI Endoscopy Discharge Instructions (Somali) * Moderate Sedation in Adults Discharge Instructions ([place]i) [facility] No data available for this section [facility] Reason for referral (narrative)* Diagnostic Procedure Only (Routine) - New Request Specialty Diagnoses / Procedures Referred By Keaton lao Referred To Contact [facility] Diagnoses Endometrial polyp Cyst of ovary, unspecified laterality Pelvic pain in female Procedures SONOHYSTEROGRAPHY (SIS) US WHI SALINE INFUS SONOHYSTEROGRAPHY W/COLOR DOPPLER Hong Farris MD [address] [place] [address] [facility] [address] [place] [address] Referral ID Status Reason Start Date Expiration Date Visits Requested Visits Authorized [id number] New Request Auto-Generat ed Referral 4 05/15/2025 1 1 [facility] for visit Narrative* Auth/Cert (Routine) Specialty Diagnoses / Procedures Referred By Keaton lao Referred To Contact Diagnoses Nausea and vomiting Generalized abdominal pain Hematemesis, unspecified whether nausea present Intermittent diarrhea Procedures [place] ESOPHAGOGASTRODUODENOSCOPY TRANSORAL DIAGNOSTIC ESOPHAGOGASTRODUODENOSCOPY, DIAGNOSTIC Alvarado Morgan MD [address] [place] [address] [place] [address] Phone: tel: fax: [facility] Endoscopy [address] [place] [address] Phone: tel: Referral ID Status Reason Start Date Expiration Date Visits Re quested Visits Authorized 1 1 [facility] Narrative* Auth/Cert (Routine) Specialty Diagnoses / Procedures Referred By Contac t Referred To Contact Diagnoses H. pylori infection Generalized abdominal pain Nausea and vomiting Procedures [place] EGD TRANSORAL BIOPSY SINGLE/MULTIPLE ESOPHAGOGASTRODUODENOSCOPY WITH BIOPSY Alvarado Morgan MD [address] [facility] [address] [place] [address] Phone: tel: fax: [facility] Endoscopy [address] [place] [address] Phone: tel: Referral ID Status Reason Start Date Expiration Date Visits Re quested Visits Authorized [id number] 1 1 [facility] for visit Narrative* Auth/Cert (Routine) Specialty Diagnoses / Procedures Referred By Contac t Referred To Contact Diagnoses Disease of stomach and duodenum, unspecified Procedures [place] EGD INTRMURAL US NEEDLE ASPIRATE/BIOPSY ESOPHAGS ESOPHAGOGASTRODUODENOSCOPY, WITH ULTRASOUND GUIDED ASPIRATION OR BIOPSY Adrian Valero MD [address] [facility] [address] [place] [address] Phone: tel: Referral ID Status Reason Start Date Expiration Date Visits Re quested Visits Authorized 02/06/2025 1 1 [facility] Summary Purpose Family History No Family History Records FoundNo Family History Records FoundNo Family History Records FoundNo Family History Records FoundNo Family History Records FoundNo Family History Records Found No data available for this section No data available for this section No data available for this section No data available for this section No data available for this section No data available for this section No data available for this section No Family History Records FoundNo Family History Records FoundNo Family History Records Found Advance Directives No Advanced Directives Records Found Date Activated Date Inactivated Comments 11/14/2024 9:28 AM 11/14/2024 2:15 PM Date Activated Date Inactivated Comments 11/14/2024 9:28 AM 11/14/2024 2:15 PM Date Activated Date Inactivated Comments 01/16/2025 7:25 AM 01/16/2025 11:16 AM Date Activated Date Inactivated Comments 11/14/2024 9:28 AM 11/14/2024 2:15 PM Date Activated Date Inactivated Comments 01/16/2025 7:25 AM 01/16/2025 11:16 AM Date Activated Date Inactivated Comments 11/14/2024 9:28 AM 11/14/2024 2:15 PM Additional Source Comments INFORMATION SOURCE (unrecogn ized section and content) DATE CREATED AUTHOR 12/08/2017 [facility] DATE CREATED AUTHOR AUTHOR'S ORGANIZ ATION 12/12/2017 [facility] DATE CREATED AUTHOR AUTHOR'S ORGANIZ ATION 12/13/[facility] DATE CREATED AUTHOR AUTHOR'S ORGANIZ ATION 12/22/2017 [facility] DATE CREATED AUTHOR AUTHOR'S ORGANIZ ATION 08/13/2021 [facility] DATE CREATED AUTHOR AUTHOR'S ORGANIZ ATION 12/14/2022 [facility] ([place] DATE CREATED AUTHOR AUTHOR'S ORGANIZ ATION 08/16/2024 [facility] DATE CREATED AUTHOR AUTHOR'S ORGANIZ ATION 09/28/2024 [facility] DATE CREATED AUTHOR AUTHOR'S ORGANIZ ATION 03/02/2025 [facility] Care Team (unrecognized sect ion and content) Care Team Personnel Name: AMAURI HINES DO Position: P4 Physician - Primary Care Member Role: Primary Care Physician Address: Address: [address] [place] [id number] [place] [address] Name: CORTNEY GREGORIO DO Position: ED Physician Member Role: Attending Physician Address: Address: [address] [place], [place] [address], [place] [address] Care Team Related Persons Name: GENTRY DE Address: Home [address] [place], [place] [id number] Address: Temporary [address] [place], [place] [id number] Name: NAUN DE Address: Home [address] [place], [place] [id number] Care Team Personnel Name: AMAURI HINES DO Position: P4 Physician - Primary Care Member Role: Primary Care Physician Address: Address: [address] [place] [id number] [place] [address] Name: LINDSAY ALEMAN MD Position: ED Physician Member Role: ED Physician Address: Address: [address] [place], [place] [address] Care Team Related Persons Name: GENTRY DE Address: Home [address] [place], [place] [id number] Address: Temporary [address] [place], [place] [id number] Name: NAUN DE Address: Home [address] [place], [place] [id number] Patient Care team informatio n (unrecognized section and content) Display Fabricator Relationship Specialty Start Date End Date (Historical), Unknown PCP - General 07/03/17 Display Fabricator Relationship Specialty Start Date End Date (Historical), Unknown PCP - General 07/03/17 Display Fabricator Relationship Specialty Start Date End Date Amauri Hines DO [address] [place] [address] PCP - General Family Medicine 08/14/24 Display Fabricator Relationship Specialty Start Date End Date Amauri Hines DO [address] [place] [address] PCP - General Family Medicine 08/14/24 Reason for Visit (unrecogniz ed section and content) Reason Comments Vomiting Reason Comments Consult Reason Comments Nasal Congestion LUEVANO, fever, sore thro at, difficulty breathing, body aches x 4 days Reason Comments Nausea Abdominal Pain Specialty Diagnoses / Procedures Referred By Keaton t Referred To Contact Gastroenterology Diagnoses Nausea and vomiting, unspecified vomiting type Generalized abdominal pain Hematemesis, unspecified whether nausea present Procedures [place] OFFICE/OUTPATIENT [facility] 60 MINUTES Mary Kay Arndt, MACHINE CONTAINER WASHER - PILLOW[employer] [address] [place] [address] Phone: tel: fax: [facility] Gastroenterology [facility] [address] [place] [address] Phone: tel: fax: Referral ID Status Reason Start Date Expiration Date V isits Requested Visits Authorized [id number] Closed Specialty Services Required 04/14/2024 04/14/2025 1 1 Reason Onset Date Comments Procedure 07/18/2024 Reason Comments Flu Like Symptoms Fever, cough, runny nose, congestion x4 days Reason Onset Date Comments EGD 01/09/2025 Reminder call Scheduled Active and Recently Administ ered Medications (unrecognized section and content) Medication Order 04/12/2024 04/13/2024 04/14/2024 dicyclomine (Bentyl) capsule 10 mg (COMPLETED) 10 mg, Oral, Once, On 04/14/24 at 1850, For 1 dose 1901 (Given - Provid er: Rachel Haynes RN) pantoprazole (ProtoNix) EC tablet 40 mg (COMPLETED) 40 mg, Oral, Once, On 04/14/24 at 1850, For 1 dose, Do not crush, chew, or split. 1901 (Given - Provid er: Rachel Haynes RN) Scheduled Medication Order 11/12/2024 11/13/2024 11/14/2024 sodium chloride 0.9% (NS) flush 10 mL 10 mL, IntraVENous, Every 12 hours scheduled (2 times per day), First dose on Tue11/14/24 at 0930 0930 (Canceled Entry - Provider: Automatic Discharge Provider - Comment: Automatically canceled at discontinue of medication order) sodium chloride 0.9% (NS) flush 10 mL 10 mL, IntraVENous, Every 12 hours scheduled (2 times per day), First dose on Tue11/14/24 at 0930, Preprocedure 0930 (Canceled Entry - Provider: Automatic Discharge Provider - Comment: Automatically canceled at discontinue of medication order) PRN Medication Order 11/12/2024 11/13/2024 11/14/2024 ondansetron (Zofran) injection 4 mg 4 mg, IntraVENous, Once PRN, nausea, vomiting, Starting on Tue11/14/24 at 0928, For 1 dose, Preprocedure sodium chloride 0.9 % infusion 5-250 mL/hr, IntraVENous, PRN, if patient receiving piggyback infusions and maintenance fluids are not ordered OR KVO fluids to protect IV site / prevent frequent line interruptions/ long duration, Starting on Tue11/14/24 at 0928, For piggyback infusion, administer at same rate as piggyback for a total of 25 mL. Enter 25 mL into dose field and piggyback rate into rate field of order. If piggyback is infusing at a rate less than 100 mL/hr, enter 25 mL into dose field and 100 mL/hr into rate field of order. For KVO fluids, enter rate of 20 mL/hr or less into rate field of order. sodium chloride 0.9 % infusion 5-250 mL/hr, IntraVENous, PRN, if patient receiving piggyback infusions and maintenance fluids are not ordered OR KVO fluids to protect IV site / prevent frequent line interruptions/ long duration, Starting on Tue11/14/24 at 0928, Preprocedure, For piggyback infusion, administer at same rate as piggyback for a total of 25 mL. Enter 25 mL into dose field and piggyback rate into rate field of order. If piggyback is infusing at a rate less than 100 mL/hr, enter 25 mL into dose field and 100 mL/hr into rate field of order. For KVO fluids, enter rate of 20 mL/hr or less into rate field of order. sodium chloride 0.9% (NS) flush 10 mL 10 mL, IntraVENous, PRN, line care, Starting on Tue11/14/24 at 0928, After every IV line use sodium chloride 0.9% (NS) flush 10 mL 10 mL, IntraVENous, PRN, line care, Starting on Tue11/14/24 at 0928, Preprocedure, After every IV line use Scheduled Medication Order 01/14/2025 01/15/2025 01/16/2025 sodium chloride 0.9% (NS) flush 10 mL 10 mL, IntraVENous, Every 12 hours scheduled (2 times per day), First dose on Tue01/16/25 at 0900 0900 (Canceled Entry - Provider: Automatic Discharge Provider - Comment: Automatically canceled at discontinue of medication order) sodium chloride 0.9% (NS) flush 10 mL 10 mL, IntraVENous, Every 12 hours scheduled (2 times per day), First dose on Tue01/16/25 at 0900, Preprocedure 0900 (Canceled Entry - Provider: Automatic Discharge Provider - Comment: Automatically canceled at discontinue of medication order) PRN Medication Order 01/14/2025 01/15/2025 01/16/2025 ondansetron (Zofran) injection 4 mg 4 mg, IntraVENous, Once PRN, nausea, vomiting, Starting on Tue01/16/25 at 0725, For 1 dose, Preprocedure sodium chloride 0.9 % infusion 5-250 mL/hr, IntraVENous, PRN, if patient receiving piggyback infusions and maintenance fluids are not ordered OR KVO fluids to protect IV site / prevent frequent line interruptions/ long duration, Starting on Tue01/16/25 at 0725, For piggyback infusion, administer at same rate as piggyback for a total of 25 mL. Enter 25 mL into dose field and piggyback rate into rate field of order. If piggyback is infusing at a rate less than 100 mL/hr, enter 25 mL into dose field and 100 mL/hr into rate field of order. For KVO fluids, enter rate of 20 mL/hr or less into rate field of order. sodium chloride 0.9 % infusion 5-250 mL/hr, IntraVENous, PRN, if patient receiving piggyback infusions and maintenance fluids are not ordered OR KVO fluids to protect IV site / prevent frequent line interruptions/ long duration, Starting on Tue01/16/25 at 0725, Preprocedure, For piggyback infusion, administer at same rate as piggyback for a total of 25 mL. Enter 25 mL into dose field and piggyback rate into rate field of order. If piggyback is infusing at a rate less than 100 mL/hr, enter 25 mL into dose field and 100 mL/hr into rate field of order. For KVO fluids, enter rate of 20 mL/hr or less into rate field of order. sodium chloride 0.9% (NS) flush 10 mL 10 mL, IntraVENous, PRN, line care, Starting on Tue01/16/25 at 0725, After every IV line use sodium chloride 0.9% (NS) flush 10 mL 10 mL, IntraVENous, PRN, line care, Starting on Tue01/16/25 at 0725, Preprocedure, After every IV line use Scheduled Medication Order 02/26/2025 02/27/2025 02/28/2025 sodium chloride 0.9% (NS) flush 10 mL 10 mL, IntraVENous, Every 12 hours scheduled (2 times per day), First dose on Sena 02/28/25 at 0915 0915 (Canceled Entry - Provider: Automatic Discharge Provider - Comment: Automatically canceled at discontinue of medication order) PRN Medication Order 02/26/2025 02/27/2025 02/28/2025 sodium chloride 0.9 % infusion 5-250 mL/hr, IntraVENous, PRN, if patient receiving piggyback infusions and maintenance fluids are not ordered OR KVO fluids to protect IV site / prevent frequent line interruptions/ long duration, Starting on Sena 02/28/25 at 0909, For piggyback infusion, administer at same rate as piggyback for a total of 25 mL. Enter 25 mL into dose field and piggyback rate into rate field of order. If piggyback is infusing at a rate less than 100 mL/hr, enter 25 mL into dose field and 100 mL/hr into rate field of order. For KVO fluids, enter rate of 20 mL/hr or less into rate field of order. 0913 (New Bag - Prov ider: Aleta Abreu CRNA)0937 (Anesthesia Volume Adjustment - Provider: Aleta Abreu CRNA) sodium chloride 0.9% (NS) flush 10 mL 10 mL, IntraVENous, PRN, line care, Starting on Sena 02/28/25 at 0909, After every IV line use Source Comments (unrecognize d section and content) In the event this informatio n is protected by the Federal Confidentiality of Alcohol and Drug Abuse Patient Records regulations: The Federal rules restrict any use of the information to criminally investigate or prosecute any alcohol or drug abuse patient.[facility] the event this information is protected by the Federal Confidentiality of Alcohol and Drug Abuse Patient Records regulations: The Federal rules restrict any use of the information to criminally investigate or prosecute any alcohol or drug abuse patient.[facility] the event this information is protected by the Federal Confidentiality of Alcohol and Drug Abuse Patient Records regulations: The Federal rules restrict any use of the information to criminally investigate or prosecute any alcohol or drug abuse patient.[facility] the event this information is protected by the Federal Confidentiality of Alcohol and Drug Abuse Patient Records regulations: The Federal rules restrict any use of the information to criminally investigate or prosecute any alcohol or drug abuse patient.[facility] FOR RECORDS PERTAINING TO PATIENTS WHO ARE OR HAVE BEEN ENROLLED IN A CHEMICAL DEPENDENCY/SUBSTANCEABUSE PROGRAM, SOME INFORMATION MAY BE OMITTED. This clinical summary was aggregated from multiple sources. Caution should be exercised in using it in the provision of clinical care. This summary normalizes information from multiple sources, and as a consequence, information in this document may materially change the coding, format and clinical context of patient data. In addition, data may be omitted in some cases. CLINICAL DECISIONS SHOULD BE BASED ON THE PRIMARY CLINICAL RECORDS. [facility]. provides no warranty or guarantee of the accuracy or completeness of information in this document.
[2025-05-19] MEDS: 0.9% Normal Saline (1000mL) 1,000 ML 1000 ML IV (21:17)
[2025-05-19 21:18] LABS: Hematocrit 42.3 % (37-47); Hemoglobin 14.6 g/dL (12.0-15.0); Immature Granulocytes Count 0.020 X10^3/uL (0.0-0.0); Mean Corp Hgb Conc 34.5 g/dL (32-36); Mean Corpuscular Volume 88.1 fL (81-99); Mean Platelet Vol. 10.1 fl (6.2-12.0); NRBC Flagged by Analyzer 0 % (0-5); Platelet Count 318 K/mm3 (150-450); RBC Distribution Width CV 12.5 % (11.6-14.6); RBC Distribution Width SD 40.7 fl (35.1-43.9); Red Blood Count 4.80 M/mm3 (4.2-5.4); White Blood Count 7.6 K/mm3 (4.4-11.0)
[2025-05-19 21:48] LABS: Anion Gap 13 (5-15); BUN 10 mg/dL (4-19); BUN/Creat Ratio 11.6 RATIO (10-20); Calcium,Total 9.1 mg/dL (7.6-11.0); Carbon Dioxide 20.9 mmol/L (21.0-32.0); Chloride 101 mmol/L (98-108); Estimated Creatinine Clearance 100.45 ml/min (50-250); Glucose 113 mg/dL (70-99); Potassium 3.8 mmol/L (3.3-5.1)
[2025-05-19 22:33] VITALS: BP 110/72; PULSE 77; RESP 19; O2SAT 98
[2025-05-19 22:41] LABS: Color, Urine Yellow (Yellow); Glucose, Dipstick Normal (Normal); Ketone-Dipstick Negative (Negative); Leukocyte Esterase-Dipstick 500 /ul (Negative); Nitrite-Dipstick Negative (Negative); Occult Blood-Urine 50 /ul (Negative); Protein-Dipstick 15 mg/dl (Negative); Specific Gravity, Urine 1.010 (1.002-1.030); Urine Bilirubin Dipstick Negative (Negative)
[2025-05-19] MEDS: 0.9% Normal Saline (1000mL) 1,000 ML 999 ML IV (22:57)
[2025-05-19 23:46] VITALS: BP 100/64; BP 102/81; BP 107/73; PULSE 76; PULSE 79; PULSE 81
[2025-05-20] VITALS: BP 116/73; PULSE 82; O2SAT 99
== END 2025-05-20 00:22 | disposition home or self-care (01) ==
PROVIDERS: Emergency Provider Emergency Medicine; PCP Student in an Organized Health Care Education/Training Program; Visit Provider Emergency Medicine
DX: R10.31 Right lower quadrant pain (principal); R10.32 Left lower quadrant pain; R19.7 Diarrhea, unspecified; R00.0 Tachycardia, unspecified; R11.0 Nausea; E86.0 Dehydration; Z87.891 Personal history of nicotine dependence
CPT/HCPCS: 80048; 81002; 85025; 87506; 96360; 96361; 99284; A4216

== ENCOUNTER 2025-06-07 18:56 | Emergency (ER) | payer MEDICAID, SELFPAY ==
[2025-06-07 18:57] VITALS: BP 128/81; PULSE 103; RESP 18; TEMP 37.3; O2SAT 100; BMI 34.9
--- OUTSIDE RECORDS SUMMARY | 2025-06-07 21:05 | XMS RPT_ITS | CCD ---
Author Organization [facility] Care Team Providers Care Print Shop Manager Name Role Phone PROVIDER, UNKNOWN Unavailable Unavailable [...] ailable Amauri Hines DO Primary Care Provider [phone] AMAURI HINES Primary Care Unavailable HONG FARRIS [...] Latex; Translations: [LATEX] Allergy to substance 4 [facility] (11 sources) Penicillin; Translations: [penicillin] Drug Allergy Weal (disorder) [facility] (8 sources) Acetaminophen; Translations: [acetaminophen] Drug Allergy 4 [facility] (16 sources) Acetaminophen Drug Allergy 4 [facility] (16 sources) Penicillin G Drug Allergy 4 [facility] (5 sources) Penicillins; Translations: [PENICILLINS] Drug Allergy 4 [facility] (8 sources) Cheese Propensity to adverse reactions 5 Shortness of breath, Swelling [facility] Medications Current Medications Medication Drug Class(es) Dates [...] days, # 30 gram(s), 1 Refill(s), Pharmacy: [email or web address] #[id number], Cream, 162, cm, 01/19/22 16:00:00 EDT, Height, [...] 9am with the arrival time of 8am. [facility] schedule updated Order submitted Open Case request submitted Case # [id number] Endo packet mailed to patient Prep sent via [employer] if pt acct active Pt is aware they will need a courtesy van driver to take them home from procedure. Must be family member or friend. They cannot use any ride programs. Ex: Uber, Lyft, SCAT, bus, etc...) [facility] 36 Lmtcb to get schedul ed for an EUS. [facility] HCG QUALITATIVE URINEon 12-20 Beta HCG ( test) Ql (U) Negative Normal Negative [facility] Comment on above: Result Comment: Plea se note: Very dilute urine specimens, as indicated by a low specific gravity, may not contain pharmaceutical representative levels of hCG. If is still suspected, a first morning urine specimen should be collected 48 hours later and tested. ORDER COMMENTS: is the most common reason for HCG in urine, although choriocarcinoma, hydatidiform mole, and certain nontrophoblastic malignancies also result in detectable urinary HCG levels. Sensitivity = 20mIU/mL. Performed By: #### L [id number] #### Automotive Artist: HOSSEIN CAMACHO ([id number]) [facility] ([facility]) [address] [place] [address] Laboratory - Chemistry and C hemistry - challengeOrdered By: Noble Salinas on 01-16-2025 Beta HCG ( test) Ql Negative Negative [facility] Comment on above: Please note: Very di lute urine specimens, as indicated by a low specific gravity, may not contain pharmaceutical representative levels of hCG. If is still suspected, a first morning urine specimen should be collected 48 hours later and tested. Beta HCG ( test) Ql (U) is the most common reason for HCG in urine, although choriocarcinoma, hydatidiform mole, and certain nontrophoblastic malignancies also result in detectable urinary HCG levels. Sensitivity = 20mIU/mL. [facility] No Panel InformationOrdered By: Noble Salinas on 01-16-2025 [facility] Nursing Noteon 01-16-2025 Nursing Note Pt states she wants to go home. She is assisted with getting dressed by nurse. Complains of being slightly dizzy. Hand off done with volunteer and it is communicated to her that pt is dizzy. Pt states dizziness is tolerable and she is ready to go home. Discharge to home with all belongings. [facility] Nursing Note Pt is awake and linnea irene juice. Dr Morgan discussed findings with pt. Father remains at bedside. She c/o slight sore throat. States slightly dizzy and not ready to get dressed. [facility] Nursing Note Received pt from gi lab to recovery phase 2 sleeping/sedated on room air. Father brought to bedside. History and allergies reviewed in EMR. Report received and assessment completed [facility] 01-11-[address] Alvarado Morgan EGD Date: 01/16/25 Arrival time: 6:30 am Please report to: [place] [address] Spoke with pt, confirmed they will attend scheduled procedure. All questions or concerns addressed. Pt has prep medication on hand. Prep instructions sent via [employer] if active. [facility] 01-09-[address] Alvarado Morgan EGD Date: 01/16/25 Arrival time: 6:30 am Please report to: [place] [address] Spoke with pt, confirmed they will attend scheduled procedure. All questions or concerns addressed. Pt has prep medication on hand. Prep instructions sent via [employer] if active. [facility] [id number] 12-10-2024 [id number] Patient accepted new date and time for her EGD. Patient now scheduled to 01/16/25 @ 7:30am with the arrival time of 6:30am with Dr. Morgan in [place]. Called and spoke withInessadi in surgery scheduling. Updated the case and view schedule. [facility] schedule updated Order submitted Open Case request submitted Case # [id number] Endo packet mailed to patient Prep sent via [employer] if pt acct active Pt is aware they will need a courtesy van driver to take them home from procedure. Must be family member or friend. They cannot use any ride programs. Ex: Uber, Lyft, SCAT, bus, etc...) [facility] [id number] 11-22-2024 [id number] Patient now schedule d on 04/10/25 @ 11:30am with the arrival time of 10:30am with Dr. Morgan in [place] for her EGD. [facility] schedule updated Order submitted Open Case request submitted Case # [id number] Endo packet mailed to patient Prep sent via [employer] if pt acct active Pt is aware they will need a courtesy van driver to take them home from procedure. Must be family member or friend. They cannot use any ride programs. Ex: Uber, Lyft, SCAT, bus, etc...) [facility] 36on 11-20-2024 36 Results and recommendations given to patient. Claims full understanding and questions answered at this time. [facility] pharmacy had to order medication and will continuous pickling line pickler today. Office number given and she will call to schedule follow up EGD with Bx 1 month after completion of medication with Rubi. Rubi will contact patient next week. Dr. Morgan notified. Arian notified. Rubi notified. [facility] 36 ----- Message from LEONARDA Mariano [...] after treatment Thanks ----- Message ----- From: qunb Mecca Rosas Sent: 11/16/2024 1:40 PM EDT To: Alvarado Morgan MD [facility] HCG QUALITATIVE URINEon 10-19 Beta HCG ( test) Ql (U) Negative Normal Negative [facility] Comment on above: Result Comment: Pleotoniel sparks note: Very dilute urine specimens, as indicated by a low specific gravity, may not contain pharmaceutical representative levels of hCG. If is still suspected, a first morning urine specimen should be collected 48 hours later and tested. ORDER COMMENTS: is the most common reason for HCG in urine, although choriocarcinoma, hydatidiform mole, and certain nontrophoblastic malignancies also result in detectable urinary HCG levels. Sensitivity = 20mIU/mL. Performed By: #### L [id number] ####Automotive Artist: HOSSEIN CAMACHO ([id number])[facility] ([facility])[address] [place] [address] Laboratory - Chemistry and C hemistry - challengeOrdered By: Floridalma Gan on 11-14-2024 Beta HCG ( test) Ql Negative Negative [facility] Comment on above: Please note: Very di lute urine specimens, as indicated by a low specific gravity, may not contain pharmaceutical representative levels of hCG. If is still suspected, a first morning urine specimen should be collected 48 hours later and tested. Beta HCG ( test) Ql (U) is the most common reason for HCG in urine, although choriocarcinoma, hydatidiform mole, and certain nontrophoblastic malignancies also result in detectable urinary HCG levels. Sensitivity = 20mIU/mL. [facility] No Panel InformationOrdered By: Floridalma Gan on 11-14-2024 [facility] Nursing Noteon 11-14-2024 Nursing Note Pt and family verbal ized understanding of recovery instructions, pt verbalized a readiness to be discharged home. Pt discharged home via wheelchair accompanied by RN/volunteer. Pt has had all their belongings returned to them at discharge [facility] Nursing Note Pt recieved from ENDOSCOPY to phase 2 via cart with BEAN PICKER MACHINE OPERATOR in attendance, pt has spontaneous respirations,pt place on monitor with alarms on, will continue to monitor [facility] .Auto Diffon 09-26-2024 Basophil, Absolute 0.1 10 3/mcL Normal 0.0-0.3 [facility] Comment on above: Performed By: #### G FR, LIPID, CBC, ADIFF, ANEU, CMP ####[address] [address] Basophils/100 WBC (Bld) 0.8 % Normal 0.0-2.5 [facility] Comment on above: Performed By: #### G FR, LIPID, CBC, ADIFF, ANEU, CMP ####[facility] [place] [address] Eosinophil, Absolute 0.2 10 3/mcL Normal 0.0-0.7 [facility] Comment on above: Performed By: #### G FR, LIPID, CBC, ADIFF, ANEU, CMP ####[place] [address] [place], [place] [address] Eosinophils/100 WBC (Bld) 2.2 % Normal 0.0-6.0 [facility] Comment on above: Performed By: #### G FR, LIPID, CBC, ADIFF, ANEU, CMP ####[place] [address] [place], [place] [address] Lymphocyte, Absolute 2.3 10 3/mcL Normal 0.9-4.3 [facility] Comment on above: Performed By: #### G FR, LIPID, CBC, ADIFF, ANEU, CMP ####[address] [address] Lymphocytes/100 WBC (Bld) 21.4 % Normal 20.0-40.0 [facility] Comment on above: Performed By: #### G FR, LIPID, CBC, ADIFF, ANEU, CMP ####[address] [address] Monocyte, Absolute 0.9 10 3/mcL Normal 0.1-1.4 [facility] Comment on above: Performed By: #### G FR, LIPID, CBC, ADIFF, ANEU, CMP ####[address] [address] Monocytes/100 WBC (Bld) 8.5 % Normal 2.0-13.0 [facility] Comment on above: Performed By: #### G FR, LIPID, CBC, ADIFF, ANEU, CMP ####[place] [address] [place], [place] [address] Neutrophils/100 WBC (Bld) 67.1 % Normal 50.0-75.0 [facility] Comment on above: Performed By: #### G FR, LIPID, CBC, ADIFF, ANEU, CMP ####[facility] [place], [place] [address] .GFRon 09-26-2024 Estimated Glomerular Filtration Rate 99 ml/min/1.73sqm Normal [facility] Comment on above: Result Comment: Stages [...] G FR, LIPID, CBC, ADIFF, ANEU, CMP ####[address] [address] .NEUABSon 09-26-2024 Neutrophil, Absolute 7.2 10 3/mcL Normal 2.3-8.1 [facility] Comment on above: Performed By: #### G FR, LIPID, CBC, ADIFF, ANEU, CMP ####[address] [address] CBCon 09-26-2024 Erythrocyte distribution width (RBC) [Ratio] 14.1 % Normal 11.5-15.5 [facility] Comment on above: Performed By: #### G FR, LIPID, CBC, ADIFF, ANEU, CMP #### [address] [address] Hematocrit (Bld) [Volume fraction] 39.6 % Normal 34.0-46.0 [facility] Comment on above: Performed By: #### G FR, LIPID, CBC, ADIFF, ANEU, CMP #### [address] [address] Hgb 13.3 G/dL Normal 12.0-16.0 [facility] Comment on above: Performed By: #### G FR, LIPID, CBC, ADIFF, ANEU, CMP #### [address] [address] MCH (RBC) [Entitic mass] 30.9 pg Normal 27.0-33.0 [facility] Comment on above: Performed By: #### G FR, LIPID, CBC, ADIFF, ANEU, CMP #### [place] [address] MCHC 33.7 G/dL Normal 32.0-36.0 [facility] Comment on above: Performed By: #### G FR, LIPID, CBC, ADIFF, ANEU, CMP #### [place] [address] MCV (RBC) [Entitic vol] 91.7 fL Normal 80.0-99.0 [facility] Comment on above: Performed By: #### G FR, LIPID, CBC, ADIFF, ANEU, CMP #### [place] [address] Platelet 349 10 3/mcL Normal 150-450 [facility] Comment on above: Performed By: #### G FR, LIPID, CBC, ADIFF, ANEU, CMP #### [address] [address] Platelet mean volume (Bld) [Entitic vol] 9.2 fL Normal 6.6-10.5 [facility] Comment on above: Performed By: #### G FR, LIPID, CBC, ADIFF, ANEU, CMP #### [address] [address] RBC 4.31 10 6/mcL Normal 4.10-5.30 [facility] Comment on above: Performed By: #### G FR, LIPID, CBC, ADIFF, ANEU, CMP #### [place] [id number] WBC 10.7 10 3/mcL Normal 4.5-10.8 [facility] Comment on above: Performed By: #### G FR, LIPID, CBC, ADIFF, ANEU, CMP #### [address] [address] CMPon 09-26-2024 Albumin Level 3.9 G/dL Normal 3.5-5.0 [facility] Comment on above: Performed By: #### G FR, LIPID, CBC, ADIFF, ANEU, CMP ####[address] [address] Albumin/Globulin [Mass ratio] 1.1 {ratio} Normal 1.1-2.5 [facility] Comment on above: Performed By: #### G FR, LIPID, CBC, ADIFF, ANEU, CMP ####[address] [address] ALP [Catalytic activity/Vol] 93 U/L Normal 40-135 [facility] Comment on above: Performed By: #### G FR, LIPID, CBC, ADIFF, ANEU, CMP ####[address] [address] ALT [Catalytic activity/Vol] 14 U/L Normal 14-59 [facility] Comment on above: Performed By: #### G FR, LIPID, CBC, ADIFF, ANEU, CMP ####[address] [address] AST [Catalytic activity/Vol] 10 U/L Normal 10-40 [facility] Comment on above: Performed By: #### G FR, LIPID, CBC, ADIFF, ANEU, CMP ####[address] [address] Bili Total 0.2 mg/dL Normal 0.2-1.0 [facility] Comment on above: Result Comment: Use of this assay is not recommended for patients undergoing treatment with eltrombopag due to the potential for falsely elevated results. Performed By: #### G FR, LIPID, CBC, ADIFF, ANEU, CMP ####[address] [address] BUN/Creatinine Ratio 14 ratio Normal 7-27 [facility] Comment on above: Performed By: #### G FR, LIPID, CBC, ADIFF, ANEU, CMP ####[place] [address] [place], [place] [address] Calcium [Mass/Vol] 9.1 mg/dL Normal 8.4-10.2 [facility] Comment on above: Performed By: #### G FR, LIPID, CBC, ADIFF, ANEU, CMP ####[address] [place], [place] [address] Chloride [Moles/Vol] 104 mmol/L Normal 98-107 [facility] Comment on above: Performed By: #### G FR, LIPID, CBC, ADIFF, ANEU, CMP ####[address] [address] CO2 [Moles/Vol] 28 mmol/L Normal 22-29 [facility] Comment on above: Performed By: #### G FR, LIPID, CBC, ADIFF, ANEU, CMP ####[address] [address] Creatinine [Mass/Vol] 0.84 mg/dL Normal 0.55-1.02 [facility] Comment on above: Result Comment: Test ing performed on Siemens Dimension EXL analyzer using a modified kinetic Aleida technique. Performed By: #### G FR, LIPID, CBC, ADIFF, ANEU, CMP ####[address] [address] Electrolyte Balance 9.0 mEq/L Normal 4.0-15.0 [facility] Comment on above: Performed By: #### G FR, LIPID, CBC, ADIFF, ANEU, CMP ####[address] [address] Globulin 3.4 G/dL Normal 1.5-3.8 [facility] Comment on above: Performed By: #### G FR, LIPID, CBC, ADIFF, ANEU, CMP ####[address] [place], [place] [address] Glucose [Mass/Vol] 81 mg/dL Normal 70-105 [facility] Comment on above: Performed By: #### G FR, LIPID, CBC, ADIFF, ANEU, CMP ####[facility] [place] [address] Potassium [Moles/Vol] 3.9 mmol/L Normal 3.5-5.1 [facility] Comment on above: Performed By: #### G FR, LIPID, CBC, ADIFF, ANEU, CMP ####[facility] [place], [place] [address] Sodium [Moles/Vol] 141 mmol/L Normal 136-145 [facility] Comment on above: Performed By: #### G FR, LIPID, CBC, ADIFF, ANEU, CMP ####[place] [address] [place], [place] [address] Total Protein 7.3 G/dL Normal 6.4-8.2 [facility] Comment on above: Performed By: #### G FR, LIPID, CBC, ADIFF, ANEU, CMP ####[address] [address] Urea nitrogen [Mass/Vol] 12 mg/dL Normal 7-18 [facility] Comment on above: Performed By: #### G FR, LIPID, CBC, ADIFF, ANEU, CMP ####[place] [address] [place], [place] [address] LIPIDon 09-26-2024 Cholesterol [Mass/Vol] 155 mg/dL Normal 0-200 [facility] Comment on above: Result Comment: Chol esterol Reference Interval: Less than 200 Desirable 200-239 Borderline high risk 240 and above High risk Performed By: #### G FR, LIPID, CBC, ADIFF, ANEU, CMP ####[address] [address] Cholesterol in HDL [Mass/Vol] 72 mg/dL High 40-60 [facility] Comment on above: Performed By: #### G FR, LIPID, CBC, ADIFF, ANEU, CMP ####[address] [place], [place] [address] Cholesterol in LDL [Mass/Vol] 53 mg/dL Normal 0-130 [facility] Comment on above: Performed By: #### G FR, LIPID, CBC, ADIFF, ANEU, CMP ####[address] [place], [place] [address] Triglyceride [Mass/Vol] 149 mg/dL Normal 0-150 [facility] Comment on above: Result Comment: Trig lyceride Reference Interval: Less than 150 Normal 150-199 Borderline high risk 200-499 High risk 500 or higher Very high risk Performed By: #### G FR, LIPID, CBC, ADIFF, ANEU, CMP ####[address] [place], [place] [address] CNOVon 08-14-2024 CNOV Office Visit (UCWSTR ) -------- GUSTAVO DE ([id number]) 2000 F Date Time Provider Department 08/14/24 2:15 PM AMAN ALVAREZ [facility] During your visit today, we recorded the following information about you: Temperature Pulse Respiration Blood pressure 98.2 degrees 82/minute 18/minute 98/64 Weight 74.2 kg Aman Alvarez PA 08/14/2024 2:29 PM Signed This note was created using [employer]. Subjective Gustavo De is a 23 year [...] AND RSV PCR, ROUTINE [SQCVFLRS] Order #: [id number]. #:[id number] Prescriptions as of 08/14/2024 - famotidine (PEPCID) 40 mg tablet Take 1 tablet by mouth every 12 hours. - pantoprazole DR (PROTONIX) 40 mg tablet TAKE 1 TABLET BY MOUTH TWICE DAILY FOR 7 DAYS, THEN DECREASE TO 1 TABLET BY MOUTH DAILY. Problem List As Of Date: 08/14/2024 (None) Letter Text Encounter Status:Closed by AMAN ALVAREZ on 08/14/[address] [facility] 07-27-2024 36 Patient called in to get scheduled for her EGD. Patient now scheduled on 11/14/24 @ 10:30am with the arrival time of 9:30am with Dr. Morgan in [place]. [facility] schedule updated Order submitted Open Case request submitted Case # [id number] Endo packet mailed to patient Prep sent via [employer] if pt acct active Pt is aware they will need a courtesy van driver to take them home from procedure. Must be family member or friend. They cannot use any ride programs. Ex: Uber, Lyft, SCAT, bus, etc...) [facility] 07-26-2024 36 Returned pt call, pt did not answered, lmtcb [facility] 07-25-2024 36 Name of Caller: Valentin barr Contact Reason for Appointment: Patient called back to schedule EGD. Please call patient back to advise. Office Name: Gastroenterology Medication Refills need, if any: N/A Medication Name: N/A [facility] 07-24-2024 36 Patient returned alexandra l to office and is requesting a callback after 4pm when she is out of work to scheduled EGD. Please advise . [facility] 36 Lmtcb re: sx EGD. [facility] 2907-12-2024 29 Addended by: ARIAN JOSEPH on: 07/13/2024 01:58 PM Modules accepted: Level of Service [facility] 37on 07-12-2024 37 --Please call office with any questions or concerns! [phone] --request ED reports from [facility], specifically CT A/P, abdominal US and labs [...] following the above evaluation and recommendations. [facility] Progress Noteon 07-12-2024 Progress Note [facility] - [address] [address] Dept: [phone] Dept Loc: [phone] Visit type: New Patient was identified and [...] that they are currently in the state [facility]. If the patient is a [...] visit in March 2024. --request records from [facility] ED visits, specifically CT A/P, abdominal US, [...] are not available. Prior ED visit at [facility] on 04/14/2024 reviewed, however no work-up ordered per notes due to multiple prior neg work-up for same. She describes abdominal pain as dull. Pain occurs at random. Has had difficulty eating-was on primarily soft diet. PCP gave Rx for pantoprazole which has helped expand diet, but she has since discontinued. [place] PPI caused diarrhea and constipation. Nausea and [...] swelling Penicillin (more content not included)... Normal [facility] 06-30-2024 CNOV Office Visit (UCWSTR ) -------- GUSTAVO DE ([id number]) 2000 F Date Time Provider Department 06/30/24 3:15 PM RAUL RECIO [facility] During your visit today, we recorded [...] AND RSV PCR, ROUTINE [SQCVFLRS] Order #: [id number]. #:[id number] Prescriptions as of 06/30/2024 - famotidine (PEPCID) 40 mg tablet Take 1 tablet by mouth every 12 hours. - pantoprazole DR (PROTONIX) 40 mg tablet TAKE 1 TABLET BY MOUTH TWICE DAILY FOR 7 DAYS, THEN DECREASE TO 1 TABLET BY MOUTH DAILY. Problem List As Of Date: 06/30/2024 (None) Level of Service: OFFICE/OUTPATIENT [facility] 30 MINUTES [52741] Encounter Status:Closed by RAUL RECIO on 06/30/24 Normal [facility] COVID AND INFLUENZA A/B AND RSV PCR, ROUTINEon 06-30-2024 SARS-CoV-2 (COVID-19) RNA JACOB+probe Ql (Unsp spec) SARS-COV-2 (AGENT OF COVID-19) RNA: Not detected INFLUENZA A RNA: Not detected INFLUENZA B RNA: Not detected RESPIRATORY SYNCYTIAL VIRUS (RSV) RNA: Detected Abnormal [facility] Comment on above: Performed By: #### C VFLRS #### [facility] CLIA [id number] [address] [place] [address] [place] US PELVIS NON-OB [...] 05/23/2024 10:54:47 AM Ordering Provider: JONE RIOS [facility] CNOVon 05-15-2024 CNOV Office Visit (GYNMN) -------- GUSTAVO DE ([id number]) 2000 F Date Time Provider Department 05/15/24 [...] external genitalia normal, normal Bartholin's glands, urethra, Carpenter's glands, no vulvar lesions, normal appearing perineal body and perianal region BIMANUAL: uterus normal size, shape and consistency, no adnexal masses, and non-tender ASSESSMENT AND PLAN: Lower Abdominal Pain: - SIS ultrasound ordered to evaluate for endometrial polyp seen on OSH imaging -pt reports history of ovarian cysts. Will await results of US -we will communicate by Valdermt. Hong Farris MD Allergies As of Date: [...] pain in female [R10.2] Order(s):SONOHYSTEROGRAP HY (SIS) [facility] [[id number]] Order #: [id number]: 1 FUTURE Prescriptions as of 05/15/2024 - pantoprazole DR (PROTONIX) 40 mg tablet TAKE 1 TABLET BY MOUTH TWICE DAILY FOR 7 DAYS, THEN DECREASE TO 1 TABLET BY MOUTH DAILY. Problem List As Of Date: 05/15/2024 (None) Level of Service: OFFICE/OUTPATIENT NEW [facility] MDM 15 MINUTES [88750] LOS History for Encounter Level of Service: OFFICE/OUTPATIENT ESTABLISHED SF MDM 10 MIN[11665] Date AND Time: 05-15-2024 2:47 PM Recorded by User: HONG FARRIS Encounter Status:Closed by HONG FARRIS on 05/15/24 Normal [facility] US ABDOMEN LIMITEDon US ABDOMEN LIMITED ORIGINAL EXAMINATION: LIMITED ABDOMINAL [id number]/20/2024 9:35 am Limited ultrasound of the abdomen [...] 05/09/2024 9:53:20 AM Ordering Provider: AMAURI Maya [facility] ED Nursing Noteon 04-14-2024 ED Nursing Note Patient to the ED to day with c/o vomiting. Patient reports being in and out of the ED's lately with same complaint. Overnight began to spit up blood. Patient reports multiple XR, CT. Patient reports going to [place] for a lot of care. [facility] ED Provider Noteon ED Provider Note Emergency Department Encounter [facility] ED Patient: Gustavo De : 2000 Date of Evaluation: 04/14/2024 ED KRYSTAL Provider: Mary Kay Arndt, LEONARDA - TEACHER ASST Patient seen independently within my scope of practice with an Emergency Medicine attending available for supervision. Chief Complaint Chief Complaint Patient presents with Vomiting [place] I was wearing a N95, Surgical mask [...] Department Physician in the absence of a automation and controls instructor. see their note for interpretation of EKG. EMERGENCY DEPARTMENT COURSE and DIFFERENTIAL DIAGNOSIS/MDM: External Records Review: External ED note [facility] emergency room notes, labs, and imaging . [...] reviewed labs and imaging from [facility] emergency room. She has had multiple work [...] be best served by following with a insurance licensing supervisor since these symptoms are becoming chronic in [...] Discharge 04/14/2024 06:48:03 PM PATIENT REFERRED TO: [facility] ED [address] [place] [id number] Go to If symptoms worsen [facility] [place] [address] [facility] [address] DISCHARGE MEDICATIONS: New Prescriptions DICYCLOMINE (BENTYL) 20 MG TABLET Take 1 tablet (20 mg) by mouth 2 times daily for 10 days. PANTOPRAZOLE (PROTONIX) 20 MG EC TABLET Take 1 tablet (20 mg) by mouth daily f (more content not included)... Normal [facility] .Auto Diffon 04-12-2024 Basophil, Absolute 0.1 10 3/mcL Normal 0.0-0.2 [facility] Comment on above: Performed By: #### C BC, ADIFF, ANEU, MDW, LIP, MG, CMP, GFR ####[place] [address]Jmes[address] [place], [place] [address] Basophils/100 WBC (Bld) 0.7 % Normal 0.0-2.5 [facility] Comment on above: Performed By: #### C BC, ADIFF, ANEU, MDW, LIP, MG, CMP, GFR ####[place] Qcdzpyid5[address] [place], [place] [address] Eosinophil, Absolute 0.1 10 3/mcL Normal 0.0-0.7 [facility] Comment on above: Performed By: #### C BC, ADIFF, ANEU, MDW, LIP, MG, CMP, GFR ####[address] Dpvwmhiu[address] [place], [place] [address] Eosinophils/100 WBC (Bld) 1.1 % Normal 0.0-7.0 [facility] Comment on above: Performed By: #### C BC, ADIFF, ANEU, MDW, LIP, MG, CMP, GFR ####[place] Rzpygyzx[address] [place], [place] [address] Lymphocyte, Absolute 1.7 10 3/mcL Normal 0.9-4.3 [facility] Comment on above: Performed By: #### C BC, ADIFF, ANEU, MDW, LIP, MG, CMP, GFR ####[place] [address]xnspe[address] [place], [place] [address] Lymphocytes/100 WBC (Bld) 17.4 % Low 20.0-40.0 [facility] Comment on above: Performed By: #### C BC, ADIFF, ANEU, MDW, LIP, MG, CMP, GFR ####[address]fq[address] [place], [place] [address] Monocyte, Absolute 0.7 10 3/mcL Normal 0.1-1.4 [facility] Comment on above: Performed By: #### C BC, ADIFF, ANEU, MDW, LIP, MG, CMP, GFR ####[address] Pmisybww[address] [place], [place] [address] Monocytes/100 WBC (Bld) 7.4 % Normal 2.0-13.0 [facility] Comment on above: Performed By: #### C BC, ADIFF, ANEU, MDW, LIP, MG, CMP, GFR ####[place] Svgvlufr[address] [place], [place] [address] Neutrophils/100 WBC (Bld) 73.4 % Normal 50.0-75.0 [facility] Comment on above: Performed By: #### C BC, ADIFF, ANEU, MDW, LIP, MG, CMP, GFR ####[place] Xcpsiymp[address] [place], [place] [address] .GFRon 04-12-2024 GFR 118 ml/min/1.73sqm Normal [facility] Comment on above: Result Comment: GFR [...] ADIFF, ANEU, MDW, LIP, MG, CMP, GFR ####[place] [address]um[address] [place], [place] [address] GFR Non- 97 ml/min/1.73sqm Normal [facility] Comment on above: Result Comment: GFR [...] ADIFF, ANEU, MDW, LIP, MG, CMP, GFR ####[place] [address]cp[address] [place] [id number] .MDWon 04-12-2024 Monocyte Distribution Width 16.73 Normal 0.00-20.00 [facility] Comment on above: Result Comment: For ED adult patients suspected of sepsis, MDW<=20.0 does not rule out sepsis or risk of sepsis Performed By: #### C BC, ADMARILUZ, ANEU, MDW, LIP, MG, CMP, GFR ####[place] Rztfkygr[address] [place], [place] [address] .NEUABSon 04-12-2024 Neutrophil, Absolute 7.1 10 3/mcL Normal 2.3-8.1 [facility] Comment on above: Performed By: #### C BC, ADMARILUZ, ANEU, MDW, LIP, MG, CMP, GFR ####[facility] [place], [place] [address] .Urinalysis Microscopic (AO) on 04-12-2024 UA RBC LOADED Abnormal None Seen [facility] Comment on above: Performed By: #### U A, PREGU, UAMICAO #### [place] [address] [place], [place] [address] UA Squam Epithelial 0-5 Abnormal None Seen [facility] Comment on above: Performed By: #### U HELENA QuesadaU UAMICAO #### [address] [address] UA WBC 0-5 Abnormal None Seen [facility] Comment on above: Performed By: #### U A PREGU, UAMICAO #### [place] [address] CBCon 04-12-2024 Erythrocyte distribution width (RBC) [Ratio] 13.3 % Normal 11.5-15.5 [facility] Comment on above: Performed By: #### C BC, WILLIAN, ANEU, MDW, LIP, MG, CMP, GFR ####[place] Qtaxmrdn[address] [place] [address] Hematocrit (Bld) [Volume fraction] 40.0 % Normal 34.0-46.0 [facility] Comment on above: Performed By: #### C BC, ADIFF, ANEU, MDW, LIP, MG, CMP, GFR ####[place] [address] [place] [address] Hgb 13.7 G/dL Normal 12.0-16.0 [facility] Comment on above: Performed By: #### C BC, ADIFF, ANEU, MDW, LIP, MG, CMP, GFR ####[place] [address] MCH (RBC) [Entitic mass] 31.5 pg Normal 27.0-33.0 [facility] Comment on above: Performed By: #### C BC, ADIFF, ANEU, MDW, LIP, MG, CMP, GFR ####[place] [address] MCHC 34.3 G/dL Normal 32.0-36.0 [facility] Comment on above: Performed By: #### C BC, ADIFF, ANEU, MDW, LIP, MG, CMP, GFR ####[place] [address] MCV (RBC) [Entitic vol] 91.7 fL Normal 80.0-99.0 [facility] Comment on above: Performed By: #### C BC, ADIFF, ANEU, MDW, LIP, MG, CMP, GFR ####[address] [place], [place] [address] Platelet 328 10 3/mcL Normal 150-450 [facility] Comment on above: Performed By: #### C BC, ADIFF, ANEU, MDW, LIP, MG, CMP, GFR ####[address] [place], [place] [address] Platelet mean volume (Bld) [Entitic vol] 8.6 fL Normal 6.6-10.5 [facility] Comment on above: Performed By: #### C BC, ADIFF, ANEU, MDW, LIP, MG, CMP, GFR ####[place] [address]ogco[address] [place], [place] [address] RBC 4.36 10 6/mcL Normal 4.10-5.30 [facility] Comment on above: Performed By: #### C BC, ADIFF, ANEU, MDW, LIP, MG, CMP, GFR ####[place] Ndyhrbgf[address] [place], [place] [address] WBC 9.6 10 3/mcL Normal 4.5-10.8 [facility] Comment on above: Performed By: #### C BC, ADIFF, ANEU, MDW, LIP, MG, CMP, GFR ####[address] [address] [place] [address] CMPon 04-12-2024 Albumin Level 4.2 G/dL Normal 3.5-5.0 [facility] Comment on above: Performed By: #### C BC, ADIFF, ANEU, MDW, LIP, MG, CMP, GFR ####[address] Wulijoxf[address] [place], [place] [address] Albumin/Globulin [Mass ratio] 1.3 {ratio} Normal 1.1-2.5 [facility] Comment on above: Performed By: #### C BC, ADIFF, ANEU, MDW, LIP, MG, CMP, GFR ####[facility] [place], [place] [address] ALP [Catalytic activity/Vol] 72 U/L Normal 40-135 [facility] Comment on above: Performed By: #### C BC, ADIFF, ANEU, MDW, LIP, MG, CMP, GFR ####[facility] [place], [place] [address] ALT [Catalytic activity/Vol] 19 U/L Normal 14-59 [facility] Comment on above: Performed By: #### C BC, ADIFF, ANEU, MDW, LIP, MG, CMP, GFR ####[facility] [place], [place] [address] AST [Catalytic activity/Vol] 16 U/L Normal 10-40 [facility] Comment on above: Performed By: #### C BC, ADIFF, ANEU, MDW, LIP, MG, CMP, GFR ####[place] [address] [place], [place] [address] Bili Total 0.7 mg/dL Normal 0.2-1.0 [facility] Comment on above: Result Comment: Use of this assay is not recommended for patients undergoing treatment with eltrombopag due to the potential for falsely elevated results. Performed By: #### C BC, ADIFF, ANEU, MDW, LIP, MG, CMP, GFR ####[facility] [place], [place] [address] BUN/Creatinine Ratio 11 ratio Normal 7-27 [facility] Comment on above: Performed By: #### C BC, ADIFF, ANEU, MDW, LIP, MG, CMP, GFR ####[place] [address]jm[address] [place], [place] [address] Calcium [Mass/Vol] 9.5 mg/dL Normal 8.4-10.2 [facility] Comment on above: Performed By: #### C BC, ADIFF, ANEU, MDW, LIP, MG, CMP, GFR ####[facility] [place], [place] [address] Chloride [Moles/Vol] 102 mmol/L Normal 98-107 [facility] Comment on above: Performed By: #### C BC, ADIFF, ANEU, MDW, LIP, MG, CMP, GFR ####[place] [address] CO2 [Moles/Vol] 27 mmol/L Normal 22-29 [facility] Comment on above: Performed By: #### C BC, ADIFF, ANEU, MDW, LIP, MG, CMP, GFR ####[place] [id number] Creatinine [Mass/Vol] 0.73 mg/dL Normal 0.55-1.02 [facility] Comment on above: Result Comment: Test ing performed on Crescentrating Dimension EXL analyzer using a modified kinetic Aleida technique. Performed By: #### C BC, ADIFF, ANEU, MDW, LIP, MG, CMP, GFR ####[place] [address] Electrolyte Balance 9.0 mEq/L Normal 4.0-15.0 [facility] Comment on above: Performed By: #### C BC, ADIFF, ANEU, MDW, LIP, MG, CMP, GFR ####[place] [address] Globulin 3.2 G/dL Normal [facility] Comment on above: Performed By: #### C BC, ADIFF, ANEU, MDW, LIP, MG, CMP, GFR ####[place] [address] Glucose [Mass/Vol] 89 mg/dL Normal 70-105 [facility] Comment on above: Performed By: #### C BC, ADIFF, ANEU, MDW, LIP, MG, CMP, GFR ####[place] [id number] Potassium [Moles/Vol] 4.1 mmol/L Normal 3.5-5.1 [facility] Comment on above: Performed By: #### C BC, ADIFF, ANEU, MDW, LIP, MG, CMP, GFR ####[place] [address] Sodium [Moles/Vol] 138 mmol/L Normal 136-145 [facility] Comment on above: Performed By: #### C BC, ADMARILUZ, ANEU, MDW, LIP, MG, CMP, GFR ####[place] [address] [place], [place] [address] Total Protein 7.4 G/dL Normal 6.4-8.2 [facility] Comment on above: Performed By: #### C BC, ADIFF, ANEU, MDW, LIP, MG, CMP, GFR ####[place] [address] [place], [place] [address] Urea nitrogen [Mass/Vol] 8 mg/dL Normal 7-18 [facility] Comment on above: Performed By: #### C BC, ADIFF, ANEU, MDW, LIP, MG, CMP, GFR ####[place] [address] [place], [place] [address] CT ABD/PELVIS W/ IV CONTRAST ONLYon 04-12-2024 CT ABD/PELVIS W/ IV CONTRAST ONLY ORIGINAL EXAMINATION: CT OF THE ABDOMEN AND PELVIS WITH PSLZPAMQ54/24/2024 6:02 pm TECHNIQUE: CT of the abdomen [...] 04/12/2024 7:03:20 PM Ordering Provider: LAKSHMI Maya [facility]dered By: SYSTEM SYSTEM on 04-12-2024 [...] 04-12-2024 Lipase Level 25 U/L Normal 16-77 [facility] Comment on above: Performed By: #### C YESI, WILLIAN, GRACY, W, LIP, MG, CMP, GFR ####[place] [address] [place], [place] [address] MGon 04-12-2024 Magnesium [Mass/Vol] 1.8 mg/dL Normal 1.8-2.4 [facility] Comment on above: Performed By: #### C WILLIAN KEY ANEU, LAURA, LIP, MG, CMP, GFR ####[place] [address] [place], [place] [address] PREGUon 04-12-2024 HCG ( test) Ql (U) Negative Normal [facility] Comment on above: Performed By: #### U A, PREGU, UAMICAO #### [address] [address] test (u) int Not detected Invalid Interpretation Code [facility] Comment on above: Performed By: #### U A, PREGU, UAMICAO #### [address] [address] UAon 04-12-2024 Color (U) Yellow Normal [facility] Comment on above: Performed By: #### U A, PREGU, UAMICAO #### [address] [address] Glucose (U) [Mass/Vol] Negative Normal Negative [facility] Comment on above: Performed By: #### U A, PREGU, UAMICAO #### [address] [address] Ketones Ql (U) Negative Normal Negative [facility] Comment on above: Performed By: #### U A, PREGU, UAMICAO #### [address] [address] UA Appear Slightly Cloudy Abnormal Clear [facility] Comment on above: Performed By: #### U A, PREGU, UAMICAO #### [place] [address] UA Blood Large Abnormal Negative [facility] Comment on above: Performed By: #### U A, PREGU, UAMICAO #### [place] [address] UA Leuk Est Negative Normal Negative [facility] Comment on above: Performed By: #### U A, PREGU, UAMICAO #### [place] [address] UA Nitrite Negative Normal Negative [facility] Comment on above: Performed By: #### U A, PREGU, UAMICAO #### [place] [address] UA pH 5.5 Normal 5.0 - 8.0 [facility] Comment on above: Performed By: #### U A, PREGU, UAMICAO #### [place] [address] UA Protein Negative Normal Negative [facility] Comment on above: Performed By: #### U A, PREGU, UAMICAO #### [place] [address] UA Spec Grav >=1.030 Abnormal 1.015-1.025 [facility] Comment on above: Performed By: #### U A, PREGU, UAMICAO #### [place] [address] UA Specimen Type Clean Catch Normal [facility] Comment on above: Performed By: #### U A, PREGU, UAMICAO #### [place] [address] UA Urobilinogen 0.2 E.U./dL Normal 0.2-1.0 [facility] Comment on above: Performed By: #### U A, PREGU, UAMICAO #### [place] [address] Urobilinogen (U) [Mass/Vol] Negative Normal Negative [facility] Comment on above: Performed By: #### U PAVEL Quesada UAMICAO #### [facility] [address] [place], [place] [address] US PELVIS NON-OB W/TRANSVAGI NALon 04-10-2024 US [...] 04/10/2024 3:36:10 PM Ordering Provider: NOLAN Maya [facility]dered By: Jan Napier on 04-01-2024 [...] HCG ( test) Ql (U) Negative Normal [facility] Comment on above: Performed By: #### U A, PREGU ####[place] [address] [place], [place] [address] test (u) int Not detected Invalid Interpretation Code [facility] Comment on above: Performed By: #### U A, PREGU ####[place] [address] [place], [place] [address] UAon 04-01-2024 Color (U) Yellow Normal [facility] Comment on above: Performed By: #### U A, PREGU ####[place] Ejcbhmvs[address] [place], [place] [address] Glucose (U) [Mass/Vol] Negative Normal Negative [facility] Comment on above: Performed By: #### U A, PREGU ####[place] [address] [place] [address] Ketones Ql (U) Negative Normal Negative [facility] Comment on above: Performed By: #### U A, PREGU ####[place] Oswf[address] [place] [address] UA Appear Clear Normal Clear [facility] Comment on above: Performed By: #### U A, PREGU ####[place] [address]md[address] [address] UA Blood Trace Abnormal Negative [facility] Comment on above: Performed By: #### U A, PREGU ####[place] Vlexczrs[address] [address] UA Leuk Est Negative Normal Negative [facility] Comment on above: Performed By: #### U A, PREGU ####[place] [address]pcgtyd[address] [address] UA Nitrite Negative Normal Negative [facility] Comment on above: Performed By: #### U A, PREGU ####[place] [address] UA pH 5.5 Normal 5.0 - 8.0 [facility] Comment on above: Performed By: #### U A, PREGU ####[place] [address] [address] UA Protein Negative Normal Negative [facility] Comment on above: Performed By: #### U A, PREGU ####[place] Br[address]cfbmw[address] [address] UA Spec Grav <=1.005 Abnormal 1.015-1.025 [facility] Comment on above: Performed By: #### U A, PREGU ####[place] [address]fmaip[address] [address] UA Specimen Type Not Given Normal [facility] Comment on above: Performed By: #### U A, PREGU ####[place] [address] [address] UA Urobilinogen 0.2 E.U./dL Normal 0.2-1.0 [facility] Comment on above: Performed By: #### U A PREGU ####[place] [address] [place], [place] [address] Urobilinogen (U) [Mass/Vol] Negative Normal Negative [facility] Comment on above: Performed By: #### U A PREGU ####[place] [address]ph[address] [place], [place] [address] .Auto Diffon 03-18-2024 Basophil, Absolute 0.1 10 3/mcL Normal 0.0-0.2 [facility] Comment on above: Performed By: #### C YESI, GRACY DORSEY, MDW, CMP, GFR ####[place] [address]xuxbfq[address] [place], [place] [address] Basophils/100 WBC (Bld) 0.6 % Normal 0.0-2.5 [facility] Comment on above: Performed By: #### C YESI, WILLIAN, GRACY, MDW, CMP, GFR ####[place] [address]mo[address] [place], [place] [address] Eosinophil, Absolute 0.1 10 3/mcL Normal 0.0-0.7 [facility] Comment on above: Performed By: #### C BC, WILLIAN, GRACY, MDW, CMP, GFR ####[place] [address]wr[address] [place], [place] [address] Eosinophils/100 WBC (Bld) 0.6 % Normal 0.0-7.0 [facility] Comment on above: Performed By: #### C BC, WILLIAN, GRACY, MDW, CMP, GFR ####[place] Xs[address]ofkm[address] [place], [place] [address] Lymphocyte, Absolute 1.6 10 3/mcL Normal 0.9-4.3 [facility] Comment on above: Performed By: #### C BC, WILLIAN, ANEU, MDW, CMP, GFR ####[place] [address] [place], [place] [address] Lymphocytes/100 WBC (Bld) 13.9 % Low 20.0-40.0 [facility] Comment on above: Performed By: #### C BC, WILLIAN, GRACY, MDW, CMP, GFR ####[place] [address] [place], [place] [address] Monocyte, Absolute 0.8 10 3/mcL Normal 0.1-1.4 [facility] Comment on above: Performed By: #### C BC, WILLIAN, GRACY, MDW, CMP, GFR ####[place] [address] [place], [place] [address] Monocytes/100 WBC (Bld) 6.8 % Normal 2.0-13.0 [facility] Comment on above: Performed By: #### C BC, WILLIAN, GRACY, MDW, CMP, GFR ####[place] [address] [place], [place] [address] Neutrophils/100 WBC (Bld) 78.1 % High 50.0-75.0 [facility] Comment on above: Performed By: #### C BC, GRACY DORSEY, MDW, CMP, GFR ####[place] [address] [place], [place] [address] .GFRon 03-18-2024 GFR Non- 67 ml/min/1.73sqm Normal [facility] Comment on above: Result Comment: GFR [...] BC, WILLIAN, GRACY, MDW, CMP, GFR ####[place] Z[address]ysa[address] [place], [place] [address] GFR 81 ml/min/1.73sqm Normal [facility] Comment on above: Result Comment: GFR [...] KEY ANEU, MDW, CMP, GFR ####[place] [address] [place], [place] [address] .MDWon 03-18-2024 Monocyte Distribution Width 21.16 High 0.00-20.00 [facility] Comment on above: Result Comment: For adults in ED, MDW>20.0 may be associated with a higher risk of sepsis during the first 12hrs of hospital admission Performed By: #### C WILLIAN KEY ANEU, MDW, CMP, GFR ####[place] [address]ctsobs[address] [place], [place] [address] .NEUABSon 03-18-2024 Neutrophil, Absolute 8.9 10 3/mcL High 2.3-8.1 [facility] Comment on above: Performed By: #### C WILLIAN KEY ANEU, MDW, CMP, GFR ####[place] [address] [place], [place] [address] CBCon 03-18-2024 Erythrocyte distribution width (RBC) [Ratio] 13.4 % Normal 11.5-15.5 [facility] Comment on above: Performed By: #### C WILLIAN KEY ANEU, MDW, CMP, GFR ####[address] OdomDxhxkdzf[address] [place], [place] [address] Hematocrit (Bld) [Volume fraction] 38.4 % Normal 34.0-46.0 [facility] Comment on above: Performed By: #### C BC, WILLIAN, GRACY, MDW, CMP, GFR ####[place] R[address]rsllnp[address] [place], [place] [address] Hgb 12.7 G/dL Normal 12.0-16.0 [facility] Comment on above: Performed By: #### C BC, WILLIAN, ANEU, MDW, CMP, GFR ####[place] [address]ax[address] [place] [address] MCH (RBC) [Entitic mass] 30.3 pg Normal 27.0-33.0 [facility] Comment on above: Performed By: #### C BC, WILLIAN, GRACY, MDW, CMP, GFR ####[place] [address] [place] [address] MCHC 33.1 G/dL Normal 32.0-36.0 [facility] Comment on above: Performed By: #### C YESI, WILLIAN, GRACY, MDW, CMP, GFR ####[place] Yqnhjhth[address] [place] [address] MCV (RBC) [Entitic vol] 91.6 fL Normal 80.0-99.0 [facility] Comment on above: Performed By: #### C YESI, WILLIAN, GRACY, MDW, CMP, GFR ####[place] Xf[address]ch[address] [place], [place] [address] Platelet 347 10 3/mcL Normal 150-450 [facility] Comment on above: Performed By: #### C BC, WILLIAN, GRACY, MDW, CMP, GFR ####[place] L[address]ow[address]ax[address] [place], [place] [address] Platelet mean volume (Bld) [Entitic vol] 8.6 fL Normal 6.6-10.5 [facility] Comment on above: Performed By: #### C BC, WILLIAN, ANEU, MDW, CMP, GFR ####[place] [address]lquk[address] [place], [place] [address] RBC 4.19 10 6/mcL Normal 4.10-5.30 [facility] Comment on above: Performed By: #### C WILLIAN KEY ANEU, MDW, CMP, GFR ####[place] [address] [place], [place] [address] WBC 11.4 10 3/mcL High 4.5-10.8 [facility] Comment on above: Performed By: #### C WILLIAN KEY ANEU, MDW, CMP, GFR ####[place] Lrehfjbk[address] [place], [place] [address] CMPon 03-18-2024 Albumin Level 4.2 G/dL Normal 3.5-5.0 [facility] Comment on above: Performed By: #### C WILLIAN KEY ANEU, MDW, CMP, GFR ####[place] Rahrudvb[address] [place], [place] [address] Albumin/Globulin [Mass ratio] 1.4 {ratio} Normal 1.1-2.5 [facility] Comment on above: Performed By: #### C WILLIAN KEY ANEU, MDW, CMP, GFR ####[place] Wjzeluih[address] [place], [place] [address] ALP [Catalytic activity/Vol] 78 U/L Normal 40-135 [facility] Comment on above: Performed By: #### C WILLIAN KEY ANEU, MDW, CMP, GFR ####[place] Pxnltzit[address] [place], [place] [address] ALT [Catalytic activity/Vol] 20 U/L Normal 14-59 [facility] Comment on above: Performed By: #### C WILLIAN KEY ANEU, MDW, CMP, GFR ####[address] [place], [place] [address] AST [Catalytic activity/Vol] 14 U/L Normal 10-40 [facility] Comment on above: Performed By: #### C WILLIAN KEY ANEU, MDW, CMP, GFR ####[place] Eztvsdre[address] [place], [place] [address] Bili Total 0.7 mg/dL Normal 0.2-1.0 [facility] Comment on above: Result Comment: Use of this assay is not recommended for patients undergoing treatment with eltrombopag due to the potential for falsely elevated results. Performed By: #### C YESI, GRACY DORSEY MDW, CMP, GFR ####[address] [place], [place] [address] BUN/Creatinine Ratio 9 ratio Normal 7-27 [facility] Comment on above: Performed By: #### C YESI, GRACY DORSEY, W, CMP, GFR ####[place] Tyzmbxou[address] [place], [place] [address] Calcium [Mass/Vol] 9.5 mg/dL Normal 8.4-10.2 [facility] Comment on above: Performed By: #### C WILLIAN KEY ANEU, MDW, CMP, GFR ####[address] [place] [id number] Chloride [Moles/Vol] 101 mmol/L Normal 98-107 [facility] Comment on above: Performed By: #### C WILLIAN KEY ANEU, MDW, CMP, GFR ####[address] [place] [id number] CO2 [Moles/Vol] 26 mmol/L Normal 22-29 [facility] Comment on above: Performed By: #### C WILLIAN KEY ANEU, MDW, CMP, GFR ####[address] [place] [id number] Creatinine [Mass/Vol] 1.01 mg/dL Normal 0.55-1.02 [facility] Comment on above: Result Comment: Test ing performed on Siemens Dimension EXL analyzer using a modified kinetic Aleida technique. Performed By: #### C WILLIAN KEY ANEU, MDW, CMP, GFR ####[address] [place], [place] [address] Electrolyte Balance 11.0 mEq/L Normal 4.0-15.0 [facility] Comment on above: Performed By: #### C WILLIAN KEY ANEU, MDW, CMP, GFR ####[address] [place] [id number] Globulin 3.1 G/dL Normal [facility] Comment on above: Performed By: #### C YESI, GRACY DORSEY, W, CMP, GFR ####[address] [place], [place] [address] Glucose [Mass/Vol] 101 mg/dL Normal 70-105 [facility] Comment on above: Performed By: #### C WILLIAN KEY ANEU, W, CMP, GFR ####[address] [place], [place] [address] Potassium [Moles/Vol] 4.3 mmol/L Normal 3.5-5.1 [facility] Comment on above: Performed By: #### C WILLIAN KEY ANEU, MDW, CMP, GFR ####[address] [place], [place] [address] Sodium [Moles/Vol] 138 mmol/L Normal 136-145 [facility] Comment on above: Performed By: #### C WILLIAN KEY ANEU, MDW, CMP, GFR ####[address] [place], [place] [address] Total Protein 7.3 G/dL Normal 6.4-8.2 [facility] Comment on above: Performed By: #### C WILLIAN KEY ANEU, MDW, CMP, GFR ####[address] [place], [place] [address] Urea nitrogen [Mass/Vol] 9 mg/dL Normal 7-18 [facility] Comment on above: Performed By: #### C WILLIAN KEY ANEU, MDW, CMP, GFR ####[address] [place], [place] [address] CT THORAX W/ CONTRASTon 02-19 CT THORAX [...] 03/18/2024 3:06:22 PM Ordering Provider: NAUN Maya [facility] DIMERon 03-18-2024 D-Dimer <200 Normal 0-230 [facility] Comment on above: Result Comment: DDN: [...] Performed By: #### D DEVI #### [address] [place], [place] [address] LABORATORYOrdered By: SYSTEM SYSTEM on 03-18-2024 Albumin [...] 03/18/2024 1:42:34 PM Ordering Provider: NAUN Maya [facility] CT WRIST W/O CONTRAST RIGHTo n [...] Date: 09/01/2022 4:53:37 PM Ordering Provider: SHASTA Maya [facility] ([place]) XR HAND AND WRIST 6 VIEWS [facility] 08-21-2022 XR HAND AND WRIST 6 [...] 08/21/2022 2:28:29 PM Ordering Provider: CORTNEY Maya [facility] ([place]) MR/BRITTNY.Viv 08-10-2021 MR/BMS.WILBERC [facility] [address] [place] [address] OFFICE VISIT Date of Service: 08/10/21 MR#: [id number] Acct: [id number] Name: GUSTAVO DE Rep #: [id number] : 2000 Provider: CHRISTINE cannon Age/Sex: 20/F [place] [facility] [place]: Signed Intake Intake Visit Reasons: help [...] and examination of lactating mother Z39.1 08/12/21 2555 Date Nikki Noland NP [employer] SUPERVISOR-C Ebony Signature: Date (if applicable) CC: Dr. Amauri Hines, DO Normal [facility] Glucose,Bedsideon 07-22-2017 Glucose mass conc 312 mg/dL High 70-100 [facility] Comment on above: Result Comment: Test performed by glucose meter. Results may be 10%-15% lowerthan serum/plasma values. (CLIA ID [id number]) Performed By: #### B GLU ####[address] [place] [address] Glucose mass conc 100 mg/dL Normal 70-100 [facility] Comment on above: Result Comment: Test performed by glucose meter. Results may be 10%-15% lowerthan serum/plasma values. (CLIA ID [id number]) Performed By: #### B GLU ####[address] [address] CR Chest Portableon 07-11-19 18 CR Chest Portable Patient Name: GUSTAVO DE Diagnostic Radiology Exam Date/Time 07/10/2017 22:45:00 EST Exam CR Chest Portable Ordering Physician MD MELGOZA THERESA A. 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 TECHNIQUE: Single frontal view [...] Transcribed Date and Time: 07/10/2017 10:[address] [facility] CT Head or Brain w/o Contras ton 07-11-2017 CT Head or Brain w/o Contrast Patient Name: GUSTAVO DE CT Exam Date/Time 07/10/2017 22:59:[address] Head or Brain w/o Contrast Ordering Physician MD ABAD, RUSSELL Quezada Accession Number [id number] CPT4 Codes 46294 () Reason For Exam EPILEPSY Report CT [...] R Transcribed Date and Time: 07/10/2017 11:08 [facility] ED NOTEon 07-04-2017 ED NOTE HNO ID: [id number] Author: Serafin (Rn) FABIAN Payne Service: Emergency Medicine Author Type: Registered Nurse Type: ED Notes Filed: 07/04/2017 4:17 AM Note Text: Report given to [facility] ED PROV NOTEon 07-04-2017 ED PROV NOTE HNO ID: [id number]: RAJENDRA Del Valleervice: Emergency MedicineAuthor Type: PhysicianType: [...] kg (125 lb) SpO2 98% BMI 20.8 kg/e2Vtlfjay items are:Consult:NoneLabs:Non eImaging:NoneDisposition : [facility] includes: psychosisPatient without any further issues in the ED. Transferred to [facility] instable condition.Brigida Kovacs (Res) Matias Ferrarident07/04/17 0720ATTENDING [...] theemergency resident myself. She'll be transferred to [facility] for furtherevaluation and treatment.Nelsy Garcia MD07/05/17 0524 Normal [facility] Acetaminophenon 07-03-2017 Acetaminophen mass conc <2 Low 10-30 [facility] Comment on above: Performed By: #### A CTMN ####[place] [address] Alcohol, Serumon 07-03-2017 Alcohol, Serum < 3 Normal [facility] Comment on above: Performed By: #### A LC ####[address] [address] Comprehensive Panelon 2017 Alkaline phosphatase (ALP) 72 U/L Normal 46-116 [facility] Comment on above: Performed By: #### P 14 ####[place] [address] Bilirubin Ql (U) 0.5 mg/dL Normal 0.2-1.0 [facility] Comment on above: Performed By: #### P 14 ####[facility] [place], [place] [address] Protein 8.1 g/dL Normal 6.4-8.2 [facility] Comment on above: Performed By: #### P 14 ####[facility] [place], [place] [address] Alanine aminotransferase (ALT) 25 U/L Normal 12-78 [facility] Comment on above: Performed By: #### P 14 ####[facility] [place], [place] [address] Aspartate aminotransferase (AST) 20 U/L Normal 9-37 [facility] Comment on above: Performed By: #### P 14 ####[address] [address] Creatinine 0.76 mg/dL Normal 0.51-0.95 [facility] Comment on above: Performed By: #### P 14 ####[address] [address] Albumin 4.3 g/dL Normal 3.4-5.0 [facility] Comment on above: Performed By: #### P 14 ####[address] [address] Anion gap 10 mmol/L Normal 8-16 [facility] Comment on above: Performed By: #### P 14 ####[address] [address] Calcium 9.1 mg/dL Normal 8.5-10.1 [facility] Comment on above: Performed By: #### P 14 ####[address] [address] CO2 21 mmol/L Normal 21-32 [facility] Comment on above: Performed By: #### P 14 ####[address] [address] Glucose mass conc 85 mg/dL Normal 70-99 [facility] Comment on above: Performed By: #### P 14 ####[place] [address] Urea nitrogen 10 mg/dL Normal 7-18 [facility] Comment on above: Performed By: #### P 14 ####[facility] [place], [place] [address] Chloride 108 mmol/L High 98-107 [facility] Comment on above: Performed By: #### P 14 ####[facility] [place], [place] [address] Potassium molar conc 3.4 mmol/L Low 3.5-5.1 [facility] Comment on above: Performed By: #### P 14 ####[facility] [place] [address] Sodium 136 mmol/L Normal 136-145 [facility] Comment on above: Performed By: #### P 14 ####[facility] [place] [address] ED NOTEon 07-03-2017 ED NOTE HNO ID: [id number]: Serafin OliviaRn) BIJAL Payneervice: Emergency MedicineAuthor Type: Registered NurseType: ED NotesFiled: 07/03/2017 9:28 PMNote Text: Pt combative AND screaming at nursing staff AND bedside caregiver. Throwingbloody sheets and tampon, refusing to cooperate with staff. Dr. Leonardnotified. Orders received. Security notified to be at bedside to assistwith medication administration. [facility] ED NOTE HNO ID: [id number] Author: Serafin OliviaRn) FABIAN Payne Service: Emergency Medicine Author Type: Registered Nurse Type: ED Notes Filed: 07/03/2017 9:00 PM Note Text: Pt pulled out her own tampon, blood dripping on bed. Refusing to be cleaned up at this time. [facility] ED NOTE HNO ID: [id number]: Serafin OliviaRn) BIJAL Payneervice: Emergency MedicineAuthor Type: Registered NurseType: ED NotesFiled: 07/03/2017 8:44 PMNote Text: Pt screaming out at family for unknown reason; addressed personal needsand environment. Pt does not want anything at this time. Dr. Leonard [facility]. [facility] ED NOTE HNO ID: [id number] Author: Kalyeigh OliviaRnMaria L Greenberg RN Service: Emergency Medicine Author Type: Registered Nurse Type: ED Notes Filed: 07/03/2017 8:21 PM Note Text: Call to DR Green to [facility]. [facility] notified of transfer awaitng return call re report [facility] ED NOTE HNO ID: [id number] Author: Lisette OliviaRn) FABIAN Snow Service: Emergency Medicine Author Type: Registered Nurse Type: ED Notes Filed: 07/03/2017 6:19 PM Note Text: Wanda Kaur (psych nurse) and Dr Leonard aware mother was here to visit pt [facility] ED NOTE HNO ID: [id number]: Lisette OliviaRn) BIJAL Snowervice: Emergency MedicineAuthor Type: Registered NurseType: ED NotesFiled: 07/03/2017 5:40 PMNote Text: Pt got 2.5mg of Haldol instead of 5mg due to pt jerking it out. Dr Salomón Leonard aware and stated it was ok. Pt was screaming and yellingshe was sorry. [facility] ED NOTE HNO ID: [id number] Author: Lisette OliviaRn) FABIAN Snow Service: Emergency Medicine Author Type: Registered Nurse Type: ED Notes Filed: 07/03/2017 4:57 PM Note Text: Teri in with pt [facility] ED NOTE HNO ID: [id number] Author: Nika OliviaRnMaria L Petersen RN Service: Emergency Medicine Author Type: Registered Nurse Type: ED Notes Filed: 07/03/2017 4:18 PM Note Text: Pt. Taken to CT with RN and security. Unable to obtain scan due to Pt. Moving. aware. [facility] ED NOTE HNO ID: [id number]: Mellissa OliviaRn) BIJAL Nixonervice: Emergency MedicineAuthor Type: Registered NurseType: ED NotesFiled: 07/03/2017 3:35 PMNote Text: PATH NURSE UNABLE TO OBTAIN ANY INFO FROM PT. PER PATH, WILL NEED TO BERECONSULTED WHEN PT ABLE TO COMMUNICATE WITH PATH RN. METAL CLAMP FOUND INPT POCKET . SECURITY INFORMED. LOCKED IN LOCKER AND DOCUMENTED. [facility] ED NOTE HNO ID: [id number] Author: Mellissa (Rn) Tiffani RN Service: Emergency Medicine Author Type: Registered Nurse Type: ED Notes Filed: 07/03/2017 3:28 PM Note Text: PATH NURSE NIYAH AT BEDSIDE. OK TO OBTAIN URINE ORDERED BY Normal [facility] ED NOTE HNO ID: [id number]: Mellissa OliviaRn) BIJAL Nixonervice: Emergency MedicineAuthor Type: [...] NOT RESPOND WHEN ASKED IF HOMICIDAL Normal [facility] ED PROV NOTEon 07-03-2017 ED PROV NOTE HNO ID: [id number]: Michelle Marx, DOService: Emergency MedicineAuthor Type: PhysicianType: [...] DO3:19 PMPoojohn Shin Marx, DO07/03/17 1703 Normal [facility] ED PROV NOTE HNO ID: [id number]: Michelle Marx DOService: Emergency MedicineAuthor Type: PhysicianType: ED Provider NotesFiled: 07/05/2017 7:01 AMNote Text:ED Provider NotePatient Name: Adriana DeMRN: [id number] DATE: 07/03/17HistoryPatient presents with:Altered Level Of ConsciousnessHPI Comments: History of present illness: Patient is an 16-year-old femalepresenting for strange behavior. [facility]. Apparently, the patient has beenacting erratically for the past few days. [facility] that [facility] was eating dirt and [...] evaluated by psychiatry, as well as bythe [facility] nursing team. Further management per results of [...] drug-induced orprimary. Patient will be [facility] to [facility] emergency services forfurther management.Addendum: Patient become more agitated, taking out her tampon, smearingblood, screaming. Given this, decision was made to chemically restrain thepatient. Patient given benadryl, ativan, haloperidol. Patient will besigned out to Dr. Jo-Ann Ferrari pending transfer.PlanThe Patient was TRANSFERRED to: [facility] at time of disposition: stableSIGNATURE: Jose Luis Leonard, MDPeter (Res) Alli, VCJosnretr50/14/18 2047Peter (Res) Alli, AKZiuwadtu22/14/18 2121Pooja Shin Marx, DO07/05/17 0701 Normal [facility] Hemogram/Diffon 07-03-2017 Abs Immature Grans 0.04 thou/cmm Normal 0.00-0.05 [facility] Comment on above: Performed By: #### C BCD1 ####[place] [address] Abs. Baso 0.09 thou/cmm High 0.01-0.08 [facility] Comment on above: Performed By: #### C BCD1 ####[place] [address] Abs. [place] 1.13 thou/cmm High 0.27-0.70 [facility] Comment on above: Performed By: #### C BCD1 ####[address] [address] Abs. Neut 9.52 thou/cmm High 1.56-6.13 [facility] Comment on above: Performed By: #### C BCD1 ####[address] [address] Basophils/100 WBC Auto (Bld) 0.7 % Normal [facility] Comment on above: Performed By: #### C BCD1 ####[address] [address] Eosinophils 0.07 thou/cmm Normal 0.00-0.31 [facility] Comment on above: Performed By: #### C BCD1 ####[address] [address] Eosinophils/100 leukocytes 0.5 % Normal [facility] Comment on above: Performed By: #### C BCD1 ####[address] [address] Erythrocyte distribution width Auto Ratio (RBC) 12.2 % Normal 11.7-14.4 [facility] Comment on above: Performed By: #### C BCD1 ####[place] [address] Erythrocytes (RBC) 4.54 mil/cmm Normal 3.93-5.22 [facility] Comment on above: Performed By: #### C BCD1 ####[place] [address] Hematocrit (HCT) 40.9 % Normal 34.1-44.9 [facility] Comment on above: Performed By: #### C BCD1 ####[place] [address] Hemoglobin mass conc (Bld) 14.1 g/dL Normal 11.2-15.7 [facility] Comment on above: Performed By: #### C BCD1 ####[place] [address] Immature Grans 0.30 % Normal [facility] Comment on above: Performed By: #### C BCD1 ####[place] [address] Lymphocytes 2.16 thou/cmm Normal 1.18-3.74 [facility] Comment on above: Performed By: #### C BCD1 ####[place] [address] Lymphocytes/100 leukocytes 16.6 % Normal [facility] Comment on above: Performed By: #### C BCD1 ####[place] [address] MCH 31.1 pg Normal 25.6-32.2 [facility] Comment on above: Performed By: #### C BCD1 ####[place] [address] MCHC mass conc (RBC) 34.5 % Normal 31.6-34.8 [facility] Comment on above: Performed By: #### C BCD1 ####[place] [address] MCV 90.1 fL Normal 79.4-94.8 [facility] Comment on above: Performed By: #### C BCD1 ####[place] [address] Monocytes/100 leukocytes 8.7 % Normal [facility] Comment on above: Performed By: #### C BCD1 ####[place] [address] Platelet mean volume (PMV) 11.3 fL Normal 9.4-12.3 [facility] Comment on above: Performed By: #### C BCD1 ####[place] [address] Platelets 338 thou/cmm Normal 182-369 [facility] Comment on above: Performed By: #### C BCD1 ####[place] [address] RDW SD 40.0 fl Normal 36.4-46.3 [facility] Comment on above: Performed By: #### C BCD1 ####[place] [address] Seg Neutrophil 73.2 % Normal [facility] Comment on above: Performed By: #### C BCD1 ####[place] [address] WBC (Leukocytes) 13.01 thou/cmm High 3.98-10.04 [facility] Comment on above: Performed By: #### C BCD1 ####[place] [address] MDRD GFRon 07-03-2017 eGFR (non-black) mL/min/{1.73_m2} Normal >60mL/m in/1 .73m2 [facility] Comment on above: Result Comment: If t he patient is , multiply the result by 1.210. Performed By: #### G FR ####[facility] [place], [place] [address] Salicylateon 07-03-2017 Salicylate 4.5 mg/dL Normal 2.8-20.0 [facility] Comment on above: Performed By: #### S AL ####[place] [address] Urinalysis Routineon 018 Ep Cells Urine 4.9 /hpf Normal 0.0-5.0 [facility] Comment on above: Performed By: #### U RIN2 ####[place] [address] Hyaline Cast 1.1 /lpf High 0.0-1.0 [facility] Comment on above: Performed By: #### U RIN2 ####[place] [address] Urine, bacteria in sediment NONE Normal None [facility] Comment on above: Performed By: #### U RIN2 ####[place] [address] Urine, erythrocytes in sediment by area 3.0 /[HPF] Normal 0.0-5.0 [facility] Comment on above: Performed By: #### U RIN2 ####[place] [address] Urine, leukocytes in sedmiment 2.2 /[HPF] Normal 0.0-5.0 [facility] Comment on above: Performed By: #### U RIN2 ####[place] [address] Bilirubin Urine Negative Normal Negative [facility] Comment on above: Performed By: #### U RIN2 ####[place] [address] Hemoglobin,Urine TRACE Abnormal Negative [facility] Comment on above: Performed By: #### U RIN2 ####[address] [address] Ketone Urine 40 mg/dL Abnormal Negative [facility] Comment on above: Performed By: #### U RIN2 ####[address], [place] [address] Nitrites Urine Negative Normal Negative [facility] Comment on above: Performed By: #### U RIN2 ####[address] [address] Protein Urine Negative Normal Negative [facility] Comment on above: Performed By: #### U RIN2 ####[place] [address] Specific [place], [place] 1.017 Normal 1.005-1.030 [facility] Comment on above: Performed By: #### U RIN2 ####[place] [address] Urine, appearance CLEAR Normal [facility] Comment on above: Performed By: #### U RIN2 ####[place] [address] Urine, color YELLOW Normal [facility] Comment on above: Performed By: #### U RIN2 ####[place] [address] Urine, glucose presence Negative Normal Negative [facility] Comment on above: Performed By: #### U RIN2 ####[place] [address] Urine, pH 5.5 [pH] Normal 5.0-8.0 [facility] Comment on above: Performed By: #### U RIN2 ####[place] [address] Urobilinogen,Ur 0.2 EU/dL Normal 0.0-1.0 [facility] Comment on above: Performed By: #### U RIN2 ####[place] [address] WBC (Leukocytes) Negative Normal Negative [facility] Comment on above: Performed By: #### U RIN2 ####[place] [address] Urine Drug Screenon 07-03-19 18 Urine Amphetamine Non-detected Normal Non-Detect e d [facility] Comment on above: Performed By: #### U DRG2 ####[address] [place], [place] [address] Urine Barbiturates Non-detected Normal Non-Detec te d [facility] Comment on above: Performed By: #### U DRG2 ####[facility] [place], [place] [address] Urine Benzodiazepine Non-detected Normal Non-Det ecte d [facility] Comment on above: Performed By: #### U DRG2 ####[facility] [place], [place] [address] Urine Cocaine Metab Non-detected Normal Non-Dete cte d [facility] Comment on above: Performed By: #### U DRG2 ####[address] [address] Urine Opiate Non-detected Normal Non-Detecte d [facility] Comment on above: Performed By: #### U DRG2 ####[address] [address] Urine PCP Non-detected Normal Non-Detecte d [facility] Comment on above: Performed By: #### U DRG2 ####[address] [address] Urine THC see below Normal Non-Detecte d [facility] Comment on above: Result Comment: Dete [...] diagnosticpurposes only. Performed By: #### U DRG2 ####[address] [address] Urine Alcohol NON-DETECTED Normal [facility] Comment on above: Result Comment: >or= 50 mg/dl ethyl alcohol is considered detected in urine. Performed By: #### U DRG2 ####[facility] [place], [place] [address] Urine HCG, Qual.on 8 HCG.beta subunit ( test) Ql (U) Negative Normal Negative [facility] Comment on above: Performed By: #### H CGUR ####[facility] [place], [place] [address] Specific [place], [place] 1.017 Normal 1.005-1.030 [facility] Comment on above: Performed By: #### H CGUR ####[facility] [place], [place] [address] Vital Signs Date Time Vital Sign Value Performing Clinician Facility 02-28-2025 10:35-0400 Diastolic blood pressure 66 mm[Hg] Adrian Valero MD Work Phone: [facility] 02-28-2025 10:35-0400 Heart rate 86 /min Adrian Valero MD Work Phone: [facility] 02-28-2025 10:35-0400 Respiratory rate 18 /min Adrian Valero MD Work Phone: [facility] 02-28-2025 10:35-0400 Systolic blood pressure 131 mm[Hg] Adrian Valero MD Work Phone: [facility] 02-28-2025 10:26-0400 SaO2% (BldA) [Mass fraction] 100 % Adrian Valero MD Work Phone: [facility] 02-28-2025 09:37-0400 Body temperature 96.1 [degF] Adrian Valero MD Work Phone: [facility] 02-28-2025 08:55-0400 Body height 154.9 cm Adrian Valero MD Work Phone: [facility] 02-28-2025 08:55-0400 Body mass index (BMI) [Ratio] 31.18 kg/m2 Adrian Valero MD Work Phone: [facility] 02-28-2025 08:55-0400 Body weight 74.84 kg Adrian Valero MD Work Phone: [facility] [employer] 01-16-2025 08:40-0400 Diastolic blood pressure 70 mm[Hg] Alvarado Morgan MD Work Phone: [facility] [employer] 01-16-2025 08:40-0400 Heart rate 60 /min Alvarado Morgan MD Work Phone: [facility] [employer] 01-16-2025 08:40-0400 Respiratory rate 16 /min Alvarado Morgan MD Work Phone: [facility] [employer] 01-16-2025 08:40-0400 SaO2% (BldA) [Mass fraction] 95 % Alvarado Morgan MD Work Phone: [facility] [employer] 01-16-2025 08:40-0400 Systolic blood pressure 108 mm[Hg] Alvarado Morgan MD Work Phone: [facility] [employer] 01-16-2025 07:46-0400 Body temperature 97 [degF] Alvarado Morgan MD Work Phone: [facility] [employer] 01-16-2025 06:47-0400 Body height 154.9 cm Alvarado Morgan MD Work Phone: [facility] [employer] 01-16-2025 06:47-0400 Body mass index (BMI) [Ratio] 31.18 kg/m2 Alvarado Morgan MD Work Phone: [facility] [employer] 01-16-2025 06:47-0400 Body weight 74.84 kg Alvarado Morgan MD Work Phone: [facility] [employer] 11-14-2024 10:55-0400 Diastolic blood pressure 63 mm[Hg] Alvarado Morgan MD Work Phone: [facility] [employer] 11-14-2024 10:55-0400 Heart rate 73 /min Alvarado Morgan MD Work Phone: [facility] [employer] 11-14-2024 10:55-0400 SaO2% (BldA) [Mass fraction] 99 % Alvarado Morgan MD Work Phone: [facility] [employer] 11-14-2024 10:55-0400 Systolic blood pressure 103 mm[Hg] Alvarado Morgan MD Work Phone: [facility] 11-14-2024 10:19-0400 Body temperature 97.5 [degF] Alvarado Morgan MD Work Phone: [facility] 11-14-2024 10:19-0400 Respiratory rate 16 /min Alvarado Morgan MD Work Phone: [facility] 11-14-2024 09:43-0400 Body height 154.9 cm Alvarado Morgan MD Work Phone: [facility] 11-14-2024 09:43-0400 Body mass index (BMI) [Ratio] 31.18 kg/m2 Alvarado Morgan MD Work Phone: [facility] 11-14-2024 09:43-0400 Body weight 74.84 kg Alvarado Morgan MD Work Phone: [facility] 08-14-2024 14:14-0500 Body temperature 98.2 [degF] Krislyn Aberegg PA Work Phone: [facility] 08-14-2024 14:14-0500 Body weight 74.2 kg Krislyn Aberegg PA Work Phone: [facility] 08-14-2024 14:14-0500 Diastolic blood pressure 64 mm[Hg] Krislyn Aberegg PA Work Phone: [facility] 08-14-2024 14:14-0500 Heart rate 82 /min Krislyn Aberegg PA Work Phone: [facility] 08-14-2024 14:14-0500 Respiratory rate 18 /min Krislyn Aberegg PA Work Phone: [facility] 08-14-2024 14:14-0500 SaO2% (BldA) [Mass fraction] 95 % Krislyn Aberegg PA Work Phone: [facility] 08-14-2024 14:14-0500 Systolic blood pressure 98 mm[Hg] Krislyn Aberegg PA Work Phone: [facility] 07-27-2024 14:31-0500 Body height 157.5 cm [facility] [employer] Work Phone: [facility] 07-27-2024 14:31-0500 Body mass index (BMI) [Ratio] 31.09 kg/m2 [facility] [employer] Work Phone: [facility] 07-27-2024 14:31-0500 Body weight 77.11 kg [facility] [employer] Work Phone: [facility] 06-30-2024 15:25-0500 Body temperature 99.1 [degF] Raul Recio MD Work Phone: [facility] 06-30-2024 15:25-0500 Body weight 77.4 kg Raul Recio MD Work Phone: [facility] 06-30-2024 15:25-0500 Diastolic blood pressure 66 mm[Hg] Raul Recio MD Work Phone: [facility] 06-30-2024 15:25-0500 Heart rate 90 /min Raul Recio MD Work Phone: [facility] 06-30-2024 15:25-0500 Respiratory rate 20 /min Raul Recio MD Work Phone: [facility] 06-30-2024 15:25-0500 SaO2% (BldA) [Mass fraction] 98 % Raul Recio MD Work Phone: [facility] 06-30-2024 15:25-0500 Systolic blood pressure 108 mm[Hg] Raul Recio MD Work Phone: [facility] 05-15-2024 14:15-0500 Body weight 75.9 kg Hong Farris MD Work Phone: [facility] 05-15-2024 14:15-0500 Diastolic blood pressure 64 mm[Hg] Hong Farris MD Work Phone: [facility] 05-15-2024 14:15-0500 Systolic blood pressure 112 mm[Hg] Hong Farris MD Work Phone: [facility] 04-14-2024 17:32-0400 Body temperature 97.3 [degF] [facility] [employer] 04-14-2024 17:32-0400 Diastolic blood pressure 66 mm[Hg] [facility] [employer] 04-14-2024 17:32-0400 Heart rate 65 /min [facility] [employer] 04-14-2024 17:32-0400 Respiratory rate 20 /min [facility] [employer] 04-14-2024 17:32-0400 SaO2% (BldA) [Mass fraction] 97 % [facility] [employer] 04-14-2024 17:32-0400 Systolic blood pressure 111 mm[Hg] [facility] [employer] 04-12-2024 19:52-0400 Diastolic Blood Pressure Non-Invasive 59 mm[Hg] KENTON FROMMELT DO [facility] 04-12-2024 19:52-0400 Heart rate 65 /min KENTON FROMMELT DO [facility] 04-12-2024 19:52-0400 Mean blood pressure 72 mm[Hg] KENTON FROMMELT DO [facility] 04-12-2024 19:52-0400 Respiratory rate 18 /min KENTON FROMMELT DO [facility] 04-12-2024 19:52-0400 Systolic Blood Pressure Non-Invasive 99 mm[Hg] KENTON FROMMELT DO [facility] 04-12-2024 19:00-0400 Diastolic Blood Pressure Non-Invasive 58 mm[Hg] KENTON FROMMELT DO [facility] 04-12-2024 19:00-0400 Heart rate 57 /min KENTON FROMMELT DO [facility] 04-12-2024 19:00-0400 Systolic Blood Pressure Non-Invasive 95 mm[Hg] KENTON FROMMELT DO [facility] 04-12-2024 14:33-0400 Body temperature 97.34 [degF] KENTON DAST DO [facility] 04-12-2024 14:33-0400 Body weight 77.1 kg KENTON DAST DO [facility] 04-12-2024 14:33-0400 Diastolic Blood Pressure Non-Invasive 70 mm[Hg] KENTON DAST DO [facility] 04-12-2024 14:33-0400 Heart rate 83 /min KENTON DAST DO [facility] 04-12-2024 14:33-0400 Respiratory rate 16 /min KENTON DAST DO [facility] 04-12-2024 14:33-0400 Systolic Blood Pressure Non-Invasive 116 mm[Hg] KENTON REESE DO [facility] 04-01-2024 15:01-0400 Body temperature 98.96 [degF] JENNIFER PRINCESS DO [facility] 04-01-2024 15:01-0400 Diastolic Blood Pressure Non-Invasive 88 mm[Hg] JENNIFER PRINCESS DO [facility] 04-01-2024 15:01-0400 Heart rate 91 /min JENNIFER PRINCESS DO [facility] 04-01-2024 15:01-0400 Respiratory rate 16 /min JENNIFER PRINCESS DO [facility] 04-01-2024 15:01-0400 Systolic Blood Pressure Non-Invasive 139 mm[Hg] JENNIFER PRINCESS DO [facility] 03-18-2024 15:33-0400 Diastolic Blood Pressure Non-Invasive 62 mm[Hg] NAUN HDEZ MD [facility] 03-18-2024 15:33-0400 Heart rate 50 /min NAUN HDEZ MD [facility] 03-18-2024 15:33-0400 Mean blood pressure 74 mm[Hg] NAUN HDEZ MD [facility] 03-18-2024 15:33-0400 Respiratory rate 16 /min NAUN HDEZ MD [facility] 03-18-2024 15:33-0400 Systolic Blood Pressure Non-Invasive 102 mm[Hg] NAUN HDEZ MD [facility] 03-18-2024 14:18-0400 Diastolic Blood Pressure Non-Invasive 53 mm[Hg] NAUN HDEZ MD [facility] 03-18-2024 14:18-0400 Heart rate 52 /min NAUN HDEZ MD [facility] 03-18-2024 14:18-0400 Mean blood pressure 66 mm[Hg] NAUN HDEZ MD [facility] 03-18-2024 14:18-0400 Reason For Taking VItal Signs NAUN HDEZ MD [facility] 03-18-2024 14:18-0400 Systolic Blood Pressure Non-Invasive 96 mm[Hg] NAUN HDEZ MD [facility] 03-18-2024 11:19-0400 Blood Pressure Location NAUN HDEZ MD [facility] 03-18-2024 11:19-0400 Body temperature 96.98 [degF] NAUN HDEZ MD [facility] 03-18-2024 11:19-0400 Diastolic Blood Pressure Non-Invasive 73 mm[Hg] NAUN HDEZ MD [facility] 03-18-2024 11:19-0400 Heart rate 70 /min NAUN HDEZ MD [facility] 03-18-2024 11:19-0400 Respiratory rate 16 /min NAUN HDEZ MD [facility] 03-18-2024 11:19-0400 Systolic Blood Pressure Non-Invasive 107 mm[Hg] NAUN HDEZ MD [facility] 08-13-2023 15:07-0500 Blood Pressure Cuff Size KENTON FROMMELT DO [facility] 08-13-2023 15:07-0500 Blood Pressure Location KENTON FROMMELT DO [facility] 08-13-2023 15:07-0500 Blood Pressure Method KENTON FROMMELT D O [facility] 08-13-2023 15:07-0500 Body temperature 98.6 [degF] KENTON FROMMELT DO [facility] 08-13-2023 15:07-0500 Diastolic Blood Pressure Non-Invasive 78 mm[Hg] KENTON FROMMELT DO [facility] 08-13-2023 15:07-0500 Heart rate 109 /min KENTON FROMMELT DO [facility] 08-13-2023 15:07-0500 Respiratory rate 18 /min KENTON FROMMELT DO [facility] 08-13-2023 15:07-0500 Systolic Blood Pressure Non-Invasive 116 mm[Hg] EKNTON REESE DO [facility] 08-23-2022 00:42-0500 Diastolic Blood Pressure Non-Invasive [address] LINDSAY ALEMAN MD [facility] 08-23-2022 00:42-0500 Heart rate 84 /min DR LINDSAY ALEMAN MD [facility] 08-23-2022 00:42-0500 Respiratory rate 18 /min DR LINDSAY ALEMAN MD [facility] 08-23-2022 00:42-0500 Systolic Blood Pressure Non-Invasive [address] LINDSAY ALEMAN MD [facility] 08-23-2022 00:06-0500 Body temperature 98.96 [degF] DR LINDSAY ALEMAN MD [facility] 08-23-2022 00:06-0500 Diastolic Blood Pressure Non-Invasive [address] LINDSAY ALEMAN MD [facility] 08-23-2022 00:06-0500 Heart rate 93 /min DR LINDSAY ALEMAN MD [facility] 08-23-2022 00:06-0500 Respiratory rate 18 /min DR LINDSAY ALEMAN MD [facility] 08-23-2022 00:06-0500 Systolic Blood Pressure Non-Invasive [address] LINDSAY ALEMAN MD [facility] 08-21-2022 14:00-0500 Body temperature 98.96 [degF] CORTNEY GREGORIO DO [facility] 08-21-2022 14:00-0500 Diastolic Blood Pressure Non-Invasive 74 1 CORTNEY GREGORIO DO [facility] 08-21-2022 14:00-0500 Heart rate 97 /min CORTNEY GREGORIO DO [facility] 08-21-2022 14:00-0500 Respiratory rate 16 /min [facility] 08-21-2022 14:00-0500 Systolic Blood Pressure Non-Invasive 112 1 [facility] Encounters Encounter Date Encounter Type Care Provider Facility Start: 02-28-2025 End: 02-28-2025 ambulatory [facility] Start: 02-28-2025 End: 02-28-2025 Subsequent hospital visit by physician Adrian Valero MD Work Phone: [facility] Endoscopy Start: 01-16-2025 End: 01-16-2025 ambulatory [facility] Start: 01-16-2025 End: 01-16-2025 Subsequent hospital visit by physician Alvarado Morgan MD Work Phone: [facility] Endoscopy Comment on above: H. pylori infection; Generalized abdominal pain; Nausea and vomiting Start: 01-09-2025 End: 01-09-2025 Telephone encounter Rubi Kendrick MA [facility] Gastroenterology [facility] Comment on above: EGD (Reminder call) Start: 11-19-2024 End: 01-19-2025 Follow-up encounter Arian Ceja CNP Work Phone: [facility] Comment on above: Tissue exam Start: 11-14-2024 End: 11-14-2024 ambulatory [facility] Start: 11-14-2024 End: 11-14-2024 Subsequent hospital visit by physician Alvarado Morgan MD Work Phone: [facility] Endoscopy Comment on above: Nausea and vomiting; Generalized abdominal pain; Hematemesis, unspecified whether nausea present; Intermittent diarrhea Start: 09-26-2024 End: 09-26-2024 ambulatory [facility] Facility[facility] [place] Start: 08-15-2024 End: 08-15-2024 Follow-up encounter Aida Simpson APRN.CNP Work Phone: [facility] Start: 08-14-2024 End: 08-14-2024 ambulatory [facility] Facility:[facility] Start: 08-14-2024 End: 08-14-2024 Patient encounter procedure Aman ROME Work Phone: [facility] Comment on above: URI, acute (Primary Dx) Start: 07-18-2024 End: 07-24-2024 Telephone encounter [employer] BROWER - TEACHER ASST Work Phone: [facility] Clinical Communication Comment on above: Procedure Start: 07-12-2024 End: 07-12-2024 Office outpatient new 30 minutes Arian Lala GATE PERSON - TEACHER ASST Work Phone: [facility] [employer] Comment on above: Nausea and vomiting, unspecified vomiting type (Primary Dx); Generalized abdominal pain; Hematemesis, unspecified whether nausea present; Intermittent diarrhea Start: 07-12-2024 End: 07-12-2024 Office outpatient new 45 minutes Arian Lala GATE PERSON - TEACHER ASST Work Phone: [facility] [employer] Comment on above: Nausea and vomiting, unspecified vomiting type (Primary Dx); Generalized abdominal pain; Hematemesis, unspecified whether nausea present; Intermittent diarrhea Start: 07-12-2024 End: 07-12-[address] [facility] Start: 06-30-2024 End: 06-30-2024 ambulatory [facility] Facility:[facility] Start: 06-30-2024 End: 06-30-2024 Office outpatient new 30 minutes Raul Recio MD Work Phone: [facility] Comment on above: URI, acute (Primary Dx) Start: 05-21-2024 End: 05-21-2024 ambulatory [facility] Facility[facility] Start: 05-21-2024 End: 05-21-2024 Patient encounter procedure JONE RIOS GATE PERSON-CNM [facility] Start: 05-15-2024 End: 05-15-2024 ambulatory HONG FARRIS Facility:[facility] Start: 05-15-2024 End: 05-15-2024 Office outpatient new 20 minutes Hong Farris MD Work Phone: Gynecology Comment on above: Endometrial polyp (P rimary Dx); Cyst of ovary, unspecified laterality; Pelvic pain in female Start: 05-09-2024 End: 05-09-2024 ambulatory AMAURI FLORA MADDEN Facility:[facility] Start: 05-09-2024 End: 05-09-2024 Patient encounter procedure AMAURI HINES DO [facility] Start: 04-14-2024 End: 04-14-2024 Emergency department patient visit [facility] ED Comment on above: Nausea and vomiting, unspecified vomiting type (Primary Dx); Generalized abdominal pain; Hematemesis, unspecified whether nausea present Start: 04-12-2024 End: 04-12-2024 Emergency department patient visit KENTON HERRERALUIS DANIEL [facility] Start: 04-09-2024 End: 04-09-2024 ambulatory NOLAN GALLARDO GATE PERSON-TEACHER ASST Facility:[facility] Start: 04-09-2024 End: 04-09-2024 Patient encounter procedure NOLAN GALLARDO GATE PERSON-TEACHER ASST [facility] Start: 04-01-2024 End: 04-01-2024 Emergency department patient visit JENNIFER SÁNCHEZ DO [facility] Start: 03-18-2024 End: 03-18-2024 Emergency department patient visit NAUN HDEZ MD [facility] Start: 08-13-2023 End: 08-13-2023 Emergency department patient visit KENTON REESE DO [facility] Start: 07-11-2023 End: 07-11-2023 Emergency department patient visit [facility] EMERGENCY DEPT Start: 10-11-2022 End: 12-13-2022 ambulatory AMAURI HINES DO Facility:[facility] Start: 09-01-2022 End: 09-02-2022 ambulatory AMAURI HINES DO Facility:[facility] Start: 09-01-2022 End: 09-01-2022 Patient encounter procedure SHASTA CALVO PA-C [facility] Start: 08-23-2022 End: 08-23-2022 Emergency department patient visit DR LINDSAY ALEMAN MD Facility:[facility] Start: 08-23-2022 End: 08-23-2022 Emergency department patient visit DR LINDSAY ALEMAN MD [facility] Start: 08-21-2022 End: 08-21-2022 Emergency department patient visit CORTNEY GREGORIO DO Facility:[facility] Start: 08-21-2022 End: 08-21-2022 Emergency department patient visit CORTNEY GREGORIO DO [facility] Start: 07-18-2017 Ambulatory ROXANA PETER [facility] Start: 07-16-2017 Emergency department patient visit UNKNOWN PROVIDER [facility] Start: 07-09-2017 Emergency department patient visit UNKNOWN PROVIDER [facility] Start: 07-03-2017 End: 07-04-2017 Emergency department patient visit BORA ROSALES [facility] Procedures Date Procedure Procedure Detail Performing Clinician Start: 01-16-2025 Urine test visual color cmprsn meths Guero Leahy APRN - BEAN PICKER MACHINE OPERATOR Work Phone: Start: 11-14-2024 Urine test visual color cmprsn meths Alvarado Morgan MD Work Phone: Start: 10-11-2022 End: 12-13-2022 Occupational therapy SHASTA CALVO PA-C Dentition (body structure) Heriberto MOLINA JG DO Plan of Treatment Date Care Activity Detail Author Start: 2073 RSV Immunization for Adults (1 - 1-dose 75+ series) RSV Immunization for Adults (1 - 1-dose 75+ series) [facility] Start: 2048 Zoster Vaccines (1 of 2) Zoster Vaccines (1 of 2) [facility] Start: 04-22-2030 DTaP/Tdap/Td Vaccines (2 - Td or Tdap) DTaP/Tdap/Td Vaccines (2 - Td or Tdap) [facility] Start: 04-22-2030 Urine microalbumin profile DTaP,Tdap,Td Vaccine (2 - T d or Tdap) [facility] Start: 02-28-2025 End: 02-28-2025 Egd intrmural us needle aspirate/biopsy esophags ESOPHAGOGASTRODUODENOSCOPY, WITH ULTRASOUND GUIDED ASPIRATION OR BIOPSY Disease of stomach and duodenum, unspecified 02/28/2025 9:14 AM EDT [facility] Gastroenterology Start: 02-18-2025 COVID-19 Vaccine ( season) COVID-19 Vaccine ( season) [facility] Start: 02-18-2025 Influenza vaccination [facility] Start: 01-16-2025 End: 01-16-2025 Admission to same day surgery center 01/16/2025 7:30 AM EDT - 01/16/2025 8:00 AM EDT Surgery [facility] Endoscopy [address] [place] [address] Alvarado Morgan MD [address] [place] [address] [address] [place] [address] ESOPHAGOGASTRODUODENOSCOPY WITH BIOPSY [59066 (CPT )] [facility] Endoscopy Comment on above: ESOPHAGOGASTRODUODENOSCOPY WITH BIOPSY [ 83682 (CPT )] Start: 01-16-2025 End: 01-16-2025 Egd transoral biopsy single/multiple ESOPHAGOGASTRODUODENOSCOPY, WITH BIOPSY H. pylori infection Generalized abdominal pain Nausea and vomiting 01/16/2025 7:30 AM EDT [facility] Gastroenterology Start: 01-16-2025 Subsequent hospital visit by physician 01/16/2025 7:30 AM EDT Hospital Encounter [facility] Endoscopy [address] [place] [phone] Alvarado Morgan MD [address] [place] [address] [place] [address] [facility] Endoscopy Start: 11-14-2024 End: 11-14-2024 Admission to same day surgery center 11/14/2024 10:30 AM EDT - 11/14/2024 11:00 AM EDT Surgery [facility] Endoscopy [address] [place] [phone] Alvarado Morgan MD [address] [place] [address] ESOPHAGOGASTRODUODENOSCOPY, DIAGNOSTIC [24049 (CPT )] [facility] Endoscopy Comment on above: ESOPHAGOGASTRODUODENOSCOPY, DIAGNOSTIC [ 94820 (CPT )] Start: 11-14-2024 Subsequent hospital visit by physician 11/14/2024 10:30 AM EDT Hospital Encounter [facility] Endoscopy [address] [place] [phone] Alvarado Morgan MD [address] [place] [address] [place] [address] [facility] Endoscopy Start: 11-14-2024 End: 11-14-2024 Esophagogastroduodenoscopy transoral diagnostic [facility] Gastroenterology Start: 10-31-2024 End: 10-31-2024 Patient encounter procedure 10/31/2024 11:30 AM EDT Office Visit Gastroenterology [address] [address] Charly Cervantes MD [address] [place] [address] nauseated Gastroenterology Comment on above: nauseated Start: 10-31-2024 End: 10-31-2024 Patient encounter procedure 10/31/2024 9:30 AM EDT Office Visit Gastroenterology [address] [address] Charly Cervantes MD [address] [place] [address] nauseated Gastroenterology Comment on above: nauseated Start: 06-28-2024 End: 06-28-2024 Patient encounter procedure 06/28/2024 10:50 AM EST Office Visit Gynecology [address] [address] Hong Farris MD [address] [place], [place] [id number] FOLLOW UP Gynecology Comment on above: FOLLOW UP Start: 05-15-2024 End: 05-15-2025 US Uterus and Fallopian tubes W saline IU SONOHYSTEROGRAPHY (SIS) US [facility] Anc Imaging Routine Endometrial polyp Cyst of ovary, unspecified laterality Pelvic pain in female Expected: 05/15/2024, Expires: 05/15/2025 [facility] Work Phone: Comment on above: Expected: 05/15/2024, Expires: Start: 02-19-2024 COVID-19 Vaccine ( season) COVID-19 Vaccine ( season) [facility] Start: 02-19-2024 Influenza vaccination Influenza Vaccine (#1) [facility] Start: 01-18-2023 Influenza vaccination Flu vaccine (#1) [facility] Start: 11-27-2019 Screening for malignant neoplasm of cervix [facility] Start: 2017 DTaP/Tdap/Td vaccine (1 - Tdap) DTaP/Tdap/Td vaccine (1 - Tdap) [facility] Start: 2017 Hepatitis A Vaccines (1 of 2 - Risk 2-dose series) Hepatitis A Vaccines (1 of 2 - Risk 2-dose series) [facility] Start: 2017 Hepatitis B Vaccine (1 of 3 - 19+ 3-dose series) Hepatitis B Vaccine (1 of 3 - 19+ 3-dose series) [facility] Start: 2017 Hepatitis B Vaccines (1 of 3 - 19+ 3-dose series) Hepatitis B Vaccines (1 of 3 - 19+ 3-dose series) [facility] Start: 2017 Pneumococcal Vaccine: Pediatrics (0 to 5 Years) and At-Risk Patients (6 to 49 Years) (1 of 2 - PCV) Pneumococcal Vaccine: Pediatrics (0 to 5 Years) and At-Risk Patients (6 to 49 Years) (1 of 2 - PCV) [facility] Start: 2016 Anxiety Screening Anxiety Screening [facility] Start: 2016 Depression Screening Depression Screening [facility] Start: 2016 Hepatitis C screening Hepatitis C Screening [facility] Start: 2016 HIV screening HIV Screening [facility] Start: 2013 HPV Vaccines (1 - 3-dose series) HPV Vaccines (1 - 3-dose series) [facility] Start: 2012 Peds To Adult Transition Annual Assessment Peds To Adult Transition Annual Assessment [facility] Start: 11-27-2011 Varicella vaccination Varicella Vaccines (1 of 2 - 13+ 2-dose series) [facility] Start: 2010 Depression Monitoring Depression Monitoring [facility] Start: 2010 Peds To Adult Transition Initial Discussion Peds To Adult Transition Initial Discussion [facility] Start: 2004 Pneumococcal Vaccine: Pediatrics (0 to 5 Years) and At-Risk Patients (6 to 64 Years) (1 of 2 - PCV) Pneumococcal Vaccine: Pediatrics (0 to 5 Years) and At-Risk Patients (6 to 64 Years) (1 of 2 - PCV) [facility] Start: 11-27-1999 MMR Vaccines (1 of 1 - Standard series) MMR Vaccines (1 of 1 - Standard series) [facility] Start: 05-28-1999 COVID-19 Vaccine (#1) COVID-19 Vaccine (#1) [facility] Start: 1998 HIV screening HIV Screening [facility] Start: 1998 Lipid panel Lipid Panel [facility] COVID & INFLUENZA A/ B & RSV PCR, ROUTINE COVID & INFLUENZA A/B & RSV PCR, ROUTINE Microbiology Routine URI, acute 06/30/2024 3:45 PM EST [facility] Work Phone: COVID & INFLUENZA A/ B & RSV PCR, ROUTINE COVID & INFLUENZA A/B & RSV PCR, ROUTINE Microbiology Routine URI, acute Ordered: 08/14/2024 [facility] Work Phone: Comment on above: Ordered: 08/14/[address] [facility] Work Phone: Comment on above: Release Upon Ordering for 1 Occurrences starting 11/14/[address] [facility] Work Phone: Comment on above: Release Upon Ordering for 1 Occurrences starting 01/16/2025 Immunizations Immunization Date Immunization Notes Care Provider Kayece amin 04-22-2020 tetanus toxoid, redu lavell diphtheria toxoid, and acellular pertussis vaccine, adsorbed; Translations: [Boostrix (Tdap)] [facility]NEY [facility] DO [facility] 12-15-2012 Human Papillomavirus Quadval CORTNEY [facility] DO [facility] 09-11-2012 Human Papillomavirus Quadval [facility] 07-12-2012 Human Papillomavirus Quadval CORTNEY [facility] DO [facility] Payers Date Payer Category Payer Medicaid 2022 Medicaid HMO [id number] 2022 Medicaid [id number] 1998 Unknown [id number] 2.16.8 [id number] 1998 Unknown [id number] 2.16.8 [id number] 1998 Unknown [id number] 2.16.8 [id number] 1998 Unknown [id number] 2.16.8 [id number] 1998 Unknown [id number] 2.16.8 [id number] 1998 Unknown [id number] 2.16.8 [id number] 1998 Unknown [id number] 2.16.8 [id number] 1998 Unknown [id number] 2.16.8 [id number] 1998 Unknown [id number] 2.16.8 [id number] 1998 Unknown [id number] 2.16.8 [id number] 1998 Unknown [id number] 2.16.8 [id number] Unknown Social History Date Type Detail Facility Start: 01-19-2022 End: 11-14-2024 Tobacco smoking status Ex-smoker (finding) [facility] Sex Assigned At Sex [facility] Start: 07-09-2017 Tobacco smoking stat NHIS Occasional tobacco smoker [facility] Work Phone: Start: 07-09-2017 End: 11-14-2024 Tobacco use and exposure Smokeless tobacco non-user [facility] Work Phone: Start: 07-16-2017 End: 02-28-2025 Alcohol intake Current non-drinker of alcohol (finding) [facility] Work Phone: Start: 01-17-2019 End: 02-28-2025 History of Social function [facility] Work Phone: Start: 01-17-2019 End: 02-28-2025 Tobacco use panel [facility] Work Phone: Start: 1998 Sex Assigned At Not on file R [facility] Work Phone: How often to you hav e a drink containing alcohol? Never [facility] How many standard drinks containing alcohol do you have on a typical day? Patient does not drink [employer] Start: 01-18-2022 Sex Female (finding) [facility] History of tobacco use Current smoker [facility] History of tobacco use Cigarette Smoker [facility] Functional Status Date Assessment Result Facility 04-12-2024 Functional Status Independent [facility] 04-12-2024 Functional Status ID band on, Allergy Band on, Call device within reach, Bed in low position, Wheels locked [facility] 04-01-2024 Functional Status Independent [facility] 04-01-2024 Functional Status Ambulation in [place], Ambulation in Room [facility] 03-18-2024 Functional Status Assistive Device None [facility] 08-13-2023 Functional Status Ambulation in [place], Ambulation in Room [facility] 08-23-2022 Functional Status ID band on, Allergy Band on, Call device within reach, Bed in low position, Wheels locked, Upper/Half-Length side-rails up, Phone within reach, personal items within reach, Visitor at bedside, Safety level maintained [facility] 08-21-2022 Functional Status ID band on, Allergy Band on, Call device within reach, Bed in low position, Wheels locked, Upper/Half-Length side-rails up, Phone within reach, personal items within reach, Visitor at bedside [facility] Mental Status Date Assessment Result Facility 04-12-2024 Mental Status Orientation Oriented x 4 [facility] 04-12-2024 Mental Status [facility] 04-01-2024 Mental Status Orientation Oriented x 4 [facility] 10-13-2024 Mental Status [facility] 03-18-2024 Mental Status Orientation Oriented x 4 [facility] 03-18-2024 [facility] [facility] 08-13-2023 Mental Status Oriented x 4 [facility] 08-23-2022 Mental Status Oriented x 4 [facility] 08-21-2022 Mental Status Oriented x 4 [facility] Clinical Notes 08-21-2022 to 02-28-2025 Adrian Valero MD - 02/28/2025 9:08 AM EDTFnniyah Valero MD - 02/28/2025 9:08 AM EDTOp Note - Adrian Valero MD - 02/28/2025 7:56 AM EDTOp Note - Adrian Valero MD - 02/28/2025 7:56 AM EDTAttachments Note Date & Type Note Facility 02-28-2025 Note Patient: Gustavo Mi ller Procedure Summary Date: 02/28/25 Room / Location: [facility] ENDO 8 / [facility] Gastroenterology Anesthesia Start: 912 Anesthesia Stop: 936 [...] once all PACU criteria has been met. [facility] 02-28-2025 Note Patient: Gustavo Mi ller Procedure Summary Date: 02/28/25 Room / Location: [facility] ENDO 8 / [facility] Gastroenterology Anesthesia Start: 912 Anesthesia Stop: 936 [...] of surgery or procedure by MD, APC air carrier operations inspector proxy staff ([id number]) The patient did not [...] opportunity for questions and acknowledgement of understanding. [facility] 02-28-2025 History and physical note GASTROENTEROLOGY [...] Concussion 2013 Fell off back of car [employer] Work Phone: 02-28-2025 Note GASTROENTEROLOGY VLADIMIR JOHNS [...] Date Concussion 2013 Fell off back of [facility] 02-28-2025 History and physical note GASTROENTEROLOGY PHYSICIAN [...] back of car documented in this encounter [facility] 02-28-2025 Note Patient: Gustavo rolle Procedure Information Date/Time: 02/28/25 0900 Procedure: ESOPHAGOGASTRODUODENOSCOPY, WITH ULTRASOUND GUIDED ASPIRATION OR BIOPSY - EUS 60min Location: [facility] ENDO 8 / [facility] Gastroenterology Providers: Adrian Valero MD Relevant Problems [...] Requests [1] No family history on file. [facility] 02-28-2025 Note Endoscopy Center- [facility] Patient Name: Gustavo De Procedure Date: 02/28/2025 7:56 AM Gender: Female Date of : 2000 Age: 24 Admit Type: Outpatient Note Status: Finalized Endoscopist: ADRIAN Valero MD, [id number] Procedure: Upper EUS Indications: Submucosal tumor versus [...] by the physician, the nurse and the cdl driver in the pre-procedure area in the procedure [...] loss: None. Procedure Code(s): --- Professional --- 38796, Esophagogastroduodenoscopy, flexible, transoral; with endoscopic ultrasound examination, including the esophagus, stomach, and either the duodenum or a surgically altered stomach where the jejunum is examined distal to the anastomosis --- Technical --- 24397, Esophagogastroduodenoscopy, flexible, transoral; with endoscopic ultrasound examination, [...] of digestive system, unspecified CPT copyright 2021 [employer]. All rights reserved. The codes documented in this report are preliminary and upon hand cloth folder review may be revised to meet current compliance requirements. Attending Participation: I personally performed the entire procedure. ADRIAN Valero MD 02/28/2025 9:35:59 AM This report has been signed electronically. Number of Addenda: 0 Note Initiated On: 02/28/2025 7:56 AM [facility] 02-28-2025 [facility] Name: Gustavo De Procedure Date: 02/28/2025 7:56 AM Gender: Female Date of : 2000 Age: 24 Admit Type: Outpatient Note Status: Finalized Endoscopist: ADRIAN Valero MD, [id number] Procedure: Upper EUS Indications: Submucosal tumor versus [...] by the physician, the nurse and the cdl driver in the pre-procedure area in the procedure [...] loss: None. Procedure Code(s): --- Professional --- 71958, Esophagogastroduodenoscopy, flexible, transoral; with endoscopic ultrasound examination, including the esophagus, stomach, and either the duodenum or a surgically altered stomach where the jejunum is examined distal to the anastomosis --- Technical --- 94319, Esophagogastroduodenoscopy, flexible, transoral; with endoscopic ultrasound examination, [...] of digestive system, unspecified CPT copyright 2021 [employer]. All rights reserved. The codes documented in this report are preliminary and upon hand cloth folder review may be revised to meet current compliance requirements. Attending Participation: I personally performed the entire procedure. ADRIAN Valero MD 02/28/2025 9:35:59 AM This report has been signed electronically. Number of Addenda: 0 Note Initiated On: 02/28/2025 7:56 AM [facility] [employer] 02-28-2025 Miscellaneous Notes [facility] Patient Name: Gustavo De Procedure Date: 02/28/2025 7:56 AM Gender: Female Date of : 2000 Age: 24 Admit Type: Outpatient Note Status: Finalized Endoscopist: ADRIAN Valero MD, [id number] Procedure: Upper EUS Indications: Submucosal tumor versus [...] by the physician, the nurse and the cdl driver in the pre-procedure area in the procedure [...] loss: None. Procedure Code(s): --- Professional --- 85648, Esophagogastroduodenoscopy, flexible, transoral; with endoscopic ultrasound examination, including the esophagus, stomach, and either the duodenum or a surgically altered stomach where the jejunum is examined distal to the anastomosis --- Technical --- 54229, Esophagogastroduodenoscopy, flexible, transoral; with endoscopic ultrasound examination, [...] of digestive system, unspecified CPT copyright 2022 [employer]. All rights reserved. The codes documented in this report are preliminary and upon hand cloth folder review may be revised to meet current compliance requirements. Attending Participation: I personally performed the entire procedure. ADRIAN Valero MD 02/28/2025 9:35:59 AM This report has been signed electronically. Number of Addenda: 0 Note Initiated On: 02/28/2025 7:56 AM documented in this encounter [facility] 01-16-2025 Miscellaneous Notes Pt states she wants [...] EMR. Report received and assessment completed [facility] Patient Name: Gustavo De Procedure Date: 01/16/2025 7:18 AM Gender: Female Date of : 2000 Age: 24 Admit Type: Outpatient Note Status: Finalized Endoscopist: Alvarado Morgan MD, [id number] Procedure: Upper GI endoscopy Indications: H Heilmani [...] by the physician, the nurse and the cdl driver in the pre-procedure area in the procedure [...] 01/16/2025 7:18 AM documented in this encounter [facility] 01-16-2025 Nurse Note Pt states she wants to go home. She is assisted with getting dressed by nurse. Complains of being slightly dizzy. Hand off done with volunteer and it is communicated to her that pt is dizzy. Pt states dizziness is tolerable and she is ready to go home. Discharge to home with all belongings. [facility] 01-16-2025 Nurse Note Pt is awake and drinking juice. Dr Morgan discussed findings with pt. Father remains at bedside. She c/o slight sore throat. States slightly dizzy and not ready to get dressed. [facility] 01-16-2025 Nurse Note Received pt from gi lab to recovery phase 2 sleeping/sedated on room air. Father brought to bedside. History and allergies reviewed in EMR. Report received and assessment completed [facility] 01-16-2025 Note Patient: Gustavo rolle Procedure Summary Date: 01/16/25 Room / Location: [place] [address] [facility] Gastroenterology Anesthesia Start: 728 Anesthesia Stop: [...] once all PACU criteria has been met. [facility] 01-16-2025 Note Patient: Gustavo rolle Procedure Summary Date: 01/16/25 Room / Location: [facility] / [facility] Gastroenterology Anesthesia Start: 728 Anesthesia Stop: [...] opportunity for questions and acknowledgement of understanding. [facility] 01-16-2025 History and physical note GASTROENTEROLOGY [...] Date 2013 Fell off back of car [employer] Work Phone: 01-16-2025 Note GASTROENTEROLOGY PHY SICIAN [...] Diagnosis Date 2013 Fell off back of [facility] 01-16-2025 History and physical note GASTROENTEROLOGY PHYSICIAN [...] back of car documented in this encounter [facility] 01-16-2025 Note Patient: Gustavo rolle Procedure Information Date/Time: 01/16/25729 Procedure: ESOPHAGOGASTRODUODENOSCOPY WITH BIOPSY - EGD 30min Location: [place] [address] / [facility] Gastroenterology Providers: Alvarado Morgan MD Relevant [...] Requests [1] No family history on file. [facility] 01-16-2025 Note Endoscopy Center- [facility] Patient Name: Gustavo De Procedure Date: 01/16/2025 7:18 AM Gender: Female Date of : 2000 Age: 24 Admit Type: Outpatient Note Status: Finalized Endoscopist: Alvarado Morgan MD, [id number] Procedure: Upper GI endoscopy Indications: H Heilmani [...] by the physician, the nurse and the cdl driver in the pre-procedure area in the procedure [...] 0 Note Initiated On: 01/16/2025 7:18 AM [facility] 01-16-2025 Procedure [facility] Patient Name: Gustavo De Procedure Date: 01/16/2025 7:18 AM Gender: Female Date of : 2000 Age: 24 Admit Type: Outpatient Note Status: Finalized Endoscopist: Alvarado Morgan MD, [id number] Procedure: Upper GI endoscopy Indications: H Heilmani [...] by the physician, the nurse and the cdl driver in the pre-procedure area in the procedure [...] 0 Note Initiated On: 01/16/2025 7:18 AM [facility] 01-11-[address] Alvarado Morgan EGD Date: 01/16/25 Arrival time: 6:30 am Please report to: [place] [id number] Spoke with pt, confirmed they will attend scheduled procedure. All questions or concerns addressed. Pt has prep medication on hand. Prep instructions sent via [employer] if active. [facility] 01-11-[address] Alvarado HENDRIX Date: 01/16/25 Arrival time: 6:30 am Please report to: [place] [address] Spoke with pt, confirmed they will attend scheduled procedure. All questions or concerns addressed. Pt has prep medication on hand. Prep instructions sent via [employer] if active. Dr. Alvarado HENDRIX Date: 01/16/25 Arrival time: 6:30 am Please report to: [place] [address] Spoke with pt, confirmed they will attend scheduled procedure. All questions or concerns addressed. Pt has prep medication on hand. Prep instructions sent via [employer] if active. documented in this encounter [facility] 01-09-[address] Alvarado HENDRIX Date: 01/16/25 Arrival time: 6:30 am Please report to: [place] [address] Spoke with pt, confirmed they will attend scheduled procedure. All questions or concerns addressed. Pt has prep medication on hand. Prep instructions sent via [employer] if active. [facility] 11-20-2024 Telephone encounter Note Results and recommendations given to patient. Claims full understanding and questions answered at this time. States pharmacy had to order medication and will continuous pickling line pickler today. Office number given and she will call to schedule follow up EGD with Bx 1 month after completion of medication with Rubi. Rubi will contact patient next week. Dr. Morgan notified. Arian notified. Rubi notified. [facility] [employer] 11-20-2024 Miscellaneous Notes Results and recommendations given to patient. Claims full understanding and questions answered at this time. [facility] pharmacy had to order medication and will continuous pickling line pickler today. Office number given and she will [...] Alvarado Morgan MD documented in this encounter [facility] 11-20-2024 Telephone encounter Note ----- Message from [...] treatment. Thank you. 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 Pt discharged home via wheelchair accompanied by RN/volunteer. Pt has had all their belongings returned to them at discharge [facility] 11-14-2024 Miscellaneous Notes Pt and family verbalized understanding of recovery instructions, pt verbalized a readiness to be discharged home. Pt discharged home via wheelchair accompanied by RN/volunteer. Pt has had all their belongings returned to them at discharge Pt recieved from ENDOSCOPY to phase 2 via cart with BEAN PICKER MACHINE OPERATOR in attendance, pt has spontaneous respirations,pt place on monitor with alarms on, will continue to monitor [facility] Patient Name: Gustavo De Procedure Date: 11/14/2024 7:04 AM Gender: Female Date of : 2000 Age: 23 Admit Type: Outpatient Note Status: Finalized Endoscopist: Alvarado Morgan MD, [id number] Procedure: Upper GI endoscopy Indications: Nausea vomiting, [...] by the physician, the nurse and the cdl driver in the pre-procedure area in the procedure [...] 11/14/2024 7:04 AM documented in this encounter [facility] 11-14-2024 Note Patient: Gustavo Almendarez ller Procedure Summary Date: 11/14/24 Room / Location: [address] Gastroenterology Anesthesia Start: 999 Anesthesia Stop: [...] once all PACU criteria has been met. [facility] 11-14-2024 Note Patient: Gustavo Almendarez ller Procedure Summary Date: 11/14/24 Room / Location: [address] Gastroenterology Anesthesia Start: 999 Anesthesia Stop: 1017 Procedure: ESOPHAGOGASTRODUODENOSCOPY, DIAGNOSTIC Diagnosis: Nausea and vomiting Generalized abdominal pain Hematemesis, unspecified whether nausea present Intermittent diarrhea Providers: Alvarado Morgan MD Responsible Provider: Deanna Garcia, GATE PERSON - BEAN PICKER MACHINE OPERATOR Anesthesia Type: general, TIVA ASA Status: 2 [...] opportunity for questions and acknowledgement of understanding. [facility] 11-14-2024 Nurse Note Pt recieved from ENDOSCOPY to phase 2 via cart with BEAN PICKER MACHINE OPERATOR in attendance, pt has spontaneous respirations,pt place on monitor with alarms on, will continue to monitor [facility] 11-14-2024 Note Patient: Gustavo rolle Procedure Information Date/Time: 11/14/24 1030 Procedure: ESOPHAGOGASTRODUODENOSCOPY, DIAGNOSTIC - EGD 30min Location: [place] [address] / [facility] Gastroenterology Providers: Alvarado Morgan MD Relevant [...] Requests [1] No family history on file. [facility] 11-14-2024 History and physical note GASTROENTEROLOGY [...] [3] Past Medical History: Diagnosis Date Concussion [employer] Work Phone: 11-14-2024 Note GASTROENTEROLOGY PHY SICIAN [...] with planned procedure [x]EGD []Colonoscopy []EGD&Colonoscopy Alvarado Mogran MD Gastroenterology [1] Allergies Allergen Reactions Cheese [...] [3] Past Medical History: Diagnosis Date Concussion [facility] 11-14-2024 History and physical note GASTROENTEROLOGY [...] Diagnosis Date Concussion documented in this encounter [facility] 11-14-2024 Note [facility]oscopy Center- [facility] Patient Name: Gustavo De Procedure Date: 11/14/2024 7:04 AM Gender: Female Date of : 2000 Age: 23 Admit Type: Outpatient Note Status: Finalized Endoscopist: Alvarado Morgan MD, [id number] Procedure: Upper GI endoscopy Indications: Nausea vomiting, [...] by the physician, the nurse and the cdl driver in the pre-procedure area in the procedure [...] 0 Note Initiated On: 11/14/2024 7:04 AM [facility] 11-14-2024 Procedure note [facility] Patient Name: Gustavo De Procedure Date: 11/14/2024 7:04 AM Gender: Female Date of : 2000 Age: 23 Admit Type: Outpatient Note Status: Finalized Endoscopist: Alvarado Morgan MD, [id number] Procedure: Upper GI endoscopy Indications: Nausea vomiting, [...] by the physician, the nurse and the cdl driver in the pre-procedure area in the procedure [...] 0 Note Initiated On: 11/14/2024 7:04 AM [facility] 08-15-2024 Telephone encounter Note Patient calls and notified of results and providers instructions. Patient verbalizes understanding. Sharmaine Jacobs RN [facility] 08-15-2024 Miscellaneous Notes Patient calls and notified of results and providers instructions. Patient verbalizes understanding. Sharmaine Jacobs RN Left message for patient to return call for results and recommendations.La Barnett LPN Please call and let patient know she is positive for influenza A. Supportive therapies are suggested at this time. Patient was negative for COVID and rsv. documented in this encounter [facility] 08-15-2024 Telephone encounter Note Left message for patient to return call for results and recommendations.La Barnett LPN [facility] 08-15-2024 Telephone encounter Note Please call and let patient know she is positive for influenza A. Supportive therapies are suggested at this time. Patient was negative for COVID and rsv. [facility] Work Phone: 08-14-2024 Note SARS-COV-2 (AGENT OF COVID-19) RNA: Not detected INFLUENZA A RNA: Detected INFLUENZA B RNA: Not detected RESPIRATORY SYNCYTIAL VIRUS (RSV) RNA: Not detected [facility] Comment on above: Performed By: #### 9 [id number] #### [facility] CLIA [id number] [address] [place] [address] [place] 08-14-2024 Note HNO ID: [id number] Author: AMAN ALVAREZ PA Service: ? Author Type: Physician [employer] Ch[employer] Worker Type: Progress Notes Filed: 08/14/2024 14:29 Note Text: This note was created using [employer]. Subjective Gustavo De is a 23 year [...] detail warranting prompt ER evaluation. LATR[place]IA [place] [facility] 08-14-2024 History of Present illness Narrative This [...] evaluation. LATRICIA [place] documented in this encounter [facility] 07-27-2024 Telephone encounter Note Patient called in to get scheduled for her EGD. Patient now scheduled on 11/14/24 @ 10:30am with the arrival time of 9:30am with Dr. Morgan in [place]. [facility] schedule updated Order submitted Open Case request submitted Case # [id number] Endo packet mailed to patient Prep sent via [employer] if pt acct active Pt is aware they will need a courtesy van driver to take them home from procedure. Must be family member or friend. They cannot use any ride programs. Ex: Uber, Lyft, SCAT, bus, etc...) [facility] 07-27-2024 Miscellaneous Notes Patient called in to get scheduled for her EGD. Patient now scheduled on 11/14/24 @ 10:30am with the arrival time of 9:30am with Dr. Morgan in [place]. [facility] schedule updated Order submitted Open Case request submitted Case # [id number] Endo packet mailed to patient Prep sent via [employer] if pt acct active Pt is aware they will need a courtesy van driver to take them home from procedure. [...] Office Name: Gastro documented in this encounter [facility] [employer] 07-26-2024 Telephone encounter Note Returned pt call, pt did not answered, lmtcb [facility] [employer] 07-26-2024 Miscellaneous Notes Returned pt call, pt [...] Office Name: Gastro documented in this encounter [facility] 07-25-2024 Telephone encounter Note Name of Caller: Gustavo Contact Reason for Appointment: Patient called back to schedule EGD. Please call patient back to advise. Office Name: Gastroenterology Medication Refills need, if any: N/A Medication Name: N/A [facility] 07-25-2024 Miscellaneous Notes Name of Caller: Gustavo [...] Office Name: Gastro documented in this encounter [facility] 07-24-2024 Telephone encounter Note Patient returned call to office and is requesting a callback after 4pm when she is out of work to scheduled EGD. Please advise . [facility] 07-24-2024 Miscellaneous Notes Patient returned call to office and is requesting a callback after 4pm when she is out of work to scheduled EGD. Please advise . Lmtcb re: sx EGD. Name of Caller: Gustavo Contact Reason for Appointment: Schedule EGD (upper endoscopy) for further evaluation of the symptoms. Office Name: Gastro documented in this encounter [facility] 07-24-2024 Telephone encounter Note Lmtcb re: sx EGD. [facility] 07-18-2024 Note Name of Caller: Valentin barr Contact Reason for Appointment: Schedule EGD (upper endoscopy) for further evaluation of the symptoms. Office Name: Gastro [facility] 07-18-2024 Telephone encounter Note Name of Caller: Gustavo Contact Reason for Appointment: Schedule EGD (upper endoscopy) for further evaluation of the symptoms. Office Name: Gastro [facility] 07-12-2024 History of Present illness Narrative Images from the original note were not included. [facility] [address] Dept: [phone] Dept Loc: [phone] Visit type: New Patient was identified and [...] that they are currently in the state [facility]. If the patient is a [...] visit in March 2024. --request records from [facility] ED visits, specifically CT A/P, abdominal US, [...] are not available. Prior ED visit at [facility] on 04/14/2024 reviewed, however no work-up ordered per notes due to multiple prior neg work-up for same. She describes abdominal pain as dull. Pain occurs at random. Has had difficulty eating-was on primarily soft diet. PCP gave Rx for pantoprazole which has helped expand diet, but she has since discontinued. [place] PPI caused diarrhea and constipation. Nausea and [...] current episode manic severe with psychotic features ([facility]) 07/19/2017 Cannabis abuse 07/19/2017 Bizarre behavior 07/10/2017 [...] 10:58 AM 07/12/24 documented in this encounter [facility] 07-12-2024 History of Present illness Narrative Images from the original note were not included. [facility] [place] [address] [facility] [address] Dept: [phone] Dept Loc: [phone] Visit type: New Patient was identified and [...] stated that they are currently in the [employer]. If the patient is a minor, permission [...] visit in March 2024. --request records from [facility] ED visits, specifically CT A/P, abdominal US, [...] are not available. Prior ED visit at [facility] on 04/14/2024 reviewed, however no work-up ordered per notes due to multiple prior neg work-up for same. She describes abdominal pain as dull. Pain occurs at random. Has had difficulty eating-was on primarily soft diet. PCP gave Rx for pantoprazole which has helped expand diet, but she has since discontinued. [place] PPI caused diarrhea and constipation. Nausea and [...] 10:58 AM 07/12/24 documented in this encounter [facility] 07-12-2024 Instructions LEONARDA Sneed CNP - 07/12/2024 10:00 AM EST --Please call office with any questions or concerns! [phone] --request ED reports from [facility], specifically CT A/P, abdominal US and labs [...] be sent through Care Everywhere.Upper GI Endoscopy (Malawian)Acid Reflux and Gastroesophageal Reflux Disease in Adults (Malawian)documented in this encounter [facility] 07-12-2024 Instructions LEONARDA Sneed CNP - 07/12/2024 10:00 AM EST --Please call office with any questions or concerns! [phone] --request ED reports from [facility], specifically CT A/P, abdominal US and labs [...] be sent through Care Everywhere.Upper GI Endoscopy (Malawian)Acid Reflux and Gastroesophageal Reflux Disease in Adults (Malawian)documented in this encounter [facility] 07-12-2024 Miscellaneous Notes Addended by: ARIAN LALA on: 07/13/2024 01:58 PM Modules accepted: Level of Service documented in this encounter [facility] 07-12-2024 Note Addended by: ARIAN JOSEPH on: 07/13/2024 01:58 PM Modules accepted: Level of Service [facility] 06-30-2024 Note HNO ID: [id number] Author: RAUL RECIO MD Service: ? Author [...] AND RSV PCR, ROUTINE Raul Recio MD [facility] 06-30-2024 History of Present illness Narrative Patient [...] Raul Recio MD documented in this encounter [facility] 05-15-2024 Note HNO ID: [id number] Author: HONG FARRIS MD Service: ? Author [...] external genitalia normal, normal Bartholin's glands, urethra, Carpenter's glands, no vulvar lesions, normal appearing perineal body and perianal region BIMANUAL: uterus normal size, shape and consistency, no adnexal masses, and non-tender ASSESSMENT AND PLAN: Lower Abdominal Pain: - SIS ultrasound ordered to evaluate for endometrial polyp seen on OSH imaging -pt reports history of ovarian cysts. Will await results of US -we will communicate by Bureaux A Partagerhart. Hong Farris MD [facility] 05-15-2024 History of Present illness Narrative Gustavo [...] external genitalia normal, normal Bartholin's glands, urethra, Carpenter's glands, no vulvar lesions, normal appearing perineal body and perianal region BIMANUAL: uterus normal size, shape and consistency, no adnexal masses, and non-tender ASSESSMENT AND PLAN: Lower Abdominal Pain: - SIS ultrasound ordered to evaluate for endometrial polyp seen on OSH imaging -pt reports history of ovarian cysts. Will await results of US -we will communicate by Valdermt. Hong Farris MD documented in this encounter [facility] 05-09-2024 Note ORIGINAL EXAMINATION: LIMITED ABDOMINAL FOYDBBUEJN91/20/2024 9:35 am Limited ultrasound of the abdomen [...] Date: 05/09/2024 9:53:20 AM Ordering Provider: [facility] 04-14-2024 Hospital Discharge instructions LEONARDA Flores [...] sent through Care Everywhere.Abdominal Pain, Adult ED (Malawian)Nausea and Vomiting, Adult ED (Malawian)documented in this encounter [facility] 04-14-2024 Emergency department Note Emergency Department Encounter [facility] ED Patient: Gustavo De : 2000 Date of Evaluation: 04/14/2024 ED KRYSTAL Provider: LEONARDA Nava CNP Patient seen independently within my scope of practice with an Emergency Medicine attending available for supervision. Chief Complaint Chief Complaint Patient presents with Vomiting [place] I was wearing a N95, Surgical mask [...] Department Physician in the absence of a automation and controls instructor. see their note for interpretation of EKG. EMERGENCY DEPARTMENT COURSE and DIFFERENTIAL DIAGNOSIS/MDM: External Records Review: External ED note [facility] emergency room notes, labs, and imaging . [...] reviewed labs and imaging from [facility] emergency room. She has had multiple work [...] be best served by following with a insurance licensing supervisor since these symptoms are becoming chronic in [...] Discharge 04/14/2024 06:48:03 PM PATIENT REFERRED TO: [facility] ED [address] [address] Go to If symptoms worsen [facility] Gastroenterology - [place] [address] [facility] [address] DISCHARGE MEDICATIONS: New Prescriptions DICYCLOMINE (BENTYL) 20 MG TABLET Take 1 tablet (20 mg) by mouth 2 times daily for 10 days. PANTOPRAZOLE (PROTONIX) 20 MG EC TABLET Take 1 tablet (20 mg) by mouth daily for 20 days. Do not crush, chew, or split. @[facility]([id number]:LAST:1)@ (Please note: Portions of this note were [...] multiple XR, CT. Patient reports going to [facility] for a lot of care. documented in this encounter [facility] 04-14-2024 Emergency department Triage note Patient to the ED today with c/o vomiting. Patient reports being in and out of the ED's lately with same complaint. Overnight began to spit up blood. Patient reports multiple XR, CT. Patient reports going to [facility] for a lot of care. [facility] 04-14-2024 Physician Emergency department Note Emergency Department Encounter [facility] ED Patient: Gustavo De : 2000 Date of Evaluation: 04/14/2024 ED KRYSTAL Provider: LEONARDA Nava CNP Patient seen independently within my scope of practice with an Emergency Medicine attending available for supervision. Chief Complaint Chief Complaint Patient presents with Vomiting [place] I was wearing a N95, Surgical mask [...] Department Physician in the absence of a automation and controls instructor. see their note for interpretation of EKG. EMERGENCY DEPARTMENT COURSE and DIFFERENTIAL DIAGNOSIS/MDM: External Records Review: External ED note [facility] emergency room notes, labs, and imaging . [...] reviewed labs and imaging from [facility] emergency room. She has had multiple work [...] be best served by following with a insurance licensing supervisor since these symptoms are becoming chronic in [...] Discharge 04/14/2024 06:48:03 PM PATIENT REFERRED TO: [facility] ED [address] [address] Go to If symptoms worsen [facility] Gastroenterology - [place] [address] DISCHARGE MEDICATIONS: New Prescriptions DICYCLOMINE (BENTYL) 20 MG TABLET Take 1 tablet (20 mg) by mouth 2 times daily for 10 days. PANTOPRAZOLE (PROTONIX) 20 MG EC TABLET Take 1 tablet (20 mg) by mouth daily for 20 days. Do not crush, chew, or split. @[facility]([id number]:LAST:1)@ (Please note: Portions of this note were completed with a voice recognition program. Efforts were made to edit the dictations but occasionally words and phrases are mis-transcribed.) Form v2016.J.5-cn LEONARDA Nava CNP Acute Care [facility] LEONARDA Flores CNP 04/14/241915 [facility] 04-12-2024 Hospital Discharge instructions Patient Education 04/12/2024 [...] or water and you are getting dehydrated [phone] [employer]. [address] [place] [address]. All rights reserved. This information is not intended as a substitute for professional medical care. Always follow your healthcare professional's instructions. Follow Up Care 04/12/2024 14:30:24 With:KELLEY Address: When:1-2 days With:AMAURI HINES DO Address: [address] [facility] [place] [address] [phone] When:2-4 days [facility] 04-12-2024 Note Discharge Instructions Thank you for allowing [facility] to assist you with your healthcare needs. The following is important discharge information regarding your hospital visit. What to Do Next Instructions from Your Care Team No qualifying data available. Post Acute Orders No qualifying data available. You Need to Schedule the Following Appointments Follow Up with KELLEY When:Within 1-2 days Follow Up with AMAURI HINES DO When:Within 2-4 days [facility] [facility] [place] [phone] Allergies Latex rash, swelling Tylenol penicillin Hives [...] or water and you are getting dehydrated [phone] [employer]. [address] [place] [address], [place] [address]. All rights reserved. This information is not intended as a substitute for professional medical care. Always follow your healthcare professional's instructions. Additional Information VACCINATE! IT SAVES LIVES! Members of the community who have not yet received the COVID-19 vaccine and would like to receive it can visit one of [facility] vaccine clinics. There are many vaccine clinic locations within the [facility]. For locations and available times, please visit www.[email or web address].[place].gov/. It is important to note that some COVID mobile vaccine clinics are held outdoors and may be canceled in rainy or stormy conditions. To learn more about pediatric vaccinations (ages 5-11), we invite you to visit the [facility] webpage. https://www.[email or web address].org/pages/2 159-Uypmp-Njiexrwhges-Frequently-Asked -Questions.html To learn more about the COVID-19 vaccine, we invite you to visit the CDC website for a list of frequently asked questions. https://www.cdc.gov/coronavirus/2019-n cov/vaccines/faq.html [facility] Patient Portal Access Instructions: Stay connected with your healthcare team and access your personal medical information anytime with the [facility] Patient Portal. If you would like a full copy of your medical records please contact the [facility] Medical Records Department Tuesday through Tuesday between 8a.m. and 4:30p.m. Please follow the directions below to access the portal: 1.Access the email account you provided upon registration to the hospital.2.Look for an invitation email from [facility].3.Open the email and access the invitation link: Accept Invitation to [facility]4.Fill in the required hong to create your account. Sign into [email or web address] with your username and password that you [...] you will allow to register on the [facility] Patient Portal for access to your information. You can also access the [facility] Patient Portal on the [employer] krystal. Simply click on Health Records under [...] Call your local pharmacy or go to http://Best Before Media.[employer]Dispensers/8Q6Sn4p to find one close to you.3.Make use of household items: Use cat litter or old coffee grounds to dispose medications if other options are not available. Mix your drugs with these household products, seal them in an airtight container and throw it into the garbage. Call [facility]: [phone] to be sure your drugs can be [...] aware that I should contact my doctor. Patient/Sock Knitter Signature: _ Date/Time: Relationship to Patient: Witness Name/Signature: Date/Time: [facility] 04-12-2024 Note ORIGINAL EXAMINATION: CT OF THE ABDOMEN AND PELVIS WITH EXRYJQYQ22/24/2024 6:02 pm TECHNIQUE: CT of the abdomen [...] 04/12/2024 7:03:20 PM Ordering Provider: LAKSHMI GALINDO [facility] 04-01-2024 Hospital Discharge instructions Patient Education 04/01/2024 [...] you feel better and your symptoms ease. 5892-8820 [employer]. [address] [place] [address], [place] [address]. All rights reserved. This information is not intended as a substitute for professional medical care. Always follow your healthcare professional's instructions. Follow Up Care 04/01/2024 14:59:52 With:Go to emergency room if symptoms worsen Address:Unknown When:2-4 days With:AMAURI HINES DO Address: [address] [place] [address] [place] [address] [phone] When:2-4 days [facility] 04-01-2024 Note Discharge Instructions Thank you [...] AMAURI HINES DO When:Within 2-4 days Where:[address] [place] [address] [phone] Allergies Latex rash, swelling Tylenol penicillin Hives [...] you feel better and your symptoms ease. 8260-6051 [employer]. [address] [place] [address]. All rights reserved. This information is not intended as a substitute for professional medical care. Always follow your healthcare professional's instructions. Additional Information VACCINATE! IT SAVES LIVES! Members of the community who have not yet received the COVID-19 vaccine and would like to receive it can visit one of [facility] vaccine clinics. There are many vaccine clinic locations within the [facility]. For locations and available times, please visit www.gettheshot.coronavirus.[place].gov/. It is important to note that some COVID mobile vaccine clinics are held outdoors and may be canceled in rainy or stormy conditions. To learn more about pediatric vaccinations (ages 5-11), we invite you to visit the [facility] webpage. https://www.[facility].org/pages/2 195-Ucgon-Slvznugkcsv-Frequently-Asked -Questions.html To learn more about the COVID-19 vaccine, we invite you to visit the CDC website for a list of frequently asked questions. https://www.cdc.gov/coronavirus/2019-n cov/vaccines/faq.html [facility] Patient Portal Access Instructions: Stay connected with your healthcare team and access your personal medical information anytime with the [facility] Patient Portal. If you would like a full copy of your medical records please contact the [facility] Medical Records Department Tuesday through Tuesday between 8a.m. and 4:30p.m. Please follow the directions below to access the portal: 1.Access the email account you provided upon registration to the [facility].2.Look for an invitation email from [facility].3.Open the email and access the invitation link: Accept Invitation to [facility].Fill in the required hong to create your account. Sign into [email or web address] with your username and password that you [...] you will allow to register on the [facility] Patient Portal for access to your information. You can also access the [facility] Patient Portal on the [employer]. Simply click on Health Records under Health Data and then click on the [email or web address] logo. HOW TO SAFELY DISPOSE OF PRESCRIPTION [...] Call your local pharmacy or go to http://bit.ly/6J8Tz2e to find one close to you.3.Make use of household items: Use cat litter or old coffee grounds to dispose medications if other options are not available. Mix your drugs with these household products, seal them in an airtight container and throw it into the garbage. Call [facility]: [phone] to be sure your drugs can be [...] aware that I should contact my doctor. Patient/Sock Knitter Signature: _ Date/Time: Relationship to Patient: Witness Name/Signature: Date/Time: [facility] 03-18-2024 Hospital Discharge instructions Patient Education 03/18/2024 [...] nausea, vomiting, and dizziness, you may use mvdj-rop-xzrnyfs motion sickness pills. Ask your pharmacist for [...] speech or vision Loss of consciousness Seizure 6668-5259 [employer]. [address] [place] [address]. All rights reserved. This information is not [...] loosen secretions in the nose and lungs. Isne-gtv-hmmqqtt cold medicines will not shorten the length of time you re sick, but they may be helpful for the following symptoms: cough, sore throat, and nasal and sinus congestion. If you take prescription medicines, ask your healthcare provider or pharmacist which dmlz-ndx-qddtwfk medicines are safe to use. (Note: Don't [...] it goes along with a muffled voice [phone] [employer]. [address] [place] [address]. All rights reserved. This information is not [...] will help loosen secretions in the lungs. Lnyf-qnt-sleyhqd cough medicines that contain dextromethorphan may help [...] losing consciousness Rapid heartbeat Weakness or dizziness 7477-[address] [facility] [place] [address]. All rights reserved. This information is not intended as a substitute for professional medical care. Always follow your healthcare professional's instructions. Follow Up Care 03/18/2024 11:11:26 With:AMAURI HINES Address: [address] [place] [phone] Business (1) When:2-4 days Comments:Schedule appointment as soon as possibleReturn to ED if symptoms worsenIncrease fluidsIncrease diet as describedSit to stand precautionsMay use meclizine if dizzyReturn for symptoms as describedVaporizer at the bedsideTake 1200 mg regular Mucinex twice daily till better [facility] 03-18-2024 Emergency department Discharge summary Discharge Instructions Thank you for allowing [facility] to assist you with your healthcare needs. [...] Up with AMAURI HINES When:Within 2-4 days Where:[address] [place] [phone] Business (1) Additional Information: Schedule appointment as [...] may report side effects to FDA at [phone]-[phone]. What other drugs will affect meclizine? Using [...] drugs may affect meclizine, including prescription and fvey-qyo-veucuec medicines, vitamins, and herbal products. Tell your [...] to ensure that the information provided by [employer]. ('[employer]') is accurate, up-to-date, and complete, but no guarantee is made to that effect. Drug information contained herein may be time sensitive. [employer] information has been compiled for use by healthcare practitioners and consumers in the [place] and therefore [employer] does not warrant that uses outside of the [place] are appropriate, unless specifically indicated otherwise. [employer] drug information does not endorse drugs, diagnose patients or recommend therapy. [employer] drug information is an informational resource designed [...] effective or appropriate for any given patient. [employer] does not assume any responsibility for any aspect of healthcare administered with the aid of information [employer] provides. The information contained herein is not intended to cover all possible uses, directions, precautions, warnings, drug interactions, allergic reactions, or adverse effects. If you have questions about the drugs you are taking, check with your doctor, nurse or pharmacist. Copyright 0763-9842 [employer]. Version: 8.01. Revision Date: 02/15/2023. Education Materials [...] nausea, vomiting, and dizziness, you may use iwfi-fsb-zzeuihz motion sickness pills. Ask your pharmacist for [...] speech or vision Loss of consciousness Seizure 7484-1870 [employer]. [address] [place] [address]. All rights reserved. This information is not [...] loosen secretions in the nose and lungs. Lnmb-sgn-xyatnwq cold medicines will not shorten the length of time you re sick, but they may be helpful for the following symptoms: cough, sore throat, and nasal and sinus congestion. If you take prescription medicines, ask your healthcare provider or pharmacist which oyca-fjl-xjopkyb medicines are safe to use. (Note: Don't [...] it goes along with a muffled voice [phone] [employer] [place] [address], [place] [address]. All rights reserved. This information is not [...] will help loosen secretions in the lungs. Kudz-vip-ugkfunm cough medicines that contain dextromethorphan may help [...] losing consciousness Rapid heartbeat Weakness or dizziness [phone] [employer]. [address] [place] [address]. All rights reserved. This information is not intended as a substitute for professional medical care. Always follow your healthcare professional's instructions. Additional Information VACCINATE! IT SAVES LIVES! Members of the community who have not yet received the COVID-19 vaccine and would like to receive it can visit one of [facility] vaccine clinics. There are many vaccine clinic locations within the [facility]. For locations and available times, please visit www.gettheshot.coronavirus.[place].gov/. It is important to note that some COVID mobile vaccine clinics are held outdoors and may be canceled in rainy or stormy conditions. To learn more about pediatric vaccinations (ages 5-11), we invite you to visit the [facility] webpage. https://www.[facility].org/pages/2 725-Ceptf-Rqfsytufbqa-Frequently-Asked -Questions.html To learn more about the COVID-19 vaccine, we invite you to visit the CDC website for a list of frequently asked questions. https://www.cdc.gov/coronavirus/2019-n cov/vaccines/faq.html [facility] Patient Portal Access Instructions: Stay connected with your healthcare team and access your personal medical information anytime with the [facility] Patient Portal. If you would like a full copy of your medical records please contact the [facility] Medical Records Department Tuesday through Tuesday between 8a.m. and 4:30p.m. Please follow the directions below to access the portal: 1.Access the email account you provided upon registration to the [facility].2.Look for an invitation email from [facility].3.Open the email and access the invitation link: Accept Invitation to [facility]4.Fill in the required hong to create your account. Sign into [email or web address] with your username and password that you [...] you will allow to register on the [facility] Patient Portal for access to your information. You can also access the [facility] Patient Portal on the [employer] krystal. Simply click on Health Records under [...] Call your local pharmacy or go to http://bit.[employer] Water[employer]Dispensers/4S5Ma2c to find one close to you.3.Make use of household items: Use cat litter or old coffee grounds to dispose medications if other options are not available. Mix your drugs with these household products, seal them in an airtight container and throw it into the garbage. Call [facility]: [phone] to be sure your drugs can be [...] aware that I should contact my doctor. Patient/Sock Knitter Signature: _ Date/Time: Relationship to Patient: Witness Name/Signature: Date/Time: [facility] 03-18-2024 Note ORIGINAL EXAMINATION: CT OF THE [...] 03/18/2024 3:06:22 PM Ordering Provider: NAUN HDEZ [facility] 03-18-2024 Note ORIGINAL EXAMINATION: TWO XRAY VIEWS [...] 03/18/2024 1:42:34 PM Ordering Provider: NAUN HDEZ [facility] 03-18-2024 Note Sinus bradycardia Baseline wander in lead(s) V4,V5 SEE DICTATION Electronic Signature: NAUN HDEZ MD 03/18/2024 13:15:07 [facility] 08-13-2023 Hospital Discharge instructions Patient Education 08/13/2023 [...] loosen secretions in the nose and lungs. Vwnl-nah-vimqmev cold medicines will not shorten the length of time you re sick, but they may be helpful for the following symptoms: cough, sore throat, and nasal and sinus congestion. If you take prescription medicines, ask your healthcare provider or pharmacist which tjin-kny-vzlymkq medicines are safe to use. (Note: Don't [...] it goes along with a muffled voice [phone] [employer]. [address] [place] [address], [place] [address]. All rights reserved. This information is not intended as a substitute for professional medical care. Always follow your healthcare professional's instructions. Follow Up Care 08/13/2023 14:54:21 With:AMAURI HINES DO Address: [address] [place] [address] [place] [phone] When:2-4 days [facility] 08-13-2023 Note Discharge Instructions Thank you [...] DO When Within 2-4 days [facility] [address] [facility] [place] [phone] Allergies Latex (rash, swelling) penicillin (Hives) Medications [...] loosen secretions in the nose and lungs. Smcc-coa-meoktdk cold medicines will not shorten the length of time you re sick, but they may be helpful for the following symptoms: cough, sore throat, and nasal and sinus congestion. If you take prescription medicines, ask your healthcare provider or pharmacist which czmc-aif-ekazndu medicines are safe to use. (Note: Don't [...] it goes along with a muffled voice [phone] [employer]. [address] [place] [address]. All rights reserved. This information is not intended as a substitute for professional medical care. Always follow your healthcare professional's instructions. Additional Information VACCINATE! IT SAVES LIVES! Members of the community who have not yet received the COVID-19 vaccine and would like to receive it can visit one of [facility] vaccine clinics. There are many vaccine clinic locations within the [facility]. For locations and available times, please visit www.gettheshot.coronavirus.[place].gov/. It is important to note that some COVID mobile vaccine clinics are held outdoors and may be canceled in rainy or stormy conditions. To learn more about pediatric vaccinations (ages 5-11), we invite you to visit the [facility] webpage. https://www.[facility].org/pages/2 325-Cqjeg-Sdjdakexrol-Frequently-Asked -Questions.html To learn more about the COVID-19 vaccine, we invite you to visit the CDC website for a list of frequently asked questions. https://www.cdc.gov/coronavirus/2019-n cov/vaccines/faq.html [facility] Patient Portal Access Instructions: Stay connected with your healthcare team and access your personal medical information anytime with the [facility] Patient Portal. If you would like a full copy of your medical records please contact the [facility] Medical Records Department Tuesday through Tuesday between 8a.m. and 4:30p.m. Please follow the directions below to access the portal: 1.Access the email account you provided upon registration to the [facility].2.Look for an invitation email from [facility].3.Open the email and access the invitation link: Accept Invitation to [facility]4.Fill in the required hong to create your account. Sign into [email or web address] with your username and password that you [...] you will allow to register on the [facility] Patient Portal for access to your information. You can also access the [facility] Patient Portal on the [employer] krystal. Simply click on Health Records under Health Data and then click on the [email or web address] logo. HOW TO SAFELY DISPOSE OF PRESCRIPTION [...] Call your local pharmacy or go to http://bit.Primo Water[employer]Dispensers/0A8Tj5v to find one close to you.3.Make use of household items: Use cat litter or old coffee grounds to dispose medications if other options are not available. Mix your drugs with these household products, seal them in an airtight container and throw it into the garbage. Call [facility]: [phone] to be sure your drugs can be [...] aware that I should contact my doctor. Patient/Sock Knitter Signature: _ Date/Time: Relationship to Patient: Witness Name/Signature: Date/Time: [facility] 09-01-2022 Note ORIGINAL EXAMINATION: CT OF THE [...] 09/01/2022 4:53:37 PM Ordering Provider: SHASTA CALVO [facility] 09-01-2022 Note ORIGINAL EXAMINATION: CT OF THE [...] 09/01/2022 4:53:37 PM Ordering Provider: SHASTA CALVO [facility] 08-23-2022 Hospital Discharge instructions Patient Education 08/23/2022 [...] wet, you can dry it with a dehairer on a cool setting. You may use [...] cast becomes red, swollen, or irritated [employer]. [address] [place] [address]. All rights reserved. This information is not intended as a substitute for professional medical care. Always follow your healthcare professional's instructions. Follow Up Care 08/23/2022 00:01:13 With:PATRICIA JAVIER MD Address: [address] [place] [address] [address] [place] [address] [phone] When:1-2 days [facility] 08-23-2022 Note Discharge Instructions Thank you for allowing [facility] to assist you with your healthcare needs. [...] JAVIER MD When Within 1-2 days Where: [address] [place] [address] [address] [place] [address]- [phone] Allergies Latex (rash, swelling) penicillin (Hives) Medications [...] wet, you can dry it with a dehairer on a cool setting. You may use [...] around cast becomes red, swollen, or irritated 8041-1486 [employer]. [address] [place] [address]. All rights reserved. This information is not intended as a substitute for professional medical care. Always follow your healthcare professional's instructions. Additional Information VACCINATE! IT SAVES LIVES! Members of the community who have not yet received the COVID-19 vaccine and would like to receive it can visit one of [facility] vaccine clinics. There are many vaccine clinic locations within the [facility]. For locations and available times, please visit www.gettheshot.coronavirus.[place].gov/. It is important to note that some COVID mobile vaccine clinics are held outdoors and may be canceled in rainy or stormy conditions. To learn more about pediatric vaccinations (ages 5-11), we invite you to visit the [facility] webpage. https://www.[employer].org/pages/2 564-Yhvbq-Kpxgflrxxmb-Frequently-Asked -Questions.html To learn more about the COVID-19 vaccine, we invite you to visit the CDC website for a list of frequently asked questions. https://www.cdc.gov/coronavirus/2019-n cov/vaccines/faq.html [facility] Patient Portal Access Instructions: Stay connected with your healthcare team and access your personal medical information anytime with the [facility] Patient Portal. If you would like a full copy of your medical records please contact the [facility] Medical Records Department Tuesday through Tuesday between 8a.m. and 4:30p.m. Please follow the directions below to access the portal: 1.Access the email account you provided upon registration to the [facility].2.Look for an invitation email from [facility].3.Open the email and access the invitation link: Accept Invitation to [facility]4.Fill in the required hong to create your account. Sign into [email or web address] with your username and password that you [...] you will allow to register on the [facility] Patient Portal for access to your information. You can also access the [facility] Patient Portal on the [employer] krystal. Simply click on Health Records under Health Data and then click on the takealot.com logo. HOW TO SAFELY DISPOSE OF PRESCRIPTION [...] Call your local pharmacy or go to http://Best Before Media.[employer]pens[employer]/1Z7Co4q to find one close to you.3.Make use of household items: Use cat litter or old coffee grounds to dispose medications if other options are not available. Mix your drugs with these household products, seal them in an airtight container and throw it into the garbage. Call [facility]: [phone] to be sure your drugs can be [...] aware that I should contact my doctor. Patient/Sock Knitter Signature: _ Date/Time: Relationship to Patient: Witness Name/Signature: Date/Time: [facility] 08-21-2022 Hospital Discharge instructions Patient Education 08/21/2022 [...] wet, you can dry it with a dehairer on a cool setting. You may use [...] around cast becomes red, swollen, or irritated 5702-7610 [employer]. [address] [place] [address]. All rights reserved. This information is not intended as a substitute for professional medical care. Always follow your healthcare professional's instructions. Follow Up Care 08/21/2022 13:49:58 With:DO ALEJANDRO WALL DO Address: [address] [place] [address] [address] [place] [address] When:3-5 days With:Go to emergency room if symptoms worsen Address:Unknown When:2-4 days With:AMAURI HINES DO Address: [address] [place] [phone] When:2-4 days [facility] 08-21-2022 Note Discharge Instructions Thank you for allowing [facility] to assist you with your healthcare needs. The following is important discharge information regarding your hospital visit. Diagnosis from Today's Visit Closed fracture of right wrist Wrist pain-swelling What to Do Next Instructions from Your Care Team Keep thumb spica splint in place. Follow-up with Dr. Wall of [facility]. Take Percocet only as needed for severe pain. Do not exceed the recommended dose. Return the emergency department if you have worsening pain, numbness, decreased blood flow, or any other care concern. No qualifying data available. Post Acute Orders No qualifying data available. You Need to Schedule the Following Appointments Follow Up with DO ALEJANDRO WALL DO When Within 3-5 days Where: [address] [place] [address] [address] [place] [address] Follow Up with Go to emergency room if symptoms worsen When Within 2-4 days Follow Up with AMAURI HINES DO When Within 2-4 days Where: [address] [place] [phone] [phone] Allergies Latex (rash, swelling) penicillin (Hives) Medications [...] wet, you can dry it with a dehairer on a cool setting. You may use [...] around cast becomes red, swollen, or irritated 4622-4946 The [employer], [employer]. [address] [place] [address], [place] [address]. All rights reserved. This information is not intended as a substitute for professional medical care. Always follow your healthcare professional's instructions. Additional Information VACCINATE! IT SAVES LIVES! Members of the community who have not yet received the COVID-19 vaccine and would like to receive it can visit one of [facility] vaccine clinics. There are many vaccine clinic locations within the [facility]. For locations and available times, please visit www.gettheshot.coronavirus.[place].gov/. It is important to note that some COVID mobile vaccine clinics are held outdoors and may be canceled in rainy or stormy conditions. To learn more about pediatric vaccinations (ages 5-11), we invite you to visit the [facility] webpage. https://www.Blend [employer]ss.org/pages/2 536-Duspm-Xsfkpimemrw-Frequently-Asked -Questions.html To learn more about the COVID-19 vaccine, we invite you to visit the CDC website for a list of frequently asked questions. https://www.cdc.gov/coronavirus/2019-n cov/vaccines/faq.html [facility] Patient Portal Access Instructions: Stay connected with your healthcare team and access your personal medical information anytime with the [facility] Patient Portal. If you would like a full copy of your medical records please contact the [facility] Medical Records Department Tuesday through Tuesday between 8a.m. and 4:30p.m. Please follow the directions below to access the portal: 1.Access the email account you provided upon registration to the hospital.2.Look for an invitation email from [facility].3.Open the email and access the invitation link: Accept Invitation to [facility]4.Fill in the required hong to create your account. Sign into [email or web address] with your username and password that you [...] you will allow to register on the [facility] Patient Portal for access to your information. You can also access the [facility] Patient Portal on the [employer] krystal. Simply click on Health Records under Health Data and then click on the takealot.com logo. HOW TO SAFELY DISPOSE OF PRESCRIPTION [...] Call your local pharmacy or go to http://Best Before Media.[employer]/6Z5Ug2q to find one close to you.3.Make use of household items: Use cat litter or old coffee grounds to dispose medications if other options are not available. Mix your drugs with these household products, seal them in an airtight container and throw it into the garbage. Call [facility]: [phone] to be sure your drugs can be [...] aware that I should contact my doctor. Patient/Sock Knitter Signature: _ Date/Time: Relationship to Patient: Witness Name/Signature: Date/Time: [facility] 08-21-2022 Note ORIGINAL HISTORY: Pain, fall COMPARISON: [...] Date: 08/21/2022 2:28:29 PM [facility] ORIGINAL HISTORY: Pain, fall [...] 08/21/2022 2:28:29 PM Ordering Provider: CORTNEY GREGORIO [facility] Evaluation + Plan note No data available for this section [facility] Evaluation + Plan note Future Appointments Appointment Date:04/25/2024 03:00:00 PM Scheduled Provider:DARRION MANTILLA Location:[facility] Appointment Type:PC OV [facility] Evaluation + Plan note Future Appointments Appointment Date:06/11/2024 02:00:00 PM Scheduled Provider:AMAURI HINES DO Location:[facility] Appointment Type:PC OV Follow Up [facility] Evaluation note Diagnosis Nausea and vomiting, unspecified vomiting type- Primary Generalized abdominal pain Abdominal pain, generalized Hematemesis, unspecified whether nausea present documented in this encounter [facility] note* Diagnosis Endometrial polyp- Primary Polyp of corpus uteri Cyst of ovary, unspecified laterality Pelvic pain in female Unspecified symptom associated with female genital organs documented in this encounter [facility] note* Diagnosis URI, acute- Primary Acute upper respiratory infections of unspecified site documented in this encounter [facility] note* Diagnosis Nausea and vomiting, unspecified vomiting type- Primary Generalized abdominal pain Abdominal pain, generalized Hematemesis, unspecified whether nausea present Intermittent diarrhea documented in this encounter [facility] note* Diagnosis Nausea and vomiting, unspecified vomiting type- Primary Generalized abdominal pain Abdominal pain, generalized Hematemesis, unspecified whether nausea present Intermittent diarrhea documented in this encounter [facility] note* Diagnosis URI, acute- Primary Acute upper respiratory infections of unspecified site documented in this encounter [facility] note* Diagnosis Nausea and vomiting Nausea with vomiting Generalized abdominal pain Abdominal pain, generalized Hematemesis, unspecified whether nausea present Intermittent diarrhea documented in this encounter [facility] note* Diagnosis H. pylori infection Helicobacter pylori (H. pylori) Generalized abdominal pain Abdominal pain, generalized Nausea and vomiting Nausea with vomiting documented in this encounter [facility] note* Diagnosis Helicobacter heilmannii gastritis- Primary documented in this encounter [facility] Discharge instructions No data available for this section [facility] Discharge instructions* Attachments The following attachments cannot be sent through Care Everywhere. * Moderate Sedation in Adults Discharge Instructions (Malawian) * Upper GI Endoscopy Discharge Instructions (Malawian) documented in this [facility] Discharge instructions* Attachments The following attachments cannot be sent through Care Everywhere. * Moderate and Deep Sedation in Adults (Malawian) documented in this [facility] Discharge instructions* Attachments The following attachments cannot be sent through Care Everywhere. * Upper GI Endoscopy Discharge Instructions (Malawian) * Moderate Sedation in Adults Discharge Instructions (Malawian) [facility] No data available for this section [facility] Reason for referral (narrative)* Diagnostic Procedure Only (Routine) - New Request Specialty Diagnoses / Procedures Referred By Keaton lao Referred To Contact [facility] Diagnoses Endometrial polyp Cyst of ovary, unspecified laterality Pelvic pain in female Procedures SONOHYSTEROGRAPHY (SIS) US WHI SALINE INFUS SONOHYSTEROGRAPHY W/COLOR DOPPLER Hong Farris MD [address] [place] [address] [facility] [address] [place] [address] Referral ID Status Reason Start Date Expiration Date Visits Requested Visits Authorized [id number] New Request Auto-Generat ed Referral 4 05/15/2025 1 1 [facility] for visit Narrative* Auth/Cert (Routine) Specialty Diagnoses / Procedures Referred By Keaton lao Referred To Contact Diagnoses Nausea and vomiting Generalized abdominal pain Hematemesis, unspecified whether nausea present Intermittent diarrhea Procedures [place] ESOPHAGOGASTRODUODENOSCOPY TRANSORAL DIAGNOSTIC ESOPHAGOGASTRODUODENOSCOPY, DIAGNOSTIC Alvarado Morgan MD [address] [place] [address] [place] [address] Phone: tel: fax: [facility] Endoscopy [address] [place] [address] Phone: tel: Referral ID Status Reason Start Date Expiration Date Visits Re quested Visits Authorized 1 1 [facility] Narrative* Auth/Cert (Routine) Specialty Diagnoses / Procedures Referred By Contac t Referred To Contact Diagnoses H. pylori infection Generalized abdominal pain Nausea and vomiting Procedures TN EGD TRANSORAL BIOPSY SINGLE/MULTIPLE ESOPHAGOGASTRODUODENOSCOPY WITH BIOPSY Alvarado Morgan MD [address] [place] [address] Phone: tel: fax: [facility] Endoscopy [address] [place] [address] Phone: tel: Referral ID Status Reason Start Date Expiration Date Visits Re quested Visits Authorized [id number] 1 1 [facility] Narrative* Auth/Cert (Routine) Specialty Diagnoses / Procedures Referred By Contac t Referred To Contact Diagnoses Disease of stomach and duodenum, unspecified Procedures [place] EGD INTRMURAL US NEEDLE ASPIRATE/BIOPSY ESOPHAGS ESOPHAGOGASTRODUODENOSCOPY, WITH ULTRASOUND GUIDED ASPIRATION OR BIOPSY Adrian Valero MD [address] [facility] [address] [place] [address] Phone: tel: Referral ID Status Reason Start Date Expiration Date Visits Re quested Visits Authorized 02/06/2025 1 1 [facility] Summary Purpose Family History No Family History [...] DATE CREATED AUTHOR AUTHOR'S ORGANIZ ATION 12/12/2017 [facility] DATE CREATED AUTHOR AUTHOR'S ORGANIZ ATION 12/13/2017 [facility] DATE CREATED AUTHOR AUTHOR'S ORGANIZ ATION 12/22/2017 [facility] DATE CREATED AUTHOR AUTHOR'S ORGANIZ ATION 08/13/2021 [facility] DATE CREATED AUTHOR AUTHOR'S ORGANIZ ATION 12/14/2022 [facility] ([place]) DATE CREATED AUTHOR AUTHOR'S ORGANIZ ATION 08/16/2024 [facility] DATE CREATED AUTHOR AUTHOR'S ORGANIZ ATION 09/28/2024 [facility] DATE CREATED AUTHOR AUTHOR'S ORGANIZ ATION 03/02/2025 [facility] Care Team (unrecognized sect ion and content) Care Team Personnel Name: AMAURI HINES DO Position: P4 Physician - Primary Care Member Role: Primary Care Physician Address: Address: [address] [place] [id number] [place] [address] Name: CORTNEY GREGORIO DO Position: ED Physician Member Role: Attending Physician Address: Address: [address] [place], [place] [address], [place] [address] Care Team Related Persons Name: GENTRY DE Address: Home [address] [place], [place] [id number] Address: Temporary [address] [place], [place] [id number] Name: NAUN DE Address: Home [address] [place], [place] [id number] Care Team Personnel Name: AMAURI HINES DO Position: P4 Physician - Primary Care Member Role: Primary Care Physician Address: Address: [address] [place] [id number] [place] [address] Name: LINDSAY ALEMAN MD Position: ED Physician Member Role: ED Physician Address: Address: [address] [place], [place] [address] Care Team Related Persons Name: GENTRY DE Address: Home [address] [place], [place] [id number] Address: Temporary [address] [place], [place] [id number] Name: NAUN DE Address: Home [address] [place], [place] [id number] Patient Care team informatio n (unrecognized section and content) Print Shop Manager Relationship Specialty Start Date End Date (Historical), Unknown PCP - General 07/03/17 Print Shop Manager Relationship Specialty Start Date End Date (Historical), Unknown PCP - General 07/03/17 Print Shop Manager Relationship Specialty Start Date End Date Amauri Hines DO [address] [place] [phone] PCP - General Family Medicine 08/14/24 Print Shop Manager Relationship Specialty Start Date End Date Amauir Hines DO [address] [place] [phone] PCP - General Family Medicine 08/14/24 Reason [...] pain Hematemesis, unspecified whether nausea present Procedures [place] OFFICE/OUTPATIENT [facility] 60 MINUTES Mary Kay Arndt, GATE PERSON - TEACHER ASST [address] [place] [address] Phone: tel: fax: [facility] Gastroenterology [facility] [address] [place] [address] Phone: tel: fax: Referral ID Status Reason Start Date Expiration Date V isits Requested Visits Authorized [id number] Closed Specialty Services Required 04/14/2024 04/14/2025 1 [...] or prosecute any alcohol or drug abuse patient.[facility] HospitalIn the event this information is protected by the Federal Confidentiality of Alcohol and Drug Abuse Patient Records regulations: The Federal rules restrict any use of the information to criminally investigate or prosecute any alcohol or drug abuse patient.[facility] HospitalIn the event this information is protected by the Federal Confidentiality of Alcohol and Drug Abuse Patient Records regulations: The Federal rules restrict any use of the information to criminally investigate or prosecute any alcohol or drug abuse patient.[facility] HospitalIn the event this information is protected by the Federal Confidentiality of Alcohol and Drug Abuse Patient Records regulations: The Federal rules restrict any use of the information to criminally investigate or prosecute any alcohol or drug abuse patient.[facility] FOR RECORDS PERTAINING TO PATIENTS WHO ARE [...] BE BASED ON THE PRIMARY CLINICAL RECORDS. [facility]. provides no warranty or guarantee of the accuracy or completeness of information in this document.
== END 2025-06-07 20:30 | disposition left against medical advice (07) ==
LOC: ED 21:03
PROVIDERS: PCP Student in an Organized Health Care Education/Training Program
DX: Z53.21 Procedure and treatment not carried out due to patient leaving prior to being seen by health care provider (principal)